=== PATIENT | female | born 1955 | race Caucasian/White ===

== ENCOUNTER 2017-03-15 14:25 | Day surgery (SDC) | payer BC ==
[~2017-03-15] VITALS: Ht 167.6 cm; Wt 72.6 kg
--- NOTE | 2017-03-15 16:16 | NUR ---
03/15/17 1616 Zeny Samayoa 1610-PATIENT ARRIVED TO PACU ON 3L NC O2 SAT 100% PATIENT REACTIVE TO VOICE OPENS EYES DENIES PAIN OR NAUSEA. PATIENT FEELS "SLIME IN BACK OF THROAT" SUCTIONED CLEAR PHLEGM.
--- NOTE | 2017-03-16 09:44 | OR ---
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 POSTOPERATIVE DIAGNOSIS: Firm, bulky neoplasm at 30 cm, unable to pass the scope beyond. PROCEDURE: Esophagoscopy with biopsy. ANESTHESIA: Intravenous sedation, fentanyl 100 mcg, Versed 4 mg. INDICATION: This 61-year-old white woman is a patient of Dr. Norm Oneal and Dr. Nelsy Menchaca. She presented to Dr. Oneal with progressive dysphagia, located in the midsternum. Dr. Oneal had her undergo an upper GI, which occurred in the past few days, confirming a very long narrow neoplastic process of the mid to distal esophagus. A CT scan was performed concurrently confirming a neoplasm of the esophagus directly behind the level of the left atrium. She had no evidence of regional or distant metastatic disease. It is notable she has no risk factors for esophageal carcinoma, specifically no ongoing gastroesophageal reflux symptoms, no smoking and no alcohol use. She has no family history of esophageal cancer either. She is admitted at this time to undergo upper endoscopy to better characterize the problem and in particular to see if the lesion can be passed with the scope to allow for PEG tube. It is notable that she has lost 10 pounds in the past 2 weeks related to essentially no solid food intake. She has been advised already and has been doing liquid nutritional supplements. FINDINGS: Indeed, there was a firm neoplasm concentrically noted in the esophagus at 30 cm from the incisors. Multiple biopsies were obtained of the lesion. The scope certainly could not pass through it. A dilation was inadvisable and not performed. DESCRIPTION OF PROCEDURE: The patient was brought to the endoscopy suite, given topical Hurricaine spray, hypopharyngeal anesthesia. A bite block was placed and in the lateral decubitus position, intravenous sedation administered with full cardiopulmonary monitoring. Olympus video upper endoscope was passed in the hypopharynx. The vocal cords appeared normal. Scope was advanced into the proximal esophagus. The scope was passed down to approximately 30 cm, where a firm, somewhat irregular mass with some submucosal yellow Electronically Signed By: KINA MANE MD 03/16/17 0944 PATIENT NAME: LAISHA THOMPSON OPERATIVE REPORT DATE OF : 55 PHYSICIAN: KINA MANE MD REPORT #: [id number] REPORT IS CONFIDENTIAL AND NOT TO BE RELEASED WITHOUT AUTHORIZATION [facility] [address], [place] [address] Signed nodular changes was noted. Despite various maneuvers, the upper endoscope could not be manipulated beyond this area. Using biopsy forceps, biopsies were obtained of the lesion both below the level of the entry point into the esophagus at origin of the mass itself. Good specimens were obtained. The scope was then withdrawn and remaining more proximal esophagus appeared normal. CONCLUSION DIAGNOSIS: Esophageal neoplasm, most consistent with carcinoma. This despite a personal history showing very unlikely risk factors. PLAN: A staging PET scan may be appropriate. She may require a gastrostomy feeding tube to support her nutritional health while plans might be made for chemoradiation therapy anticipating definitive resection. For now, we will try to obtain the PET scan in a timely way and organize for appropriate consultation. Kina Mane MD JM/MODL /[id number] cc: MD Norm Rai MD Patricia J Winn, MD Electronically Signed By: KINA MANE MD 03/16/17 0944 PATIENT NAME: LAISHA THOMPSON OPERATIVE REPORT DATE OF : 55 PHYSICIAN: KINA MANE MD REPORT #: [id number] REPORT IS CONFIDENTIAL AND NOT TO BE RELEASED WITHOUT AUTHORIZATION
[2017-03-26] MEDS ORDERED: NORCO 7.5-3251 EACH PO (07:15)
[2017-03-26] MEDS ORDERED: MAPAP325 MG PO (09:48)
== END 2017-03-15 17:20 | disposition home or self-care (01) ==
LOC: DS 14:25
PROVIDERS: Surgery
PROC: 0DB58ZX Excision of Esophagus, Via Natural or Artificial Opening Endoscopic, Diagnostic (ICD-10-PCS; principal; 2017-03-15 15:45)
DX: C15.9 Malignant neoplasm of esophagus, unspecified (principal); K22.2 Esophageal obstruction; J45.909 Unspecified asthma, uncomplicated; Z90.49 Acquired absence of other specified parts of digestive tract; Z90.710 Acquired absence of both cervix and uterus; Z98.890 Other specified postprocedural states
CPT/HCPCS: 99152; 99153; J2250; J2405; J3010; J7120

== ENCOUNTER 2017-03-23 10:57 | Day surgery (SDC) | payer BC ==
[~2017-03-23] VITALS: Ht 167.6 cm; Wt 68.0 kg
--- NOTE | 2017-03-23 15:24 | NUR ---
03/23/17 1524 Opal Galeana 1430 RESP EVEN AND UNLABORED. 1434 PT CRYING AND MOANING, REPORTS NAUSEA AND PAIN. UNABLE TO RATE. MEDICATION GIVEN PER EMAR. 1443 NO CHANGE IN PT CRYING AND MOANING, PAIN MEDICAITON GIVEN PER EMAR. REPORTS NO NAUSEA. 1449 NO CHANGE IN PT CRYING AND MOANING, MEDICATION GIVEN PER EMAR. 1451 NO CHANGE IN PT CRYING AND MOANING, MEDICAITON GIVEN PER EMAR. 1453 PT RESP DECREASED, O2 MASK APPLIED AT 15L, AIRWAY HELD. 1455 PT MAINTAINING AIRWAY AND RESTING, 02 MASK AT 10L, O2 SAT 100% 1506 O2 SAT 100%, O2 DECREASED TO 8L. PT RESTING, WITH NO MAONING OR CRYING. VSS. PROGRESS REPORT GIVEN STOCKROOM CLERK AND MD. 1523 O2 DECREASED 6L VIA MASK.
--- NOTE | 2017-03-23 16:05 | NUR ---
RECIEVED A CALL FROM DR MANE TO SET UP TUBE FEEDINGS VIA PUMP FOR THIS PT WITH HER DX SHE IS GOING TO BE 100% DEPENDENT ON THE TUBE. HE WANTED EITHER ENSURE OR JEVITY TO BEGIN AT 60 ML/HOUR TO GRADUALLY INCREASE TO 150ML/HR IF TOLERATED. I CALLED AND TALKED WITH ENGINEERING TECHNICIAN PARKING DEANNA AND SHE RECOMMENDED THE JEVITY 1.2. I FAXED FACESHEET, ORDER, H AND P, AND PROG NOTE TO OPTIONS FOR THE FEEDINGS AND PUMP ETC. I TALKED TO LINDSAY FROM [facility]. ALSO ORDERS TO HOME [facility]ALTH FOR CARE/ INSTRUCTIONS OF J TUBE AND ADJUSTMENTS TO FLOW RATE. ALSO MED MANAGEMENT AND EDUCATION REGARDING RECENT DX.
--- NOTE | 2017-03-23 18:00 | NUR ---
PT TO ROOM 109, BEDSIDE REPORT, PATIENT VERY SEDATE RR 8 BPM, EASILY AROUSED TO VOICE. PT REPORTS PAIN BUT FALLS TO SLEEP WHEN NOT ENGAGED IN CONVERSATION.
--- NOTE | 2017-03-23 18:09 | NUR ---
1610: PATIENT BACK IN DAY SURGERY ROOM FROM PACU. PATIENT DROWSY, BUT EASILY AWAKENS TO VOICE. WHEN AWAKE PATIENT MOANING AND CRYING IN PAIN. RATES PAIN "50/10". MEDICATED FOR PAIN WITH LORTAB ELIXIR. LORTAB ELIXIR GIVEN THROUGH J TUBE. J TUBE THEN FLUSHED WITH 60 ML PLAIN WATER. MIDLINE ABDOMEN DRESSING CDI. LEFT LATERAL ABDOMEN DRESSING WITH SMALL AMOUNT OF RED DRAINAGE. RIGHT HAND IV WNL. SCDs ON. AT BEDSIDE. CALL LIGHT WITHIN REACH. 1650: PATIENT'S SATS DROPING DOWN TO 80s, O2 VIA NC AT 2 L/MIN PLACED ON PATIENT. PATIENT FREQUENTLY DROWSY, BUT AWAKENS TO VOICE. ENCOURAGE TO TAKE DEEP BREATHS. RN AT BEDSIDE CONTINUOUSLY TO MONITOR. 1710: PATIENT AWAKENED INTERMITTENTLY TO TAKE DEEP BREATHS. CONTINUES TO BE FREQUENTLY DROWSY. AT BEDSIDE. CALL LIGHT WITHIN REACH. 1730: PATIENT SLEEPING. AWAKENS TO VOICE. MAINTAINING SATS 92-96%. NOT REQUIRING INTERVENTION TO KEEP O2 SATS UP. TRANSFERRING PATIENT TO M/S ROOM. 1800: PATIENT TRANSFERRED TO ROOM 109. REPORT GIVEN TO M/S RN.
--- NOTE | 2017-03-23 18:20 | NUR ---
LE 1700: PATIENT C/O DRY MOUTH. GIVEN 1 ICE CHIP AT A TIME TO MOISTEN MOUTH. PATIENT TOLERATED THIS WELL.
--- NOTE | 2017-03-23 20:55 | NUR ---
PT ASSESSMENT COMPLETE. PT RATING PAIN 4/10 WHILE LYING STILL IN BED. PT DROWSY, WAKES TO NAME. RR 11. PT AGREES THAT 4/10 IS A TOLERABLE LEVEL RLL WITH CRACKLES UPON AUSCLTATION, ALL OTHER LUNG CHANG CLEAR TO AUSCULTATION. MEPILEX AND OPSITE TO MIDLINE C/D/I, OPSITE AND MEPILEX TO LUQ AT TUBE SITE WITH SMALL AMOUNT OF SANGUIEOUS SHADOWING. JEVITY TUBE FEEDING SET UP AT 25ML/HR PER ORDER. EDUCATION PROVIDED THROUGHOUT SETUP. PT DROWSY DURING EDUCATION, AGREES THAT SHE WILL NEED A FEW MORE TIMES TO LEARN. PT DENIES QUESTIONS AT THIS TIME REGARDING FEEDING SET UP. PT REQUESTS TO GET UP AND USE BATHROOM. PT ABLE TO AMBULATE WITH 1 PA TO BATHROOM, VOIDED WELL. PT RATES PAIN 7/10 TO ABD UPON RETURNING TO BED, RR 14. PT STATES "IT [place]". PT EDUCATED REGARDING MORPHINE IN HOME AIDE, ABLE TO PUSH BUTTON INDEPENDENTLY. NEW ICE PACK PROVIDED. PT STATES MORPHINE HELPING, RATES PAIN 4/10 PRIOR TO CONSTRUCTION REPRESENTATIVE LEAVING ROOM. PT DENIES OTHER NEEDS. ORIENTED PT TO CALL LIGHT SYSTEM, UNDERSTANDING STATED. CALL LIGHT IN PT'S LAP.
--- NOTE | 2017-03-23 22:45 | NUR ---
PT RESTING IN BED WITH EYES CLOSED. RESPIRATIONS EVEN AND UNLABORED, 12. SAO2 97%. PT APPEARS TO BE SLEEPING. CALL LIGHT WITHIN REACH.
--- NOTE | 2017-03-23 23:50 | NUR ---
KANGAROO PUMP STOPPED D/T NPO STATUS. TUBE FLUSHED WITH 60 ML OF TAP WATER. EDUCATION PROVIDED TO PT REGARDING FLUSHING TUBE. PT DENIES QUESTIONS REGARDING EDUCATION. PT STATES THAT PAIN IS WELL CONTROLLED, DENIES PAIN WHILE LAYING IN BED. PT ASSISTED TO BATHROOM WITH SBA. PT REPORTS PAIN INCREASES TO 6-7/10 WHILE UP AMBULATING, USING ABD MUSCLES. PT DESCRIBES BURNING PAIN. PT ASSISTED BACK TO BED, NEW ICE PACK PROVIDED. PT ALBE TO INDEPENDENTLY PUSH CERTIFIED RESPIRATORY THERAPIST BUTTON. PT ASSESSMENT COMPLETE. DENIES FURTHER NEEDS AT THIS TIME.
--- NOTE | 2017-03-24 01:52 | NUR ---
NURSE NOTIFIED RE BP.
--- NOTE | 2017-03-24 02:15 | NUR ---
PT RESTING WITH EYES CLOSED. RESPIRATIONS EVEN AND UNLABORED. RR 12, SAO2 98%. PT DOES NOT WAKE WHILE SENIOR SCIENCE CONSULTANT IN ROOM. CALL LIGHT PRESENT IN PT'S LAP.
--- NOTE | 2017-03-24 04:50 | NUR ---
PT ASSESSMENT COMPLETE. PT LYING IN BED WITH EYES OPEN WHEN AUTOMATION AND CONTROLS MANAGER ENTERS THE ROOM. PT AGREES THAT SHE IS BEGINNING TO FEEL LESS DROWSY. DRESSING TO MIDLINE C/I WITH SMALL AMOUNT OF SANGUINEOUS DRAINAGE PRESENT. DRESSING TO LUQ C/I WITH SMALL AMOUNT OF OMID DRAINAGE PRESENT, UNCHANGED FROM PRIOR ASSESSMENT. J-TUBE FLUSHED WITH 60 ML OF TAP WATER. AUTOMATION AND CONTROLS MANAGER TALKED PT THROUGH PROCEDURE WHILE DEMONSTRATING. PT DENIES QUESTIONS. STATES "THIS IS GOING TO BE A LOT". PT DENIES PAIN WHILE LAYING IN BED, A&OX4, CARRYING ON APPROPRIATE CONVERSATION. PT ASSISTED TO BATHROOM WITH SBA, PT STEADY ON HER FEET. PT RATES PAIN 6-7 AFTER GETTING BACK TO BED. REPORTS INCREASED PAIN WITH MOVEMENT. PT USES OCCUPATIONAL THERAPIST'S ASSISTANT BUTTON APPROPRIATELY. PT EXPRESSES CONCERNS REGARDING PET SCAN TODAY, AND HOW MUCH MOVEMENT IT WILL REQUIRE. PT REASSURED. PT ALSO EXPRESSES CONCERNS REGARDING OUTCOME OF PET SCAN, DENIES NEED FOR PASTORAL CARE VISIT.
--- NOTE | 2017-03-24 05:18 | NUR ---
PT RESTED WELL THIS SHIFT. CONTINUOUS PULSE OX IN PLACE, PT TOLERATING RA. DRESSINGS X 2 TO ABD WITH SM DRAINAGE TO EACH. J-TUBE FLUSHED Q 6 WITHOUT RESISTANCE. PROVIDE EDUCATION WHILE PERFORMING FLUSH. PT NPO FOR PET SCAN AT 1230, JEVITY @ 25 ML/HR VIA J-TUBE WHEN PT NOT NPO. CLEAR LIQ DIET. PAIN WELL CONTROLLED WITH MORPHINE LEAK INSPECTOR. PAIN INCREASES WITH MOVEMENT. NO REPORTS OF NAUSEA THIS SHIFT. [id number]. SBA.
--- NOTE | 2017-03-24 07:30 | NUR ---
pt resting in bed with eyes closed at this time. white board updated.
--- NOTE | 2017-03-24 07:38 | NUR ---
BEDSIDE REPORT.. PT RESTING IN BED, EYES CLOSED RR EVEN AT 12 BPM NO DISTRESS NOTED. PT APPEARS TO BE SLEEPING COMFORTABLLY
--- NOTE | 2017-03-24 08:36 | NUR ---
pt up to bathroom at this time. toelrating activity well. lortab given per feeding tube pt education and instruction given pt very receptive and asks questions.
--- NOTE | 2017-03-24 08:54 | OR ---
[facility] [address] [place], [place] [address] Signed DATE OF OPERATION: 03/23/2017 SURGEON: Kina Mane MD PREOPERATIVE DIAGNOSIS: Esophageal obstruction secondary to carcinoma and weight loss. POSTOPERATIVE DIAGNOSIS: Esophageal obstruction secondary to carcinoma and weight loss. PROCEDURE: Open feeding jejunostomy (14 red rubber Witzel tunnel technique). ANESTHESIA: General endotracheal (Isabella Pérez CRNA) and local 20 mL of 0.25% Marcaine with epinephrine. INDICATION: This 61-year-old white woman has had progressive dysphagia. She presented to Dr. Norm Oneal, cover seamer, who recognized the high probability of esophageal carcinoma and an upper GI was performed. This was interpreted by Dr. Laisha Salcido and showed a large nearly obstructing mass of the mid esophagus in the retrocardiac area. A CT scan was subsequently immediately performed showing no evidence of metastatic disease, but a bulky tumor in the mid esophagus. Upper endoscopy was performed by me last week, which confirmed near obstruction. The scope certainly could not pass through the obstructing lesion. She has been handling some liquids, but has had a nearly 20-pound weight loss over the past several weeks related to this. I have conferred with Dr. Gold Cannon at [facility] for further consideration of possible esophageal resection. A feeding tube is indicated at this time. It is preferable that a jejunal tube to be placed despite the cumbersome nature of its use with pump and so forth in lieu of a gastrostomy tube so as to not damage the stomach, which would likely be used in a pull-up procedure at definitive esophageal resection. The risks of bleeding, infection, and so forth were reviewed with her and her , they understand and wished to proceed. FINDINGS: There is no sign of ascites or carcinomatosis. The jejunum was easily identified. The tube was placed approximately 20 cm distal to the ligament of Treitz. A Witzel tunnel technique was used. Good function of catheter was noted. DESCRIPTION OF PROCEDURE: The patient was brought to the operating room and given a general endotracheal anesthetic. Preoperative antibiotic Ancef was given. Sequential compression device stockings used and heparin subcutaneously administered. The abdomen was prepared with a Electronically Signed By: KINA MANE MD 03/24/17 0854 PATIENT NAME: LAISHA THOMPSON OPERATIVE REPORT DATE OF : 55 PHYSICIAN: KINA MANE MD REPORT #: [id number] REPORT IS CONFIDENTIAL AND NOT TO BE RELEASED WITHOUT AUTHORIZATION [facility] [address] [place], [place] [address] Signed chlorhexidine solution and draped sterilely. A small mid epigastric incision was made. The abdomen was entered without problem. She had more abdominal fat than I had expected including properitoneal fat. Nevertheless, the abdomen was entered without problem. Internal inspection showed no sign of ascites or carcinomatosis. The transverse colon was immediately beneath the incision, was easily moved out of the way. Small bowel was gently examined and the small bowel run more proximally, ultimately identifying the proximal jejunum. Approximately 20 cm or so from the ligament of Treitz, the small bowel loop was pulled into the abdomen. Kierra clamps were gently applied to secure the loop of bowel anticipated for feeding jejunostomy. A pursestring suture of 3-0 silk suture was made and using hemostat electrocautery, the serosa and mucosa of the antimesenteric portion of the segment of bowel was opened. A 14 red rubber catheter with the tip cut off and additional hose cut in it. It was gently threaded downstream into the jejunum, which easily passed. The pursestring suture was secured. Interrupted 3-0 silk suture was used to provide a Witzel tunnel. In the lateral left abdomen, a small transverse incision was made and a tonsil clamp passed to the abdominal wall allowing for delivery of the feeding tube. This gently directed to the left abdominal wall and secured to the peritoneal layer with interrupted 3-0 silk sutures. Flushing of the catheter showed good patency and no evidence of leakage. A few centimeters of small bowel was attached to the abdominal wall so as to avoid torsion on the area. A cap was applied to it. Plans were made for closure. The midline fascia was reapproximated with running 0 PDS suture. Subcutaneous tissue was irrigated and skin was closed with running subcuticular 3-0 Vicryl. Steri-Strips were applied as was a Mepilex silver sponge dressing to both the incision and the feeding tube site. The patient was ultimately extubated and transferred to recovery room in good condition having suffered no complications. Sponge, needle, and instruments counts reported as correct x3. There was minimal if any blood loss. MD TIN Garcia/YUVALL /[id number] Electronically Signed By: KINA MANE MD 03/24/17 0854 PATIENT NAME: LAISHA THOMPSON OPERATIVE REPORT DATE OF : 55 PHYSICIAN: KINA MANE MD REPORT #: [id number] REPORT IS CONFIDENTIAL AND NOT TO BE RELEASED WITHOUT AUTHORIZATION [facility] [address] [place] [place] [address] Signed cc: MD Nelsy Solitario MD Cynthia Sue Holmes, MD Dr. Donald [place], [place] Electronically Signed By: KINA MANE MD 03/24/17 0854 PATIENT NAME: LAISHA THOMPSON OPERATIVE REPORT DATE OF : 55 PHYSICIAN: KINA MANE MD REPORT #: [id number] REPORT IS CONFIDENTIAL AND NOT TO BE RELEASED WITHOUT AUTHORIZATION
--- NOTE | 2017-03-24 09:15 | NUR ---
FAXED ADDITIONAL CHART NOTES TO [facility] AND TO [facility]. TALKED WITH AVELINO FLOWERS FROM [facility] AND CALLED TO SPEAK WITH LINDSAY FROM [facility] AND SHE SAID SHE WOULD WATCH FOR FAX
--- NOTE | 2017-03-24 09:53 | NUR ---
PT RESTING IN BED REPORTS PAIN IS WELL MANAGED AT THIS TIME. NO DISTRESS NOTED
--- NOTE | 2017-03-24 10:05 | NUR ---
pt up to the restroom at this time. vitals taken. pt given toothbrush and washcloth to do AM care. pt is refusing a shower because she is discharging and wants to take one at home. no other requests at this time.
--- NOTE | 2017-03-24 11:44 | NUR ---
CALLED PT OFF UNIT TO PET SCAN, OK WITH PT DISCHARGING AFTER PET SCAN, ALSO OK TO PLACE PLASTIC CLAMP TO FEEDING TUBE.
--- NOTE | 2017-03-24 12:31 | NUR ---
PATIENT USED FEEDING TO TO GIVE HERSELF HER PAIN MEDICATION AND FLUSH AFTER WITH RN SUPERVISION SPOUSE AT BEDSIDE WELL. ALL PERFORMED WELL.
--- NOTE | 2017-03-24 13:00 | NUR ---
PT BACK TO PET SCAN AT THIS TIME, STAFF AT PET SCAN TO COME BACK FOR HER AT 1420.
--- NOTE | 2017-03-24 14:39 | NUR ---
PT BACK TO ROOM 109 FROM PET SCAN
--- NOTE | 2017-03-24 15:11 | NUR ---
DISCHARGE PACKET AND EDUCATION GIVEN TO PATIENT AND SPOUSE. MARIJA PHARMACIST IN ROOM TO DISCUSS LORTAB RX. RN DISCUSSED LAST DOSE NEXT DOSE. FEEDING TUBE INSTRUCTIONS GIVEN. NO FURTHER QUESTIONS, PATIENT VERBALIZED UNDERSTANDING WELL SPOUSE
--- NOTE | 2017-03-24 16:32 | NUR ---
patient's morphine bacteriologist food dc'd at this time with Sarahi Chen patient had used 8mls and we wasted 22mls. Laurie in Pharmacy notified.
[2017-03-26] MEDS ORDERED: NORCO 7.5-3251 EACH PO (07:15)
[2017-03-26] MEDS ORDERED: MAPAP325 MG PO (09:48)
== END 2017-03-24 15:07 | disposition home or self-care (01) ==
LOC: DS 10:57 → MS 17:31 → DS 03-24 15:07
PROVIDERS: Surgery
PROC: 0D9A00Z Drainage of Jejunum with Drainage Device, Open Approach (ICD-10-PCS; principal; 2017-03-23 13:45)
DX: K22.2 Esophageal obstruction (principal); J45.909 Unspecified asthma, uncomplicated; Z88.8 Allergy status to other drugs, medicaments and biological substances; Z90.49 Acquired absence of other specified parts of digestive tract; Z90.710 Acquired absence of both cervix and uterus; Z85.01 Personal history of malignant neoplasm of esophagus; Z98.890 Other specified postprocedural states
CPT/HCPCS: 00790; J0330; J0690; J1100; J1644; J2250; J2270; J2405; J2550; J2704; J3010; J7120

== ENCOUNTER 2017-05-06 09:00 | Day surgery (SDC) | payer BC ==
[~2017-05-06] VITALS: Ht 167.6 cm; Wt 62.1 kg
[~2017-05-06 09:00] MED LIST: MAPAP325 MG PO; NORCO 7.5-3251 EACH PO
[2017-05-06] MEDS ORDERED: ZOFRAN8 MG PT (09:30)
[2017-05-06] MEDS ORDERED: AMOXICILLI250 MG/5 M PT (09:32)
[2017-05-06] MEDS ORDERED: DEXAMETHAS0.5 MG/5 M PT (09:32)
[2017-05-06] MEDS ORDERED: LORAZEPAM1 MG PT (09:34)
[2017-05-06] MEDS ORDERED: HYCET 7.5 MG-3473 ML PO (11:50)
--- NOTE | 2017-05-06 12:08 | NUR ---
05/06/17 1208 Opal Galeana 1138 RESP EVEN AND UNLABRED. PT ON OXYMASK. 1142 PT AWAKE AND O2 SAT 100%, O2 REMOVED.
--- NOTE | 2017-05-08 14:55 | CONS ---
[facility] [address] [place], [place] [address] Signed DATE OF CONSULTATION: 05/06/2017 PROBLEM: Nonfunction of left subclavian Port-A-Cath device. 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 A few weeks ago, she underwent left subclavian Port-A-Cath placement by me. Additionally, she has had placement of a jejunal feeding tube. She is under the care of Dr. Mccarthy and getting chemotherapy and radiation therapy, anticipating definitive resection in a number of weeks. She has been getting her chemotherapy at [facility], so it could be coordinated with concurrent radiation therapy. My office was called yesterday noting that they have not been able to access the port device. She had really no problem in placement of the device originally and the device is a Bard port type catheter with a Groshong tip. Imaging studies have been unrevealing as to the source of inability to access the device. I asked her to come to the hospital today to anticipate exploration of the wound and remedy of the problem whatever it has caused. PHYSICAL EXAMINATION: GENERAL: She is accompanied by her daughter and her . She looks alert and well. HEENT: Trachea is midline. CHEST: Shows normal respiratory excursion without tachypnea. She is slightly thinner than she was before, but still appears healthy. Examination of the port device in the left pectoral area shows it is easily palpable. I could not tell if it is really a flipped or otherwise malposition to allow for access. ABDOMEN: Soft and nontender. The feeding jejunostomy emanated from the left side and appears to be in good shape. EXTREMITIES: Show no clubbing, cyanosis, or edema. DIAGNOSTIC STUDIES: Lab studies from May 05, 2017, (yesterday) at [facility] show a white count of 5.2, hematocrit of 43.6, and platelets of 218,000. Her electrolytes are normal. Creatinine 0.8, alkaline phosphatase is 61. ASSESSMENT AND PLAN: It is uncertain the cause of poor access to the device. It is certainly in good position otherwise. Most likely it has flipped and that is uncertain at this point. I recommended exploration of the wound, remedy of the problem, even if it may require explantation of the device and re-implantation of a new device. The risks of bleeding, infection, embolization of the catheter, and other unforeseen complications were reviewed in detail. She understands. Electronically Signed By: KINA MANE MD 05/08/17 1455 PATIENT NAME: LAISHA THOMPSON CONSULTATION DATE OF : 55 PHYSICIAN: KINA MANE MD REPORT #: [id number] REPORT IS CONFIDENTIAL AND NOT TO BE RELEASED WITHOUT AUTHORIZATION [address] [address] Signed MD TIN Garcia/RUPAL /[id number] cc: Isak Mccarthy MD Electronically Signed By: KINA MANE MD 05/08/17 1455 PATIENT NAME: DONNALAISHA KAREN CONSULTATION DATE OF : 55 PHYSICIAN: KINA MANE MD REPORT #: [id number] REPORT IS CONFIDENTIAL AND NOT TO BE RELEASED WITHOUT AUTHORIZATION
--- NOTE | 2017-05-08 14:55 | OR ---
[facility] [address], [place] [address] Signed DATE OF OPERATION: 05/06/2017 SURGEON: Kina Mane MD PREOPERATIVE DIAGNOSES: 1. Mid esophageal carcinoma with chemoradiation therapy. 2. Port-A-Cath unable to be accessed. POSTOPERATIVE DIAGNOSES: 1. Mid esophageal carcinoma with chemoradiation therapy. 2. Port-A-Cath unable to be accessed. 3. No evidence of malposition of port, slight angulation noted. PROCEDURES: 1. Port-A-Cath revision. 2. Access of Port-A-Cath. SURGEON: Kina Mane MD ANESTHESIA: Local with monitored anesthesia care. José Kwon CRNA. INDICATION: This 61-year-old white woman has a mid esophageal squamous cell carcinoma and has undergone placement of a feeding tube by me in the jejunum as well as placement of a left subclavian Port-A-Cath device. She was starting her chemotherapy this week as well as radiation therapy, but nurses at [facility] were unable to access the port device to allow for it to use. Peripheral chemotherapy was administered instead. I was advised of this yesterday and asked the patient to come to the hospital today. My evaluation in the preop area shows the port to be easily palpated in the left infraclavicular space. No sign of infection or other problem. Wound exploration and Port-A-Cath revision as necessary to allow for function of the catheter has been recommended. She may require replacement of the device altogether and remains to be seen. She and her understand the risks of bleeding, infection, and other unforeseen complications and wished to proceed. FINDINGS: The port was not flipped. It was well-secured to the pectoralis fascia and the contour of the pectoralis was such that it may have a slight angulation on it, but not much Electronically Signed By: KINA MANE MD 05/08/17 1455 PATIENT NAME: LAISHA THOMPSON OPERATIVE REPORT DATE OF : 55 PHYSICIAN: KINA MANE MD REPORT #: [id number] REPORT IS CONFIDENTIAL AND NOT TO BE RELEASED WITHOUT AUTHORIZATION [facility] [address], [place] [address] Signed really. Good function of the catheter is noted. There is no sign of thrombus, infection, or other problem. The catheter was left accessed with an angled Hurtado needle. Mindful that the port tips just slightly downward at the end or the catheter inserts to the vein and is not perfectly flat and even with the surface of the skin, but never the less easily accessible. DESCRIPTION OF PROCEDURE: The patient was brought to the operating room, placed in supine position. The upper torso prepared with a chlorhexidine solution and draped sterilely. Preoperative antibiotic Ancef was given. The arms were at the side. After sterile draping, 1% lidocaine was injected transversely in the previous incision. Dissection carried through the incision with sharp dissection down through the subcutaneous tissue. Further dissection through the tissues revealed the capsule for which the port device was well secured. The capsule was incised and interrogation of it showed the port device to be upright and in a good position. There may be slight angulation of the port tipped with the exit site (superior aspect) slightly down. The port device was accessed with an angled Hurtado needle and aspirated blood very easily. It flushed easily as well. The pocket was then secured with interrupted 2-0 Vicryl and percutaneous access of the port with an angled Hutrado needle was then undertaken. Of note, the puncture site was just inferior to the incision itself. The previous puncture sites from attempts at the catheter were far too inferior and lateral for adequate access. Good function of the catheter was noted with the percutaneous access as well. The port pocket was more fully closed with interrupted 2-0 Vicryl and the skin closed with running subcuticular 3-0 Vicryl. Steri-Strips were applied. The catheter was left accessed with the angled Hurtado needle, so as to provide a guide for the future access of the device from the nurses at [facility]. A Mepilex silver sponge dressing was applied as was an OpSite. The patient tolerated procedure well. Blood loss was minimal. MD TIN Garcia/MODL /[id number] cc: Isak Mccarthy MD Electronically Signed By: KINA MANE MD 05/08/17 1455 PATIENT NAME: LAISHA THOMPSON OPERATIVE REPORT DATE OF : 55 PHYSICIAN: KINA MANE MD REPORT #: [id number] REPORT IS CONFIDENTIAL AND NOT TO BE RELEASED WITHOUT AUTHORIZATION [address] [address] Signed [facility], Outpatient Oncology Nurses Electronically Signed By: KINA MANE MD 05/08/17 1455 PATIENT NAME: LAISHA THOMPSON OPERATIVE REPORT DATE OF : 55 PHYSICIAN: KINA MANE MD REPORT #: [id number] REPORT IS CONFIDENTIAL AND NOT TO BE RELEASED WITHOUT AUTHORIZATION
[2017-07-23] MEDS ORDERED: PROCHLORPERAZINE5 MG PO (13:11)
[2017-07-23] MEDS ORDERED: ACETAMINOP160 MG/51 PO (13:12)
[2017-07-23] MEDS ORDERED: ANTI-DIARR1 MG/7.5 M PO (13:13)
[2017-07-23] MEDS ORDERED: OXYCODONE HCL5 MG PO (13:14)
[2017-07-23] MEDS ORDERED: POLYETHYLENE G500 G2 MISC (13:15)
== END 2017-05-06 13:15 | disposition home or self-care (01) ==
LOC: DS 09:00 → OPS 09:00 → DS 10:15 → OPS 13:15
PROVIDERS: Surgery
PROC: 0JWT0XZ Revision of Tunneled Vascular Access Device in Trunk Subcutaneous Tissue and Fascia, Open Approach (ICD-10-PCS; principal; 2017-05-06 10:15)
DX: Z45.2 Encounter for adjustment and management of vascular access device (principal); J44.9 Chronic obstructive pulmonary disease, unspecified; Z90.49 Acquired absence of other specified parts of digestive tract; Z98.890 Other specified postprocedural states
CPT/HCPCS: 00532; 71045; J0690; J1644; J2405; J2704; J2765; J3010; J7120

== ENCOUNTER 2017-05-17 21:56 | Emergency (ER) | payer BC ==
[~2017-05-17] VITALS: Ht 167.6 cm; Wt 62.1 kg
[~2017-05-17 21:56] MED LIST changes: +AMOXICILLI250 MG/5 M PT; +DEXAMETHAS0.5 MG/5 M PT; +HYCET 7.5 MG-3473 ML PO; +LORAZEPAM1 MG PT; +ZOFRAN8 MG PT
[2017-05-17] MEDS ORDERED: TRAZODONE HCL50 MG PO (22:08)
[2017-05-17] MEDS ORDERED: PRILOSEC10 M1 PO (22:08)
[2017-07-23] MEDS ORDERED: PROCHLORPERAZINE5 MG PO (13:11)
[2017-07-23] MEDS ORDERED: ACETAMINOP160 MG/51 PO (13:12)
[2017-07-23] MEDS ORDERED: ANTI-DIARR1 MG/7.5 M PO (13:13)
[2017-07-23] MEDS ORDERED: OXYCODONE HCL5 MG PO (13:14)
[2017-07-23] MEDS ORDERED: POLYETHYLENE G500 G2 MISC (13:15)
== END 2017-05-17 23:05 | disposition home or self-care (01) ==
LOC: ED 21:56
DX: K94.13 Enterostomy malfunction (principal); Z85.01 Personal history of malignant neoplasm of esophagus
CPT/HCPCS: 74018; 99283

== ENCOUNTER 2018-08-04 06:00 | Day surgery (SDC) | payer BC ==
[~2018-08-04] VITALS: Ht 167.6 cm; Wt 61.2 kg
[~2018-08-04 06:00] MED LIST changes: +ACETAMINOP160 MG/51 PO; +ANTI-DIARR1 MG/7.5 M PO; +IBUPROFEN600 MG PO; +OXYCODONE HCL5 MG PO; +POLYETHYLENE G500 G2 MISC; +PRILOSEC10 M1 PO; +PROCHLORPERAZINE5 MG PO; +TRAZODONE HCL50 MG PO
[2018-08-04] MEDS ORDERED: LEVOTHYROXINE150 MCG PO (06:13)
--- NOTE | 2018-08-04 08:28 | NUR ---
08/04/18 0828 Carolin Garcia 0809 PT TO PACU SLEEPY BUT AROUSABLE DENIES PAIN OR NAUSEA O2 AT 2L NASAL CANNULA
--- NOTE | 2018-08-05 09:42 | OR ---
[facility] [address], [place] [address] Signed DATE OF OPERATION: 08/04/2018 SURGEON: Kina Mane MD PREOPERATIVE DIAGNOSES: 1. History of esophagectomy for midesophageal squamous cell carcinoma (esophagogastric anastomosis). 2. History of right thyroid lobectomy for a right papillary thyroid carcinoma. 3. Colon screening. POSTOPERATIVE DIAGNOSES: 1. Widely patent esophagogastric anastomosis. No evidence of recurrent neoplasm proximally or stricture of anastomosis. 2. Stomach normal with normal pylorus. 3. Normal-appearing colon except for diverticulosis. PROCEDURES PERFORMED: 1. Esophagogastroduodenoscopy with biopsy. 2. Total colonoscopy to cecum. ANESTHESIA: Intravenous sedation, propofol infusion; Isabella Pérez CRNA. INDICATION: This 62-year-old white woman has a complex past history including a mid esophageal squamous cell carcinoma having undergone neoadjuvant chemoradiation therapy and ultimately esophagectomy with an esophagogastric anastomosis by Dr. Gold Cannon at [facility] in [place]. She did suffer a left vocal cord palsy related to the operation. A temporary collagen injection was helpful, but her symptoms have recurred with hoarseness. She is getting along extremely well without any sign of dysphagia, and although her voice is altered, she is quite pleased and happy. She recently underwent right thyroid lobectomy by ak for a papillary carcinoma. There were no complications related to that operation. She is doing well. She has never had colonoscopy, and on that basis, she presents for screening colonoscopy at age 62. Additionally, surveillance upper endoscopy has been recommended to assess for recurrent neoplasm of the proximal esophagus and of course assessment of the anastomosis itself. The risks of bleeding, infection, and perforation related to colonoscopy and upper endoscopy have been reviewed with her. She understands and wished to proceed. FINDINGS: Electronically Signed By: KINA MANE MD 08/05/18 0942 PATIENT NAME: LAISHA THOMPSON OPERATIVE REPORT DATE OF : 55 REPORT #: [id number] PHYSICIAN: KINA MANE MD PCP: KINA MANE MD REPORT IS CONFIDENTIAL AND NOT TO BE RELEASED WITHOUT AUTHORIZATION [facility] [address], [place] [address] Signed On upper endoscopy, the vocal cords did have a dysmorphic appearance related to left cord palsy, but there was no airway obstruction or other abnormality and certainly no neoplasm. The esophagogastric anastomosis was widely patent showing no sign of abnormality in the proximal side or stricture at the anastomosis itself. The neoesophagus (stomach) appeared normal without sign of ulceration. There was no evidence of H pylori. Pylorus was widely patent. On colonoscopy, the prep was quite good. Complete colonoscopy was undertaken to the cecum. There were numerous diverticula of the sigmoid, but no signs of polyps, stricture, or other abnormality. She did have minimal hemorrhoidal change. DESCRIPTION OF PROCEDURE: The patient was brought to the endoscopy suite and placed in lateral decubitus position. Hypopharyngeal anesthesia was not administered on this occasion. A bite block was placed. Intravenous sedation was induced with propofol infusional technique with full cardiopulmonary monitoring. An Olympus video upper endoscope was passed in the hypopharynx and care was taken to examine fully the vocal cords. Despite a bit of gagging and coughing and so forth, photographs could be taken. There did appear to be a somewhat bowed appearance of the left cord, but good patency and apparently good function of the right cord. The scope was ultimately advanced into the proximal esophagus where the mucosa appeared entirely normal. The anastomosis was easily traversed with the scope entering quite promptly of course. The gastric remnant (misbah esophagus). This appeared quite normal overall. The pylorus was normal and scope was passed through into the duodenum. The duodenum was normal. Biopsies were obtained to assess for celiac disease. The scope was withdrawn and biopsies taken of the gastric conduit as well. Retroflexed view was undertaken as well showing the anastomosis to be without sign of stricture or abnormality. The scope was withdrawn to the proximal side of the anastomosis and biopsies were taken of the anastomosis and proximal esophagus. This measured out to be about 22 cm from the incisors. The scope was withdrawn and re-examination of vocal cords undertaken. Plans were then made for colonoscopy. Digital rectal examination was found to be normal. An Olympus video colonoscope was passed in the rectum and manipulated without problem ultimately to the cecum. Ileocecal valve and appendiceal orifice were normal. The scope was withdrawn from that point. Examination throughout showed no sign of abnormality into the sigmoid where numerous diverticula were once again seen. There was no sign of stricture, active inflammation, or other abnormality. Retroflexed view showed minimal internal hemorrhoidal change. The scope was removed and the patient was taken to recovery room in good condition. CONCLUDING DIAGNOSES: Electronically Signed By: KINA MANE MD 08/05/18 0942 PATIENT NAME: LAISHA THOMPSON OPERATIVE REPORT DATE OF : 55 REPORT #: [id number] PHYSICIAN: KINA MANE MD PCP: KINA MANE MD REPORT IS CONFIDENTIAL AND NOT TO BE RELEASED WITHOUT AUTHORIZATION [address] [address] Signed 1. No evidence of recurrent squamous cell carcinoma of proximal esophageal segment. Anastomosis is widely patent. 2. Known left vocal cord palsy, unchanged and clinically well tolerated currently. 3. Diverticulosis of colon. No evidence of polyps. PLAN: 1. Repeat colonoscopy in 5 to 10 years, sooner if clinically indicated. Consideration for repeat upper endoscopy in 1 to 2 years. 2. Further evaluation of vocal cord palsy will be undertaken at [facility] in the future. MD TIN Garcia/YUVALL /[id number] cc: Gold Cannon MD [place], [place] MD Shira Ashford, TORREY Copies: JESSA SHULTZ MD, ERIKA PAC ~ Electronically Signed By: KINA MANE MD 08/05/18 0942 PATIENT NAME: LAISHA THOMPSON OPERATIVE REPORT DATE OF : 55 REPORT #: [id number] PHYSICIAN: KINA MANE MD PCP: KINA MANE MD REPORT IS CONFIDENTIAL AND NOT TO BE RELEASED WITHOUT AUTHORIZATION
== END 2018-08-04 09:02 | disposition home or self-care (01) ==
LOC: DS 06:00 → OPS 06:00 → DS 10:00 → OPS 10:00
PROVIDERS: Surgery
PROC: 0DB48ZX Excision of Esophagogastric Junction, Via Natural or Artificial Opening Endoscopic, Diagnostic (ICD-10-PCS; 2018-08-04)
PROC: 0DJD8ZZ Inspection of Lower Intestinal Tract, Via Natural or Artificial Opening Endoscopic (ICD-10-PCS; 2018-08-04)
PROC: 0DB98ZX Excision of Duodenum, Via Natural or Artificial Opening Endoscopic, Diagnostic (ICD-10-PCS; principal; 2018-08-04 06:45)
PROC: 0DB68ZX Excision of Stomach, Via Natural or Artificial Opening Endoscopic, Diagnostic (ICD-10-PCS; 2018-08-04 06:45)
DX: Z12.11 Encounter for screening for malignant neoplasm of colon (principal); K64.8 Other hemorrhoids; K29.50 Unspecified chronic gastritis without bleeding; K57.30 Diverticulosis of large intestine without perforation or abscess without bleeding; E89.0 Postprocedural hypothyroidism; J45.909 Unspecified asthma, uncomplicated; R49.9 Unspecified voice and resonance disorder; J38.01 Paralysis of vocal cords and larynx, unilateral; Z85.01 Personal history of malignant neoplasm of esophagus; Z85.850 Personal history of malignant neoplasm of thyroid; Z98.890 Other specified postprocedural states; Z79.899 Other long term (current) drug therapy; Z98.0 Intestinal bypass and anastomosis status
CPT/HCPCS: J2250; J2405; J3010; J7120

== ENCOUNTER 2019-12-05 07:01 | Emergency (ER) | payer BC ==
[~2019-12-05] VITALS: Ht 167.6 cm; Wt 59.0 kg
--- OUTSIDE RECORDS SUMMARY | ~2019-12-05 | XMS | Encounter Summary ---
Demographics + + + | Address | [address] | | | [place] [address] | + + + | Home Phone | | + + + | Preferred Language | Unknown | + + + | Marital Status | | + + + | Adventist Affiliation | Unknown | + + + | Race | Unknown | + + + | Ethnic Group | Unknown | + + + Author + + + | Author | [facility] | | | and [place] | + + + | Organization | [facility] | | | and [place] | + + + | Address | Unknown | + + + | Phone | Unavailable | + + + Support + + +---------+ + | Name | Relationship | Address | Phone | + + +---------+ + | Gene Severe | ECON | Unknown | | + + +---------+ + Care Team Providers + +------+ + | Care Financial Agent Name | Role | Phone | + +------+ + | No, Physician | PCP | Unavailable | + +------+ + Encounter Details +--------+ + + + + | Date | Type | Department | Care Team | Description | +--------+ + + + + | 05/12/ | Documentati | [facility] | Evita Chatterjee | | | 2018 | on | MED CNT ONCOLOGY | A, OT | | | | | THERAPY [address] | | | | | [address] [place], | | | | | | [place] [address] | | | | | | [phone] | | | +--------+ + + + + Social History + +-------+ +--------+------+ | Tobacco Use | Types | Packs/Day | Years | Date | | | | | Used | | + +-------+ +--------+------+ | Never Smoker | | | | | + +-------+ +--------+------+ + +---+---+---+ | Smokeless Tobacco: | | | | | Never Used | | | | + +---+---+---+ + + +---------+ + | Alcohol Use | Drinks/Week | oz/Week | Comments | + + +---------+ + | No | | | | + + +---------+ + + + + | Sex Assigned at | Date Recorded | | | | + + + | Not on file | | + + + documented as of this encounter Progress Notes Evita Chatterjee, OT - 05/12/2017 9:54 [facility] [address] [place] [address] Oncology Rehab Screening Date: 05/12/2017 Patient Information Patient Name: Annie Brown Date of : 1955 Age: 61 y.o. Patient was seen for oncology rehab screening due to new patient consult. Patient currently being treated for esophageal cancer and treatment regimen includes concurrent chemoradiatio n. Patient sleeping when therapist arrived, therefore consultation was performed with prakash alvarez and advised him of role and availability of oncology rehab navigator. P rimary area of deficit for patient is re: decreased nutritional status and resulting weaknes s and lack of activity tolerance. Spouse does report, however, that patient is managing ruth sehold ambulation without device and without any falls, and most of her basic self care. Sp genevase does occasionally assist with her shower and is performing indoor and outdoor higher le jorge luis home mgmt activities. Spouse reports they did have a home health nurse just prior to phil alvarado starting treatment and they provided input re: home setup for safety. Changes have be en made to patient's tube feedings so spouse is hoping improved nutritional status will star t to increase patient's strength. Discussed with spouse that due to this, activity/exercise beyond daily self care is not necessarily yet indicated - patient needs to increase/maintai n calories. However, oncology rehab will cont to monitor status and would be appropriate to initiate gentle, light strengthening program for mm endurance once patient has increased ca jeff intake. Spouse agreeable to this plan and is also aware of how to contact therapist i f any questions or concerns. Will have follow up visit in cancer center. Electronically signed by: Evita Chatterjee OT, 05/12/2017 9:55 Patient Name: Annie Jesus Kevin/: 1955/ documented in this encounter Plan of Treatment Not on filedocumented as of this encounter Visit Diagnoses Not on filedocumented in this encounter"
--- OUTSIDE RECORDS SUMMARY | ~2019-12-05 | XMS | Clinical Summary ---
Demographics + + + | Address | [address] | | | [place] [address] | + + + | Home Phone | | + + + | Preferred Language | Unknown | + + + | Marital Status | | + + + | Church Affiliation | Unknown | + + + | Race | Unknown | + + + | Ethnic Group | Unknown | + + + Author + + + | Author | [facility] | | | and [place] | + + + | Organization | [facility] | | | and [...] Team Providers + +------+ + | Care Hypnotherapist Name | Role | Phone | + +------+ + | Haim Epps | PCP | | + +------+ + Allergies No Known Allergies Medications + + + +---------+------+------+-------+ | Medication | Sig | Dispensed | Refills | Star | End | Statu | | | | | | t | Date | s | | | | | | Date | | | + + + +---------+------+------+-------+ | levothyroxine | Take 100 mcg by | | 0 | | | Activ | | (SYNTHROID) 100 mcg | mouth Daily. | | | | | e | | tablet | | | | | | | + + + +---------+------+------+-------+ | omeprazole | Take 1 capsule by | 30 | 11 | 12/25 | | Activ | | (PRILOSEC) 20 mg | mouth every morning | capsule | | 01/13 | | e | | capsule | (before breakfast). | | | 19 | | | + + + +---------+------+------+-------+ Active Problems + + + | Problem | Noted Date | + + + | Thyroid nodule | 11/07/2017 | + + + | Vocal cord dysfunction | 11/07/2017 | + + + | Esophageal cancer, stage IIIA | 03/31/2017 | + + + + + | Overview: ACTIVE DIAGNOSIS: Squamous cell carcinoma of the | | esophagus, Stage IIIA.1. Upper endoscopy with biopsy March 15 | | 2016 ([facility]). Mass in mid esophagus. Biopsy specimen # [id number] | | [id number] ([facility]) Invasive Squamous | | Cell carcinoma, moderately differentiated. Immunohistochemistry | | diffusely positive for P16.2. Status post feeding jejunostomy | | tube placement by Dr. Haim Epps, [facility] | | [place].3. PET/CT scan March 24, 2017; mid-esophageal tumor with | | SUV 8.5, no evidence of metastatic disease.4. Endoscopic | | ultrasound at [facility]; single level 8 node | | "moderately suspicious." Clinical stage T3N1M0, Stage IIIA.5. | | Comprehensive mutidisciplinary team evaluation at [facility] | [facility], [facility] (Haim Hernandez, Gold Cannon); | | combined modality chemoradiation with weekly taxol/carboplatin at | | [facility] in [place], follow by | | definitive resection by Dr. Cannon at [facility].6. Status post | | placement of a left subclavian port-a-cath by Dr. Haim Epps.7. | | Begin Combined modality therapy April 29, 2017; external beam | | radiation with weekly taxol/carboplatin chemotherapy, completed | | June 07. Left thoracoabdominal esphagogastrectomy with | | cervical esophagogastrostomy and wedge liver biopsy July 12 | | 2017 ([facility]). Pathological specimen #[id number] "Liver | | biopsy-focal nodular hyperplasia. Esophagus and proximal | | stomach-YpT3 residual adenosquamous carcinoma 3.5 cm x 1.2 cm x | | 0.6 cm invading the paraesophageal soft tissue (adventitia). | | Tumor estimated to be 30-40% viable. Margins negative. A total of | | 25 lymph nodes were evaluated all of which were negative for | | regionally metastatic disease. Final pathological downstage; | | [id number], stage IIB.9. Port-a-cath removed by Dr. Epps.10. | | Gastrostomy feeding tube removed by Dr. Epps.11. Status post | | right hemithyroidectomy by Dr. Epps. 12. CT Chest/Abdomen with | | contrast on June 30, [address] Haim Epps and | | interpreted by Dr. Annie Salcido at [facility], | | [place], [place] who compared it to a CT scan of the | | chest/abdomen/pelvis performed at the [facility] | [facility] on July 18, 2017. Dr. Salcido described "the small | | hypodense nodule in the lateral segment of the left hepatic lobe | | is barely identified. The intensely enhancing far left lesion | | previously demonstrated is not present on today's examination." | | 13. Upper and Lower endoscopy ([facility]) July,. Last | | Assessment & Plan: Annie Brown returned to clinic on | | 03/16/2019 alone for follow up, two years after the diagnosis of | | Stage IIIA esophageal carcinoma, status post tri-modality | | therapy.Interval history is notable for the fact that Annie | | underwent silastic sleeve repair of her of her vocal | | cord.Interval history is also notable for the fact that Annie | | had a comprehensive re-evaluation by Dr. Cannon at [facility] ([place].Review of systems is notable for tinnitus, | | non-productive cough, diarrhea and easy bruisability.Clinical | | exam is notable for three pound weight gain.Laboratory exam is | | negative for anemia, liver enzyme abnormalities and normal | | CEA.Assessment; no signs or symptoms of recurrence of Stage IIIA | | esophageal squamous cell carcinoma.Plan; Annie is planning upon | | undergoing repeat upper endoscopy by Dr. Epps in June,. | | She is also undergoing advanced body imaging supervised by | | [facility] in June,. She continues to see Dr. Gosia Carter in | | dermatology for basal cell carcinoma. She is still being followed | | by Dr. Flores in Surgery. Therefore, follow up in [facility] | | [facility] is open. | + + Family History + + +--------+ + | Medical History | Relation | Name | Comments | + + +--------+ + | Breast cancer | Maternal | | | | | Grandmoth | | | | | er | | | + + +--------+ + | Breast cancer | Mother | | | + + +--------+ + | Esophageal cancer | Other | cousin | | + + +--------+ + | Brain cancer | Paternal | | | | | Aunt | | | + + +--------+ + | Cancer | Paternal | | | | | Aunt | | | + + +--------+ + + +--------+ + + | Relation | Name | Status | Comments | + +--------+ + + | Father | | | | + +--------+ + + | Maternal Grandmother | | | | + +--------+ + + | Mother | | Alive | | + +--------+ + + | Other | cousin | Alive | | + +--------+ + + | Paternal Aunt | | | | + +--------+ + + | Paternal Aunt | | | | + +--------+ + + Social History + +-------+ +--------+------+ [...] on file | | + + + Last Filed Vital Signs + + + + + | Vital Sign | Reading | Time Taken | Comments | + + + + + | Blood Pressure | 119/80 | 03/16/2019 1:17 PM | | | | | PST | | + + + + + | Pulse | 65 | 03/16/2019 1:17 PM | | | | | PST | | + + + + + | Temperature | 36.9 C (98.4 F) | 03/16/2019 1:17 PM | | | | | PST | | + + + + + | Respiratory Rate | 16 | 03/16/2019 1:17 PM | | | | | PST | | + + + + + | Oxygen Saturation | 96% | 03/16/2019 1:17 PM | | | | | PST | | + + + + + | Inhaled Oxygen | - | - | | | Concentration | | | | + + + + + | Weight | 65.1 kg (143 lb 8.3 | 03/16/2019 1:17 PM | | | | oz) | PST | | + + + + + | Height | 167 cm (5' 5.75") | 04/14/2017 9:33 AM | | | | | PST | | + + + + + | Body Mass Index | 23.34 | 04/14/2017 9:33 AM | | | | | PST | | + + + + + Plan of Treatment + + + + + | Health Maintenance | Due Date | Last | Comments | | | | Done | | + + + + + | Hepatitis C | | | | | Screening | 6 | | | + + + + + | Vaccine: | | | | | Pneumococcal 19-64 | 2 | | | | (1 of 3 - PCV13) | | | | + + + + + | Vaccine: | | | | | Dtap/Tdap/Td (1 - | 5 | | | | Tdap) | | | | + + + + + | Cervical Cancer | | | | | Screening (Pap) | 6 | | | + + + + + | Colorectal Cancer | | | | | Screening | 6 | | | | (Colonoscopy) | | | | + + + + + | Vaccine: Zoster (1 | | | | | of 2) | 6 | | | + + + + + | Breast Cancer | | | | | Screening | 1 | | | + + + + + | Vaccine: Influenza | | | | | (#1) | 0 | | | + + + + + | Med Mgmt: TSH | | 03/16/20 | | | | 0 | 19, | | | | | 10/07/19 | | | | | 19, | | | | | 07/08/19 | | | | | 19 | | + + + + + | Medication | | 03/16/20 | | | Management | 0 | 19 | | + + + + + Results Not on filefrom Last 3 Months Insurance +-------+--------+ +--------+-------+---------+------+ | Payer | Benefi | Subscriber | Effect | Phone | Address | Type | | | t Plan | ID | anupama | | | | | | / | | Dates | | | | | | Group | | | | | | +-------+--------+ +--------+-------+---------+------+ | BCBS | BCBS | [id number] | 05/02/19 | | | PPO | | | OOS | 1 | 17-Pre | | | | | | PPO | | sent | | | | +-------+--------+ +--------+-------+---------+------+ + +--------+ +--------+ + + | Guarantor Name | Accoun | Relation to | Date | Phone | Billing Address | | | t Type | Patient | of | | | | | | | | | | + +--------+ +--------+ + + | Severe,Annie Jesus | Person | Self [birth year] | [address] | | | al/Fam | | 1956 | [phone] | [address] [place], [place] | | | live | | | 1 (Home) | [address] | + +--------+ +--------+ + + Advance Directives + + + + + | Type | Date Recorded | Patient | Explanation | | | | Alteration Tailor Apprentice | | + + + + + | Power of | | | | | [employer] Representative | | | | + + + + + | Advance | | | | | Directive | | | | + + + + +
--- OUTSIDE RECORDS SUMMARY | ~2019-12-05 | XMS | Encounter Summary ---
Demographics + + + | Address | [address] | | | [place] [address] | + + + | Home Phone | | + + + | Preferred Language | Unknown | + + + | Marital Status | | + + + | Cheondoism Affiliation | Unknown | + + + | Race | Unknown | + + + | Ethnic Group | Unknown | + + + Author + + + | Author | [facility] | | | and [place] | + + + | Organization | [facility] | | | and [...] Team Providers + +------+ + | Care Candy Depositing Machine Operator Name | Role | Phone | + +------+ + | No, Physician | PCP | Unavailable | + +------+ + Encounter Details +--------+ + + + + | Date | Type | Department | Care Team | Description | +--------+ + + + + | 05/05/ | Hospital | [facility] | Miguel A Kennedy, | Esophageal cancer, | | 2018 | Encounter | MED CTR XRAY [address] | stage IIA (HCC) | | | | [place] | [address] [place], | | | | | [place] [address] | [place] [address] | | | | | [phone] | [phone] | | | | | | | | +--------+ + + + [...] + + documented as of this encounter Medications at Time of Discharge + + + +---------+ + + | Medication | Sig | Dispensed | Refills | Start | End Date | | | | | | Date | | + + + +---------+ + + | | Administer 5 mL's | 100 mL | 0 | 04/29/19 | | | amoxicillin-clavulan | (400 mg) via feeding | | | 18 | 8 | | ate (AUGMENTIN) | tube twice daily | | | | | | 400-57 mg/5 mL | for 10 days | | | | | | suspensionIndication | | | | | | | s: Esophageal | | | | | | | cancer, stage IIA | | | | | | | (HCC) | | | | | | + + + +---------+ + + | dexamethasone | Administer 4 mL's (4 | 120 mL | 0 | 04/29/19 | | | (DECADRON) 1 mg/mL | mg) via feeding | | | 18 | 8 | | solutionIndications: | tube two times daily | | | | | | Esophageal cancer, | for 2 days after | | | | | | stage IIA (HCC) | each chemo | | | | | + + + +---------+ + + | | Take 15 mLs via | | 0 | | | | HYDROcodone-acetamin | J-tube 4 times daily | | | | 8 | | ophen (HYCET) | as needed for Pain. | | | | | | 7.5-325 mg/15 mL | | | | | | | liquid | | | | | | + + + +---------+ + + | LORazepam (ATIVAN) | Crush 1 tablet and | 30 | 3 | 04/29/19 | | | 1 mg | mix in 15-30 mL's of | tablet | | 18 | 8 | | tabletIndications: | water, administer | | | | | | Esophageal cancer, | via feeding tube | | | | | | stage IIA (HCC) | every 6 hours as | | | | | | | needed for | | | | | | | nausea/vomiting, | | | | | | | anxiety, or | | | | | | | restlessness. | | | | | + + + +---------+ + + | ondansetron | Crush 1 tablet and | 30 | 3 | 04/29/19 | | | (ZOFRAN) 8 MG | mix with 15-30 mL | tablet | | 18 | 8 | | tabletIndications: | (1-2 tablespoons) of | | | | | | Esophageal cancer, | water, administer | | | | | | stage IIA (HCC) | twice daily for 2 | | | | | | | days after each | | | | | | | chemo. On other | | | | | | | days, take 8 mg | | | | | | | every 8 hrs as | | | | | | | needed for | | | | | | | nausea/vomiting | | | | | + + + +---------+ + + documented as of this encounter Plan of Treatment Not on filedocumented as of this encounter Procedures + +--------+ + + + | Procedure Name | Priori | Date/Time | Associated Diagnosis | Comments | | | ty | | | | + +--------+ + + + | XR CHEST 2 VIEWS | STAT | 05/05/2017 | Esophageal cancer, | Results for this | | | | 10:35 AM | stage IIA (HCC) | procedure are in the | | | | PST | | results section. | + +--------+ + + + documented in this encounter Results XR Chest 2 VW (05/05/2017 10:35 AM PST) + + | Specimen | + + | | + + + + + | Narrative | Performed At | + + + | EXAM: XR CHEST 2 VW dated 05/05/2017 10:35 AM HISTORY: CHECK TO | [facility] | | SEE IF THE PORT IS FLIPPED Comparison: March 26, 2017 from an | | | outside institution. TECHNIQUE: Frontal and lateral views of the | | | chest. FINDINGS: The lungs are symmetrically aerated. They are | | | clear. There are no pleural effusions. There is no pneumothorax. | | | The cardiac and mediastinal contours are not enlarged. The | | | visible osseous structures are unremarkable. There is a catheter | | | on the left chest with the tip terminating in the mid superior vena | | | cava. On frontal views the port chamber itself is not well seen. | | | It is faintly visible on oblique views. No clear markings to | | | establish positioning. The nursing staff reports this is could be a | | | Smart port. IMPRESSION - The port chamber is poorly | | | visualized. There are no visible discriminating features allowing | | | identification of positioning of the port. The fact that it is | | | poorly visualized on the standard view suggests that it may be | | | rotated. This was discussed with the nursing staff and the | | | infusion center shortly following completion of exam. Dictated | | | and Signed by: Luis Miles MD Electronically signed: 05/05/2017 | | | 11:06 AM | | + + + + + | Procedure Note | + + | Ashvin, Rad Results In - 05/05/2017 11:10 AM PST EXAM: XR CHEST 2 VW dated 05/05/2017 | | 10:35 AMHISTORY: CHECK TO SEE IF THE PORT IS FLIPPEDComparison: March 26, 2017 from an | | outside institution.TECHNIQUE: Frontal and lateral views of the chest.FINDINGS:The | | lungs are symmetrically aerated. They are clear. There are no pleuraleffusions. There | | is no pneumothorax. The cardiac and mediastinal contours arenot enlarged. The visible | | osseous structures are unremarkable. There is acatheter on the left chest with the | | tip terminating in the mid superior venacava. On frontal views the port chamber itself | | is not well seen. It is faintlyvisible on oblique views. No clear markings to | | establish positioning. Thenursing staff reports this is could be a Smart | | port.IMPRESSION -The port chamber is poorly visualized. There are no visible | | discriminatingfeatures allowing identification of positioning of the port. The fact | | that itis poorly visualized on the standard view suggests that it may be rotated.This | | was discussed with the nursing staff and the infusion center shortlyfollowing completion | | of exam. Dictated and Signed by: Luis Miles MD Electronically signed: 05/05/2017 | | 11:06 AM | |nursing staff reports this is could be a Smart port. | | | |IMPRESSION - | | | |The port chamber is poorly visualized. There are no visible discriminating | |features allowing identification of positioning of the port. The fact that it | |is poorly visualized on the standard view suggests that it may be rotated. | | | |This was discussed with the nursing staff and the infusion center shortly | |following completion of exam. | | | |Dictated and Signed by: Luis Miles MD | | Electronically signed: 05/05/2017 11:06 AM | + + + +---------+ + + | Performing | Address | City/State/Zipcode | Phone Number | | Organization | | | | + +---------+ + + | [facility] | | | | + +---------+ + + documented in this encounter Visit Diagnoses + + | Diagnosis | + + | Esophageal cancer, stage IIA (HCC) | + + documented in this encounter"
--- OUTSIDE RECORDS SUMMARY | ~2019-12-05 | XMS | Encounter Summary ---
Demographics + + + | Address | [address] | | | [place] [address] | + + + | Home Phone | | + + + | Preferred Language | Unknown | + + + | Marital Status | | + + + | Worship Affiliation | Unknown | + + + | Race | Unknown | + + + | Ethnic Group | Unknown | + + + Author + + + | Author | [facility] | | | and [place] | + + + | Organization | [facility] | | | [...] Team Providers + +------+ + | Care International Sales Representative Name | Role | Phone | + +------+ + | Haim Epps | PCP | | + +------+ + Reason for Visit +--------+--------+ + | Reason | Onset | Comments | | | Date | | +--------+--------+ + | Other | 03/28/ | | | | 2018 | | +--------+--------+ + Encounter Details +--------+ + + + + | Date | Type | Department | Care Team | Description | +--------+ + + + + | 03/28/ | Telephone | [facility] | Jennifer Reyes | Other | | 2018 | | [facility] | MD [place] [address] | | | | | [facility] [address] [place], [place] | | | | | [address] | [phone] | | | | | [place] [address] | | | | | | [phone] | | | +--------+ + + + [...] + + documented as of this encounter Miscellaneous Notes Telephone Encounter - Marisel Richardson RN - 03/28/2018 3:31 PM PSTPhone call to patient, l eft message regarding change to this prescription, asked for call back with any questions. elephone Encounter - Shalom Warren - 03/28/2018 8:17 AM PSTPt called to refill Omeprazole Magnesium 10 MG PAC K She did not ask for a return call. Thank you documented in t his encounter Plan of Treatment Not on filedocumented as of this encounter Visit Diagnoses Not on filedocumented in this encounter"
--- OUTSIDE RECORDS SUMMARY | ~2019-12-05 | XMS | Encounter Summary ---
Demographics + + + | Address | [address] | | | [place] [address] | + + + | Home Phone | | + + + | Preferred Language | Unknown | + + + | Marital Status | | + + + | Yazidi Affiliation | Unknown | + + + | Race | Unknown | + + + | Ethnic Group | Unknown | + + + Author + + + | Author | [facility] | | | and [place] | + + + | Organization | [facility] | | | [...] Team Providers + +------+ + | Care Carpet Binder Name | Role | Phone | + +------+ + | No, Physician | PCP | Unavailable | + +------+ + Reason for Visit + + + | Reason | Comments | + + + | Nutrition Counseling | | + + + Encounter Details +--------+ + + + + | Date | Type | Department | Care Team | Description | +--------+ + + + + | 05/12/ | [facility] | [facility] | Fabio, | | | 2018 | Encounter | MED CTR NUTRITION | Isak Elizabeth MD [address] | | | | [address] | | | | | [place], | [address] [place], [place] | | | | | [place] [address] | [address] | | | | | [phone] | | | | | | | Misti Roth, | | | | | | RDN | | +--------+ + + + + [...] + + + +---------+ + + | loperamide | 20ML through tube | 120 mL | 2 | 05/12/19 | | | (IMODIUM) 2 mg/10 mL | followed by 10ML | | | 18 | 8 | | solution | after each loose | | | | | | | stool; Max 80 ML/day | | | | | + + [...] + + + +---------+ + + | traZODone | Take 1-2 tabs | 30 | 0 | 05/10/19 | | | (DESYREL) 50 mg | nightly as needed | tablet | | 18 | 8 | | tablet | for esophageal spasm | | | | | + + + +---------+ + + documented as of this encounter Progress Notes Misti Roth RDN - 05/12/2017 5:00 PM PSTFormatting of this note might be different f rom the original. Medical Nutrition Note SUBJECTIVE: Pt was asleep so meet with her . They are up to 600 cc of TF from 500 cc per day last week. Goal is 8576-9778 cc of volume. Discussed goal is 700 cc per day thi s week. Received correct TF from [facility]. OBJECTIVE: Diet: Isosource HN 6.5-7 cans per day Wt Readings from Last 3 Encounters: 05/12/17 62.1 kg (136 lb 14.5 oz) 05/06/17 64.6 kg (142 lb 6.7 oz) 05/05/17 63.8 kg (140 lb 10.5 oz) Ht Readings from Last 1 Encounters: 04/14/17 1.67 m (5' 5.75") There is no height or weight on file to calculate BMI. Facility age limit for growth perce ntiles is 20 years. ASSESSMENT/PLAN: Nutrition Diagnosis: Inadequate enteral nutrition related to tolerating only 2 cans at thi s time as evidenced by verbalization of the pt. Interventions: 1. Increase time of TF from 5 hours to goal of 10-12 2. Increase to 700 cc per day or more if tolerated Nutrition Goals: 1. Tolerate 6.5-7 cans of formula per day 2. Maintain weight Monitor: 1. Nutritional parameters 2. TF Time spent: 30 minutes Thank you for the referral, Misti Roth RDN 05/12/2017 17:00 documented in this encounter Plan of Treatment Not on filedocumented as of this encounter Visit Diagnoses Not on filedocumented in this encounter
--- OUTSIDE RECORDS SUMMARY | ~2019-12-05 | XMS | Encounter Summary ---
Demographics + + + | Address | [address] | | | [place] [address] | + + + | Home Phone | | + + + | Preferred Language | Unknown | + + + | Marital Status | | + + + | Roman Catholic Affiliation | Unknown | + + + | Race | Unknown | + + + | Ethnic Group | Unknown | + + + Author + + + | Author | [facility] | | | and [place] | + + + | Organization | [facility] | | | [...] Team Providers + +------+ + | Care Manufacturing Engineering Professor Name | Role | Phone | + +------+ + | No, Physician | PCP | Unavailable | + +------+ + Reason for Referral Diagnostic/Screening (Routine) +--------+--------+ + + + + | Status | Reason | Specialty | Diagnoses / | Referred By | Referred To | | | | | Procedures | Contact | Contact | +--------+--------+ + + + + | Closed | | Radiology | Diagnoses | [place], | [address] | | | | | Esophageal | Jennifer Fair | Annika Ferris | | | | | cancer, | MD [address] | [place], | | | | | stage IIA | [address] | [place] [address] | | | | | (HCC) | [place], | Phone: | | | | | Procedures | [place] [address] | [phone] | | | | | CT Treatment | Phone: | Fax: | | | | | Plan | [phone] | [phone] | | | | | Complex | Fax: | | | | | | | [phone] | | +--------+--------+ + + + + Reason for Visit + + + | Reason | Comments | + + + | Consult | | + + + | Esophageal Cancer | | + + + Evaluate & Treat (Routine) +--------+ + + + + + | Status | Reason | Specialty | Diagnoses / | Referred By | Referred To | | | | | Procedures | Contact | Contact | +--------+ + + + + + | Closed | Specialty | Radiation | Diagnoses | | [facility] | | Services | Oncology | Esophageal | Fabio, | Radiation | | | Required | | cancer, | Isak Elizabeth, | Oncology | | | | | stage IIA | [address] | Clinic [address] | | | | | (HCC) | [address] | [address] | | | | | | [address] | [place], | | | | | | [place], | [place] [address] | | | | | | [place] [address] | Phone: | | | | | | Phone: | [phone] | | | | | | [phone] | Fax: | | | | | | Fax: | [phone] | | | | | | [phone] | | +--------+ + + + + + Encounter Details +--------+ + + + + | Date | Type | Department | Care Team | Description | +--------+ + + + + | 04/14/ | Hospital | [facility] | Jennifer Reyes | Esophageal cancer, | | 2017 | Encounter | [facility] | MD Manjula [address] | stage IIA (HCC) | | | | [facility] [address] | [facility] [place], [place] | (Primary Dx) | | | | [address] | [id number] | | | | | [place] [address] | | | | | | [phone] | | | +--------+ + + + [...] + + documented as of this encounter Last Filed Vital Signs + + + + + | Vital Sign | Reading | Time Taken | Comments | + + + + + | Blood Pressure | 118/76 | 04/14/2017 9:33 AM | | | | | PST | | + + + + + | Pulse | 55 | 04/14/2017 9:33 AM | | | | | PST | | + + + + + | Temperature | 36.7 C (98.1 F) | 04/14/2017 9:33 AM | | | | | PST | | + + + + + | Respiratory Rate | 16 | 04/14/2017 9:33 AM | | | | | PST | | + + + + + | Oxygen Saturation | 97% | 04/14/2017 9:33 AM | | | | | PST | | + + + + + | Inhaled Oxygen | - | - | | | Concentration | | | | + + + + + | Weight | 66.5 kg (146 lb 9.7 | 04/14/2017 9:33 AM | | | | oz) | PST | | + + + + + | Height | 167 cm (5' 5.75") | 04/14/2017 9:33 AM | | | | | PST | | + + + + + | Body Mass Index | 23.84 | 04/14/2017 9:33 AM | | | | | PST | | + + + + + documented in this encounter Medications at Time of Discharge + + + +---------+--------+ + | Medication | Sig | Dispensed | Refills | Start | End Date | | | | | | Date | | + + + +---------+--------+ + | aluminum & | Take 30 mLs by mouth | | 0 | | | | magnesium | every 4 hours as | | | | 8 | | hydroxide-simethicon | needed for | | | | | | e (MYLANTA) | Indigestion. | | | | | | 200-200-20 mg/5 mL | | | | | | | suspension | | | | | | + + + +---------+--------+ + | | Take 15 mLs via | | 0 | | | | HYDROcodone-acetamin | J-tube 4 times daily | | | | 8 | | ophen (HYCET) | as needed for Pain. | | | | | | 7.5-325 mg/15 mL | | | | | | | liquid | | | | | | + + + +---------+--------+ + documented as of this encounter Progress Notes Jennifer Madrid MD - 04/14/2017 9:47 AM PST Radiation Oncology Consultation Chief Complaint/ICD10 ICD-10-CM ICD-9-CM 1. Esophageal cancer, stage IIA (HCC) C15.9 150.9 History of Present Illness: Annie Brown is a 61 year-old woman recently diagnosed with esophageal cancer, squa mous cell carcinoma, moderately differentiated. Clinical stage T3 N1 M0 based on EUS and PE T/CT. Presenting to discuss treatment options. Annie describes that dysphagia starting this summer initially with solids and later progr essed to liquids even. She is no longer able to pass anything more than sips of liquid. Miguel espino has lost a total of about 30 pounds in the last 6 months, very rapid weight loss in the st month. Initial workup included an esophagram performed at [facility] on . This demonstrate obstruction of the esophagus, one swallow of barium did not pass throu gh the lower third of the esophagus. Severe esophageal stricture measuring approximately [address] chest with contrast, 03/11/17 at [facility] demonstrated eso phageal mass measuring 3.5 cm in craniocaudal distention located just below the level of the left atrium. 2.6 cm transverse dimension. No adenopathy visualized. Consultation with Dr. Epps on 03/11/17. He was appropriately concerned about esophagram a nd CT findings. CEA on 03/11 from the 3.12. Blood counts, electrolytes, renal function and hepatic function otherwise normal. He recommended further workup with EGD. EGD with Biops y performed on 03/15/17. Pathology: Invasive squamous cell carcinoma, moderately different iated. [facility] ([id number]). Pathology reviewed at [facility] with agreement in pathologic diagnosis. Jejunostomy tube placed on 03/23/[address] Epps. Consult with Dr. Mccarthy on 03/31/17. PET/CT, 03/24/17: Mid to distal esophageal mass with significant metabolic activity, SUV 8 .5. No evidence of separate lymphadenopathy or metastatic disease. Incidental finding of r ight thyroid hypermetabolic nodule. She was referred to [facility] team including Dr. Cannon for surgical consultation. work-up included: -EUS, 04/06/17 at [facility] performed by Dr. Reed. An obstructing mass enco untered at 30 cm from the incisors. Limited EUS evaluation due to complete luminal obstruct ion. EUS stage at least T3 N1. One enlarged paraesophageal lymph node identified at level 8M, adjacent to esophagus measuring 7 mm in maximal cross-section dimension. -CT abd at , 04/06/17: Liver with a hyperdense lesion at segment 2, approximately 2 cm in size, stable compared to prior imaging. Segment 4 low density 11 mm lesion not apparent on prior imaging, concerning for metastasis. 4 mm low-density structure at segment 5 most c onsistent with a small cyst. Feeding jejunostomy in place. Liver -PFTs performed on 04/07/17 at [facility] FEV1 2.51 L, 91% predicted FVC 3.19 L, 98% pr edicted DLCO 25.1, 93% predicted. Normal pulmonary function -MRI Liver at on 04/08/17: No evidence of hepatic metastasis. Liver dome lesion most c onsistent with hemangioma, measuring 11 mm. 2 small cystic lesions less than half centimete r identified in segment 4. No evidence of lymphadenopathy. Partially visualized distal eso phageal mass. Consult with Dr. Hernandez, Medical oncology at . Cardiology clearance with Dr. Rosado at on 04/07/17. Consult with Dr. Gold Cannon, Surgical Oncologist at on 04/08/17. Recommendation made f or neoadjuvant chemoradiotherapy followed by esophagectomy. Annie has been referred for neoadjuvant radiation. she is slowly recovering from jejunos travis and working to increase tube feeding. Home health nurses have been managing. She is c oncerned that she is only able to tolerate a couple of cans prior to feeling full and nauseo us. By mouth intake continues to be quite limited to only sips of liquids. She has not exp erienced hematemesis or melena. She is unable to vomit. Recently she has been experiencing cough and increased production of yellow sputum. Denies fevers or chills. Midsternal ches t pain is persistent, 8, level 3/10. She takes liquid hydrocodone for management, usually j ust at bedtime. Annie Brown was seen today as a new patient evaluation at the request of Dr.Robert Clara Mccarthy for the evaluation and consideration of radiotherapeutic treatment in our cli peggy. ROS Constitutional: Reports inability to throw up due to tumor. Reports having a constant feeli ng of hunger. Reports a weight loss of 15 pound over last month. Reports night sweats, had these prior to diagnosis. Denies fatigue. Denies high fevers, shaking chills, anorexia, mia sea, vomiting. Ear, Nose, Mouth, Throat: Unable to take any thing by mouth, having only sips of water. Nu tritions through feeding tube. Cardiovascular: Reports mid sternum chest pain. Reports orthopnea. Denies shortness of br eath, dyspnea on exertion, palpitations. Respiratory: Reports constant cough with yellow sputum. Denies cough, hemoptysis, or sput um production. Gastrointestinal: Reports diarrhea. Denies abdominal pain, constipation, melena, or bright red blood per rectum. Genitourinary: Denies hematuria or dysuria. Musculoskeletal: Denies joint pain or tenderness. Neurologic: Reports occasional headaches. Denies visual changes, or numbness/tingling of t he extremities. Endocrine: Denies peripheral edema or heat/cold intolerance. Hematologic: Reports easy bruising. Denies spontaneous bruising or bleeding. Integumentary: Reports rash around mouth, states acid is irritating to skin. Denies other rash, wounds or other skin concerns. Pain: Reports pain at a level 3, this pain is med sternal. She is takeing liquid hydrocodo ne per her feeding tube, usually just a night to help sleep. Current Outpatient Prescriptions Medication Sig Dispense Refill aluminum & magnesium hydroxide-simethicone (MYLANTA) 200-200-20 mg/5 mL suspension Take 30 mLs by mouth every 4 hours as needed for Indigestion. amoxicillin-clavulanate (AUGMENTIN) 400-57 mg/5 mL suspension Administer 5 mL's (400 mg ) via feeding tube twice daily for 10 days 100 mL 0 dexamethasone (DECADRON) 1 mg/mL solution Administer 4 mL's (4 mg) via feeding tube two times daily for 2 days after each chemo 120 mL 0 HYDROcodone-acetaminophen (HYCET) 7.5-325 mg/15 mL liquid Take 15 mLs via J-tube 4 time s daily as needed for Pain. LORazepam (ATIVAN) 1 mg tablet Crush 1 tablet and mix in 15-30 mL's of water, administe r via feeding tube every 6 hours as needed for nausea/vomiting, anxiety, or restlessness. 30 tablet 3 ondansetron (ZOFRAN) 8 MG tablet Crush 1 tablet and mix with 15-30 mL (1-2 tablespoons) of water, administer twice daily for 2 days after each chemo. On other days, take 8 mg ever y 8 hrs as needed for nausea/vomiting 30 tablet 3 No current facility-administered medications for this encounter. Allergies No active allergies Intolerance No active intolerances/contraindications Past Medical History: Diagnosis Date Esophageal cancer (HCC) Past Surgical History: Procedure Laterality Date APPENDECTOMY 1970 HYSTERECTOMY 1994 Family History Problem Relation Age of Onset Breast cancer Mother Breast cancer Maternal Grandmother Brain cancer Paternal Aunt Cancer Paternal Aunt Esophageal cancer Other Social History Social History Marital status: Spouse name: N/A Number of children: N/A Years of education: N/A Occupational History Not on file. Social History Main Topics Smoking status: Never Smoker Smokeless tobacco: Never Used Alcohol use No Drug use: Unknown Sexual activity: Not on file Other Topics Concern Not on file Social History Narrative No narrative on file Questionnaires: Have you ever had radiation treatment: no Do you have a pacemaker or ICD: no Are you claustrophobic? no Do you have a connective tissue disorder such as Lupus, Scleroderma, or other: no Do you have the ability to become : no Vital Sign Current: Last 24 Hours: Temperature Temp: 36.7 C (98.1 F) No Data Recorded Blood Pressure BP: 118/76 No Data Recorded Pulse Pulse: 55 No Data Recorded Respirations Resp: 16 No Data Recorded Pain Rating Rest Pain Rating (0-10): Rest: 3 No Data Recorded Pain Rating Activity Pain Rating (0-10): Activity: 3 No Data Recorded O2 Sat SpO2: 97 % on liters/minute No Data Recorded Current Wt Current Wt: 66.5 kg (146 lb 9.7 oz) Height: 167 cm (5' 5.75") Admit Wt Admit Wt: 66.5 kg (146 lb 9.7 oz) Body mass index is 23.84 kg/m. Physical Exam: General: Healthy appearing thin woman in no acute medical distress. KPS: 80 HEENT: Pupils equal, round and reactive to light. No conjunctival icterus or injection. EOM I. Oral, moist mucus membranes. Lymphatic: No cervical, supraclavicular or axillary lymphadenopathy. Cardiovascular: Regular rate and rhythm, no murmur. Pulmonary: Breath sounds heard throughout, no adventitial sounds or increased work of breat joyce at rest. Abdomen: Soft, non-tender, no masses or organomegaly detected. Extremities: Upper and lower extremities warm and well perfused with no upper or lower extr emity edema. Neurologic: Alert, oriented and appropriated in conversation. CN II-IX grossly intact. Moves all 4 extremities normally with normal gait. Psychiatric: Appropriate. Labs: See HPI. Imaging: See HPI. Assessment: ICD-10-CM ICD-9-CM 1. Esophageal cancer, stage IIA (HCC) C15.[address] Treatment Plan Complex Annie Brown is a 61 year-old woman recently diagnosed with esophageal cancer, squa mous cell carcinoma, moderately differentiated. Clinical stage T3 N1 M0 based on EUS and PE T/CT. Presenting to discuss treatment options. Today I reviewed with Annie and her the presentation and diagnostic workup to simon espino. She has undergone a comprehensive workup and surgical evaluation at [facility]. I a franco with recommendation for neoadjuvant chemoradiotherapy, followed by esophagectomy. We d iscussed that she is at a disadvantages nutritionally due to recent inability to eat. Home health has been managing her tube feeds however I am concerned that this is not progressing well enough to maintain heart caloric needs. I will provide a referral to our [facility] itionist for evaluation. I reviewed the procedures involved in radiation treatment planning and delivery. Then we d iscussed potential short and long-term side effects of radiation. Treatment will be given w ith concurrent chemotherapy and the direction of Dr. Mccarthy. Radiation will be designe d based on 4D CT dated to encompass tumor movement with respiration. Treatment planning alfredo l utilize intensity modulated or volumetric arc treatment planning to spare neighboring crit ical structures including the heart, lungs and spinal cord. Annie verbalized understandin g of the treatment recommendation and wishes to proceed to simulation. She provided written informed consent today. We proceeded with same day consultation and simulation due to [facility]'s long travel distance and eagerness to begin treatment. We discussed different fractionation options. Prospective randomized data from the CROSS t rial (CHESTER Whittaker 2012) reported excellent outcomes with lower dose radiation, 41.4 Gy g iven with concurrent chemo therapy, carboplatin and paclitaxel. Pathologic complete respons e rates were 49% for squamous cell carcinoma. Conversely, current clinical trials continue to use 50.4 Gy. I tend to favor the more traditional dose of 50.4 Gy which is also the defi nitive chemoradiotherapy dose, if for any reason she is unable to proceed to surgical resect ion. We also discussed that PET/CT demonstrated a hypermetabolic nodule in the right thyroid lob e. Further workup: requested ultrasound of the neck. The information found at www.rtanswers.org was advised for further information specific to radiation therapy. Annie was encouraged to call our clinic with any further questions or concerns. A visit summary was given to the patient prior to leaving clinic today. Thank you for allowing me to participate in the care of Annie. If you should have any que stions regarding this evaluation, please do not hesitate to contact me. Jennifer Bowman M.D. Radiation Oncologist Department of Radiation Oncology [facility] Office: [phone] CC: Patient Care Team: Physician Criss as PCP - General Isak Mccarthy MD as Consulting Physician (Medical Oncology) Norm Oneal MD (Otolaryngology) Jennifer Madrid MD as Physician (Radiation Oncology) Gold Cannon MD (Cardiothoracic Surgery) Misti Roth RDN as Registered Dietitian (Dietitian) documented in thi s encounter Plan of Treatment Not on filedocumented as of this encounter Procedures + +--------+ + + + | Procedure Name | Priori | Date/Time | Associated Diagnosis | Comments | | | ty | | | | + +--------+ + + + | IMAGING REPORT - | | 04/08/2017 | | Results for this | | EXTERNAL SCAN | | 12:00 AM | | procedure are in the | | | | PST | | results section. | + +--------+ + + + | DIAGNOSTIC REPORT - | | 04/07/2017 | | Results for this | | EXTERNAL SCAN | | 12:00 AM | | procedure are in the | | | | PST | | results section. | + +--------+ + + + | IMAGING REPORT - | | 04/06/2017 | | Results for this | | EXTERNAL SCAN | | 12:00 AM | | procedure are in the | | | | PST | | results section. | + +--------+ + + + | DIAGNOSTIC REPORT - | | 04/06/2017 | | Results for this | | EXTERNAL SCAN | | 12:00 AM | | procedure are in the | | | | PST | | results section. | + +--------+ + + + | IMAGING REPORT - | | 03/26/2017 | | Results for this | | EXTERNAL SCAN | | 12:00 AM | | procedure are in the | | | | PST | | results section. | + +--------+ + + + | IMAGING REPORT - | | 03/26/2017 | | Results for this | | EXTERNAL SCAN | | 12:00 AM | | procedure are in the | | | | PST | | results section. | + +--------+ + + + | IMAGING REPORT - | | 03/24/2017 | | Results for this | | EXTERNAL SCAN | | 12:00 AM | | procedure are in the | | | | PST | | results section. | + +--------+ + + + | PATHOLOGY - EXTERNAL | | 03/15/2017 | | Results for this | | SCAN | | 12:00 AM | | procedure are in the | | | | PST | | results section. | + +--------+ + + + | IMAGING REPORT - | | 03/11/2017 | | Results for this | | EXTERNAL SCAN | | 12:00 AM | | procedure are in the | | | | PST | | results section. | + +--------+ + + + | IMAGING REPORT - | | 03/11/2017 | | Results for this | | EXTERNAL SCAN | | 12:00 AM | | procedure are in the | | | | PST | | results section. | + +--------+ + + + | LABS - EXTERNAL SCAN | | 03/11/2017 | | Results for this | | | | 12:00 AM | | procedure are in the | | | | PST | | results section. | + +--------+ + + + documented in this encounter Results CT Treatment Plan Complex (04/14/2017 1:17 PM PST) + + | Specimen | + + | | + + + + + | Narrative | Performed At | + + + | No Radiologist | [facility] | | interpretation, please see Chart Review. | | + + + + +---------+ + + | Performing | Address | City/State/Zipcode | Phone Number | | Organization | | | | + +---------+ + + | [facility] | | | | + +---------+ + + IMAGING REPORT - EXTERNAL SCAN (04/08/2017 12:00 AM PST) + + + | Narrative | Performed At | + + + | Ordered by an | | | unspecified provider. | | + + + DIAGNOSTIC REPORT - EXTERNAL SCAN (04/07/2017 12:00 AM PST) + + + | Narrative | Performed At | + + + | Ordered by an | | | unspecified provider. | | + + + DIAGNOSTIC REPORT - EXTERNAL SCAN (04/06/2017 12:00 AM PST) + + + | Narrative | Performed At | + + + | Ordered by an | | | unspecified provider. | | + + + IMAGING REPORT - EXTERNAL SCAN (04/06/2017 12:00 AM PST) + + + | Narrative | Performed At | + + + | Ordered by an | | | unspecified provider. | | + + + IMAGING REPORT - EXTERNAL SCAN (03/26/2017 12:00 AM PST) + + + | Narrative | Performed At | + + + | Ordered by an | | | unspecified provider. | | + + + IMAGING REPORT - EXTERNAL SCAN (03/26/2017 12:00 AM PST) + + + | Narrative | Performed At | + + + | Ordered by an | | | unspecified provider. | | + + + IMAGING REPORT - EXTERNAL SCAN (03/24/2017 12:00 AM PST) + + + | Narrative | Performed At | + + + | Ordered by an | | | unspecified provider. | | + + + PATHOLOGY - EXTERNAL SCAN (03/15/2017 12:00 AM PST) + + + | Narrative | Performed At | + + + | Ordered by an | | | unspecified provider. | | + + + LABS - EXTERNAL SCAN (03/11/2017 12:00 AM PST) + + + | Narrative | Performed At | + + + | Ordered by an | | | unspecified provider. | | + + + IMAGING REPORT - EXTERNAL SCAN (03/11/2017 12:00 AM PST) + + + | Narrative | Performed At | + + + | Ordered by an | | | unspecified provider. | | + + + IMAGING REPORT - EXTERNAL SCAN (03/11/2017 12:00 AM PST) + + + | Narrative | Performed At | + + + | Ordered by an | | | unspecified provider. | | + + + documented in this encounter Visit Diagnoses + + | Diagnosis | + + | Esophageal cancer, stage IIA (HCC) - Primary | + + documented in this encounter
--- OUTSIDE RECORDS SUMMARY | ~2019-12-05 | XMS | Encounter Summary ---
Demographics + + + | Address | [address] | | | [place] [address] | + + + | Home Phone | | + + + | Preferred Language | Unknown | + + + | Marital Status | | + + + | Quaker Affiliation | Unknown | + + + | Race | Unknown | + + + | Ethnic Group | Unknown | + + + Author + + + | Author | [facility] | | | and [place] | + + + | Organization | [facility] | | | [...] Team Providers + +------+ + | Care Lean Six Sigma Senior Specialist Name | Role | Phone | + +------+ + | Haim Epps | PCP | | + +------+ + Reason for Visit + + + | Reason | Comments | + + + | Follow-up | | + + + Evaluate & Treat (Routine) + +--------+ + + + + | Status | Reason | Specialty | Diagnoses / | Referred By | Referred To | | | | | Procedures | Contact | Contact | + +--------+ + + + + | Authorized | | Radiation | Diagnoses | [facility] | Amy, | | | | Oncology | Esophageal | Radiation | Jennifer Fair MD | | | | | cancer, | Oncology | [address] | | | | | stage IIA | Clinic [address] | | | | | (HCC) | [address] [place] | [place], | | | | | Procedures | [place], | [place] [address] | | | | | [address] | [place] | Phone: | | | | | | [address] | [phone] | | | | | | Phone: | Fax: | | | | | | [phone] | [phone] | | | | | | Fax: | | | | | | | [phone] | | + +--------+ + + + + Encounter Details +--------+ + + + + | Date | Type | Department | Care Team | Description | +--------+ + + + + | 01/12/ | Hospital | [facility] | Jennifer Reyes | Esophageal cancer, | | 2019 | Encounter | [facility] RAD[facility] | MD Manjula [address] | stage IIIA (HCC) | | | | ONCOLOGY CLINIC [address] | [place], [place] | (Primary Dx) | | | | [address] | [address] | | | | | [place] [address] | | | | | | [phone] | | | +--------+ + + + [...] + + + | Blood Pressure | 138/82 | 01/12/2019 2:23 PM | | | | | PDT | | + + + + + | Pulse | 75 | 01/12/2019 2:23 PM | | | | | PDT | | + + + + + | Temperature | 35.9 C (96.6 F) | 01/12/2019 2:23 PM | | | | | PDT | | + + + + + | Respiratory Rate | 16 | 01/12/2019 2:23 PM | | | | | PDT | | + + + + + | Oxygen Saturation | 96% | 01/12/2019 2:23 PM | | | | | PDT | | + + + + + | Inhaled Oxygen | - | - | | | Concentration | | | | + + + + + | Weight | 63.8 kg (140 lb 10.5 | 01/12/2019 2:23 PM | | | | oz) | PDT | | + + + + + | Height | - | - | | + + + + + | Body Mass Index | 22.88 | 04/14/2017 9:33 AM | | | | | PST | | + + + + + documented in this encounter Medications at Time of Discharge + + + +---------+ + + | Medication | Sig | Dispensed | Refills | Start | End Date | | | | | | Date | | + + + +---------+ + + | levothyroxine | Take 100 mcg by | | 0 | | | | (SYNTHROID) 100 mcg | mouth Daily. | | | | | | tablet | | | | | | + + + +---------+ + + | omeprazole | Take 1 capsule by | 30 | 11 | 01/13/20 | | | (PRILOSEC) 20 mg | mouth every morning | capsule | | 19 | | | capsule | (before breakfast). | | | | | + + + +---------+ + + documented as of this encounter Progress Notes Jennifer Reyes MD - 01/12/2019 2:28 PM PDT Radiation Oncology Follow-up Chief Complaint/ICD10 ICD-10-CM ICD-9-CM 1. Esophageal cancer, stage IIIA (HCC) C15.9 150.9 History of Present Illness: Esophageal cancer, stage IIIA (HCC) 03/15/2017 Initial Diagnosis Esophageal cancer, squamous cell 04/06/2017 Cancer Staged Clinical Stage IIIA (T3N1M0) by EUS - 04/29/2017 Radiation Therapy Completedneoadjuvant chemoradiotherapy with 50.4 Gy in 28 fractions, concurrent with ch emotherapy. - 04/29/2017 Chemotherapy Weekly carboplatin/Taxol, concurrent with radiation. 07/12/2017 Surgery Esophagectomy on 07/12/17, ypT3 ypN0 and an R0 resection. Dr. Cannon at [facility] completed radiation 1 yr 8 months ago, she returns for routine follow- up. Annie continues to feel extremely well. She has adjusted to post esophagectomy changes. Vocal cord repair has been helpful. She is eating and drinking normally. Stable weight. She denies any lumps or nodules. No new focal areas of pain. Reports excellent energy. General health: No new events Ongoing treatment: None Review of systems: Constitutional: Denies fatigue. Denies high fevers, shaking chills, anorexia, nausea, vomit ing, weight loss, or night sweats. Appetite without changes. Ear, Nose, Mouth, Throat: Reports since last surgery feels a "pull" when swallowing. Denie s odynophagia, dysphagia, or tinnitus. Cardiovascular: . Denies shortness of breath, dyspnea on exertion, chest pain, palpitation s or orthopnea. Respiratory: Reports chronic cough with clear mucus. Denies cough, hemoptysis, or sputum p roduction. Gastrointestinal: Reports diarrhea has improved, had since treatment. Denies abdominal violette n, constipation, melena, or bright red blood per rectum. Genitourinary: Denies hematuria or dysuria. Musculoskeletal: Denies joint pain or tenderness. Neurologic: Denies headache, visual changes, or numbness/tingling of the extremities. Endocrine: Denies peripheral edema or heat/cold intolerance. Hematologic: Reports easy bruising. Denies spontaneous bruising or bleeding. Integumentary: Denies rash, wounds or other skin concerns. Note: Patient here for follow up for esophageal cancer. My chart: Declined Pain assessment: Location: NA Pain Level: PAIN PROG PAIN LEVEL: 0 Current Outpatient Medications Medication Sig Dispense Refill levothyroxine (SYNTHROID) 100 mcg tablet Take 100 mcg by mouth Daily. omeprazole (PRILOSEC) 20 mg capsule Take 1 capsule by mouth every morning (before break fast). 30 capsule 11 No current facility-administered medications for this encounter. Allergies No active allergies Intolerance No active intolerances/contraindications Vitals: 01/12/19 1423 BP: 138/82 Pulse: 75 Resp: 16 Temp: 35.9 C (96.6 F) Wt Readings from Last 3 Encounters: 01/12/19 63.8 kg (140 lb 10.5 oz) 10/06/18 63.2 kg (139 lb 5.3 oz) 07/07/18 62.8 kg (138 lb 7.2 oz) Physical Exam: General: Healthy appearing woman in no acute medical distress. KPS: 100 HEENT: Pupils equal, round and reactive to [...] normally with normal gait. Psychiatric: Appropriate. Labs: No recent results. Lab Results Component Value Date WBC 8.9 10/06/2018 HGB 14.3 10/06/2018 HCT 43.2 10/06/2018 MCV 92.9 10/06/2018 PLT 281 10/06/2018 Lab Results Component Value Date CREA 0.77 10/06/2018 BUN 8 (L) 10/06/2018 NA 138 10/06/2018 K 4.0 10/06/2018 CL 109 (H) 10/06/2018 CO2 23 10/06/2018 Lab Results Component Value Date ALT 30 10/06/2018 AST 32 10/06/2018 ALKPHOS 105 10/06/2018 BILITOT 0.3 10/06/2018 Imaging: Imaging studies were directly visualized and my assessment of pertinent findin06/30/18 CT chest abdomen pelvis: Postoperative changes in the thorax from esophagectomy and gastric pull-up. No evidence of local regional disease recurrence. Abdomen demonstrates a small hypodense nodule in the left lateral liver, indeterminate Assessment: ICD-10-CM ICD-9-CM 1. Esophageal cancer, stage IIIA (HCC) C15.9 150.9 Annie is doing extremely well, almost 2 years out from completion of treatment modality t herapy for locally advanced squamous cell carcinoma the esophagus. Clinical history and exa m do not demonstrate any evidence of disease recurrence. She had CT imaging back in June, which was benign. She plans to follow-up with Dr. Epps and Dr. Mccarthy for ongoing luke veillance. Plan: Follow-up with Dr. Reyes is open on an as-needed basis. Labs: None Imaging: Dr. Epps and Dr. Mccarthy for follow CT imaging every 6-12 months, at their discretion. Medication changes: Continue omeprazole for post esophagectomy treatment. 20 mg daily, ref ill provided Referrals: None Follow-up with Dr. Mccarthy and Dr. Epps as directed. No orders of the defined types were placed in this encounter. Thank you for allowing me to participate in the care of Annie Brown. If you should have any questions regarding this evaluation, please do not hesitate to contact me. Jennifer Reyes M.D. Radiation Oncologist Department of Radiation Oncology [facility] Office: [phone] documented in this encounter Plan of Treatment Not on filedocumented as of this encounter Visit Diagnoses + + | Diagnosis | + + | Esophageal cancer, stage IIIA (HCC) - Primary | + + documented in this encounter
--- OUTSIDE RECORDS SUMMARY | ~2019-12-05 | XMS | Encounter Summary ---
Demographics + + + | Address | [address] | | | [place] [address] | + + + | Home Phone | | + + + | Preferred Language | Unknown | + + + | Marital Status | | + + + | Evangelical Affiliation | Unknown | + + + | Race | Unknown | + + + | Ethnic Group | Unknown | + + + Author + + + | Author | [facility] | | | and [place] | + + + | Organization | [facility] | | | [...] Team Providers + +------+ + | Care Flooring Salesperson Name | Role | Phone | + +------+ + | Haim Epps | PCP | | + +------+ + Encounter Details +--------+ + + + + | Date | Type | Department | Care Team | Description | +--------+ + + + + | 07/13/ | Imaging | [facility] | Provider, | | | 2019 | Exam | [facility] EXTERNAL | MD [address] | | | | | IMAGING [address] | | | | | [address] | [place] [address] | | | | | [place] [address] | | | | | | [phone] | | | +--------+ + + + + Social History + +-------+ +--------+------+ | Tobacco Use | Types | Packs/Day | Years | Date | | | | | Used | | + +-------+ +--------+------+ | Never Assessed | | | | | + +-------+ +--------+------+ + + + | Sex Assigned at [...] | + +--------+ + + + | MRI ABDOMEN W WO | Routin | 04/08/2017 | | Results for this | | CONTRAST | e | 1:40 PM | | procedure are in the | | | | PST | | results section. | + +--------+ + + + documented in this encounter Results MRI Abdomen w wo Contrast (04/08/2017 1:40 PM PST) + + | Specimen | + + | | + + + + + | Narrative | Performed At | + + + | External films for comparison only | [facility] | | | | | No results will be in the chart. | | + + + + +---------+ + + | Performing | Address | City/State/Zipcode | Phone Number | | Organization | | | | + +---------+ + + | [facility] | | | | + +---------+ + + documented in this encounter Visit Diagnoses Not on filedocumented in this encounter"
--- OUTSIDE RECORDS SUMMARY | ~2019-12-05 | XMS | Encounter Summary ---
Demographics + + + | Address | [address] | | | [place] [address] | + + + | Home Phone | | + + + | Preferred Language | Unknown | + + + | Marital Status | | + + + | Zoroastrian Affiliation | Unknown | + + + | Race | Unknown | + + + | Ethnic Group | Unknown | + + + Author + + + | Author | [facility] | | | and [place] | + + + | Organization | [facility] | | [...] Team Providers + +------+ + | Care Joint Special Operations Name | Role | Phone | + [...] | +--------+ + + + + | 05/18/ | Hospital | [facility] | Fabio, | Esophageal cancer, | | 2018 | Encounter | MED CTR NUTRITION | Isak Elizabeth MD [address] | stage IIA (HCC) | | | | SERVICES [address] | | | | | [place], | [address] [place], [place] | | | | | [place] [address] | [id number] | | | | | [phone] | | | | | | | [...] + + + +---------+ + + | Omeprazole | Mix 15 mL of water | 60 each | 0 | 05/13/19 | | | Magnesium 10 MG PACK | and one 10 mg packet | | | 18 | 8 | | | of omeprazole, | | | | | | | administer via J | | | | | | | tube twice daily. | | | | | | | Once mixed, shake | | | | | | | gently and allow 2-3 | | | | | | | minutes for | | | | | | | solution to thicken, | | | | | | | then administer. | | | | | + + + +---------+ + + | ondansetron | Crush 1 tablet and | 60 | 3 | 05/18/19 | | | (ZOFRAN) 8 MG tablet | mix with 15-30 mL | tablet | | 18 | 8 | | | (1-2 tablespoons) of | | | | | | | water, administer | | | | | | | twice daily for 2 | | | | | | | days after each | | | | | | | chemo. On other | | | | | | | days, take 8 mg | | | | | | | every 6 hrs as | | | | | [...] as of this encounter Progress Notes Misti Roth, CHINMA[place] - 05/18/2017 2:19 PM PSTFormatting of this note might be different f rom the original. Medical Nutrition Note SUBJECTIVE: Pt is asleep so meet with her . He is getting between 550-650 cc of TF into the pt per day which is 660-780 kcals per day. Goal is 3361-3245 kcals per day. Husnate and states she just cannot tolerate more volume than that. May need to change formula to a 1.5 kcal vs 1/2 kcal TF. They wish to stay on current TF for one more week. OBJECTIVE: Diet: Diet: Isosource HN 6.5-7 cans per day Wt Readings from Last 3 Encounters: 05/18/17 61.3 kg (135 lb 2.3 oz) 05/13/17 63.3 kg (139 lb 8.8 oz) 05/12/17 62.1 kg (136 lb 14.5 oz) Ht Readings from Last 1 Encounters: 04/14/17 1.67 m (5' 5.75") Estimated needs (wt. 64kg) 2445-8338 kcals/day 64-77 gm pro/day Medications: reviewed ASSESSMENT/PLAN: Nutrition Diagnosis: Inadequate enteral nutrition related to unable to tolerate more volum e as evidenced by verbalization from the , volume received 550-650 cc per day and con tinued weight loss. Interventions: 1. Discussed again the need to have TF running for more hours in the day 2. May need to switch to a more concentrated formula Nutrition Goals: 1. To prevent further weight loss 2. Increase volume each day Monitor: 1. Nutritional parameters 2. Wt and TF Time spent: 30 minutes Thank you for the referral, Misti Roth RDN 05/18/2017 14:19 documented in this encounter Plan of Treatment Not on filedocumented as of this encounter Visit Diagnoses + + | Diagnosis | + + | Esophageal cancer, stage IIA (HCC) | + + documented in this encounter
--- OUTSIDE RECORDS SUMMARY | ~2019-12-05 | XMS | Encounter Summary ---
Demographics + + + | Address | [address] | | | [place] [address] | + + + | Home Phone | | + + + | Preferred Language | Unknown | + + + | Marital Status | | + + + | Episcopalian Affiliation | Unknown | + + + | Race | Unknown | + + + | Ethnic Group | Unknown | + + + Author + + + | Author | [facility] | | | and [place] | + + + | Organization | [facility] | | | [...] Team Providers + +------+ + | Care Heavy Equipment Rental Manager Name | Role | Phone | + +------+ + | No, Physician | PCP | Unavailable | + +------+ + Reason for Visit + + + | Reason | Comments | + + + | Follow-up | | + + + | Esophageal Cancer | | + + + Encounter Details +--------+ + + + + | Date | Type | Department | Care Team | Description | +--------+ + + + + | 05/13/ | Hospital | [facility] | Jennifer Reyes | Esophageal cancer, | | 2018 | Encounter | MED CTR RADIATION | MD Manjula [address] | stage IIA (HCC) | | | | ONCOLOGY CLINIC [address] | [place], [place] | (Primary Dx) | | | | [address] | [address] | | | | | [place] [address] | | | | | | [phone] | | | +--------+ + + + [...] + + + | Blood Pressure | 151/82 | 05/13/2017 8:30 AM | | | | | PST | | + + + + + | Pulse | 67 | 05/13/2017 8:30 AM | | | | | PST | | + + + + + | Temperature | 37 C (98.6 F) | 05/13/2017 8:30 AM | | | | | PST | | + + + + + | Respiratory Rate | - | - | | + + + + + | Oxygen Saturation | 97% | 05/13/2017 8:30 AM | | | | | PST | | + + + + + | Inhaled Oxygen | - | - | | | Concentration | | | | + + + + + | Weight | 63.3 kg (139 lb 8.8 | 05/13/2017 8:30 AM | | | | oz) | PST | | + + + + + | Height | - | - | | + + + + + | Body Mass Index | 22.7 | 04/14/2017 9:33 AM | | | [...] encounter Progress Notes Jennifer Madrid MD - 05/13/2017 8:36 AM PST Radiation Oncology Weekly On Treatment Note Diagnosis: ICD-10-CM ICD-9-CM 1. Esophageal cancer, stage IIA (HCC) C15.9 150.9 Reason for visit: On treatment evaluation Radiation technical factors: Dose Delivered Dose Planned Fractions Delivered Esophagus 1980 cGy 4500 cGy 03/20 Images were reviewed this week and results of the review have been recorded in [facility]. Corre ctions were applied as necessary. No Known Allergies Current Outpatient Prescriptions on File Prior to Encounter Medication Sig Dispense Refill dexamethasone (DECADRON) 1 mg/mL solution Administer 4 mL's (4 mg) via feeding tube two times daily for 2 days after each chemo 120 mL 0 HYDROcodone-acetaminophen (HYCET) 7.5-325 mg/15 mL liquid Take 15 mLs via J-tube 4 time s daily as needed for Pain. loperamide (IMODIUM) 2 mg/10 mL solution 20ML through tube followed by 10ML after each loose stool; Max 80 ML/day 120 mL 2 LORazepam (ATIVAN) 1 mg tablet Crush 1 [...] as needed for nausea/vomiting 30 tablet 3 traZODone (DESYREL) 50 mg tablet Take 1-2 tabs nightly as needed for esophageal spasm 3 0 tablet 0 No current facility-administered medications on file prior to encounter. Pain assessment: Location: esophagus Pain Level: 3/10 Pain Quality: burning and pressure Current pain regimen: hydrocodone prn none this morning Wt Readings from Last 3 Encounters: 05/13/17 63.3 kg (139 lb 8.8 oz) 05/12/17 62.1 kg (136 lb 14.5 oz) 05/06/17 64.6 kg (142 lb 6.7 oz) Vitals: 05/13/17 0830 BP: 151/82 Pulse: 67 Temp: 37 C (98.6 F) TempSrc: Tympanic SpO2: 97% Weight: 63.3 kg (139 lb 8.8 oz) Physical Exam Constitutional: She appears well-developed and well-nourished. Neurological: She is alert. Psychiatric: She has a normal mood and affect. Lab Results Component Value Date WBC 4.5 05/12/2017 HGB 14.6 05/12/2017 HCT 42.7 05/12/2017 MCV 90.2 05/12/2017 PLT 285 05/12/2017 Lab Results Component Value Date CREA 0.74 05/12/2017 BUN 11 05/12/2017 NA 134 (L) 05/12/2017 K 3.9 05/12/2017 CL 103 05/12/2017 CO2 26 05/12/2017 Lab Results Component Value Date ALT 44 05/12/2017 AST 28 05/12/2017 ALKPHOS 66 05/12/2017 BILITOT 0.7 05/12/2017 Physician Assessment: Annie as just over 2 weeks into treatment with concurrent chemotherapy and radiation. Si nce starting radiation she has experienced a few episodes of esophageal spasm, particularly at night. The pain is quite severe and distressing, wakes her from sleep. Feels like a "he art attack" per her report and radiates up her neck. The pain subsides within a few minutes spontaneously. She was given a prescription for trazodone to alleviate symptoms. She is t aking this medication once and felt that it was effective however cause side effects of feel ing woozy and lightheaded. Nausea has been her predominant symptom since starting treatment. She is able to manage mo st of the time with post chemo Decadron, Zofran multiple times a day and occasional Ativan. Reports nausea in clinic today and has taken Zofran earlier this morning. Continues to be completely J-tube dependent. Weight stable. Toxicities reviewed in nursing note. Disposition: Continue radiation treatment as planned. Continue chemotherapy at the direction of Dr. Mccarthy. Continue trazodone as needed for esophageal spasm. Add proton pump inhibitor. Jennifer Colin MD Radiation Oncologist Nichole Roberts RN - 05/13/2017 8:36 AM PST 05/13/17 0834 Gastrointestinal Diarrhea 1 - Grade 1 Nausea 1 - Grade 1 General Disorders and Administration Site Conditions Fatigue 1 - Grade 1 Respiratory Thoracic and Mediastinal Dyspnea 1 - Grade 1 Performance Status Karnofsky Performance Score 80% documented in this encounter Plan of Treatment Not on filedocumented as of this encounter Visit Diagnoses + + | Diagnosis | + + | Esophageal cancer, stage IIA (HCC) - Primary | + + documented in this encounter
--- OUTSIDE RECORDS SUMMARY | ~2019-12-05 | XMS | Encounter Summary ---
Demographics + + + | Address | [address] | | | [place] [address] | + + + | Home Phone | | + + + | Preferred Language | Unknown | + + + | Marital Status | | + + + | Rastafarian Affiliation | Unknown | + + + | Race | Unknown | + + + | Ethnic Group | Unknown | + + + Author + + + | Author | [facility] | | | and [place] | + + + | Organization | [facility] | | | and [...] Team Providers + +------+ + | Care Applications Programmer Analyst Name | Role | Phone | + +------+ + | No, Physician | PCP | Unavailable | + +------+ + Reason for Visit +--------+--------+ + | Reason | Onset | Comments | | | Date | | +--------+--------+ + | Other | 06/11/ | | | | 2018 | | +--------+--------+ + Encounter Details +--------+ + + + + | Date | Type | Department | Care Team | Description | +--------+ + + + + | 06/11/ | Telephone | [facility] | Wells, Marisel M, | Other | | 2018 | | [facility] RADIATION | RN | | | | | ONCOLOGY CLINIC [address] | | | | | | [address] | | | | | | [place] [address] | | | | | | [phone] | | | +--------+ + + + [...] Telephone Encounter - Marisel Richardson RN - 06/11/2017 3:05 PM PSTPatient is notified of p rescription per phone call. elephone Encounter - Marisel Richardson RN - 06/11/2017 1:34 PM PSTLeft message for p atient to regarding prescription, will call back to verify she received message. Also phone call made to [facility] in [place] to clarify prescription. elephone Encounter - Marisel Richardson RN - 06/11/2017 1:30 PM PST----- Message from Jennifer Madrid MD sent at 06/11/2017 12:57 PST ----- Please notify Annie Jesus Kevin that I sent an antibiotic to her pharmacy. Liquid form ulation on Augmentin to be taken twice a day for days. Please let us know if she is not fee ling better. (Error of pill form sent initially. Please call her pharmacy and cancel the pill form of th e Rx) Thank you. documented in this encounter Plan of Treatment Not on filedocumented as of this encounter Visit Diagnoses Not on filedocumented in this encounter"
--- OUTSIDE RECORDS SUMMARY | ~2019-12-05 | XMS | Encounter Summary ---
Demographics + + + | Address | [address] | | | [place] [address] | + + + | Home Phone | | + + + | Preferred Language | Unknown | + + + | Marital Status | | + + + | Bahai Affiliation | Unknown | + + + | Race | Unknown | + + + | Ethnic Group | Unknown | + + + Author + + + | Author | [facility] | | | and [place] | + + + | Organization | [facility] | | [...] Team Providers + +------+ + | Care Care Manager Cna Name | Role | Phone | + +------+ + | No, Physician | PCP | Unavailable | + +------+ + Reason for Visit Service/Procedure (Routine) +--------+--------+ + + + + | Status | Reason | Specialty | Diagnoses / | Referred By | Referred To | | | | | Procedures | Contact | Contact | +--------+--------+ + + + + | Closed | | Infusion | Diagnoses | | [facility] | | | | Therapy | Malignant | Fabio, | Infusion 401 | | | | | neoplasm of | Isak Elizabeth, | [address] | | | | | esophagus, | MD [address] | [place], | | | | | unspecified | [place] | [place] [address] | | | | | (HCC) | [address] | Phone: | | | | | Procedures | [place], | [phone] | | | | | [place] | [place] [address] | Fax: | | | | | [place] | Phone: | [phone] | | | | | [place] | [phone] | | | | | | [place] | Fax: | | | | | | DEXAMETHASON | [phone] | | | | | | E, .25 MG | | | | | | | FL | | | | | | | INJECTION, | | | | | | | FAMOTIDINE, | | | | | | | 20 MG FL | | | | | | | DIPHENHYDRAM | | | | | | | INE HCL | | | | | | | INJECTIO, 50 | | | | | | | MG FL | | | | | | | PACLITAXEL | | | | | | | INJECTION, | | | | | | | 1MG FL | | | | | | | CARBOPLATIN | | | | | | | INJECTION, | | | | | | | 50 MG FL | | | | | | | METHYLPREDNI | | | | | | | SOLONE | | | | | | | INJECTION, | | | | | | | 125 MG FL | | | | | | | DEXAMETHASON | | | | | | | E SODIUM | | | | | | | PHOS, 1 MG | | | | | | | FL ADRENALIN | | | | | | | EPINEPHRINE | | | | | | | INJECT, .1 | | | | | | | MG FL | | | | | | | ALBUTEROL | | | | | | | COMP CON, 1 | | | | | | | MG FL | | | | | | | ALBUTEROL | | | | | | | NON-COMP | | | | | | | CON, 1 MG | | | | | | | FL NORMAL | | | | | | | SALINE | | | | | | | SOLUTION | | | | | | | INFUS, 500 | | | | | | | ML FL | | | | | | | NORMAL | | | | | | | SALINE | | | | | | | SOLUTION | | | | | | | INFUS, 250 | | | | | | | ML FL | | | | | | | STERILE | | | | | | | WATER/SALINE | | | | | | | , 10 ML FL | | | | | | | CHEMOTHER, | | | | | | | IV PUSH,EA | | | | | | | ADD DRUG FL | | | | | | | CHEMOTHER, | | | | | | | IV INFUSION, | | | | | | | 1 HR FL | | | | | | | CHEMOTHER, | | | | | | | IV INFUSION, | | | | | | | EA HR FL | | | | | | | CHEMOTHER,NO | | | | | | | N-HORMONE | | | | | | | ANTI-NEOPL, | | | | | | | SUB-Q/IM FL | | | | | | | CHEMOTHER | | | | | | | HORMON | | | | | | | ANTINEOPL | | | | | | | SUB-Q/IM FL | | | | | | | | | | | | | | FOSAPREPITAN | | | | | | | T INJECTION, | | | | | | | 1 MG FL | | | | | | | PALONOSETRON | | | | | | | HCL, 25 MCG | | | +--------+--------+ + + + + Encounter Details +--------+ + + + + | Date | Type | Department | Care Team | Description | +--------+ + + + + | 04/29/ | Hospital | [facility] | Fabio, | Esophageal cancer, | | 2018 | Encounter | MED CTR CHEMO | Isak Elizabeth MD 9104 | stage IIA (HCC) | | | | INFUSION [address] [place] [place] | | | | | [place], | [address] [place], [place] | | | | | [place] [address] | [address] | | | | | [phone] | | | +--------+ + + + [...] + + + +---------+ + + | aluminum & | Take 30 [...] tablet and | 30 | 3 | 01/04/20 | | | (ZOFRAN) 8 MG | [...] documented as of this encounter Progress Notes Cheyanne Urbano RN - 04/29/2017 4:35 PM PSTDischarged to home in satisfactory condition , ambulatory with family. Future appointments provided. Cheyanne Kelly RN - 04/29/2017 1:00 PM PSTAttempted x2 to access Portacath. Patient had port placed over 1 month ago and appears well healed. States it still feels tender. Unable to access with bowers needle and caused a lot of disco mfort to patient the first time. On second attempt, had patient laying flat, used ethyl chl oride and subcutaneous xylocaine, and unable to access port again. Needle removed. Will no t use port today and check it again in one week. It is possible her port is flipped over, o r that it is just deep and requires and longer needle. Chemo will be given today through an arm vein. Patient agreeable. Dr. Mccarthy notified of difficulty with port. Will obta in an Xray on next visit. P M PSTdocumented in this encounter Miscellaneous Notes Treatment Plan - Lor Concepcion RN - 04/29/2017 12:37 PM PSTViewed chart for weight, yuli l signs and lab results. Also viewed chart for completion of medication and allergy review prior to treatment.Lor Concepcion RN DATE/TIME: 04/29/2017 12:37 documented in this en counter Plan of Treatment Not on filedocumented as of this encounter Visit Diagnoses + + | Diagnosis | + + | Esophageal cancer, stage IIA (HCC) | + + documented in this encounter Administered Medications + +---------+ + +--------+------+ | Medication Order | MAR | Action | Dose | Rate | Site | | | Action | Date | | | | + +---------+ + +--------+------+ | CARBOplatin (PARAPLATIN) 226.6 | New Bag | 04/29/19 | 226.6 mg | 545.3 | | | mg in sodium chloride 0.9% 250 mL | | 18 3:56 | | mL/hr | | | infusion 226.6 mg (Target AUC = | | PM PST | | | | | 2), Intravenous, Administer over | | | | | | | 30 Minutes, ONCE, [facility] 04/29/17 at | | | | | | | 1600, For 1 dose, Chemotherapy: | | | | | | | Use appropriate handling | | | | | | | precautions. Administer AFTER | | | | | | | PACLitaxel., | | | | | | + +---------+ + +--------+------+ +---+---+ | | | +---+---+ + +-------+ +-------+---+---+ | diphenhydrAMINE (BENADRYL) | Given | 04/29/19 | 25 mg | | | | injection 25 mg 25 mg, | | 18 1:28 | | | | | Intravenous, ONCE, [facility] 04/29/17 at | | PM PST | | | | | 1300, For 1 dose, Administer 30 | | | | | | | minutes prior to PACLitaxel ., | | | | | | + +-------+ +-------+---+---+ +---+---+ | | | +---+---+ + +-------+ +-------+---+---+ | famotidine (PEPCID) injection | Given | 04/29/19 | 20 mg | | | | 20 mg 20 mg, Intravenous, ONCE, | | 18 1:20 | | | | | Tiny 04/29/17 at 1300, For 1 dose, | | PM PST | | | | | Keep in refrigerator. Administer | | | | | | | 30 minutes prior to PACLitaxel. | | | | | | | Prior to administration, prepare | | | | | | | a 20 mg dose by diluting 2 mL of | | | | | | | famotidine 10 mg/mL to 10 mL with | | | | | | | normal saline., | | | | | | + +-------+ +-------+---+---+ +---+---+ | | | +---+---+ + +---------+ +--------+-------+---+ | fosaprepitant (EMEND) 150 mg in | New Bag | 04/29/19 | 150 mg | 500 | | | sodium chloride 0.9% 250 mL IVPB | | 18 1:51 | | mL/hr | | | 150 mg, Intravenous, Administer | | PM PST | | | | | over 30 Minutes, ONCE, Tiny | | | | | | | 04/29/17 at 1315, For 1 dose, Do | | | | | | | not shake bag., | | | | | | + +---------+ +--------+-------+---+ +---+---+ | | | +---+---+ + +-------+ +---------+---+ + | lidocaine (PF) 1% injection 1 | Given | 04/29/19 | 0.5 mLs | | Other | | mL 1 mL, Intradermal, ONCE, Tiny | | 18 1:10 | | | (Comment | | 04/29/17 at 1315, For 1 dose | | PM PST | | | ) | + +-------+ +---------+---+ + +---+---+ | | | +---+---+ + +-------+ +------+---+---+ | LORazepam (ATIVAN) 2 mg/mL | Given | 04/29/19 | 1 mg | | | | injection 0.5-1 mg 0.5-1 mg, | | 18 1:22 | | | | | Intravenous, PRN, Anxiety, | | PM PST | | | | | Nausea/Vomiting, Starting Tiny | | | | | | | 04/29/17 at 1232, For 1 dose, | | | | | | | Administer prior to | | | | | | | chemotherapy., | | | | | | + +-------+ +------+---+---+ +---+---+ | | | +---+---+ + +---------+ +---+--------+---+ | ondansetron (ZOFRAN) 8 mg, | New Bag | 04/29/19 | | 217.6 | | | dexamethasone (DECADRON) 4 mg in | | 18 1:32 | | mL/hr | | | sodium chloride 0.9% 50 mL IVPB | | PM PST | | | | | Intravenous, Administer over 15 | | | | | | | Minutes, ONCE, [facility] 04/29/17 at | | | | | | | 1300, For 1 dose, Administer 30 | | | | | | | minutes prior to chemotherapy., | | | | | | + +---------+ +---+--------+---+ +---+---+ | | | +---+---+ + +---------+ +-------+-------+---+ | PACLitaxel (TAXOL) 72 mg in | New Bag | 04/29/19 | 72 mg | 212 | | | sodium chloride 0.9% 200 mL | | 18 2:22 | | mL/hr | | | infusion 72 mg (rounded from | | PM PST | | | | | 71.6 mg = 40 mg/m2 | | | | | | | 1.79 m2 Order-specific BSA), | | | | | | | Intravenous, Administer over 1 | | | | | | | Hours, ONCE, [facility] 04/29/17 at 1345, | | | | | | | For 1 dose, Chemotherapy: Use | | | | | | | appropriate handling precautions. | | | | | | | Vesicant. Use 0.22 micron filter | | | | | | | and non-DEHP tubing for | | | | | | | administration. This drug has a | | | | | | | high incidence of infusion | | | | | | | reactions. Patient must be | | | | | | | directly and frequently observed | | | | | | | during drug administration., | | | | | | + +---------+ +-------+-------+---+ +---+---+ | | | +---+---+ documented in this encounter"
--- OUTSIDE RECORDS SUMMARY | ~2019-12-05 | XMS | Encounter Summary ---
Demographics + + + | Address | [address] | | | [place] [address] | + + + | Home Phone | | + + + | Preferred Language | Unknown | + + + | Marital Status | | + + + | Anabaptist Affiliation | Unknown | + + + | Race | Unknown | + + + | Ethnic Group | Unknown | + + + Author + + + | Author | [facility] | | | and [place] | + + + | Organization | [facility] | | | [...] Team Providers + +------+ + | Care Roll Tube Setter Name | Role | Phone | + +------+ + | No, Physician | PCP | Unavailable | + +------+ + Encounter Details +--------+ + + + + | Date | Type | Department | Care Team | Description | +--------+ + + + + | 05/13/ | Orders Only | [facility] | Barry Black | Esophageal cancer, | | 2018 | | [facility] | J, PharmD [address] | stage IIA (HCC) | | | | ONCOLOGY CLINIC [address] [place] | (Primary Dx) | | | | [address] | [place] [address] | | | | | [place] [address] | [phone] | | | | | [phone] | | | +--------+ + + + [...] Primary | + + documented in this encounter"
--- OUTSIDE RECORDS SUMMARY | ~2019-12-05 | XMS | Encounter Summary ---
Demographics + + + | Address | [address] | | | [place] [address] | + + + | Home Phone [...] Team Providers + +------+ + | Care Nutritionalist Name | Role | Phone | + +------+ + | Haim Epps | PCP | | + +------+ + Encounter Details +--------+ + + + + | Date | Type | Department | Care Team | Description | +--------+ + + + + | 07/19/ | Hospital | [facility] | Fabio, | Esophageal cancer, | | 2018 | Encounter | MED CTR CHEMO | Isak Elizabeth MD 0387 | stage IIA (HCC) | | | | INFUSION [address] [facility] | (Primary Dx) | | | | [place], | [address] [place] | | | | | [place] [address] | [address] | | | | | [phone] | | | +--------+ + + + [...] as of this encounter Plan of Treatment +------+------+--------+ + + | Name | Type | Priori | Associated Diagnoses | Order Schedule | | | | ty | | | +------+------+--------+ + + | [facility] | Lab | Routin | Esophageal cancer, | 4 Occurrences | | | | e | stage IIA (HCC) | starting 07/14/2017 | | | | | | until 07/14/2018, 1 | | | | | | completed | +------+------+--------+ + + documented as of this encounter Results [facility] (04/21/2018 2:03 PM PST) + +-------+ + + + | Component | Value | Ref Range | Performed | Pathologist | | | | | At | Signature | + +-------+ + + + | [facility] | 2.9 | 0.0 - 10.0 | [facility] | | | | | ng/mL | [facility] | | | | [facility] | | | | | [facility] - | | | | | | LABORATORY | | + +-------+ + + + + + | Specimen | + + | Blood | + + + + + + + | Performing | Address | City/State/Zipcode | Phone Number | | Organization | | | | + + + + + | [facility] | [address] | [place] | [phone] | | [facility] | | [address] | | | - LABORATORY | | | | + + + + + documented in this encounter Visit Diagnoses + + | Diagnosis | + + | Esophageal cancer, stage IIA (HCC) - Primary | + + documented in this encounter"
--- OUTSIDE RECORDS SUMMARY | ~2019-12-05 | XMS | Encounter Summary ---
Demographics + + + | Address | [address] | | | [place] [address] | + + + | Home Phone | | + + + | Preferred Language | Unknown | + + + | Marital Status | | + + + | Tenriism Affiliation | Unknown | + + + | Race | Unknown | + + + | Ethnic Group | Unknown | + + + Author + + + | Author | [facility] | | | and [place] | + + + | Organization | [facility] | | | [...] Team Providers + +------+ + | Care Waste Water Plant Operator Name | Role | Phone | + +------+ + | Haim Epps | PCP | | + +------+ + Reason for Visit + + + | Reason | Comments | + + + | Esophageal Cancer | | + + + | Follow-up | | + + + Evaluate & Treat (Routine) +--------+--------+ + + + + | Status | Reason | Specialty | Diagnoses / | Referred By | Referred To | | | | | Procedures | Contact | Contact | +--------+--------+ + + + + | Closed | | Radiation | Diagnoses | [facility] | Riegert, | | | | Oncology | Esophageal | Radiation | Jennifer Fair MD | | | | | cancer, | Oncology | [address] | | | | | stage IIA | Clinic [address] | | | | | (HCC) | [address] | [place], | | | | | Procedures | [place], | [place] [address] | | | | | [place] OFFICE | [place] | Phone: | | | | | OUTPATIENT | [address] | [phone] | | | | | VISIT 25 | Phone: | Fax: | | | | | MINUTES | [phone] | [phone] | | | | | OFFICE VISIT | Fax: | | | | | | EXTENDED | [phone] | | +--------+--------+ + + + + Encounter Details +--------+ + + + + | Date | Type | Department | Care Team | Description | +--------+ + + + + | 01/05/ | Hospital | [facility] | Jennifer Reyes | Esophageal cancer, | | 2018 | Encounter | MED CTR RADIATION | MD Manjula [address] | stage IIA (HCC) | | | | ONCOLOGY CLINIC [address] | [place], [place] | | | | | [address] | [address] | | | | | [place] [address] | | | | | | [phone] | | | +--------+ + + + [...] + + + | Blood Pressure | 130/83 | 01/05/2018 2:34 PM | | | | | PDT | | + + + + + | Pulse | 70 | 01/05/2018 2:34 PM | | | | | PDT | | + + + + + | Temperature | 37.1 C (98.8 F) | 01/05/2018 2:34 PM | | | | | PDT | | + + + + + | Respiratory Rate | 16 | 01/05/2018 2:34 PM | | | | | PDT | | + + + + + | Oxygen Saturation | 96% | 01/05/2018 2:34 PM | | | | | PDT | | + + + + + | Inhaled Oxygen | - | - | | | Concentration | | | | + + + + + | Weight | 60 kg (132 lb 4.4 | 01/05/2018 2:34 PM | | | | oz) | PDT | | + + + + + | Height | - | - | | + + + + + | Body Mass Index | 21.51 | 04/14/2017 9:33 AM | | | | | PST | | + + + + + documented in this encounter Medications at Time of Discharge + + + +---------+ + + | Medication | Sig | Dispensed | Refills | Start | End Date | | | | | | Date | | + + + +---------+ + + | acetaminophen | Take 15.5 mLs by | 473 mL | 2 | 06/11/19 | | | (TYLENOL) 160 mg/5 | mouth every 4 hours | | | 18 | 9 | | mL solution | as needed for Fever. | | | | | + + + +---------+ + + | ibuprofen (ADVIL, | Take by mouth every | | 0 | | | | MOTRIN) 100 mg/5 mL | 6 hours as needed | | | | 9 | | suspension | for Fever. Taking | | | | | | | 15ml | | | | | + + + +---------+ + + | Omeprazole | Mix 15 mL of water | 90 each | 3 | 12/23/19 | | | Magnesium 10 MG PACK | and one 10 mg packet | | | 18 | 8 | | | of omeprazole, | | | | | | | administer via J | | | | | | | tube three times | | | | | | | daily. Once mixed, | | | | | | | shake gently and | | | | | | | allow 2-3 minutes | | | | | | | for solution to | | | | | | | thicken, then | | | | | | | administer. | | | | | + + + +---------+ + + documented as of this encounter Progress Notes Jennifer Reyes MD - 01/05/2018 2:42 PM PDT Radiation Oncology Follow-up Chief Complaint/ICD10 ICD-10-CM ICD-9-CM 1. Esophageal cancer, stage IIA (HCC) C15.9 150.9 History of Present Illness: Annie Brown is a 62 y.o. woman with a history of esophageal cancer, squamous cell carcinoma, moderately differentiated. Clinical stage T3 N1 M0 based on EUS and PET/CT. C ompleted neoadjuvant chemoradiotherapy with 50.4 Gy in 28 fraction and concurrent weekly car boplatin and paclitaxel, 06/07/17. Esophagectomy on 07/12/17, ypT3 ypN0 and an R0 resection. Last seen on 09/07/17 and returns for routine follow-up. Annie has continued to make sign ificant improvements. She now is eating most foods normally, small meals. Some foods cause nausea like ice cream. She is no longer having fear of swallowing or an aversion to eating . J-tube removed in October. Weight has increased in the past few months by 5 lbs. She had an injection in the vocal cord which helped some, voice quality remains abnormal. 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 She has not undergone any recent imaging. Follow-up with Dr. Mccarthy in September. Review of systems: REVIEW OF SYSTEMS Constitutional: Reports "certain foods make her sick as a dog like icecream". Denies fatig ue. Denies high fevers, shaking chills, anorexia, nausea, vomiting, weight loss, or night sw eats. Appetite without changes. Ear, Nose, Mouth, Throat: Denies odynophagia, dysphagia, or tinnitus. Cardiovascular: Denies shortness of breath, dyspnea on exertion, chest pain, palpitations o r orthopnea. Respiratory: Reports intermittent cough, due to vocal cord paralysis. Denies hemoptysis, or sputum production. Gastrointestinal: Reports intermittent diarrhea, this occurs after eating sometimes, certai n foods seem to have this affect, "it is not a constant". Denies abdominal pain, constipati on, melena, or bright red blood per rectum. Genitourinary: Denies hematuria or dysuria. Musculoskeletal: Denies joint pain or tenderness. Neurologic: Denies headache, visual changes, or numbness/tingling of the extremities. Endocrine: Denies peripheral edema or heat/cold intolerance. Hematologic: Denies spontaneous bruising or bleeding. Integumentary: Reports site where J-tube was removed has "mostly healed up took some time w as removed on 11/02/17". Denies rash, wounds or other skin concerns. Pain: Denies pain. Note: Here for follow up. My chart:Declined Pain assessment: Location: NA Pain Level: PAIN PROG PAIN LEVEL: 0 Pain Quality: NA Current pain regimen: NA Current Outpatient Prescriptions Medication Sig Dispense Refill acetaminophen (TYLENOL) 160 mg/5 mL solution Take 15.5 mLs by mouth every 4 hours as ne eded for Fever. (Patient not taking: Reported on 01/05/2018) 473 mL 2 ibuprofen (ADVIL, MOTRIN) 100 mg/5 mL suspension Take by mouth every 6 hours as needed for Fever. Taking 15ml Omeprazole Magnesium 10 MG PACK Mix 15 mL of water and one 10 mg packet of omeprazole, administer via J tube three times daily. Once mixed, shake gently and allow 2-3 minutes for solution to thicken, then administer. (Patient taking differently: Mix 15 mL of water and on e 10 mg packet of omeprazole. J-tube removed oral now.) 90 each 3 No current facility-administered medications for this encounter. Allergies No active allergies Intolerance No active intolerances/contraindications Vitals: 01/05/18 1434 BP: 130/83 Pulse: 70 Resp: 16 Temp: 37.1 C (98.8 F) Wt Readings from Last 3 Encounters: 01/05/18 60 kg (132 lb 4.4 oz) 09/07/17 58.5 kg (128 lb 15.5 oz) 06/11/17 59.7 kg (131 lb 9.8 oz) Physical Exam: General: Healthy appearing woman in no acute medical distress. KPS: 90 HEENT: Pupils equal, round and reactive to [...] extremities normally with normal gait. Psychiatric: Appropriate. Well-healed thoracic incisions, no nodularity Labs: No recent results. Imaging: No recent results. Assessment: ICD-10-CM ICD-9-CM 1. Esophageal cancer, stage IIA (HCC) C15.9 150.9 Annie Brown is a 62 y.o. female with a history of obstructing esophageal squamous cell carcinoma. She has undergone tri-modality therapy with an R0 resection. Treatment com pleted 5 months ago. She has continued to recover substantially. Adjustment to physical ch anges from esophagectomy were difficult at first, she is now able to eat normally and is reg aining some weight. No longer feeding tube dependent. No clinical evidence of disease recu rrence. Most recent CT imaging in June was benign. Further follow-up imaging can be direc rosa by clinical symptoms. Consideration for CT chest and abdomen on a separate interval suc h as every 6 months can also be considered. She is feeling very well and we have opted for clinical follow-up at this time. Plan: -Follow-up with Dr. Mccarthy as scheduled. -Return to clinic in 6 months, sooner if needed -Transition to standard omeprazole pills as she is now able to take PO. Thank you for allowing me to participate in the care of Annie Brown. If you should have any questions regarding this evaluation, please do not hesitate to contact me. Jennifer Reyes M.D. Radiation Oncologist Department of Radiation Oncology [facility] Office: [phone] CC: Patient Care Team: Haim Epps as PCP - General (Surgery) Isak Mccarthy MD as Consulting Physician (Medical Oncology) Norm Oneal MD (Otolaryngology) Jennifer Reyes MD as Physician (Radiation Oncology) Gold Cannon MD (Cardiothoracic Surgery) Misti Roth RDN as Registered Dietitian (Dietitian) documented in this encounter Plan of Treatment Not on filedocumented as of this encounter Procedures + +--------+ + + + | Procedure Name | Priori | Date/Time | Associated Diagnosis | Comments | | | ty | | | | + +--------+ + + + | IMAGING REPORT - | | 08/19/2017 | | Results for this | | EXTERNAL SCAN | | 12:00 AM | | procedure are in the | | | | PDT | | results section. | + +--------+ + + + | IMAGING REPORT - | | 07/19/2017 | | Results for this | | EXTERNAL SCAN | | 12:00 AM | | procedure are in the | | | | PDT | | results section. | + +--------+ + + + | IMAGING REPORT - | | 07/18/2017 | | Results for this | | EXTERNAL SCAN | | 12:00 AM | | procedure are in the | | | | PDT | | results section. | + +--------+ + + + | IMAGING REPORT - | | 07/18/2017 | | Results for this | | EXTERNAL SCAN | | 12:00 AM | | procedure are in the | | | | PDT | | results section. | + +--------+ + + + | IMAGING REPORT - | | 07/12/2017 | | Results for this | | EXTERNAL SCAN | | 12:00 AM | | procedure are in the | | | | PDT | | results section. | + +--------+ + + + | IMAGING REPORT - | | 06/22/2017 | | Results for this | | EXTERNAL SCAN | | 12:00 AM | | procedure are in the | | | | PST | | results section. | + +--------+ + + + | IMAGING REPORT - | | 06/22/2017 | | Results for this | | EXTERNAL SCAN | | 12:00 AM | | procedure are in the | | | | PST | | results section. | + +--------+ + + + documented in this encounter Results IMAGING REPORT - EXTERNAL SCAN (08/19/2017 12:00 AM PDT) + + + | Narrative | Performed At | + + + | Ordered by an | | | unspecified provider. | | + + + IMAGING REPORT - EXTERNAL SCAN (07/19/2017 12:00 AM PDT) + + + | Narrative | Performed At | + + + | Ordered by an | | | unspecified provider. | | + + + IMAGING REPORT - EXTERNAL SCAN (07/18/2017 12:00 AM PDT) + + + | Narrative | Performed At | + + + | Ordered by an | | | unspecified provider. | | + + + IMAGING REPORT - EXTERNAL SCAN (07/18/2017 12:00 AM PDT) + + + | Narrative | Performed At | + + + | Ordered by an | | | unspecified provider. | | + + + IMAGING REPORT - EXTERNAL SCAN (07/12/2017 12:00 AM PDT) + + + | Narrative | Performed At | + + + | Ordered by an | | | unspecified provider. | | + + + IMAGING REPORT - EXTERNAL SCAN (06/22/2017 12:00 AM PST) + + + | Narrative | Performed At | + + + | Ordered by an | | | unspecified provider. | | + + + IMAGING REPORT - EXTERNAL SCAN (06/22/2017 12:00 AM PST) + + + | Narrative | Performed At | + + + | Ordered by an | | | unspecified provider. | | + + + documented in this encounter Visit Diagnoses + + | Diagnosis | + + | Esophageal cancer, stage IIA (HCC) | + + documented in this encounter
--- OUTSIDE RECORDS SUMMARY | ~2019-12-05 | XMS | Encounter Summary ---
Demographics + + + | Address | [address] | | | [place] [address] | + + + | Home Phone | | + + + | Preferred Language | Unknown | + + + | Marital Status | | + + + | Zoroastrian Affiliation | Unknown | + + + | Race | Unknown | + + + | Ethnic Group | Unknown | + + + Author + + + | Author | [facility] | | | and [place] | + + + | Organization | [facility] | | | and [...] Team Providers + +------+ + | Care Shell Assembler Name | Role | Phone | + +------+ + | Haim Epps | PCP | | + +------+ + Reason for Visit + +--------+ + | Reason | Onset | Comments | | | Date | | + +--------+ + | Medication Refill | 02/10/ | | | | 2019 | | + +--------+ + Encounter Details +--------+--------+ + + + | Date | Type | Department | Care Team | Description | +--------+--------+ + + + | 02/10/ | Refill | [facility] | Jennifer Reyes | Medication Refill | | 2019 | | [facility] | MD [facility] [address] | | | | | [facility]IN[facility] [address] | [place], [place] | | | | | [address] | [address] | | | | | [facility] [place] [address] | | | | | | [phone] | | | +--------+--------+ + + + Social History + +-------+ [...] this encounter Miscellaneous Notes Telephone Encounter - Merari Kaplan RN - 02/20/2019 9:24 AM PDTMedication has been a pproved, call placed to patient to notify her. No answer, left vm with update (as instructed per patient) and call back number if she has any further questions or concerns.Electronical ly signed by Merari Kaplan RN at 02/20/2019 9:25 AM PDTTelephone Encounter - Merari Kaplan RN - 02/15/2019 1:07 PM PDTCall placed to patient to provide an update. Her insu aurelio has denied the PA and it is currently being appealed per Jack BERNSTEIN authorizatiisadora n specialist. No answer left detailed message per the request of patient with call back numb er if she has any questions. 1 :09 PM PDTTelephone Encounter - Merari Kaplan RN - 02/13/2019 1:21 PM PDTPatient call s for an update to see if her medication has been approved. I let ehr know that a PA has bee n submitted and it is pending review right now. She verbalizes concern and frustration with her insurance company. I let her know I would keep her updated on any changes or as soon as it is authorized. Patient verbalizes her appreciation and understanding no further questions at this time. She requests that we leave a detailed message on her home phone with any mason ges or updates. el ephone Encounter - Merari Kaplan RN - 02/13/2019 12:22 PM PDTPA has been submitted and is pending review, per Li Arce, pre-wound care specialist. elephone Encounter - Socorro Hathaway RN - 02/10/2019 2:00 PM PDTConnie in authorization was unable to reach insurance today, will tr y again on Wednesday. Called Annie again with no answer. Electronically signed by Socorro Hathaway RN at 02/10 2:01 PM PDTTelephone Encounter - Socorro Hathaway RN - 02/10/2019 10:06 AM Kalia vance call to patient and left a voicemail to return my call Discussed prior auth need with Li Arce and routing note to her for review.Electronicall y signed by Socorro Hathaway RN at 02/10/2019 10:07 AM PDTTelephone Encounter - Yevgeniy Acevedo - 02/10/2019 8:28 AM PDTCinivette called stating that she will need a refill for her Omepra zole in about a week. Was previously told that she will likely need a PA for this due to med ical necessity because she is receiving more than her insurance allows in a 365 day period. Please be advised, thank you. documented in this encounter Plan of Treatment Not on filedocumented as of this encounter Visit Diagnoses Not on filedocumented in this encounter"
--- OUTSIDE RECORDS SUMMARY | ~2019-12-05 | XMS | Encounter Summary ---
Demographics + + + | Address | [address] | | | [place] [address] | + + + | Home Phone | | + + + | Preferred Language | Unknown | + + + | Marital Status | | + + + | Spiritism Affiliation | Unknown | + + + | Race | Unknown | + + + | Ethnic Group | Unknown | + + + Author + + + | Author | [facility] | | | and [place] | + + + | Organization | [facility] | | | [...] Team Providers + +------+ + | Care Hydramatic Mechanic Name | Role | Phone | + +------+ + | No, Physician | PCP | Unavailable | + +------+ + Reason for Visit +--------+--------+ + | Reason | Onset | Comments | | | Date | | +--------+--------+ + | Other | 09/08/ | | | | 2018 | | +--------+--------+ + Encounter Details +--------+ + + + + | Date | Type | Department | Care Team | Description | +--------+ + + + + | 09/08/ | Telephone | [facility] | Jennifer Reyes | Other | | 2018 | | [facility] | MD [address] [address] | | | | | [facility] CLINIC [address] | [facility] [place] [place] | | | | | [address] | [address] | | | | | [place] [address] | | | | | | [phone] | | | +--------+ + + + [...] Telephone Encounter - Marisel Richardson RN - 09/08/2017 4:20 PM PDTAdded to med list. Elec tronically signed by Marisel Richardson RN at 09/08/2017 4:20 PM PDTTelephone Encounter - Shalom Wynn - 09/08/2017 4:05 PM PDTCalled to give name of Drug she is taking PROCHLORPERAZINE MALEATE 5 MG X 3 times a day (Spelled by patient and read back) Please call her if you have any questions or need more information # is [phone] signed by Shalom Warren at 09/08/2017 4:07 PM PDTdocumen rosa in this encounter Plan of Treatment Not on filedocumented as of this encounter Visit Diagnoses Not on filedocumented in this encounter"
--- OUTSIDE RECORDS SUMMARY | ~2019-12-05 | XMS | Encounter Summary ---
Demographics + + + | Address | [address] | | | [place] [address] | + + + | Home Phone | | + + + | Preferred Language | Unknown | + + + | Marital Status | | + + + | Christian Affiliation | Unknown | + + + | Race | Unknown | + + + | Ethnic Group | Unknown | + + + Author + + + | Author | [facility] | | | and [place] | + + + | Organization | [facility] | | | and [...] Team Providers + +------+ + | Care Glass Decorator Name | Role | Phone | + [...] | cancer, | MD [address] | [place], | | | | | stage IIA | [address] | [place] [address] | | | | | (HCC) | [place], | Phone: | | | | | Procedures | [place] [address] | [phone] | | | | | CT Treatment | Phone: | Fax: | | | | | Plan | [phone] | [phone] | | | | | Complex | Fax: | | | | | | | [phone] | | +--------+--------+ + + + + Reason for Visit Diagnostic/Screening (Routine) +--------+--------+ + + + + | Status | Reason | Specialty | Diagnoses / | Referred By | Referred To | | | | | Procedures | Contact | Contact | +--------+--------+ + + + + | Closed | | Radiology | Diagnoses | [place], | [address] | | | | | Esophageal | Jennifer M, | [address] | | | | | cancer, | MD [address] | [place], | | | | | stage IIA | [address] | [place] [address] | | | | | (HCC) | [place], | Phone: | | | | | Procedures | [place] [address] | [phone] | | | | | CT Treatment | Phone: | Fax: | | | | | Plan | [phone] | [phone] | | | | | Complex | Fax: | | | | | | | [phone] | | +--------+--------+ + + + + Encounter Details +--------+ + + + + | Date | Type | Department | Care Team | Description | +--------+ + + + + | 04/14/ | Hospital | [facility] | Jennifer Reyes | Esophageal cancer, | | 2016 | Encounter | [facility] [address] | MD [address] | stage IIA (HCC) | | | | [address] [place], | [place], [place] | | | | | [place] [address] | [id number] | | | | | [phone] | | | +--------+ + + + [...] +---------+--------+ + documented as of this encounter Plan of Treatment Not on filedocumented as of this encounter Procedures + +--------+ + + + | Procedure Name | Priori | Date/Time | Associated Diagnosis | Comments | | | ty | | | | + +--------+ + + + | CT TREATMENT PLAN | Routin | 04/14/2017 | Esophageal cancer, | Results for this | | COMPLEX | e | 1:17 PM | stage IIA (HCC) | procedure are [...] documented in this encounter Administered Medications + +--------+ +--------+------+------+ | Medication Order | MAR | Action | Dose | Rate | Site | | | Action | Date | | | | + +--------+ +--------+------+------+ | iohexol (OMNIPAQUE 350) 350 | Given | 04/14/20 | 70 mLs | | | | mg/mL injection 70 mL 70 mL, | | 17 1:18 | | | | | Intravenous, ONCE PRN, Other, | | PM PST | | | | | Starting 04/14/17 at 1318, | | | | | | | For 1 dose, Cat Scanner | | | | | | + +--------+ +--------+------+------+ +---+---+ | | | +---+---+ documented in this encounter"
--- OUTSIDE RECORDS SUMMARY | ~2019-12-05 | XMS | Encounter Summary ---
Demographics + + + | Address | [address] | | | [place] [address] | + + + | Home Phone | | + + + | Preferred Language | Unknown | + + + | Marital Status | | + + + | Mandaeism Affiliation | Unknown | + + + | Race | Unknown | + + + | Ethnic Group | Unknown | + + + Author + + + | Author | [facility] | | | and [place] | + + + | Organization | [facility] | | [...] Team Providers + +------+ + | Care Concrete Vibrator Operator Name | Role | Phone | [...] | | [address] | [place] [address] | | | | | [place] [address] | | | | | | [phone] | | | +--------+ + + + [...] + +--------+ + + + | CT ABDOMEN W | Routin | 04/06/2017 | | Results for this | | CONTRAST | e | 3:25 PM | | procedure are in the | | | | PST | | results section. | + +--------+ + + + documented in this encounter Results CT Abdomen w Contrast (04/06/2017 3:25 PM PST) + + | Specimen | [...]
--- OUTSIDE RECORDS SUMMARY | ~2019-12-05 | XMS | Encounter Summary ---
Demographics + + + | Address | [address] | | | [place] [address] | + + + | Home Phone | | + + + | Preferred Language | Unknown | + + + | Marital Status | | + + + | Uatsdin Affiliation | Unknown | + + + | Race | Unknown | + + + | Ethnic Group | Unknown | + + + Author + + + | Author | [facility] | | | and [place] | + + + | Organization | [facility] | | | and [...] Team Providers + +------+ + | Care Assistant Professor Of Criminal Justice Name | Role | Phone | + [...] + + + + | 06/11/ | Hospital | [facility] | Jennifer Reyes | Esophageal cancer, | | 2018 | Encounter | [facility] | MD Manjula [address] | stage IIA (HCC) | | | | [facility] [address] | [place], [place] | (Primary Dx) | | | | [address] | [address] | | | | | [place] [address] | | | | | | [phone] | | | +--------+ + + + [...] + + + | Blood Pressure | 122/83 | 06/11/2017 8:08 AM | | | | | PST | | + + + + + | Pulse | 83 | 06/11/2017 8:08 AM | | | | | PST | | + + + + + | Temperature | 37.1 C (98.8 F) | 06/11/2017 8:08 AM | | | | | PST | | + + + + + | Respiratory Rate | 16 | 06/11/2017 8:08 AM | | | | | PST | | + + + + + | Oxygen Saturation | 99% | 06/11/2017 8:08 AM | | | | | PST | | + + + + + | Inhaled Oxygen | - | - | | | Concentration | | | | + + + + + | Weight | 59.7 kg (131 lb 9.8 | 06/11/2017 8:08 AM | | | | oz) | PST | | + + + + + | Height | - | - | | + + + + + | Body Mass Index | 21.41 | 04/14/2017 9:33 AM | | | [...] + +---------+ + + | | Take 10 mLs by mouth | 140 mL | 0 | 06/11/19 | | | amoxicillin-clavulan | 2 times daily for 7 | | | 18 | 8 | | ate (AUGMENTIN) | days. | | | | | | 400-57 mg/5 mL | | | | | | | suspension | | | | | | + + + +---------+ + + | | Take 15 mLs via | 473 mL | 0 | 06/11/19 | | | HYDROcodone-acetamin | J-tube 4 times daily | | | 18 | 8 | | ophen (HYCET) | [...] mL of water | 90 each | 0 | 06/01/19 | | | Magnesium 10 MG PACK [...] + + + +---------+ + + | polyethylene | Take 17 g by mouth | | 0 | | | | glycol (MIRALAX) | Daily. | | | | 8 | | packet | | | | | | + [...] encounter Progress Notes Jennifer Madrid MD - 06/11/2017 8:14 AM PST Radiation Oncology Follow-up Chief Complaint/ICD10 ICD-10-CM ICD-9-CM 1. Esophageal cancer, stage IIA (HCC) C15.9 150.9 History of Present Illness: 61 year-old woman recently diagnosed with esophageal cancer, squamous cell carcinoma, moder ately differentiated. Clinical stage T3 N1 M0 based on EUS and PET/CT. Completed neoadjuv ant chemoradiotherapy with 50.4 Gy in 28 fractions and concurrent weekly carbo/taxel on 06/07. Annie completed therapy earlier this week. For the past 3 days she has been feeling incre asingly ill. Primary issue is severe headaches that wake her from sleep, but head aches do n ot seem to be positional. Denies nausea or vomiting, no numbness or weakness. She is alert and oriented, thinking clearly. Also associated low grade fever. Notes increased cough due to thick secretions. No shortness of breath. Also reports port site tenderness due to hem atoma, though this is improving. Increased J-tube site discomfort also noted. J-tube is wor jacobo well and she has increased tube feeds. Weight is stable. No bowel changes. No urinary changes. ROS Constitutional: Reports fatigue since treatment finished. Reports low grade fever over last three days up to 100.9. Denies high fevers, shaking chills, anorexia, nausea, vomiting, w eight loss, or night sweats. Ear, Nose, Mouth, Throat: Reports unable to swallow, using J-Tube for nutrition. Cardiovascular:Reports chest pain. Reports difficulty breathing at night because of inabili ty to swallow salvia. Denies shortness of breath, palpitations or orthopnea. Respiratory: Reports large amount of sputum production and cough with white sputum and bloo d from nasal cavity. Gastrointestinal: Reports pain at j-tube site and internally. Denies abdominal pain, const ipation, diarrhea, melena, or bright red blood per rectum. Genitourinary: Denies hematuria or dysuria. Musculoskeletal: Denies joint pain or tenderness. Neurologic:Reports severe headaches x 3 days. Denies visual changes, or numbness/tinglin g of the extremities. Endocrine: Denies peripheral edema or heat/cold intolerance. Hematologic: Reports hematoma at port site. Denies spontaneous bruising or bleeding. Integumentary: Denies rash, wounds or other skin concerns. Pain assessment: Location: headache Pain Level: 7 Pain Quality: Worsening, Throbbing Current pain regimen: hydrocodone 7.5-325 mg/15 ml per J-tube Current Outpatient Prescriptions Medication Sig Dispense Refill acetaminophen (TYLENOL) 160 mg/5 mL solution Take 15.5 mLs by mouth every 4 hours as ne eded for Fever. 473 mL 2 amoxicillin-clavulanate (AUGMENTIN) 400-57 mg/5 mL suspension Take 10 mLs by mouth 2 ti mes daily for 7 days. 140 mL 0 HYDROcodone-acetaminophen (HYCET) 7.5-325 mg/15 mL liquid Take 15 mLs via J-tube 4 time s daily as needed for Pain. 473 mL 0 loperamide (IMODIUM) 2 mg/10 mL solution 20ML through tube followed by 10ML after each loose stool; Max 80 ML/day 120 mL 2 LORazepam (ATIVAN) 1 mg tablet Crush 1 tablet and mix in 15-30 mL's of water, administe r via feeding tube every 6 hours as needed for nausea/vomiting, anxiety, or restlessness. 30 tablet 3 Omeprazole Magnesium 10 MG PACK Mix 15 mL of water and one 10 mg packet of omeprazole, administer via J tube three times daily. Once mixed, shake gently and allow 2-3 minutes for solution to thicken, then administer. 90 each 0 ondansetron (ZOFRAN) 8 MG tablet Crush 1 tablet and mix with 15-30 mL (1-2 tablespoons) of water, administer twice daily for 2 days after each chemo. On other days, take 8 mg ever y 6 hrs as needed for nausea/vomiting 60 tablet 3 polyethylene glycol (MIRALAX) packet Take 17 g by mouth Daily. traZODone (DESYREL) 50 mg tablet Take 1-2 tabs nightly as needed for esophageal spasm 3 0 tablet 0 No current facility-administered medications for this encounter. Allergies No active allergies Intolerance No active intolerances/contraindications Vitals: 06/11/17 0808 BP: 122/83 Pulse: 83 Resp: 16 Temp: 37.1 C (98.8 F) Wt Readings from Last 3 Encounters: 06/11/17 59.7 kg (131 lb 9.8 oz) 06/07/17 60.1 kg (132 lb 7.9 oz) 06/03/17 61.4 kg (135 lb 5.8 oz) Lab Results Component Value Date WBC 2.3 (LL) 06/11/2017 HGB 12.6 06/11/2017 HCT 36.8 06/11/2017 MCV 91.7 06/11/2017 PLT 205 06/11/2017 Lab Results Component Value Date CREA 0.59 (L) 06/11/2017 BUN 7 06/11/2017 NA 140 06/11/2017 K 4.0 06/11/2017 CL 104 06/11/2017 CO2 29 06/11/2017 Lab Results Component Value Date ALT 43 06/11/2017 AST 31 06/11/2017 ALKPHOS 79 06/11/2017 BILITOT 0.6 06/11/2017 Physical Exam: General: Healthy appearing thin woman [...] work of breat joyce at rest. Abdomen: LLQ tenderness, moderate. Non-acute, no gaurding. No erythema or induration at i nsertion site. Soft, non-tender, no masses or organomegaly detected. Extremities: Upper and lower extremities warm and well perfused with no upper or lower extr emity edema. Neurologic: Alert, oriented and appropriated in conversation. CN II-IX grossly intact. Stre ngth 5/5 bilateral upper and lower ext. Moves all 4 extremities normally with normal gait. Psychiatric: Appropriate. Chest: Hematoma is still a couple cm in size, nodule, appears to be resolving in chest, min imal tenderness and minimal erythema. Labs: Lab Results Component Value Date WBC 2.3 (LL) 06/11/2017 HGB 12.6 06/11/2017 HCT 36.8 06/11/2017 MCV 91.7 06/11/2017 PLT 205 06/11/2017 Lab Results Component Value Date CREA 0.59 (L) 06/11/2017 BUN 7 06/11/2017 NA 140 06/11/2017 K 4.0 06/11/2017 CL 104 06/11/2017 CO2 29 06/11/2017 Lab Results Component Value Date ALT 43 06/11/2017 AST 31 06/11/2017 ALKPHOS 79 06/11/2017 BILITOT 0.6 06/11/2017 Imaging: No recent results. Assessment: ICD-10-CM ICD-9-CM 1. Esophageal cancer, stage IIA (HCC) C15.9 150.9 Comprehensive Metabolic Panel CBC with Differential 61 year-old woman recently diagnosed with esophageal cancer, squamous cell carcinoma, moder ately differentiated. Clinical stage T3 N1 M0 based on EUS and PET/CT. Completed neoadjuv ant chemoradiotherapy with 50.4 Gy in 28 fractions and concurrent weekly carbo/taxel on 06/07. Annie continues to be leukopenic from treatment and is demonstrating signs of infection, though non-focal. She is at risk for aspiration pneumonia and J-tube site infection. Exam i s not overly specific for either. Port does not appear frankly infected. Headache is a yobani nant symptom, without focal neurologic symptoms. 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 Plan: - Manage headache with tylenol primarily. Hydrocodone/APAP if needed. Rx for both provided . - Augmentin x7 days recommenced. Follow-up soon if not improving. Otherwise plan for re-sta ging studies at as scheduled. Orders Placed This Encounter Procedures Comprehensive Metabolic Panel CBC with Differential Thank you for allowing me to participate in the care of Annie Brown. If you should have any questions regarding this evaluation, please do not hesitate to contact me. Jennifer Bowman M.D. Radiation Oncologist Department of Radiation Oncology [facility] Office: [phone] CC: Patient Care Team: Physician Criss as PCP - General Isak Mccarthy MD as Consulting Physician (Medical Oncology) Norm Oneal MD (Otolaryngology) Jennifer Madrid MD as Physician (Radiation Oncology) Gold Cannon MD (Cardiothoracic Surgery) Misti Roth RDN as Registered Dietitian (Dietitian) documented in thi s encounter Plan of Treatment Not on filedocumented as of this encounter Results CBC with Differential (06/11/2017 8:30 AM PST) + + + + + + | Component | Value | Ref Range | Performed | Pathologist | | | | | At | Signature | + + + + + + | White Blood | 2.3 (LL)Comment: Cancer | 4.0 - 11.0 K/uL | [facility] | | | Cells | Center pt | | [facility] | | | | | | [facility] | | | | | | [facility] - | | | | | | LABORATORY | | + + + + + + | Red Blood | 4.01 | 3.70 - 5.20 | [facility] | | | Cells | | M/uL | [facility] | | | | | | [facility] | | | | | | [facility] - | | | | | | LABORATORY | | + + + + + + | Hemoglobin | 12.6 | 11.5 - 16.0 | [facility] | | | | | g/dL | [facility] | | | | | | [facility] | | | | | | [facility] - | | | | | | LABORATORY | | + + + + + + | Hematocrit | 36.8 | 34.0 - 47.0 % | [facility] | | | | | | [facility] | | | | | | [facility] | | | | | | [facility] - | | | | | | LABORATORY | | + + + + + + | MCV | 91.7 | 83.0 - 101.0 fL | [facility] | | | | | | [facility] | | | | | | [facility] | | | | | | [facility] - | | | | | | LAB[facility]ATORY | | + + + + + + | MCH | 31.4 | 28.0 - 35.0 pg | [facility] | | | | | | [facility] | | | | | | [facility] | | | | | | [facility] - | | | | | | LABORATORY | | + + + + + + | MCHC | 34.2 | 32.0 - 36.0 | [facility] | | | | | g/dL | [facility] | | | | | | [facility] | | | | | | [facility] - | | | | | | LABORATORY | | + + + + + + | RDW-CV | 14.8 | <15.0 % | [facility] | | | | | | [facility] | | | | | | [facility] | | | | | | [facility] - | | | | | | LABORATORY | | + + + + + + | Platelet | 205 | 140 - 440 K/uL | [facility] | | | Count | | | [facility] | | | | | | [facility] | | | | | | [facility] - | | | | | | LABORATORY | | + + + + + + | MPV | 7.4 | fL | [facility] | | | | | | [facility] | | | | | | [facility] | | | | | | [facility] - | | | | | | LABORATORY | | + + + + + + | % | 74.2 | 45.0 - 82.0 % | [facility] | | | Neutrophils | | | [facility] | | | | | | [facility] | | | | | | C[facility] - | | | | | | LABORATORY | | + + + + + + | % | 15.2 (L) | 20.0 - 45.0 % | [facility] | | | Lymphocytes | | | [facility] | | | | | | [facility] | | | | | | [facility] - | | | | | | LABORATORY | | + + + + + + | % Monocytes | 9.7 | 4.0 - 12.0 % | [facility] | | | | | | [facility] | | | | | | [facility] | | | | | | [facility] - | | | | | | LABORATORY | | + + + + + + | % | 0.4 | 0.0 - 5.0 % | [facility] | | | Eosinophils | | | [facility] | | | | | | [facility] | | | | | | C[facility] - | | | | | | LABORATORY | | + + + + + + | % Basophils | 0.5 | 0.0 - 1.0 % | [facility] | | | | | | [facility] | [facility] | [facility] | | | | | | [facility] - | | | | | | LABORATORY | | + + + + + + | Absolute | 1.70 (L) | 1.80 - 8.50 | [facility] | | | Neutrophils | | K/uL | [facility] | | | | | | [facility] | | | | | | [facility] - | | | | | | LABORATORY | | + + + + + + | Absolute | 0.40 (L) | 0.60 - 3.20 | [facility] | | | Lymphocytes | | K/uL | [facility] | | | | | | [facility] | | | | | | [facility] - | | | | | | LABORATORY | | + + + + + + | Absolute | 0.20 | 0.00 - 1.00 | [facility] | | | Monocytes | | K/uL | [facility] | | | | | | [facility] | | | | | | [facility] - | | | | | | LABORATORY | | + + + + + + | Absolute | 0.00 | 0.00 - 0.40 | [facility] | | | Eosinophils | | K/uL | [facility] | | | | | | [facility] | | | | | | [facility] - | | | | | | LABORATORY | | + + + + + + | Absolute | 0.00 | 0.00 - 0.10 | [facility] | | | Basophils | | K/uL | [facility] | | | | | | [facility] | | | | | | [facility] - | | | | | | LABORATORY | | + + + + + + + + | Specimen | + + | Blood | + + + + + + + | Performing | Address | City/State/Zipcode | Phone Number | | Organization | | | | + + + + + | [facility] | [address] | [place] | [phone] | | [facility] | | [address] | | | - LABORATORY | | | | + + + + + Comprehensive Metabolic Panel (06/11/2017 8:30 AM PST) + + + + + + | Component | Value | Ref Range | Performed | Pathologist | | | | | At | Signature | + + + + + + | Na | 140 | 136 - 149 | [facility] | | | | | mmol/L | [facility] | | | | | | [facility] | | | | | | [facility] - | | | | | | LABORATORY | | + + + + + + | K | 4.0 | 3.5 - 5.1 | [facility] | | | | | mmol/L | [facility] | | | | | | [facility] | | | | | | [facility] - | | | | | | LAB[facility]ATORY | | + + + + + + | Cl | 104 | 98 - 109 mmol/L | [facility] | | | | | | [facility] | | | | | | [facility] | | | | | | [facility] - | | | | | | LAB[facility]ATORY | | + + + + + + | CO2 | 29 | 24 - 31 mmol/L | [facility] | | | | | | [facility] | | | | | | [facility] | | | | | | [facility] - | | | | | | LABORATORY | | + + + + + + | Anion Gap | 7 | 3 - 16 mmol/L | [facility] | | | | | | [facility] | | | | | | [facility] | | | | | | [facility] - | | | | | | LAB[facility]ATORY | | + + + + + + | Glucose | 104 | 70 - 109 mg/dL | [facility] | | | | | | [facility] | | | | | | [facility] | | | | | | [facility] - | | | | | | LAB[facility]ATORY | | + + + + + + | BUN | 7 | 7 - 18 mg/dL | [facility] | | | | | | [facility] | | [facility] | | | [facility] | | | | | | [facility] - | | | | | | LAB[facility]ATORY | | + + + + + + | Creatinine | 0.59 (L) | 0.60 - 1.30 | [facility] | | | | | mg/dL | [facility] | [facility] | | [facility] | | | | | | [facility] - | | | | | | LABORATORY | | + + + + + + | eGFR, | >60Comment: GLOMERULAR | >=60 | [facility] | | | non- | FILTRATION | mL/min/1.73m2 | [facility] | | | [place] | RATE,ESTIMATED | | MEDICAL | | | | mL/min/1.57r7Bgud than | | CENTER - | | | | 60 Chronic kidney | | LABORATORY | | | | disease,if found over a | | | | | | 3-month period.Less than | | | | | | 15 Kidney failureFor | | | | | | | | | | | | Americans,multiply the | | | | | | calculated GFR by 1.21. | | | | | | | | | | + + + + + + | Calcium | 9.8 | 8.3 - 10.5 | [facility] | | | | | mg/dL | [facility] | | | | | | [facility] | | | | | | [facility] - | | | | | | LABORATORY | | + + + + + + | Albumin | 3.7 | 3.2 - 5.0 g/dL | [facility] | | | | | | [facility] | | | | | | [facility] | | | | | | [facility] - | | | | | | LABORATORY | | + + + + + + | Bilirubin | 0.6 | 0.1 - 1.5 mg/dL | [facility] | | | Total | | | [facility] | | | | | | [facility] | | | | | | CENTER - | | | | | | LABORATORY | | + + + + + + | Total | 6.2 | 6.0 - 7.8 g/dL | [facility] | | | Protein | | | [facility] | | | | | | [facility] | | | | | | CENTER - | | | | | | LABORATORY | | + + + + + + | AST | 31 | 10 - 42 U/L | [facility] | | | | | | [facility] | | | | | | [facility] | | | | | | CENTER - | | | | | | LABORATORY | | + + + + + + | ALT | 43 | 6 - 45 U/L | [facility] | | | | | | [facility] | | | | | | [facility] | | | | | | CENTER - | | | | | | LABORATORY | | + + + + + + | Alkaline | 79 | 40 - 110 U/L | [facility] | | | Phosphatase | | | [facility] | | | [facility] | | [facility] | | | | | | CENTER - | | | | | | LABORATORY | | + + + + + + | Globulin | 2.5 | 2.1 - 3.8 g/dL | [facility] | | | | | | [facility] | | | | | | [facility] | | | | | | [facility] - | | | | | | LABORATORY | | + + + + + + | Albumin/Jo Ann | 1.5 | 0.8 - 2.0 | [facility] | | | bulin Ratio | | | [facility] | | | | | | [facility] | | | | | | CENTER - | | | | | | LABORATORY | | + + + + + + | BUN/Creatin | 11.9 | | [facility] | | | ine Ratio | | | [facility] | | | | | | MEDICAL | | | | | | CENTER - | | | | | | LABORATORY | | + + + + + + + + | Specimen | + + | Blood | + + + + + + + | Performing | Address | City/State/Zipcode | Phone Number | | Organization | | | | + + + + + | [facility] | [address] | [place] | [phone] | | [facility] | | [address] | | | - LABORATORY | | | | + + + + + documented in this encounter Visit Diagnoses + + | Diagnosis | + + | Esophageal cancer, stage IIA (HCC) - Primary | + + documented in this encounter"
--- OUTSIDE RECORDS SUMMARY | ~2019-12-05 | XMS | Encounter Summary ---
Demographics + + + | Address | [address] | | | [place] [address] | + + + | Home Phone | | + + + | Preferred Language | Unknown | + + + | Marital Status | | + + + | Cheondoism Affiliation | Unknown | + + + | Race | Unknown | + + + | Ethnic Group | Unknown | + + + Author + + + | Author | [facility] | | | and [place] | + + + | Organization | [facility] | | [...] Team Providers + +------+ + | Care Director Of Perioperative Services Name | Role | Phone | + +------+ + | No, Physician | PCP | Unavailable | + +------+ + Reason for Visit Diagnostic/Screening (Routine) +--------+--------+ + + + + | Status | Reason | Specialty | Diagnoses / | Referred By | Referred To | | | | | Procedures | Contact | Contact | +--------+--------+ + + + + | Closed | | Radiology | Procedures | Provider, | | | | | | PET CT | Historical, | | | | | | Skull Base | MD [address] | | | | | | To Mid Thigh | [address] | | | | | | | [place] | | | | | | | [address] | | +--------+--------+ + + + + Encounter Details +--------+ + + + + | Date | Type | Department | Care Team | Description | +--------+ + + + + | 04/13/ | Imaging | [facility] | Provider, | | | 2017 | Exam | [facility] | MD [address] | | | | | IMAGING [address] | | | | | [address] | [place] [address] | | | | | [place] [address] | | | | | | [phone] | | | +--------+ + + + [...] | + +--------+ + + + | PET CT SKULL BASE TO | Routin | 03/24/2017 | | Results for this | | MID THIGH | e | 1:55 PM | | procedure are in the | | | | PST | | results section. | + +--------+ + + + documented in this encounter Results PET CT Skull Base To Mid Thigh (03/24/2017 1:55 PM PST) + + | Specimen | + + | | + + + + + | Narrative | Performed At | + + + | External films | [facility] | | for comparison only - no result from Sam. | | + + + + +---------+ + + | Performing | Address | City/State/Zipcode | Phone Number | | Organization | | | | + +---------+ + + | [facility] | | | | + +---------+ + + documented in this encounter Visit Diagnoses Not on filedocumented in this encounter"
--- OUTSIDE RECORDS SUMMARY | ~2019-12-05 | XMS | Encounter Summary ---
Demographics + + + | Address | [address] | | | [place] [address] | + + + | Home Phone | | + + + | Preferred Language | Unknown | + + + | Marital Status | | + + + | Church Affiliation | Unknown | + + + | Race | Unknown | + + + | Ethnic Group | Unknown | + + + Author + + + | Author | [facility] | | | and [place] | + + + | Organization | [facility] | | | [...] Team Providers + +------+ + | Care Livestock Trader Name | Role | Phone | + +------+ + | No, Physician | PCP | Unavailable | + +------+ + Reason for Visit +--------+--------+ + | Reason | Onset | Comments | | | Date | | +--------+--------+ + | Other | 05/03/ | | | | 2018 | | +--------+--------+ + Encounter Details +--------+ + + + + | Date | Type | Department | Care Team | Description | +--------+ + + + + | 05/03/ | Telephone | [facility] | Jennifer Reyes | Other | | 2018 | | [facility] | MD Manjula [address] | | | | | [facility] [address] | [place], [place] | | | | | [address] [place] | [address] | | | | | [place] [address] | | | | | | [phone] | | | +--------+ + + + [...] Telephone Encounter - Marisel Richardson RN - 05/03/2017 9:29 AM PSTMet with patient today a fter her radiation treatment. She complains of having severe nausea over the weekend. Revi ewed medications that patient has been prescribed for nausea. Patient has not been taking t he zofran with any consistency and has not tried the ativan at all yet. I reviewed these me dications with her including how often they can be taken and possible side effects. She will try taking these medications as ordered and report back to us if they are helping her nause a. documented in thi s encounter Plan of Treatment Not on filedocumented as of this encounter Visit Diagnoses Not on filedocumented in this encounter"
--- OUTSIDE RECORDS SUMMARY | ~2019-12-05 | XMS | Encounter Summary ---
Demographics + + + | Address | [address] | | | [place] [address] | + + + | Home Phone | | + + + | Preferred Language | Unknown | + + + | Marital Status | | + + + | Zoroastrianism Affiliation | Unknown | + + + | Race | Unknown | + + + | Ethnic Group | Unknown | + + + Author + + + | Author | [facility] | | | and [place] | + + + | Organization | [facility] | | | [...] Team Providers + +------+ + | Care Board Of Directors Name | Role | Phone | + +------+ + | No, Physician | PCP | Unavailable | + +------+ + Reason for Visit + + + | Reason | Comments | + + + | Under Treatment | | + + + | Esophageal Cancer | | + + + Encounter Details +--------+ + + + + | Date | Type | Department | Care Team | Description | +--------+ + + + + | 05/27/ | Hospital | [facility] | Jennifer Reyes | Esophageal cancer, | | 2018 | Encounter | [facility] | MD Manjula [address] | stage IIA (HCC) | | | | ONCOLOGY CLINIC [address] | [place], [place] | (Primary Dx) | | | | [address] | [address] | | | | | [place] [address] | | | | | | [phone] | | | +--------+ + + + [...] + + + | Blood Pressure | 119/78 | 05/27/2017 8:45 AM | | | | | PST | | + + + + + | Pulse | 51 | 05/27/2017 8:45 AM | | | | | PST | | + + + + + | Temperature | 36.6 C (97.9 F) | 05/27/2017 8:45 AM | | | | | PST | | + + + + + | Respiratory Rate | 14 | 05/27/2017 8:45 AM | | | | | PST | | + + + + + | Oxygen Saturation | 99% | 05/27/2017 8:45 AM | | | | | PST | | + + + + + | Inhaled Oxygen | - | - | | | Concentration | | | | + + + + + | Weight | 60.7 kg (133 lb 13.1 | 05/27/2017 8:45 AM | | | | oz) | PST | | + + + + + | Height | - | - | | + + + + + | Body Mass Index | 21.76 | 04/14/2017 9:33 AM | | | [...] encounter Progress Notes Jennifer Madrid MD - 05/27/2017 8:46 AM PST Radiation Oncology Weekly On Treatment Note Diagnosis: ICD-10-CM ICD-9-CM 1. Esophageal cancer, stage IIA (HCC) C15.9 150.9 Reason for visit: On treatment evaluation Radiation technical factors: Dose Delivered Dose Planned Fractions Delivered 3780cGy 0 cGy 4500 cGy 540 cGy 0 Images were reviewed this week and results [...] packet of omeprazole, administer via J tube twice daily. Once mixed, shake gently and allow 2-3 minutes for soluti on to thicken, then administer. 60 each 0 ondansetron (ZOFRAN) 8 MG tablet Crush 1 tablet and mix with 15-30 mL (1-2 tablespoons) of water, administer twice daily for 2 days after each chemo. On other days, take 8 mg ever y 6 hrs as needed for nausea/vomiting 60 tablet 3 traZODone (DESYREL) 50 mg tablet Take 1-2 tabs nightly as needed for esophageal spasm 3 0 tablet 0 No current facility-administered medications on file prior to encounter. Pain assessment: Location: Chest area (no current pain this morning) Pain Level: PAIN PROG PAIN LEVEL: 0 Pain Quality: None Current pain regimen: hydrocodone-acetamiophen as ordered. Wt Readings from Last 3 Encounters: 05/27/17 60.7 kg (133 lb 13.1 oz) 05/25/17 60.6 kg (133 lb 9.6 oz) 05/20/17 61.8 kg (136 lb 3.9 oz) Vitals: 05/27/17 0845 BP: 119/78 Pulse: 51 Resp: 14 Temp: 36.6 C (97.9 F) TempSrc: Oral SpO2: 99% Weight: 60.7 kg (133 lb 13.1 oz) Physical Exam Constitutional: She appears well-developed and well-nourished. HENT: New alopecia Neurological: She is alert. Psychiatric: She has a normal mood and affect. Lab Results Component Value Date WBC 3.6 (L) 05/25/2017 HGB 13.5 05/25/2017 HCT 39.5 05/25/2017 MCV 90.6 05/25/2017 PLT 191 05/25/2017 Lab Results Component Value Date CREA 0.66 05/25/2017 BUN 12 05/25/2017 NA 140 05/25/2017 K 3.8 05/25/2017 CL 105 05/25/2017 CO2 27 05/25/2017 Lab Results Component Value Date ALT 46 (H) 05/25/2017 AST 37 05/25/2017 ALKPHOS 63 05/25/2017 BILITOT 0.6 05/25/2017 Physician Assessment: Annie has completed 4 weeks of chemoradiotherapy. She has mild fatigue. Experiencing so me breakthrough nausea today but feels comfortable with managing at home using Zofran and lo razepam. Continues to take omeprazole and finds this very helpful. She has not experience any further episodes of esophageal spasm. Continues to be tube feeding dependent, no abilit y to swallow liquids even. Weight down 3 pounds from last week. Adjusted to a higher calor ie tube feeding formula this week. He experienced some diarrhea but this controlled with Im odium. Stable mild chest discomfort related to disease. Toxicities reviewed in nursing note. Disposition: Continue radiation treatment as planned. Continue concurrent chemotherapy at the discretion Dr. Mccarthy. Jennifer Colin MD Radiation Oncologist Suzanna Campos RN - 05/27/2017 8:44 AM PST 05/27/17 0843 Gastrointestinal Diarrhea 1 - Grade 1 Nausea 1 - Grade 1 Vomiting 0 - Grade 0 General Disorders and Administration Site Conditions Fatigue 1 - Grade 1 Respiratory Thoracic and Mediastinal Dyspnea 0 - Grade 0 Performance Status Karnofsky Performance Score 70% documented in this encounter Plan of Treatment Not on filedocumented as of this encounter Visit Diagnoses + + | Diagnosis | + + | Esophageal cancer, stage IIA (HCC) - Primary | + + documented in this encounter"
--- OUTSIDE RECORDS SUMMARY | ~2019-12-05 | XMS | Encounter Summary ---
Demographics + + + | Address | [address] | | | [place] [address] | + + + | Home Phone | | + + + | Preferred Language | Unknown | + + + | Marital Status | | + + + | Holiness Affiliation | Unknown | + + + | Race | Unknown | + + + | Ethnic Group | Unknown | + + + Author + + + | Author | [facility] | | | and [place] | + + + | Organization | [facility] | | | [...] Team Providers + +------+ + | Care Weight And Test Bar Clerk Name | Role | Phone | + +------+ + | No, Physician | PCP | Unavailable | + +------+ + Reason for Visit + +--------+ + | Reason | Onset | Comments | | | Date | | + +--------+ + | Follow-up | 06/16/ | | | | 2018 | | + +--------+ + Encounter Details +--------+ + + + + | Date | Type | Department | Care Team | Description | +--------+ + + + + | 06/16/ | Telephone | [facility] | Marisel Richardson, | Follow-up | | 2018 | | [facility] | RN | | | | | ONCOLOGY CLINIC [address] | | | | | | [address] | | | | | | [place] [address] | | | | | | [phone] | | | +--------+ + + + [...] this encounter Miscellaneous Notes Telephone Encounter - Jennifer Madrid MD - 06/22/2017 10:21 AM PSTNoted. Electronicall y signed by Jennifer Madrid MD at 06/22/2017 10:22 AM PSTTelephone Encounter - Yarelis Richardson RN - 06/16/2017 12:01 PM PSTPhone call to patient to check on status. She states sh e continues to have a low grade fever, up to 100.7, unless she takes the liquid tylenol. H e headaches continue to be constant although she thinks they are less severe. She is mostly taking plain tylenol for this and occasionally takes hydrocodone. Denies chills or dizzine ss. She does continue to have some irritation at her j-tube site. Overall she states she fe els about the same as when she was in last Wednesday, not worse, but not improved. I let her k now I would pass this information on to Dr. Colin. elephone Encounter - Marisel Richardson RN - 06/16/2017 11: 57 AM PST----- Message from Jennifer Madrid MD sent at 06/15/2017 16:52 PST ----- Please check in with Annie Meramerari Brown to see if she is feeling better? ThanksCarmen alexandre signed by Marisel Richardson RN at 06/16/2017 11:57 AM PSTTelephone Encounter - Yarelis Richardson RN - 06/16/2017 11:04 AM PST----- Message from Jennifer Madrid MD sent at 018 16:52 PST ----- Please check in with Annie Ann Marie Brown to see if she is feeling better? Sarkis alexandre signed by Marisel Richardson RN at 06/16/2017 11:04 AM PSTdocumented in this encounter Plan of Treatment Not on filedocumented as of this encounter Visit Diagnoses Not on filedocumented in this encounter"
--- OUTSIDE RECORDS SUMMARY | ~2019-12-05 | XMS | Encounter Summary ---
Demographics + + + | Address | [address] | | | [place] [address] | + + + | Home Phone | | + + + | Preferred Language | Unknown | + + + | Marital Status | | + + + | Sikh Affiliation | Unknown | + + + | Race | Unknown | + + + | Ethnic Group | Unknown | + + + Author + + + | Author | [facility] | | | and [place] | + + + | Organization | [facility] | | | and [...] Team Providers + +------+ + | Care Hospital Tray Service Worker Name | Role | Phone | + +------+ + | No, Physician | PCP | Unavailable | + +------+ + Reason for Visit + +--------+ + | Reason | Onset | Comments | | | Date | | + +--------+ + | Medication Refill | 10/07/ | | | | 2017 | | + +--------+ + Encounter Details +--------+--------+ + + + | Date | Type | Department | Care Team | Description | +--------+--------+ + + + | 10/07/ | Refill | [facility] | Jennifer Reyes | Medication Refill | | 2018 | | [facility] | MD Manjula [address] | | | | | ONCOLOGY CLINIC [address] | [address] [place] [place], [place] | | | | | [address] | [address] | | | | | [place] [address] | | | | | | [phone] | | | +--------+--------+ + + + [...] Telephone Encounter - Marisel Richardson RN - 10/07/2017 4:18 PM PDTRefill approved per Dr. Colin, RX faxed to [facility] [place] and patient notified. elephone Encounter - Shalom Warren - 2017 8:26 AM PDTPt called for refill on Omeprazole Magnesium 10 MG PACK Pt does need a phone call once it's done Thank you documented in this encou nter Plan of Treatment Not on filedocumented as of this encounter Visit Diagnoses Not on filedocumented in this encounter"
--- OUTSIDE RECORDS SUMMARY | ~2019-12-05 | XMS | Encounter Summary ---
Demographics + + + | Address | [address] | | | [place] [address] | + + + | Home Phone | | + + + | Preferred Language | Unknown | + + + | Marital Status | | + + + | Congregational Affiliation | Unknown | + + + | Race | Unknown | + + + | Ethnic Group | Unknown | + + + Author + + + | Author | [facility] | | | and [place] | + + + | Organization | [facility] | | | and [...] Team Providers + +------+ + | Care Sand Conditioner Machine Name | Role | Phone | + +------+ + | No, Physician | PCP | Unavailable | + +------+ + Encounter Details +--------+ + + + + | Date | Type | Department | Care Team | Description | +--------+ + + + + | 06/01/ | Hospital | [facility] | Jennifer Reyes | | | 2018 | Encounter | MED CTR RAD[facility]ATION | MD [address] | | | | | ONCOLOGY [address] | [place] | | | | | [address], | [address] | | | | | [place] [address] | | | | | | [phone] | | | +--------+ + + + [...]
--- OUTSIDE RECORDS SUMMARY | ~2019-12-05 | XMS | Encounter Summary ---
Demographics + + + | Address | [address] | | | [place] [address] | + + + | Home Phone | | + + + | Preferred Language | Unknown | + + + | Marital Status | | + + + | Orthodox Affiliation | Unknown | + + + [...] Team Providers + +------+ + | Care Civil Attorney Name | Role | Phone | + +------+ + | No, Physician | PCP | Unavailable | + +------+ + Encounter Details +--------+ + + + + | Date | Type | Department | Care Team | Description | +--------+ + + + + | 04/29/ | Hospital | [facility] | Barry Black | Esophageal cancer, | | 2018 | Encounter | [facility] | J, PharmD [address] | stage IIA (HCC) | | | | ONCOLOGY CLINIC [address] | [address] | (Primary Dx) | | | | [address] | [place] [address] | | | | | [place] [address] | [phone] | | | | | [phone] | | | +--------+ + + + [...] documented as of this encounter Progress Notes Barry Black, PharmD - 04/29/2017 3:49 PM PSTFormatting of this note might be differ ent from the original. Clinical Oncology Pharmacy Services Progress Note Chemotherapy Education Session [facility] Pt. Name/Age/: Annie Brown 61 y.o. 1955 Med. Record Number: [id number] Identifying Statement: Annie Brown is a 61 y.o. female from [address] [place] [address] with The encounter diagnosis was Esophageal cancer, stage IIA (HCC). The patient chart and medications were reviewed in detail and the patient was seen and exam ined. Patient was referred to Clinical Oncology Pharmacist for chemotherapy education and side ef fect management. Chemotherapy dose and frequency: carboplatin AUC = 2 + paclitaxel 40 mg/m2 weekly + RT Chemotherapy start date: 04/29/17 Past Medical and Surgical History, Social History and Problems: Past Medical History: Diagnosis Date Esophageal cancer (HCC) Past Surgical History: Procedure Laterality Date APPENDECTOMY 1970 HYSTERECTOMY 1994 Social History Social History Marital status: Spouse name: N/A Number of children: N/A Years of education: N/A Occupational History Not on file. Social History Main Topics Smoking status: Never Smoker Smokeless tobacco: Never Used Alcohol use No Drug use: Unknown Sexual activity: Not on file Other Topics Concern Not on file Social History Narrative No narrative on file Patient Active Problem List Diagnosis Esophageal cancer, stage IIA Review of Systems: Constitutional: Denies fever or chills, or weight loss. Eyes: Denies change in visual acuity HEENT: Denies nasal congestion or sore throat Respiratory: Denies cough or shortness of breath Cardiovascular: Denies chest pain or edema GI: Denies abdominal pain, nausea, vomiting, bloody stools or diarrhea : Denies dysuria urgency or frequency. Musculoskeletal: Denies any bone pain Integument: Denies rash, bruising, petechia Neurologic: Denies headache, focal weakness or sensory changes Lymphatic: Denies swollen glands Review of systems as above, otherwise negative Scheduled Medications: Current Outpatient Prescriptions on File Prior to Encounter Medication Sig Dispense Refill aluminum & magnesium [...] as needed for nausea/vomiting 30 tablet 3 Current Facility-Administered Medications on File Prior to Encounter Medication Dose Route Frequency Provider Last Rate Last Dose CARBOplatin (PARAPLATIN) 226.6 mg in sodium chloride 0.9% 250 mL infusion 226.6 mg Int ravenous Once Isak Mccarthy MD [COMPLETED] diphenhydrAMINE (BENADRYL) injection 25 mg 25 mg Intravenous Once Isak Mccarthy MD 25 mg at 04/29/17 1328 ethyl chloride spray Topical PRN Isak Mccarthy MD [COMPLETED] famotidine (PEPCID) injection 20 mg 20 mg Intravenous Once Isak koo MD 20 mg at 04/29/17 1320 [COMPLETED] fosaprepitant (EMEND) 150 mg in sodium chloride 0.9% 250 mL IVPB 150 mg In travenous Once Isak Mccarthy MD Stopped at 04/29/17 1422 heparin 100 units/mL flush injection 500 Units 5 mL Intercatheter PRN Isak mendez MD lidocaine (PF) 1% injection 1 mL 1 mL Intradermal Once Isak Mccarthy MD [COMPLETED] LORazepam (ATIVAN) 2 mg/mL injection 0.5-1 mg 0.5-1 mg Intravenous PRN Al denise Mccarthy MD 1 mg at 04/29/17 1322 [COMPLETED] ondansetron (ZOFRAN) 8 mg, dexamethasone (DECADRON) 4 mg in sodium chloride 0.9% 50 mL IVPB Intravenous Once Isak Mccarthy MD Stopped at 04/29/17 1351 PACLitaxel (TAXOL) 72 mg in sodium chloride 0.9% 200 mL infusion 40 mg/m2 (Order-Speci fic) Intravenous Once Isak Mccarthy MD Objectives: Wt Readings from Last 3 Encounters: 04/29/17 65.6 kg (144 lb 10 oz) 04/29/17 65.6 kg (144 lb 10 oz) 04/14/17 66.5 kg (146 lb 9.7 oz) Patient Education: Provided teaching on the following, including but not limited to: Pathophysiology of cancer. Brief mechanism of action of anticancer agent(s) and their indications. Supportive medications How to take drug (ie. with or without food, swallow whole, do not crush) Drug/drug and drug/food interactions Lab tests necessary in monitoring the medication for toxicity and efficacy Precautions/warnings Reproductive alterations/precautions and impact on future fertility Side effects and side effect management tips Planned duration of treatment When to call the physician or oncology pharmacist Drug administration via J tube. Assesment/Plan: 1. We discussed the high risk nature of the treatment regimen, as well as side effect manag ement. The patient demonstrated understanding and all questions were answered, and wishes to proceed with carbo/paclitaxel therapy. 2. Antiemetic regimen: Ondansetron Crush 1 pill and mix with 15-30 mL of water, administer via feeding tube twice daily for two days after each chemo. , then every 8 hours as needed f or nausea. Dexamethasone Administer 4 mL via feeding tube twice daily for 2 days after each chemo. . Lorazepam 1 mg Crush 1 pill and mix with 15-30 mL of water and administer via feedi ng tube, only if needed, if you are nauseated, unable to sleep and/or having anxiety. May be repeated every 4 hours as needed. May be started today 3. Patient information and handouts were given to the patient. 4. Chemotherapy consent form was signed. 5. Please consult clinical oncology pharmacist for any further medication related education . 6. Thank you. Electronically signed by: Barry Black PharmD 04/29/2017 15:46 documented in this encounter Plan of Treatment Not on filedocumented as of this encounter Visit Diagnoses + + | Diagnosis | + + | Esophageal cancer, stage IIA (HCC) - Primary | + + documented in this encounter"
--- OUTSIDE RECORDS SUMMARY | ~2019-12-05 | XMS | Encounter Summary ---
Demographics + + + | Address | [address] | | | [place] [address] | + + + | Home Phone | | + + + | Preferred Language | Unknown | + + + | Marital Status | | + + + | Church Affiliation | Unknown | + + + | Race | Unknown | + + + | Ethnic Group | Unknown | + + + Author + + + | Author | [facility] | | | and [place] | + + + | Organization | [facility] | | [...] Team Providers + +------+ + | Care Tool Polishing Machine Operator Name | Role | Phone | + +------+ + | No, Physician | PCP | Unavailable | + +------+ + Reason for Visit + + + | Reason | Comments | + + + | Under Treatment | | + + + Encounter Details +--------+ + + + + | Date | Type | Department | Care Team | Description | +--------+ + + + + | 04/29/ | [facility] | [facility] | Salo Wyman DO | Esophageal cancer, | | 2018 | Encounter | MED CTR RAD[facility]ATION | [address] | stage IIA (HCC) | | | | ONCOLOGY CLINIC [address] | [place] | (Primary Dx) | | | | [address] | [address] | | | | | [place] [address] | | | | | | [phone] | | | +--------+ + + + [...] + + + | Blood Pressure | 133/77 | 04/29/2017 2:30 PM | | | | | PST | | + + + + + | Pulse | 58 | 04/29/2017 2:30 PM | | | | | PST | | + + + + + | Temperature | 36.3 C (97.3 F) | 04/29/2017 2:30 PM | | | | | PST | | + + + + + | Respiratory Rate | 16 | 04/29/2017 2:30 PM | | | | | PST | | + + + + + | Oxygen Saturation | 97% | 04/29/2017 2:30 PM | | | | | PST | | + + + + + | Inhaled Oxygen | - | - | | | Concentration | | | | + + + + + | Weight | 65.6 kg (144 lb 10 | 04/29/2017 2:30 PM | | | | oz) | PST | | + + + + + | Height | - | - | | + + + + + | Body Mass Index | 23.52 | 04/14/2017 9:33 AM | | | [...] documented as of this encounter Progress Notes Salo Wyman DO - 04/30/2017 8:15 AM PSTPatient not seen today. documented in this encounter Plan of Treatment Not on filedocumented as of this encounter Visit Diagnoses + + | Diagnosis | + + | Esophageal cancer, stage IIA (HCC) - Primary | + + documented in this encounter"
--- OUTSIDE RECORDS SUMMARY | ~2019-12-05 | XMS | Encounter Summary ---
Demographics + + + | Address | [address] | | | [place] [address] | + + + | Home Phone | | + + + | Preferred Language | Unknown | + + + | Marital Status | | + + + | Rastafari Affiliation | Unknown | + + + | Race | Unknown | + + + | Ethnic Group | Unknown | + + + Author + + + | Author | [facility] | | | and [place] | + + + | Organization | [facility] | | | and [place] | + + + | Address | Unknown | + + + | Phone | Unavailable | + + + Support + + +---------+ + | Name | Relationship | Address | Phone | + + +---------+ + | Gnee Severe | ECON | Unknown | | + + +---------+ + Care Team Providers + +------+ + | Care Senior Solutions Engineer Name | Role | Phone | + +------+ + | No, Physician | PCP | Unavailable | + +------+ + Reason for Visit +--------+--------+ + | Reason | Onset | Comments | | | Date | | +--------+--------+ + | Other | 06/10/ | | | | 2018 | | +--------+--------+ + Encounter Details +--------+ + + + + | Date | Type | Department | Care Team | Description | +--------+ + + + + | 06/10/ | Telephone | [facility] | Jennifer Reyes | Other | | 2018 | | [facility] | MD [address] | | | | | ONCOLOGY CLINIC [address] | [place], [place] | | | | | [address] [place] | [address] | | | | | [place] [address] | | | | | | [phone] | | | +--------+ + + + [...] Telephone Encounter - Marisel Richardson RN - 06/10/2017 8:27 AM PSTPatient calls today with complains of headache and low grade fever. She has been having severe headaches that wake her up in the middle of the night. In the evenings she has had a fever up to 100.0. She maria s been taking Allen. which has been helping her headache and keeping her fever down. She den ies dizziness or light headedness. She states she has increased her water intake and feedin g per tube. She states this has been going on for [address] Colin and she would like to see patient to evaluate. Patient is scheduled for appointment tomorrow. documented in this encounter Plan of Treatment Not on filedocumented as of this encounter Visit Diagnoses Not on filedocumented in this encounter"
--- OUTSIDE RECORDS SUMMARY | ~2019-12-05 | XMS | Encounter Summary ---
Demographics + + + | Address | [address] | | | [place] [address] | + + + | Home Phone | | + + + | Preferred Language | Unknown | + + + | Marital Status | | + + + | Scientologist Affiliation | Unknown | + + + | Race | Unknown | + + + | Ethnic Group | Unknown | + + + Author + + + | Author | [facility] | | | and [place] | + + + | Organization | [facility] | | | [...] Team Providers + +------+ + | Care Front Maker Name | Role | Phone | + +------+ + | Haim Epps | PCP | | + +------+ + Reason for Visit Evaluate & Treat (Routine) +--------+--------+ + + + + | Status | Reason | Specialty | Diagnoses / | Referred By | Referred To | | | | | Procedures | Contact | Contact | +--------+--------+ + + + + | Closed | | Medical | Diagnoses | | | | | | Oncology / | Esophageal | Fabio, | Fabio, | | | | Oncology | cancer, | Isak Elizabeth, | Isak Elizabeth MD | | | | | stage IIA | [address] | | | | | ([facility]) | [address] | [address] | | | | | Procedures | [address] | | | | | [address] | [place], | [place], [place] | | | | | | [place] [address] | [address] | | | | | | Phone: | Phone: | | | | | | [phone] | [phone] | | | | | | Fax: | Fax: | | | | | | [phone] | [phone] | +--------+--------+ + + + + Encounter Details +--------+ + + + + | Date | Type | Department | Care Team | Description | +--------+ + + + + | 07/19/ | Hospital | [facility] | Fabio, | No Show | | 2018 | Encounter | [facility] | Isak Elizabeth MD [address] | | | | | ONCOLOGY CLINIC [address] | [address] [place] | | | | | [address] | [address] [place], [place] | | | | | [place] [address] | [address] | | | | | [phone] | | | +--------+ + + + [...]
--- OUTSIDE RECORDS SUMMARY | ~2019-12-05 | XMS | Encounter Summary ---
Demographics + + + | Address | [address] | | | [place] [address] | + + + | Home Phone | | + + + | Preferred Language | Unknown | + + + | Marital Status | | + + + | Adventism Affiliation | Unknown | + + + | Race | Unknown | + + + | Ethnic Group | Unknown | + + + Author + + + | Author | [facility] | | | and [place] | + + + | Organization | [facility] | | | [...] Team Providers + +------+ + | Care Payroll Services Analyst Name | Role | Phone | [...] + + + + | [facility] | Fabio, | | | 2018 | Encounter | MED CTR NUTRITION | Isak Elizabeth MD [address] | | | | | SERVICES [address] [place] | | | | | [place], | [address] [place], [place] | | | | | [place] [address] | [address] | | | | | [phone] | | | | | | | [...] of this encounter Progress Notes Misti Roth, RDN - 06/01/2017 12:05 PM PSTFormatting of this note might be different f rom the original. Medical Nutrition Note SUBJECTIVE: Pt expressed her appreciation of my help during her time at our cancer center. She states without my help with her feedings she would have never made it through. She is currently able to do 700 cc of Isosource 1.5 which gives her 1050 kcals and 48 gram of prot ein. She is tolerating it well. She had diarrhea one time but treated it with imodium and it went right away. She is so happy that she has gained two pounds from last week. OBJECTIVE: Diet: Goal is 1200 cc of TF per day Wt Readings from Last 3 Encounters: 06/01/17 61.4 kg (135 lb 5.8 oz) 05/27/17 60.7 kg (133 lb 13.1 oz) 05/25/17 60.6 kg (133 lb 9.6 oz) Ht Readings from Last 1 Encounters: 04/14/17 1.67 m (5' 5.75") Labs: Lab Results Component Value Date ALBUMIN 3.7 06/01/2017 Pt has my phone number if they have any questions or concerns. This is the last chemo and she will be done with radiation at the end of the week. She states she has a pre-op appt at the end of May with possible surgery in June. She still cannot swallow. Pt and her husba nd are still trying to get 5 cans in and know the importance of nutrition. Time spent: 15 minutes Thank you for the referral, Misti Roth RDN 06/01/2017 12:05 documented in this encounter Plan of Treatment Not on filedocumented as of this encounter Visit Diagnoses Not on filedocumented in this encounter
--- OUTSIDE RECORDS SUMMARY | ~2019-12-05 | XMS | Encounter Summary ---
Demographics + + + | Address | [address] | | | [place] [address] | + + + | Home Phone | | + + + | Preferred Language | Unknown | + + + | Marital Status | | + + + | Hindu Affiliation | Unknown | + + + | Race | Unknown | + + + | Ethnic Group | Unknown | + + + Author + + + | Author | [facility] | | | and [place] | + + + | Organization | [facility] | | | [...] Team Providers + +------+ + | Care Unemployment Inspector Name | Role | Phone | + [...] neoplasm of | Isak Elizabeth, | [address] | | | | | esophagus, | MD [address] | [place], | | | | | unspecified | [place] | [place] [address] | | | | | (HCC) | [address] | Phone: | | | | | Procedures | [place], | [phone] | | | | | [place] | [place] [address] | Fax: | | | | | [place] | Phone: | [phone] | | | | | [place]AL [place] | [phone] | | | | | | ORAL | Fax: | | | | | | DEXAMETHASON | [phone] | | | | | | E, .25 MG | | | | | | | MS | | | | | | | INJECTION, | | | | | | | FAMOTIDINE, | | | | | | | 20 MG MS | | | | | | | DIPHENHYDRAM | | | | | | | INE HCL | | | | | | | INJECTIO, 50 | | | | | | | MG MS | | | | | | | PACLITAXEL | | | | | | | INJECTION, | | | | | | | 1MG MS | | | | | | | CARBOPLATIN | | | | | | | INJECTION, | | | | | | | 50 MG MS | | | | | | | METHYLPREDNI | | | | | | | SOLONE | | | | | | | INJECTION, | | | | | | | 125 MG MS | | | | | | | DEXAMETHASON | | | | | | | E SODIUM | | | | | | | PHOS, 1 MG | | | | | | | MS ADRENALIN | | | | | | | EPINEPHRINE | | | | | | | INJECT, .1 | | | | | | | MG MS | | | | | | | ALBUTEROL | | | | | | | COMP CON, 1 | | | | | | | MG MS | | | | | | | ALBUTEROL | | | | | | | NON-COMP | | | | | | | CON, 1 MG | | | | | | | MS NORMAL | | | | | | | SALINE | | | | | | | SOLUTION | | | | | | | INFUS, 500 | | | | | | | ML MS | | | | | | | NORMAL | | | | | | | SALINE | | | | | | | SOLUTION | | | | | | | INFUS, 250 | | | | | | | ML MS | | | | | | | STERILE | | | | | | | WATER/SALINE | | | | | | | , 10 ML MS | | | | | | | CHEMOTHER, | | | | | | | IV PUSH,EA | | | | | | | ADD DRUG MS | | | | | | | CHEMOTHER, | | | | | | | IV INFUSION, | | | | | | | 1 HR MS | | | | | | | CHEMOTHER, | | | | | | | IV INFUSION, | | | | | | | EA HR MS | | | | | | | CHEMOTHER,NO | | | | | | | N-HORMONE | | | | | | | ANTI-NEOPL, | | | | | | | SUB-Q/IM MS | | | | | | | CHEMOTHER | | | | | | | HORMON | | | | | | | ANTINEOPL | | | | | | | SUB-Q/IM MS | | | | | | | | | | | | | | FOSAPREPITAN | | | | | | | T INJECTION, | | | | | | | 1 MG MS | | | | | | | PALONOSETRON | | | | | | | HCL, 25 MCG | | | +--------+--------+ + + + + Encounter Details +--------+ + + + + | Date | Type | Department | Care Team | Description | +--------+ + + + + | 05/12/ | Hospital | [facility] | Miguel A Kennedy, | Esophageal cancer, | | 2018 | Encounter | MED CTR CHEMO | MD [address] | stage IIA (HCC) | | | | INFUSION [address] [place], | | | | | [place], | [place] [address] | | | | | [address] | [phone] | | | | | [phone] | | | +--------+ + + + [...] documented as of this encounter Progress Notes Lor Concepcion RN - 05/12/2017 11:59 AM PSTPatient discharged in satisfactory condition. Discharged ambulatory. With family. To home. Verified that patient has antinausea medications at home. Future appointments and After Visit Summary (AVS) provided. documented in this encounter Miscellaneous Notes Treatment Plan - Lor Concepcion RN - 05/12/2017 9:04 AM PSTViewed chart for weight, yuli l signs and lab results. Also viewed chart for completion of medication and allergy review prior to treatment.Lor Concepcion RN DATE/TIME: 05/12/2017 9:04 documented in this en counter Plan of Treatment Not on filedocumented as of this encounter Procedures + +--------+ + + + | Procedure Name | Priori | Date/Time | Associated Diagnosis | Comments | | | ty | | | | + +--------+ + + + | CBC WITH | STAT | 05/12/2017 | Esophageal cancer, | Results for this | | DIFFERENTIAL | | 7:59 AM | stage IIA (HCC) | procedure are in the | | | | PST | | results section. | + +--------+ + + + | COMPREHENSIVE | STAT | 05/12/2017 | Esophageal cancer, | Results for this | | METABOLIC PANEL | | 7:59 AM | stage IIA (HCC) | procedure are in the | | | | PST | | results section. | + +--------+ + + + documented in this encounter Results CBC with Differential (05/12/2017 7:59 AM PST) + + + + + + | Component | Value | Ref Range | Performed | Pathologist | | | | | At | Signature | + + + + + + | White Blood | 4.5 | 4.0 - 11.0 K/uL | [facility] | | | Cells | | | [facility] | [facility] | [facility] | | | | | [facility] - | | | | | | LABORATORY | | + + + + + + | Red Blood | 4.73 | 3.70 - 5.20 | [facility] | | | Cells | | M/uL | [facility] | [facility] | | | | | | [facility] - | | | | | | LAB[facility]ATORY | | + + + + + + | Hemoglobin | 14.6 | 11.5 - 16.0 | [facility] | | | | | g/dL | [facility] | | | | | | [facility] - | | | | | | LABORATORY | | + + + + + + | Hematocrit | 42.7 | 34.0 - 47.0 % | [facility] | | | | | | [facility] | | | [facility] | [facility] | | | | | | [facility] - | | | | | | LABORATORY | | + + + + + + | MCV | 90.2 | 83.0 - 101.0 fL | [facility] | | | | | | [facility] | | | [facility] | [facility] | | | | | | [facility] - | | | | | | LABORATORY | | + + + + + + | MCH | 30.8 | 28.0 - 35.0 pg | [facility] | | | | | | [facility] | | | [facility] | | [facility] | | | | | | [facility] - | | | | | | LABORATORY | | + + + + + + | MCHC | 34.1 | 32.0 - 36.0 | [facility] | | | | | g/dL | [facility] | | | | | | [facility] | | | | | | [facility] - | | | | | | LAB[facility]ATORY | | + + + + + + | RDW-CV | 12.6 | <15.0 % | [facility] | | | | | | [facility] | | [facility] | [facility] | | | | | | [facility] - | | | | | | LABORATORY | | + + + + + + | Platelet | 285 | 140 - 440 K/uL | [facility] | | | Count | | | [facility] | | | | | | [facility] | | | | | | [facility] - | | | | | | LABORATORY | | + + + + + + | MPV | 8.8 | fL | [facility] | | | | | | [facility] | | | | | | [facility] | | | | | | [facility] - | | | | | | LABORATORY | | + + + + + + | % | 79.4 | 45.0 - 82.0 % | [facility] | | | Neutrophils | | | [facility] | | | | | | [facility] | | | | | | [facility] - | | | | | | LABORATORY | | + + + + + + | % | 12.6 (L) | 20.0 - 45.0 % | [facility] | | | Lymphocytes | | | [facility] | | | | | | [facility] | | | | | | [facility] - | | | | | | LABORATORY | | + + + + + + | % Monocytes | 6.2 | 4.0 - 12.0 % | [facility] | | | | | | [facility] | | | [facility] | [facility] | | | | | | [facility] - | | | | | | LABORATORY | | + + + + + + | % | 1.3 | 0.0 - 5.0 % | [facility] [...] + + + + | Absolute | 3.60 | 1.80 - 8.50 | [facility] | | | Neutrophils | | K/uL | [facility] | | | | | [facility] | | | | | | [facility] - | | | | | | LABORATORY | | + + + + + + | Absolute | 0.60 | 0.60 - 3.20 | [facility] | | | Lymphocytes | | K/uL | [facility] | | | | | | [facility] | | | | | | [facility] - | | | | | | LABORATORY | | + + + + + + | Absolute | 0.30 | 0.00 - 1.00 | [facility] | | | Monocytes | | K/uL | [facility] | | | | | | [facility] | | | | | | [facility] - | | | | | | LABORATORY | | + + + + + + | Absolute | 0.10 | 0.00 - 0.40 | [facility] | [...] + + | [facility] | [address] | [place], [place] | [phone] | | [facility] | | [address] | | | - LABORATORY | | | | + + + + + Comprehensive Metabolic Panel (05/12/2017 7:59 AM PST) + + + + + + | Component | Value | Ref Range | Performed | Pathologist | | | | | At | Signature | + + + + + + | Na | 134 (L) | 136 - 149 | [facility] | | | | | mmol/L | [facility] | | | | | | [facility] | | | | | | [facility] - | | | | | | LABORATORY | | + + + + + + | K | 3.9 | 3.5 - 5.1 | [facility] | | | | | mmol/L | [facility] | | | | | | [facility] | | | | | | [facility] - | | | | | | LABORATORY | | + + + + + + | Cl | 103 | 98 - 109 mmol/L | [facility] | | | | | | [facility] | | | | | | [facility] | | | | | | [facility] - | | | | | | LABORATORY | | + + + + + + | CO2 | 26 | 24 - 31 mmol/L | [facility] | | | | | | [facility] | | | | | | [facility] | | | | | | CENTER - | | | | | | LABORATORY | | + + + + + + | Anion Gap | 5 | 3 - 16 mmol/L | [facility] | | | | | | [facility] | | | | | | MED[facility] | | | | | | CENTER - | | | | | | LABORATORY | | + + + + + + | Glucose | 101 | 70 - 109 mg/dL | [facility] | | | | | | [facility] | | | | | | MEDICAL | | | | | | CENTER - | | | | | | LABORATORY | | + + + + + + | BUN | 11 | 7 - 18 mg/dL | [facility] | | | | | | [facility] | | | | | | MEDICAL | | | | | | CENTER - | | | | | | LABORATORY | | + + + + + + | Creatinine | 0.74 | 0.60 - 1.30 | [facility] | | | | | mg/dL | [facility] | | | | | | MEDICAL | | | | | | CENTER - | | | | | | LABORATORY | | + + + + + + | eGFR, | >60Comment: GLOMERULAR | >=60 | [facility] | | | non- | FILTRATION | mL/min/1.73m2 | [facility] | | | [place] | RATE,ESTIMATED | | MEDICAL | | | | mL/min/1.52t8Zkdd than | | CENTER - | | [...] + + + + | Calcium | 9.4 | 8.3 - 10.5 | [facility] | | | | | mg/dL | [facility] | | | | | | MEDICAL | | | | | | CENTER - | | | | | | LABORATORY | | + + + + + + | Albumin | 4.0 | 3.2 - 5.0 g/dL | [facility] | | | | | | [facility] | | | | | | [facility] | | | | | | CENTER - | | | | | | LABORATORY | | + + + + + + | Bilirubin | 0.7Comment: This is an | 0.1 - 1.5 mg/dL | [facility] | | | Total | appended report. These | | [facility] | | | | results have been | | MEDICAL | | | | appended to a previously | | CENTER - | | | | preliminary verified | | LABORATORY | | | | report. | | | | + + + + + + | Total | 6.4 | 6.0 - 7.8 g/dL | [facility] | | | Protein | | | [facility] | | | | | | MEDICAL | | | | | | CENTER - | | | | | | LABORATORY | | + + + + + + | AST | 28Comment: This is an | 10 - 42 U/L | [facility] | | | | appended report. These | | [facility] | | | | results have been | | MEDICAL | | | | appended to a previously | | CENTER - | | | | preliminary verified | | LABORATORY | | | | report. | | | | + + + + + + | ALT | 44Comment: This is an | 6 - 45 U/L | [facility] | | | | appended report. These | | [facility] | | | | results have been | | MEDICAL | | | | appended to a previously | | CENTER - | | | | preliminary verified | | LABORATORY | | | | report. | | | | + + + + + + | Alkaline | 66Comment: This is an | 40 - 110 U/L | [facility] | | | Phosphatase | appended report. These | | [facility] | | | | results have been | | MEDICAL | | | | appended to a previously | | CENTER - | | | | preliminary verified | | LABORATORY | | | | report. | | | | + + + + + + | Globulin | 2.4 | 2.1 - 3.8 g/dL | [facility] | | | | | | [facility] | | | | | | MEDICAL | | | | | | CENTER - | | | | | | LABORATORY | | + + + + + + | Albumin/Jo Ann | 1.7 | 0.8 - 2.0 | [facility] | | | bulin Ratio | | | [facility] | | | | | | MEDICAL | | | | | | CENTER - | | | | | | LABORATORY | | + + + + + + | BUN/Creatin | 14.9 | | [facility] | | | ine Ratio | | | [facility] | [...] | + + + + + | [facility] | [address] | [place] | [phone] | | [facility] | | [address] | | | - LABORATORY | | [...] CARBOplatin (PARAPLATIN) 226.6 | New Bag | 05/12/19 | 226.6 mg | 545.3 | | | mg in sodium chloride 0.9% 250 mL | | 18 11:22 | | mL/hr | | | infusion 226.6 mg (Target AUC = | | AM PST | | | | | 2), Intravenous, Administer over | | | | | | | 30 Minutes, ONCE, 05/12/17 at | | | | | | | 1100, For 1 dose, Chemotherapy: | | | | | | | Use appropriate handling | | | | | | | precautions. Administer AFTER | | | | | | | PACLitaxel., | | | | | | + +---------+ + +--------+------+ +---+---+ | | | +---+---+ + +-------+ +-------+---+---+ | diphenhydrAMINE (BENADRYL) | Given | 05/12/19 | 25 mg | | | | injection 25 mg 25 mg, | | 18 9:25 | | | | | Intravenous, ONCE, 05/12/17 at | | AM PST | | | | | 0930, For 1 dose, Administer 30 | | | | | | | minutes prior to PACLitaxel ., | | | | | | + +-------+ +-------+---+---+ +---+---+ | | | +---+---+ + +-------+ +-------+---+---+ | famotidine (PEPCID) injection | Given | 05/12/19 | 20 mg | | | | 20 mg 20 mg, Intravenous, ONCE, | | 18 9:22 | | | | | 05/12/17 at 0930, For 1 dose, | | AM PST | | | | | Keep [...] 150 mg in | New Bag | 05/12/19 | 150 mg | 500 | | | sodium chloride 0.9% 250 mL IVPB | | 18 9:47 | | mL/hr | | | 150 mg, Intravenous, Administer | | AM PST | | | | | over 30 Minutes, ONCE, Wed | | | | | | | 05/12/17 at 0945, For 1 dose, Do | | | | | | | not shake bag., | | | | | | + +---------+ +--------+-------+---+ +---+---+ | | | +---+---+ + +-------+ +-------+---+---+ | heparin 100 units/mL flush | Given | 05/12/19 | 500 | | | | injection 500 Units 500 Units (5 | | 18 11:58 | Units | | | | mL), Intracatheter, PRN, Line | | AM PST | | | | | Care, Starting 05/12/17 at | | | | | | | 0903 | | | | | | + +-------+ +-------+---+---+ +---+---+ | | | +---+---+ + +-------+ +------+---+---+ | LORazepam (ATIVAN) 2 mg/mL | Given | 05/12/19 | 1 mg | | | | injection 0.5-1 mg 0.5-1 mg, | | 18 9:17 | | | | | Intravenous, PRN, Anxiety, | | AM PST | | | | | Nausea/Vomiting, Starting Wed | | | | | | | 05/12/17 at 0903, For 1 dose | | | | | | + +-------+ +------+---+---+ +---+---+ | | | +---+---+ + +---------+ +---+--------+---+ | ondansetron (ZOFRAN) 8 mg, | New Bag | 05/12/19 | | 217.6 | | | dexamethasone (DECADRON) 4 mg in | | 18 9:27 | | mL/hr | | | sodium chloride 0.9% 50 mL IVPB | | AM PST | | | | | Intravenous, Administer over 15 | | | | | | | Minutes, ONCE, 1/17/18 at | | | | | | | 0930, For 1 dose, Administer 30 | | | | | | | minutes prior to chemotherapy., | | | | | | + +---------+ +---+--------+---+ +---+---+ | | | +---+---+ + +---------+ +-------+-------+---+ | PACLitaxel (TAXOL) 90 mg in | New Bag | 05/12/19 | 90 mg | 265 | | | sodium chloride 0.9% 250 mL | | 18 10:18 | | mL/hr | | | infusion 90 mg (rounded from | | AM PST | | | | | 89.5 mg = 50 mg/m2 | | | | | | | 1.79 m2 Order-specific BSA), | | | | | | | Intravenous, Administer over 1 | | | | | | | Hours, ONCE, Wed05/12/17 at 1015, | | | | | | | [...]
--- OUTSIDE RECORDS SUMMARY | ~2019-12-05 | XMS | Encounter Summary ---
Demographics + + + | Address | [address] | | | [place] [address] | + + + | Home Phone | | + + + | Preferred Language | Unknown | + + + | Marital Status | | + + + | Orthodoxy Affiliation | Unknown | + + + | Race | Unknown | + + + | Ethnic Group | Unknown | + + + Author + + + | Author | [facility] | | | and [place] | + + + | Organization | [facility] | | | [...] Team Providers + +------+ + | Care Veneer Sander Name | Role | Phone | + +------+ + | No, Physician | PCP | Unavailable | + +------+ + Reason for Visit + +--------+ + | Reason | Onset | Comments | | | Date | | + +--------+ + | Medication Refill | 06/01/ | | | | 2017 | | + +--------+ + Encounter Details +--------+--------+ + + + | Date | Type | Department | Care Team | Description | +--------+--------+ + + + | 06/01/ | Refill | [facility] | Jennifer Reyes | Medication Refill | | 2018 | | MED CTR RADIATION | MD Manj[place] [address] | | | | | [facility] [address] [place], [place] | | | | | [address] | [address] | | | | | [place] [address] | | | | | | [phone] | | | +--------+--------+ + + + [...] Telephone Encounter - Marisel Richardson RN - 06/01/2017 10:16 AM PSTRx approved, [facility] by Marisel Richardson RN at 06/01/2017 10:17 AM PSTTelepho ne Encounter - Marisel Richardson RN - 06/01/2017 8:58 AM PSTPatient is requesting a refill b e sent of her prilosec that she takes through her J-tube. documented in this encounter Plan of Treatment Not on filedocumented as of this encounter Visit Diagnoses Not on filedocumented in this encounter"
--- OUTSIDE RECORDS SUMMARY | ~2019-12-05 | XMS | Encounter Summary ---
Demographics + + + | Address | [address] | | | [place] [address] | + + + | Home Phone | | + + + | Preferred Language | Unknown | + + + | Marital Status | | + + + | Confucianist Affiliation | Unknown | + + + | Race | Unknown | + + + | Ethnic Group | Unknown | + + + Author + + + | Author | [facility] | | | and [place] | + + + | Organization | [facility] | | [...] Team Providers + +------+ + | Care Blasting Contract Man Name | Role | Phone | + [...] | +--------+ + + + + | 04/30/ | Hospital | [facility] | Salo Wyman DO | Esophageal cancer, | | 2018 | Encounter | MED CTR RADIATION | [address] | stage IIA (HCC) | | | | ONCOLOGY CLINIC [address] | [place], [place] | (Primary Dx) | | | | [address] | [address] | | | | | [facility] [place] [address] | | | | | | [phone] | | | +--------+ + + + [...] + + + | Blood Pressure | 138/87 | 04/30/2017 8:48 AM | | | | | PST | | + + + + + | Pulse | 59 | 04/30/2017 8:48 AM | | | | | PST | | + + + + + | Temperature | 36.1 C (97 F) | 04/30/2017 8:48 AM | | | | | PST | | + + + + + | Respiratory Rate | 16 | 04/30/2017 8:48 AM | | | | | PST | | + + + + + | Oxygen Saturation | 98% | 04/30/2017 8:48 AM | | | | | PST | | + + + + + | Inhaled Oxygen | - | - | | | Concentration | | | | + + + + + | Weight | 66.6 kg (146 lb 13.2 | 04/30/2017 8:48 AM | | | | oz) | PST | | + + + + + | Height | - | - | | + + + + + | Body Mass Index | 23.88 | 04/14/2017 9:33 AM | | | [...] Progress Notes Salo Wyman DO - 04/30/2017 8:49 AM PST Radiation Oncology Weekly On Treatment Note Diagnosis: ICD-10-CM ICD-9-CM 1. Esophageal cancer, stage IIA (HCC) C15.9 150.9 Reason for visit: On treatment evaluation Radiation technical factors: Dose Delivered Dose Planned Fractions Delivered 360 cGy 5040 cGy 06/23 Images were reviewed this week and results [...] Route Frequency Provider Last Rate Last Dose [COMPLETED] CARBOplatin (PARAPLATIN) 226.6 mg in sodium chloride 0.9% 250 mL infusion 226.6 mg Intravenous Once Isak Mccarthy MD Stopped at 04/29/17 1632 [COMPLETED] diphenhydrAMINE (BENADRYL) injection 25 mg 25 mg Intravenous Once Isak Mccarthy MD 25 mg at 04/29/17 1328 [COMPLETED] famotidine (PEPCID) injection 20 mg 20 mg Intravenous Once Isak koo MD 20 mg at 04/29/17 1320 [COMPLETED] fosaprepitant (EMEND) 150 mg in sodium chloride 0.9% 250 mL IVPB 150 mg In travenous Once Isak Mccarthy MD Stopped at 04/29/17 1422 [COMPLETED] lidocaine (PF) 1% injection 1 mL 1 mL Intradermal Once Isak cota MD 0.5 mL at 04/29/17 1310 [COMPLETED] LORazepam (ATIVAN) 2 mg/mL injection 0.5-1 mg 0.5-1 mg Intravenous PRN Al denise Mccarthy MD 1 mg at 04/29/17 1322 [COMPLETED] ondansetron (ZOFRAN) 8 mg, dexamethasone (DECADRON) 4 mg in sodium chloride 0.9% 50 mL IVPB Intravenous Once Isak Mccarthy MD Stopped at 04/29/17 1351 [COMPLETED] PACLitaxel (TAXOL) 72 mg in sodium chloride 0.9% 200 mL infusion 40 mg/m2 (Order-Specific) Intravenous Once Isak Mccarthy MD Stopped at 04/29/17 1556 Pain assessment: Location: chest Pain Level: 3 Pain Quality: Constant Current pain regimen: (HYCET) 7.5-325 mg/15 mL every 4 hours Wt Readings from Last 3 Encounters: 04/30/17 66.6 kg (146 lb 13.2 oz) 04/29/17 65.6 kg (144 lb 10 oz) 04/29/17 65.6 kg (144 lb 10 oz) Vitals: 04/30/17 0848 BP: 138/87 Pulse: 59 Resp: 16 Temp: 36.1 C (97 F) Physical Exam Constitutional: She is oriented to person, place, and time. Vital signs are normal. She robert ears well-developed and well-nourished. HENT: Head: Normocephalic and atraumatic. Eyes: Conjunctivae and EOM are normal. No scleral icterus. Neck: Trachea normal. Neck supple. Cardiovascular: Normal rate, regular rhythm and intact distal pulses. Pulmonary/Chest: Effort normal and breath sounds normal. Musculoskeletal: Normal range of motion. Neurological: She is alert and oriented to person, place, and time. She has normal strength . No cranial nerve deficit. Skin: Skin is warm, dry and intact. Psychiatric: She has a normal mood and affect. Her speech is normal and behavior is normal. Judgment and thought content normal. Cognition and memory are normal. Vitals reviewed. Physician Assessment: New start this week. Tolerating treatment well. Toxicities reviewed. She'll continue uy atment as planned. Toxicities reviewed in nursing note. Disposition: Continue radiation treatment as planned. Salo Wyman DO Radiation Oncologist Marisel Martinez RN - 0 04/30/2017 8:49 AM PST 04/30/17 0849 General Disorders and Administration Site Conditions Fatigue 1 - Grade 1 Performance Status Karnofsky Performance Score 80% Met with patient today for nurse education. Verbal and written education given to patient r egarding general radiation therapy side effects as well as site specific side effects. Revi ew process of for their doctor, all questions at this time were answered. documented in this en counter Plan of Treatment Not on filedocumented as of this encounter Visit Diagnoses + + | Diagnosis | + + | Esophageal cancer, stage IIA (HCC) - Primary | + + documented in this encounter"
--- OUTSIDE RECORDS SUMMARY | ~2019-12-05 | XMS | Encounter Summary ---
Demographics + + + | Address | [address] | | | [place] [address] | + + + | Home Phone | | + + + | Preferred Language | Unknown | + + + | Marital Status | | + + + | Mormonism Affiliation | Unknown | + + + | Race | Unknown | + + + | Ethnic Group | Unknown | + + + Author + + + | Author | [facility] | | | and [place] | + + + | Organization | [facility] | | | and [...] Team Providers + +------+ + | Care Spanish Tutor Name | Role | Phone | + +------+ + | Haim Epps | PCP | | + +------+ + Reason for Visit + +--------+ + | Reason | Onset | Comments | | | Date | | + +--------+ + | Medication Refill | 12/22/ | | | | 2018 | | + +--------+ + Encounter Details +--------+--------+ + + + | Date | Type | Department | Care Team | Description | +--------+--------+ + + + | 12/22/ | Refill | [facility] | Mary AnnnolbertoSilvia walkeren | Medication Refill | | 2017 | | [facility] | MD Manjula [address] | | | | | ONCOLOGY CLINIC [address] | [address] [place], [place] | | | | | [address] | [address] | | | | | [place] [address] | | | | | | [phone] | | | +--------+--------+ + + + [...] Telephone Encounter - Marisel Richardson RN - 2017 5:21 PM PDTLeft message for patient that this had been sent to her pharmacy/ Electronically signed by Marisel Richardson RN at 5:22 PM PDTTelephone Encounter - Komal Campos - 2017 12:24 PM PDTAlexi wray called and requested a refill for her Omeprazole thank you. documented in this encounter Plan of Treatment Not on filedocumented as of this encounter Visit Diagnoses Not on filedocumented in this encounter"
--- OUTSIDE RECORDS SUMMARY | ~2019-12-05 | XMS | Encounter Summary ---
Demographics + + + | Address | [address] | | | [place] [address] | + + + | Home Phone | | + + + | Preferred Language | Unknown | + + + | Marital Status | | + + + | Pentecostal Affiliation | Unknown | + + + | Race | Unknown | + + + | Ethnic Group | Unknown | + + + Author + + + | Author | [facility] | | | and [place] | + + + | Organization | [facility] | | | and [...] Team Providers + +------+ + | Care Cellophane Wrapping Examiner Name | Role | Phone | + +------+ + | No, Physician | PCP | Unavailable | + +------+ + Reason for Referral Evaluate & Treat (Routine) +--------+ + + + + + | Status | Reason | Specialty | Diagnoses / | Referred By | Referred To | | | | | Procedures | Contact | Contact | +--------+ + + + + + | Closed | Specialty | Nutrition | Diagnoses | Amy, | [facility] | | | Services | | Esophageal | Jennifer Fair, | Nutrition | | | Required | | cancer, | MD [address] | [address] | | | | | stage IIA | [address] | [address] | | | | | (HCC) | [place], | [place], | | | | | | [place] [address] | [place] [address] | | | | | | Phone: | Phone: | | | | | | [phone] | [phone] | | | | | | Fax: | Fax: | | | | | | [phone] | [phone] | +--------+ + + + + + Encounter Details +--------+ + + + + | Date | Type | Department | Care Team | Description | +--------+ + + + + | 04/14/ | Orders Only | [facility] | Jennifer Reyes | Esophageal cancer, | | 2017 | | [facility] RAD[facility] | MD Manjula [address] | stage IIA (HCC) | | | | ONCOLOGY CLINIC [address] | [place] | (Primary Dx) | | | | [address] | [address] | | | | | [place] [address] | | | | | | [phone] | | | +--------+ + + + [...] as of this encounter Plan of Treatment + + +--------+ + + | Name | Type | Priori | Associated Diagnoses | Order Schedule | | | | ty | | | + + +--------+ + + | * [facility] | Outpatient | Routin | Esophageal cancer, | Ordered: 04/14/2017 | | Services - AMB | Referral | e | stage IIA (HCC) | | | Referral | | | | | + + +--------+ + + documented as of this encounter Visit Diagnoses + + | Diagnosis | + + | Esophageal cancer, stage IIA (HCC) - Primary | + + documented in this encounter"
--- OUTSIDE RECORDS SUMMARY | ~2019-12-05 | XMS | Encounter Summary ---
Demographics + + + | Address | [address] | | | [place] [address] | + + + | Home Phone | | + + + | Preferred Language | Unknown | + + + | Marital Status | | + + + | Pentecostal Affiliation | Unknown | + + + | Race | Unknown | + + + | Ethnic Group | Unknown | + + + Author + + + | Author | [facility] | | | and [place] | + + + | Organization | [facility] | | [...] Team Providers + +------+ + | Care Product Assembler Name | Role | Phone | [...] | +--------+ + + + + | 06/07/ | Hospital | [facility] | Jennifer Reyes | Esophageal cancer, | | 2018 | Encounter | [facility] | MD [address]jula [address] | stage IIA (HCC) | | | | ONCOLOGY CLINIC [address] | [place], [place] | (Primary Dx) | | | | [address] | [address] | | | | | [place] [address] | | | | | | [phone] | | | +--------+ + + + [...] + + + | Blood Pressure | 107/68 | 06/07/2017 8:52 AM | | | | | PST | | + + + + + | Pulse | 100 | 06/07/2017 8:52 AM | | | | | PST | | + + + + + | Temperature | 36.5 C (97.7 F) | 06/07/2017 8:52 AM | | | | | PST | | + + + + + | Respiratory Rate | 18 | 06/07/2017 8:52 AM | | | | | PST | | + + + + + | Oxygen Saturation | 100% | 06/07/2017 8:52 AM | | | | | PST | | + + + + + | Inhaled Oxygen | - | - | | | Concentration | | | | + + + + + | Weight | 60.1 kg (132 lb 7.9 | 06/07/2017 8:52 AM | | | | oz) | PST | | + + + + + | Height | - | - | | + + + + + | Body Mass Index | 21.55 | 04/14/2017 9:33 AM | | | [...] Progress Notes Jennifer Madrid MD - 06/11/2017 8:32 AM [facility] Radiation Treatment Summary Diagnosis: 61 year-old woman recently diagnosed with esophageal cancer, squamous cell carcinoma, moder ately differentiated. Clinical stage T3 N1 M0 based on EUS and PET/CT. Completing neoadjuv ant chemoradiotherapy Treatment Summary: Annie Brown recently completed a course of radiation treatment with VMAT radiation therapy. Treatment Summary: Annie was treated in our clinic between the dates of 04/29/2017 - 06/07/2017. Intent: curative Prescription: Thorax (Plan ID - Esophagus Bst) - Rx Dose 540cGy (Status - Completed) - Thorax (Plan ID - Esophagus) - Rx Dose 4,500cGy (Status - Completed) - Treatment Technique: VMAT Chemotherapy: Weekly concurrent carboplatin and paclitaxel Assessment: Annie Brown completed the planned course of course of external beam radiation ther apy uneventfully and without any unexpected complications. On the last day of treatment, she was evaluated. She tolerated therapy very well. Maintained her weight and did not requir e any unexpected breaks. Disposition: 1. Follow-up in our clinic: 2-3 months after surgery, sooner if needed. 2. She is scheduled for EGD/EUS at and operative planning in late May. Esophagectomy janey nned with Dr. Cannon in June. 3. Coordination of care will be arranged between providers for future visits. Additional follow-up care will be planned according to applicable NCCN guidelines and [facility] protocol with appropriate labs and imaging as indicated by diagnosis and stage. Annie Brown was encouraged to call our clinic with any further questions or concerns. Thank you for allowing me to participate in her care. If you should have any questions rega rding this treatment summary, please do not hesitate to contact me. Jennifer Colin MD Radiation Oncologist Department of Radiation Oncology [facility] This note was transcribed using [employer] speech recognition software. As a result, there may be unintended for medical and/or spelling errors. Every attempt is made to correct dictati on. If there are any questions or errors please contact our office. CC: Patient Care Team: Physician No as PCP - General Isak Mccarthy MD as Consulting Physician (Medical Oncology) Norm Oneal MD (Otolaryngology) Jennifer Madrid MD as Physician (Radiation Oncology) Gold Cannon MD (Cardiothoracic Surgery) Misti Roth RDN as Registered Dietitian (Dietitian) donnell, Jennifer Fair MD - 06/07/2017 8:58 AM PST . Radiation Oncology Weekly On Treatment Note Diagnosis: ICD-10-CM ICD-9-CM 1. Esophageal cancer, stage IIA (HCC) C15.9 150.9 Reason for visit: On treatment evaluation Radiation technical factors: Dose Delivered Dose Planned Fractions Delivered 4500 cGy Boost 540 cGY 4500 cGy 540 cGy 06/26 Images were reviewed this week and results of the review have been recorded in ARIA. Corre ctions were applied as necessary. No Known Allergies Current Outpatient Prescriptions on File Prior to Encounter Medication Sig Dispense Refill HYDROcodone-acetaminophen (HYCET) 7.5-325 mg/15 mL liquid Take [...] on file prior to encounter. Pain assessment: Location:NA Pain Level: 0 Wt Readings from Last 3 Encounters: 06/11/17 59.7 kg (131 lb 9.8 oz) 06/07/17 60.1 kg (132 lb 7.9 oz) 06/03/17 61.4 kg (135 lb 5.8 oz) Vitals: 06/07/17 0852 BP: 107/68 Pulse: 100 Resp: 18 Temp: 36.5 C (97.7 F) TempSrc: Temporal SpO2: 100% Weight: 60.1 kg (132 lb 7.9 oz) Physical Exam Constitutional: She appears well-developed and well-nourished. Neurological: She is alert. Psychiatric: She has a normal mood and affect. Physician Assessment: Finished treatment today. Has done well. Esophageal spasm resolved with PPI. Nausea contr olled with current medication. Weight down a bit this week, 3lbs. Fatigued. Excited to be done with chemoradiotherapy. Toxicities reviewed in nursing note. Disposition: completed treatment as planned. Follow-up at scheduled later this month. Jennifer Colin MD Radiation Oncologist documented in thi s encounter Plan of Treatment Not on filedocumented as of this encounter Visit Diagnoses + + | Diagnosis | + + | Esophageal cancer, stage IIA (HCC) - Primary | + + documented in this encounter"
--- OUTSIDE RECORDS SUMMARY | ~2019-12-05 | XMS | Encounter Summary ---
Demographics + + + | Address | [address] | | | [place] [address] | + + + | Home Phone [...] Team Providers + +------+ + | Care Quality Engineering Manager Name | Role | Phone | [...] neoplasm of | Isak Elizabeth, | [place] | | | | | esophagus, | MD [address] | [place], | | | | | unspecified | [place] | [place] [address] | | | | | ([facility]) | [address] | Phone: | | | | | Procedures | [place], | [phone] | | | | | [place] | [place] [address] | Fax: | | | | | [place] | Phone: | [phone] | | | | | [place] | [phone] | | | | | | [place] | Fax: | | | | | | DEXAMETHASON | [phone] | | | | | | E, .25 MG | | | | | | | ND | | | | | | | INJECTION, | | | | | | | FAMOTIDINE, | | | | | | | 20 MG ND | | | | | | | DIPHENHYDRAM | | | | | | | INE HCL | | | | | | | INJECTIO, 50 | | | | | | | MG ND | | | | | | | PACLITAXEL | | | | | | | INJECTION, | | | | | | | 1MG ND | | | | | | | CARBOPLATIN | | | | | | | INJECTION, | | | | | | | 50 MG ND | | | | | | | METHYLPREDNI | | | | | | | SOLONE | | | | | | | INJECTION, | | | | | | | 125 MG ND | | | | | | | DEXAMETHASON | | | | | | | E SODIUM | | | | | | | PHOS, 1 MG | | | | | | | ND ADRENALIN | | | | | | | EPINEPHRINE | | | | | | | INJECT, .1 | | | | | | | MG ND | | | | | | | ALBUTEROL | | | | | | | COMP CON, 1 | | | | | | | MG ND | | | | | | | ALBUTEROL | | | | | | | NON-COMP | | | | | | | CON, 1 MG | | | | | | | ND NORMAL | | | | | | | SALINE | | | | | | | SOLUTION | | | | | | | INFUS, 500 | | | | | | | ML ND | | | | | | | NORMAL | | | | | | | SALINE | | | | | | | SOLUTION | | | | | | | INFUS, 250 | | | | | | | ML ND | | | | | | | STERILE | | | | | | | WATER/SALINE | | | | | | | , 10 ML ND | | | | | | | CHEMOTHER, | | | | | | | IV PUSH,EA | | | | | | | ADD DRUG ND | | | | | | | CHEMOTHER, | | | | | | | IV INFUSION, | | | | | | | 1 HR ND | | | | | | | CHEMOTHER, | | | | | | | IV INFUSION, | | | | | | | EA HR ND | | | | | | | CHEMOTHER,NO | | | | | | | N-HORMONE | | | | | | | ANTI-NEOPL, | | | | | | | SUB-Q/IM ND | | | | | | | CHEMOTHER | | | | | | | HORMON | | | | | | | ANTINEOPL | | | | | | | SUB-Q/IM ND | | | | | | | | | | | | | | FOSAPREPITAN | | | | | | | T INJECTION, | | | | | | | 1 MG ND | | | | | | | PALONOSETRON | | | | | | | HCL, 25 MCG | | | +--------+--------+ + + + + Encounter Details +--------+ + + + + | Date | Type | Department | Care Team | Description | +--------+ + + + + | 05/13/ | Hospital | [facility] | Fabio, | Canceled (OTHER) | | 2018 | Encounter | [facility] CHEMO | Isak Elizabeth MD [address] | | | | | INFUS[address] [place] | | | | | [place], | [address] [place], [place] | | | | | [place] [address] | [address] | | | | | [phone] | | | +--------+ + + + [...]
--- OUTSIDE RECORDS SUMMARY | ~2019-12-05 | XMS | Encounter Summary ---
Demographics + + + | Address | [address] | | | [place] [address] | + + + | Home Phone | | + + + | Preferred Language | Unknown | + + + | Marital Status | | + + + | Sabianist Affiliation | Unknown | + + + [...] + +------+ + | Care Waste Water Worker Name | Role | Phone | + +------+ + | No, Physician | PCP | Unavailable | + +------+ + Reason for Visit + + + | Reason | Comments | + + + | Under Treatment | OTV- Esophagus | + + + Encounter Details +--------+ + + + + | Date | Type | Department | Care Team | Description | +--------+ + + + + | 06/03/ | Hospital | [facility] | Jennifer Reyes | Esophageal cancer, | | 2018 | Encounter | [facility] RAD[facility] | MD Manjula [address] | stage IIA (HCC) | | | | ONCOLOGY CLINIC [address] | [place], [place] | (Primary Dx) | | | | [address] | [address] | | | | | [place] [address] | | | | | | [phone] | | | +--------+ + + + [...] + + + | Blood Pressure | 125/77 | 06/03/2017 8:49 AM | | | | | PST | | + + + + + | Pulse | 66 | 06/03/2017 8:49 AM | | | | | PST | | + + + + + | Temperature | 36.5 C (97.7 F) | 06/03/2017 8:49 AM | | | | | PST | | + + + + + | Respiratory Rate | 18 | 06/03/2017 8:49 AM | | | | | PST | | + + + + + | Oxygen Saturation | 98% | 06/03/2017 8:49 AM | | | | | PST | | + + + + + | Inhaled Oxygen | - | - | | | Concentration | | | | + + + + + | Weight | 61.4 kg (135 lb 5.8 | 06/03/2017 8:49 AM | | | | oz) | PST | | + + + + + | Height | - | - | | + + + + + | Body Mass Index | 22.02 | 04/14/2017 9:33 AM | | | [...] documented as of this encounter Progress Notes Nichole Ruiz RN - 06/03/2017 9:04 AM PST 06/03/17 0904 Gastrointestinal Constipation 1 - Grade 1 Diarrhea 0 - Grade 0 Nausea 1 - Grade 1 Vomiting 0 - Grade 0 General Disorders and Administration Site Conditions Fatigue 2 - Grade 2 Metabolism and Nutrition Anorexia 0 - Grade 0 Respiratory Thoracic and Mediastinal Cough 0 - Grade 0 Dyspnea 0 - Grade 0 Performance Status Karnofsky Performance Score 70% Jennifer Seth M D - 06/03/2017 8:49 AM PST Radiation Oncology Weekly On Treatment Note Diagnosis: ICD-10-CM ICD-9-CM 1. Esophageal cancer, stage IIA (HCC) C15.9 150.9 Reason for visit: On treatment evaluation Radiation technical factors: Dose Delivered Dose Planned Fractions Delivered 4500/180 cGy 4500/540 cGy - 04/28 Images were reviewed this week and results [...] file prior to encounter. Pain assessment: Location: Denies Pain at this time. Pain Level: PAIN PROG PAIN LEVEL: 0 Current pain regimen: Hycet Wt Readings from Last 3 Encounters: 06/03/17 61.4 kg (135 lb 5.8 oz) 06/01/17 61.4 kg (135 lb 5.8 oz) 05/27/17 60.7 kg (133 lb 13.1 oz) Vitals: 06/03/17 0849 BP: 125/77 Pulse: 66 Resp: 18 Temp: 36.5 C (97.7 F) TempSrc: Temporal SpO2: 98% Weight: 61.4 kg (135 lb 5.8 oz) Physical Exam Constitutional: She appears well-developed and well-nourished. Neurological: She is alert. Psychiatric: She has a normal mood and affect. Lab Results Component Value Date WBC 2.9 (L) 06/01/2017 HGB 13.0 06/01/2017 HCT 37.8 06/01/2017 MCV 90.0 06/01/2017 PLT 159 06/01/2017 Lab Results Component Value Date CREA 0.68 06/01/2017 BUN 11 06/01/2017 NA 137 06/01/2017 K 3.9 06/01/2017 CL 104 06/01/2017 CO2 27 06/01/2017 Lab Results Component Value Date ALT 43 06/01/2017 AST 34 06/01/2017 ALKPHOS 60 06/01/2017 BILITOT 0.5 06/01/2017 Physician Assessment: Annie started the boost phase of treatment today. She continues to tolerate therapy extr priscilla well. Weight is stable. Maintained on J-tube feeding. She reports constipation for the past 3 days. Previously had issues with diarrhea associated with tube feeding. Nausea is controlled with current medications. She reports moderate fatigue. Remains in very good spirits. Follow-up plans with Oneyda Dowd has been arranged. Toxicities reviewed in nursing note. Disposition: Continue radiation treatment as planned. Continue chemotherapy in the direction of Dr. Mccarthy. Advised that she increase freewater intake via the J-tube. Add 120 mL 4 times a day with me dications. May try miralax for constipation, per tube. Jennifer Colin MD Radiation Oncologist documented in thi s encounter Plan of Treatment Not on filedocumented as of this encounter Visit Diagnoses + + | Diagnosis | + + | Esophageal cancer, stage IIA (HCC) - Primary | + + documented in this encounter"
--- OUTSIDE RECORDS SUMMARY | ~2019-12-05 | XMS | Encounter Summary ---
Demographics + + + | Address | [address] | | | [place] [address] | + + + | Home Phone | | + + + | Preferred Language | Unknown | + + + | Marital Status | | + + + | Taoist Affiliation | Unknown | + + + | Race | Unknown | + + + | Ethnic Group | Unknown | + + + Author + + + | Author | [facility] | | | and [place] | + + + | Organization | [facility] | | [...] Team Providers + +------+ + | Care Coal Weigher Name | Role | Phone | + +------+ + | Haim Epps | PCP | | + +------+ + Reason for Visit +--------+--------+ + | Reason | Onset | Comments | | | Date | | +--------+--------+ + | Other | 01/04/ | | | | 2018 | | +--------+--------+ + Encounter Details +--------+ + + + + | Date | Type | Department | Care Team | Description | +--------+ + + + + | 01/04/ | Telephone | [facility] | Jennifer Reyes | Other | | 2017 | | [facility] | MD [address] | | | | | ONCOLOGY CLINIC [address] | [address] [place], [place] | | | | | [address] | [address] | | | | | [place] [address] | | | | | | [phone] | | | +--------+ + + + [...] this encounter Miscellaneous Notes Telephone Encounter - Manisha Acevedo - 01/04/2018 4:21 PM PDTCyndi called back stating juan alberto t she has not had a CT scan since her last visit here. Please be advised, thank you.Cammy marinelli signed by Manisha Acevedo at 01/04/2018 4:22 PM PDTTelephone Encounter - Esperanza Kaplan RN - 01/04/2018 12:41 PM PDTCall placed to Annie to inquire if she has had a CT don e since her last visit with Dr. Reyes. No answer, left message requesting a call back.Elec sheree signed by Merari Kaplan, LIONEL at 01/04/2018 12:42 PM PDTdocumented in this enco unter Plan of Treatment Not on filedocumented as of this encounter Visit Diagnoses Not on filedocumented in this encounter"
--- OUTSIDE RECORDS SUMMARY | ~2019-12-05 | XMS | Encounter Summary ---
Demographics + + + | Address | [address] | | | [place] [address] | + + + | Home Phone | | + + + | Preferred Language | Unknown | + + + | Marital Status | | + + + | Taoism Affiliation | Unknown | + + + [...] Team Providers + +------+ + | Care College Teacher Name | Role | Phone | + +------+ + | No, Physician | PCP | Unavailable | + +------+ + Reason for Visit +--------+--------+ + | Reason | Onset | Comments | | | Date | | +--------+--------+ + | Other | 07/05/ | | | | 2018 | | +--------+--------+ + Encounter Details +--------+ + + + + | Date | Type | Department | Care Team | Description | +--------+ + + + + | 07/05/ | Telephone | [facility] | Jennifer Reyes | Other | | 2018 | | [facility] MED[facility] | MD [address]jula [address] | | | | | ONCOLOGY CLINIC [address] | [facility] [place] | | | | | [address] | [address] | | | | | [place] [address] | | | | | | [phone] | | | +--------+ + + + [...] Telephone Encounter - Marisel Richardson RN - 07/05/2017 3:45 PM PDTPatient states they have ordered carafate suspension 1 gram/10ml to take by mouth 4x/daily. This has been able to c oat the areas of ulceration so she is able to swallow. She is now able to take sips of wate r and tea. She is needing the pain medicine at night only. I will forward this information to Dr. Colin. e lephone Encounter - Marisel Richardson RN - 07/05/2017 9:26 AM PDTReturn call to patient, donte ble to reach will call back later. Electronically signed by Marisel Richardson RN at 8 9:27 AM PDTTelephone Encounter - Shalom Warren - 07/05/2017 8:16 AM PDTPt called, she has been to [place] and the doctors there gaver her something that gave her a lot of relie f from the radiation to her throat and wants to share this information, for others getting s kushal type of radiation. Please call her @ [phone] documented in this encou nter Plan of Treatment Not on filedocumented as of this encounter Visit Diagnoses Not on filedocumented in this encounter"
--- OUTSIDE RECORDS SUMMARY | ~2019-12-05 | XMS | Encounter Summary ---
Demographics + + + | Address | [address] | | | [place] [address] | + + + | Home Phone | | + + + | Preferred Language | Unknown | + + + | Marital Status | | + + + | Nondenominational Affiliation | Unknown | + + + | Race | Unknown | + + + | Ethnic Group | Unknown | + + + Author + + + | Author | [facility] | | | and [place] | + + + | Organization | [facility] | | | [...] Team Providers + +------+ + | Care Registered Pharmacy Technician Name | Role | Phone | + +------+ + | No, Physician | PCP | Unavailable | + +------+ + Reason for Visit + + + | Reason | Comments | + + + | Psychosocial Support | | + + + Encounter Details +--------+ + + + + | Date | Type | Department | Care Team | Description | +--------+ + + + + | 04/29/ | Documentati | [facility] | Rad Stevens, | Psychosocial Support | | 2018 | on | MED CTR MEDICAL | [facility] | | | | | ONCOLOGY CLINIC [address] | | | | | | [address] | | | | | | [place] [address] | | | | | | [phone] | | | +--------+ + + + [...] documented as of this encounter Progress Notes Rad Stevens MSW - 04/29/2017 11:59 PM PSTMSW met with patient, Annie Brown, to int roduce self and administer NCCN Distress Screening Tool. Annie is being treated for esopha geal cancer. She lives in [place] with her . Annie is covered by [facility]. Annie is alert and oriented X4 and reports no history of depression and/or anxiety. Ther e is no evidence of thought disorder or other mental illness. Annie reports level of distr ess is 4 on a 10 point scale. She attributes level of distress to insurance/financia concer ns, fears, nervousness, sadness, worry, breathing, eating, fatigue, mouth sores, and pain. Patient reports an adequate support system, good coping skills and strong arpita. This [employer] allowed for expression of feeling and provided supportive counseling and information regarding the emotional aspects of a cancer diagnosis and treatment. Encourage gianna Valencia to attend community support group and offered literature on patient s diagnosis. This [facility] and Hydramatic Mechanic are available to provide emotional support an d additional community resource information and referral as needed. Annie is aware of [facility] services and how to access them. Will follow up at appointments and by phone as needed . documented in this encounter Plan of Treatment Not on filedocumented as of this encounter Visit Diagnoses Not on filedocumented in this encounter"
--- OUTSIDE RECORDS SUMMARY | ~2019-12-05 | XMS | Encounter Summary ---
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[employer] Communications Name | Role | Phone | + [...] neoplasm of | Isak Elizabeth, | [address] [place] | | | | | esophagus, | MD [address] | [place], | | | | | unspecified | [place] | [place] [address] | | | | | (HCC) | [address] | Phone: | | | | | Procedures | VALENT[place], | [phone] | | | | | [place] | [place] [address] | Fax: | | | | | [place] | Phone: | [phone] | | | | | [place] | [phone] | | | | | | [place] | Fax: | | | | | | DEXAMETHASON | [phone] | | | | | | E, .25 MG | | | | | | | LA | | | | | | | INJECTION, | | | | | | | FAMOTIDINE, | | | | | | | 20 MG LA | | | | | | | DIPHENHYDRAM | | | | | | | INE HCL | | | | | | | INJECTIO, 50 | | | | | | | MG LA | | | | | | | PACLITAXEL | | | | | | | INJECTION, | | | | | | | 1MG LA | | | | | | | CARBOPLATIN | | | | | | | INJECTION, | | | | | | | 50 MG LA | | | | | | | METHYLPREDNI | | | | | | | SOLONE | | | | | | | INJECTION, | | | | | | | 125 MG LA | | | | | | | DEXAMETHASON | | | | | | | E SODIUM | | | | | | | PHOS, 1 MG | | | | | | | LA ADRENALIN | | | | | | | EPINEPHRINE | | | | | | | INJECT, .1 | | | | | | | MG LA | | | | | | | ALBUTEROL | | | | | | | COMP CON, 1 | | | | | | | MG LA | | | | | | | ALBUTEROL | | | | | | | NON-COMP | | | | | | | CON, 1 MG | | | | | | | LA NORMAL | | | | | | | SALINE | | | | | | | SOLUTION | | | | | | | INFUS, 500 | | | | | | | ML LA | | | | | | | NORMAL | | | | | | | SALINE | | | | | | | SOLUTION | | | | | | | INFUS, 250 | | | | | | | ML LA | | | | | | | STERILE | | | | | | | WATER/SALINE | | | | | | | , 10 ML LA | | | | | | | CHEMOTHER, | | | | | | | IV PUSH,EA | | | | | | | ADD DRUG LA | | | | | | | CHEMOTHER, | | | | | | | IV INFUSION, | | | | | | | 1 HR LA | | | | | | | CHEMOTHER, | | | | | | | IV INFUSION, | | | | | | | EA HR LA | | | | | | | CHEMOTHER,NO | | | | | | | N-HORMONE | | | | | | | ANTI-NEOPL, | | | | | | | SUB-Q/IM LA | | | | | | | CHEMOTHER | | | | | | | HORMON | | | | | | | ANTINEOPL | | | | | | | SUB-Q/IM LA | | | | | | | | | | | | | | FOSAPREPITAN | | | | | | | T INJECTION, | | | | | | | 1 MG LA | | | | | | | PALONOSETRON | | | | | | | HCL, 25 MCG | | | +--------+--------+ + + + + Encounter Details +--------+ + + + + | Date | Type | Department | Care Team | Description | +--------+ + + + + | 05/25/ | Hospital | [facility] | Fabio, | Esophageal cancer, | | 2018 | Encounter | [facility] | Isak Elizabeth MD [address] | stage IIA (HCC) | | | | INFUSION [address] [place] | | | | | [place], | [address], [place] | | | | | [place] [address] | [address] | | | | | [phone] | | | +--------+ + + + [...] tablet and | 60 | 3 | 01/23/20 | | | (ZOFRAN) 8 MG tablet [...] documented as of this encounter Progress Notes Ana Montero, RN - 05/25/2017 12:35 PM PSTPatient discharged in satisfactory conditi on. Discharged ambulatory. With family. To home. Verified that patient has antinausea medications at home. Future appointments and After Visit Summary (AVS) provided. documented in thi s encounter Miscellaneous Notes Addendum Note - Ana Montero, RN - 05/26/2017 2:31 PM PSTEncounter addended by: Alina Montero, LIONEL on: 05/26/2017 14:31
Actions taken: MAR administration acceptedEle ctronically signed by Ana Montero, RN at 05/26/2017 2:31 PM PSTTreatment Plan - Carissa Klein RN - 05/25/2017 9:42 AM PSTViewed chart for weight, vital signs and lab res ults. Also viewed chart for completion of medication and allergy review prior to treatment. Carissa Kinsey RNDATE/TIME: 05/25/2017 9:42 documented in this encounter Plan of Treatment Not on filedocumented as of this encounter Procedures + +--------+ + + + | Procedure Name | Priori | Date/Time | Associated Diagnosis | Comments | | | ty | | | | + +--------+ + + + | CBC WITH | STAT | 05/25/2017 | Esophageal cancer, | Results for this | | DIFFERENTIAL | | 8:06 AM | stage IIA (HCC) | procedure are in the | | | | PST | | results section. | + +--------+ + + + | COMPREHENSIVE | STAT | 05/25/2017 | Esophageal cancer, | Results for this | | METABOLIC PANEL | | 8:06 AM | stage IIA (HCC) | procedure are in the | | | | PST | | results section. | + +--------+ + + + documented in this encounter Results CBC with Differential (05/25/2017 8:06 AM PST) + + + + + + | Component | Value | Ref Range | Performed | Pathologist | | | | | At | Signature | + + + + + + | White Blood | 3.6 (L) | 4.0 - 11.0 K/uL | [facility] | | | Cells | | | [facility] | | | | | [facility] | | | | | [facility] - | | | | | | [facility]ATORY | | + + + + + + | Red Blood | 4.36 | 3.70 - 5.20 | [facility] | | | Cells | | M/uL | [facility] | | | | | | [facility] | | | | | | [facility] - | | | | | | LABORATORY | | + + + + + + | Hemoglobin | 13.5 | 11.5 - 16.0 | [facility] | | | | | g/dL | [facility] | | | | | | [facility] | | | | | | [facility] - | | | | | | LABORATORY | | + + + + + + | Hematocrit | 39.5 | 34.0 - 47.0 % | [facility] | | | | | | [facility] | | | | | | [facility] | | | | | [facility] - | | | | | | [facility]ATORY | | + + + + + + | MCV | 90.6 | 83.0 - 101.0 fL | [facility] | | | | | | [facility] | | | | [facility] - | | | | | | [facility]AT[facility] | | + + + + + + | MCH | 30.9 | 28.0 - 35.0 pg | [facility] [...] + + + + | RDW-CV | 12.9 | <15.0 % | [facility] | | | | | | [facility] | [facility] | [facility] | | | | | [facility] - | | | | | | [facility]AT[facility] | | + + + + + + | Platelet | 191 | 140 - 440 K/uL | [facility] | | | Count | | | [facility] | | | [facility] | | [facility] | | | | | [facility] - | | | | | | [facility] | | + + + + + + | MPV | 7.9 | fL | [facility] | | | | | | [facility] | | | | | | [facility] | | | | | | [facility] - | | | | | | LAB[facility]ATORY | | + + + + + + | % | 81.3 | 45.0 - 82.0 % | [facility] | | | Neutrophils | | | [facility] | | | | | | [facility] | | | | | | [facility] - | | | | | | LAB[facility]ATORY | | + + + + + + | % | 10.1 (L) | 20.0 - 45.0 % | [facility] | | | Lymphocytes | | | [facility] | | | | | | [facility] | | | | | | [facility] - | | | | | | LAB[facility]ATORY | | + + + + + + | % Monocytes | 7.6 | 4.0 - 12.0 % | [facility] [...] + + + | % Basophils | 0.6 | 0.0 - 1.0 % | [facility] | | | | | | [facility] | | | | | | [facility] | | | | | | [facility] - | | | | | | LAB[facility]ATORY | | + + + + + + | Absolute | 2.90 | 1.80 - 8.50 | [facility] | [...] + | [facility] | [address] [place] [address] | [place] | [phone] | | [facility] | | [address] | | | - LABORATORY | | | | + + + + + Comprehensive Metabolic Panel (05/25/2017 8:06 AM PST) + + + + + + | Component | Value | Ref Range | Performed | Pathologist | | | | | At | Signature | + + + + + + | Na | 140 | 136 - 149 | [facility] | | | | | mmol/L | [facility] | | [facility] | | [facility] | | | | | | [facility] - | | | | | | LABORATORY | | + + + + + + | K | 3.8 | 3.5 - 5.1 | [facility] | | | | | mmol/L | [facility] | | | | | | [facility] | | | | | | [facility] - | | | | | | LAB[facility]ATORY | | + + + + + + | Cl | 105 | 98 - 109 mmol/L | [facility] | | | | | | [facility] | | | | | | [facility] | | | | | | [facility] - | | | | | | LAB[facility]ATORY | | + + + + + + | CO2 | 27 | 24 - 31 mmol/L | [facility] | | | | | | [facility] | | | | | | [facility] | | | | | | [facility] - | | | | | | LABORATORY | | + + + + + + | Anion Gap | 8 | 3 - 16 mmol/L | [facility] | | | | | | [facility] | | | | | [facility] | | | | | [facility] - | | | | | | LAB[facility]ATORY | | + + + + + + | Glucose | 88 | 70 - 109 mg/dL | [facility] | | | | | | [facility] | | | | | [facility] | | | | | | [facility] - | | | | | | LAB[facility]ATORY | | + + + + + + | BUN | 12 | 7 - 18 mg/dL | [facility] | | | | | | [facility] | | | | | [facility] | | | | | | [facility] - | | | | | | LAB[facility]ATORY | | + + + + + + | Creatinine | 0.66 | 0.60 - 1.30 | [facility] | | | | | mg/dL | [facility] | | | | | | [facility] | | | | | | [facility] - | | | | | | LABORATORY | | + + + + + + | eGFR, | >60Comment: GLOMERULAR | >=60 | [facility] | | | non- | FILTRATION | mL/min/1.73m2 | [facility] | | | [place] | RATE,ESTIMATED | | MEDICAL | | | | mL/min/1.15b8Qflc than | | CENTER - | | [...] + + + + | Calcium | 9.5 | 8.3 - 10.5 | [facility] | | | | | mg/dL | [facility] | | | | [...] + + + + | Total | 5.8 (L) | 6.0 - 7.8 g/dL | [facility] | | | Protein | | | [facility] | | | | | | [facility] | | | | | | [facility] - | | | | | | LABORATORY | | + + + + + + | AST | 37 | 10 - 42 U/L | [facility] | | | | | | [facility] | | | | | [facility] | | | | | | [facility] - | | | | | | LABORATORY | | + + + + + + | ALT | 46 (H) | 6 - 45 U/L | [facility] | | | | | | [facility] | | | | | | [facility] | | | | | | [facility] - | | | | | | LABORATORY | | + + + + + + | Alkaline | 63 | 40 - 110 U/L | [facility] | | | Phosphatase | | | [facility] | | | | | | [facility] | | | | | | [facility] - | | | | | | LABORATORY | | + + + + + + | Globulin | 2.1 | 2.1 - 3.8 g/dL | [facility] | | | | | | [facility] | | | | | | [facility] | | | | | | [facility] - | | | | | | LABORATORY | | + + + + + + | Albumin/Jo Ann | 1.8 | 0.8 - 2.0 | [facility] | | | bulin Ratio | | | [facility] | | | | | | [facility] | | | | | | [facility] - | | | | | | LABORATORY | | + + + + + + | BUN/Creatin | 18.2 | | [facility] | | | ine [...] | + + + + + | [facility] | [address] | [place] | [phone] | | [facility] | | [address] | | | - LABORATORY | | [...] + +---------+ + +--------+------+ | CARBOplatin (PARAPLATIN) 223.2 | New Bag | 05/25/19 | 223.2 mg | 544.6 | | | mg in sodium chloride 0.9% 250 mL | | 18 11:54 | | mL/hr | | | infusion 223.2 mg (Target AUC = | | AM PST | | | | | 2), Intravenous, Administer over | | | | | | | 30 Minutes, ONCE, 05/25/17 at | | | | | | | 1200, For 1 dose, Chemotherapy: | | | | | | | Use appropriate handling | | | | | | | precautions. Administer AFTER | | | | | | | PACLitaxel., | | | | | | + +---------+ + +--------+------+ +---+---+ | | | +---+---+ + +-------+ +-------+---+---+ | diphenhydrAMINE (BENADRYL) | Given | 05/25/19 | 25 mg | | | | injection 25 mg 25 mg, | | 18 9:53 | | | | | Intravenous, ONCE, 05/25/17 at | | AM PST | | | | | 1000, For 1 dose, Administer 30 | | | | | | | minutes prior to PACLitaxel ., | | | | | | + +-------+ +-------+---+---+ +---+---+ | | | +---+---+ + +-------+ +---+---+---+ | ethyl chloride spray Topical, | Given | 05/25/19 | | | | | PRN, Pain, Starting 05/25/17 | | 18 8:14 | | | | | at 0805 | | AM PST | | | | + +-------+ +---+---+---+ +---+---+ | | | +---+---+ + +-------+ +-------+---+---+ | famotidine (PEPCID) injection | Given | 05/25/19 | 20 mg | | | | 20 mg 20 mg, Intravenous, ONCE, | | 18 9:50 | | | | | 05/25/17 at 1000, For 1 dose, | | AM PST [...] 150 mg in | New Bag | 05/25/19 | 150 mg | 500 | | | sodium chloride 0.9% 250 mL IVPB | | 18 10:23 | | mL/hr | | | 150 mg, Intravenous, Administer | | AM PST | | | | | over 30 Minutes, ONCE, Tue | | | | | | | 05/25/17 at 1015, For 1 dose, Do | | | | | | | not shake bag., | | | | | | + +---------+ +--------+-------+---+ +---+---+ | | | +---+---+ + +-------+ +-------+---+---+ | heparin 100 units/mL flush | Given | 05/25/19 | 500 | | | | injection 500 Units 500 Units (5 | | 18 12:30 | Units | | | | mL), Intracatheter, PRN, Line | | PM PST | | | | | Care, Starting 05/25/17 at | | | | | | | 0940 | | | | | | + +-------+ +-------+---+---+ +---+---+ | | | +---+---+ + +-------+ +--------+---+---+ | HYDROmorphone (DILAUDID) | Given | 05/25/19 | 0.2 mg | | | | injection 0.2-0.4 mg 0.2-0.4 mg, | | 18 9:57 | | | | | Intravenous, EVERY 1 HOUR PRN, | | AM PST | | | | | Pain, Starting 05/25/17 at | | | | | | | 0940 | | | | | | + +-------+ +--------+---+---+ +---+---+ | | | +---+---+ + +---------+ +-------+-------+---+ | PACLitaxel (TAXOL) 84 mg in | New Bag | 05/25/19 | 84 mg | 264 | | | sodium chloride 0.9% 250 mL | | 18 10:52 | | mL/hr | | | infusion 84 mg (rounded from | | AM PST | | | | | 84.5 mg = 50 mg/m2 | | | | | | | 1.69 m2 Treatment plan recorded | | | | | | | BSA), Intravenous, Administer | | | | | | | over 1 Hours, ONCE, 05/25/17 | | | | | | | at 1045, For 1 dose, | | | | | | | Chemotherapy: Use appropriate | | | | | | | handling precautions. Vesicant. | | | | | | | Use 0.22 micron filter and | | | | | | | non-DEHP tubing for | | | | [...] +---------+ +-------+-------+---+ +---+---+ | | | +---+---+ + +---------+ +---+--------+---+ | palonosetron (ALOXI) 0.25 mg, | New Bag | 05/25/19 | | 221.6 | | | dexamethasone (DECADRON) 4 mg in | | 18 10:04 | | mL/hr | | | sodium chloride 0.9% 50 mL IVPB | | AM PST | | | | | Intravenous, Administer over 15 | | | | | | | Minutes, ONCE, 05/25/17 at | | | | | | | 1000, For 1 dose | | | | | | + +---------+ +---+--------+---+ +---+---+ | | | +---+---+ documented in this encounter"
--- OUTSIDE RECORDS SUMMARY | ~2019-12-05 | XMS | Encounter Summary ---
Demographics + + + | Address | [address] | | | [place] [address] | + + + | Home Phone | | + + + | Preferred Language | Unknown | + + + | Marital Status | | + + + | Adventist Affiliation | Unknown | + + + | Race | Unknown | + + + | Ethnic Group | Unknown | + + + Author + + + | Author | [facility] | | | and [place] | + + + | Organization | [facility] | | [...] Team Providers + +------+ + | Care Electromedical Equipment Repairer Name | Role | Phone | + [...] Closed | | Medical | Diagnoses | [facility] | | | | | Oncology / | Esophageal | Medical | Fabio, | | | | Oncology | cancer, | Oncology | Isak Elizabeth MD | | | | | stage IIA | Clinic [address] | | | | | (HCC) | [address] | [address] | | | | | Procedures | [place], | [address] | | | | | [address] | [place] | [place], [place] | | | | | | [address] | [address] | | | | | | Phone: | Phone: | | | | | | [phone] | [phone] | | | | | | Fax: | Fax: | | | | | | [phone] | [phone] | +--------+--------+ + + + + Encounter Details +--------+ + + + + | Date | Type | Department | Care Team | Description | +--------+ + + + + | 03/16/ | Hospital | [facility] | Fabio, | Esophageal cancer, | | 2019 | Encounter | [facility] | Isak Elizabeth MD [address] | stage IIIA (HCC); | | | | ONCOLOGY CLINIC [address] | [address] | Thyroid nodule | | | | [address] | [address] [place], [place] | | | | | [place] [address] | [address] | | | | | [phone] | | | +--------+ + + + [...] documented as of this encounter Progress Notes Isak Mccarthy MD - 03/16/2019 1:40 PM PSTFormatting of this note might be differe nt from the original. Hematology/Oncology Progress Note [place], [place] Pt. Name/Age/: Annie Brown 63 y.o. 1955 Med. Record Number: [id number] Date of admission: 03/16/2019 The patient's primary care provider is Haim Epps. Identifying Statement: Annie Brown is a 63 y.o. female from [address] [place] [address] with Esophageal Cancer. The patient chart and medications were reviewed in detail and the patient was seen and exam ined. History of Present Illnesses, their Current Assessments and Plans: Problem List Esophageal cancer, stage IIIA Overview ACTIVE DIAGNOSIS: Squamous cell carcinoma of the esophagus, Stage IIIA. 1. Upper endoscopy with biopsy March 15, 2017 ([facility]). Mass in mid esophagus. [id number]) Invasive Squamous Cell carcinoma, mod erately differentiated. Immunohistochemistry diffusely positive for P16. 2. Status post feeding jejunostomy tube placement by Dr. Haim Epps, [facility] [place]. 3. PET/CT scan March 24, 2017; mid-esophageal tumor with SUV 8.5, no evidence of metasta tic disease. 4. Endoscopic ultrasound at [facility]; single level 8 node "moderately suspicious." Clinical stage T3N1M0, Stage IIIA. 5. Comprehensive mutidisciplinary team evaluation at [facility], [facility] (Haim Hernandez, Gold Cannon); combined modality chemoradiation with weekly taxol/car boplatin at [facility] in [place], follow by definitive resection b y Dr. Cannon at [facility]. 6. Status post placement of a left subclavian port-a-cath by Dr. Haim Epps. 7. Begin Combined modality therapy April 29, 2017; external beam radiation with weekly tax ol/carboplatin chemotherapy, completed June 07, 2018 8. Left thoracoabdominal esphagogastrectomy with cervical esophagogastrostomy and wedge lizy er biopsy July 12, 2017 ([facility], [facility]). Pathological specimen #[id number] "Liver biopsy-focal n odular hyperplasia. Esophagus and proximal stomach-YpT3 residual adenosquamous carcinoma 3.5 cm x 1.2 cm x 0.6 cm invading the paraesophageal soft tissue ([facility]). Tumor estimated to be 30-40% viable. Margins negative. A total of 25 lymph nodes were evaluated all of which were negative for regionally metastatic disease. Final pathological downstage; [id number], st age IIB. 9. Port-a-cath removed by Dr. Epps. 10. Gastrostomy feeding tube removed by Dr. Epps. 11. Status post right hemithyroidectomy by Dr. Epps. 12. CT Chest/Abdomen with contrast on June 30, [address] Haim Epps and inter preted by Dr. Annie Salcido at [facility], [place], [place] who compared it to a CT scan of the chest/abdomen/pelvis performed at the [facility] on July 18, 2017. Dr. Salcido described "the small hypodense nodule in the lateral segment of the left h epatic lobe is barely identified. The intensely enhancing far left lesion previously demonst rated is not present on today's examination." 13. Upper and Lower endoscopy (Supriya) July,. Current Assessment & Plan Annie Brown returned to clinic on 03/16/2019 alone for follow up, two years afte r the diagnosis of Stage IIIA esophageal carcinoma, status post tri-modality therapy. Interval history is notable for the fact that Annie underwent silastic sleeve repair of h er of her vocal cord. Interval history is also notable for the fact that Annie had a comprehensive re-evaluatio n by Dr. Cannon at [facility]. Review of systems is notable for tinnitus, non-productive cough, diarrhea and easy bruisabi lity. Clinical exam is notable for three pound weight gain. Laboratory exam is negative for anemia, liver enzyme abnormalities and normal CEA. Assessment; no signs or symptoms of recurrence of Stage IIIA esophageal squamous cell carci noma. Plan; Annie is planning upon undergoing repeat upper endoscopy by Dr. Epps in June, 0. She is also undergoing advanced body imaging supervised by Dr. Epps in June,. She continues to see Dr. Gosia Carter in dermatology for basal cell carcinoma. She is still bein g followed by Dr. Flores in Surgery. Therefore, follow up in [facility] is open. Thyroid nodule Review of Systems: Constitutional: Denies fatigue. Denies high fevers, shaking chills, anorexia, nausea, vomit ing, weight loss, or night sweats. Appetite without changes. Ear, Nose, Mouth, Throat: Tinnitus continues to be occasional. State had surgery at [facility] [place] on 11/14/18 for placement of silastic sleeve left side of airway. Denies odynophagia or dysphagia. Cardiovascular: Denies dyspnea or exertion or at rest, chest pain, palpitations or orthopne a. Respiratory: Reports ongoing but decreased dry cough. Denies hemoptysis, or sputum producti on. Gastrointestinal:Intermittent diarrhea, unchanged. Denies abdominal pain, constipation, di arrhea, melena, or bright red blood per rectum. Genitourinary: Denies hematuria or dysuria. Musculoskeletal: Denies joint pain or tenderness. Neurologic: Denies headache, visual changes, or numbness/tingling of the extremities. Endocrine: Denies peripheral edema or heat/cold intolerance. Hematologic: Continues to bruise easily. Denies spontaneous bleeding. Integumentary: Denies rash, wounds or other skin concerns. Pain: Denies pain. ROS otherwise negative. Note: Here for labs and follow-up w/ Dr Mccarthy. My chart: Declined today. Scheduled Medications: Current Outpatient Medications Medication Sig Dispense Refill levothyroxine (SYNTHROID) 100 mcg tablet Take 100 mcg by mouth Daily. omeprazole (PRILOSEC) 20 mg capsule Take 1 capsule by mouth every morning (before break fast). 30 capsule 11 No current facility-administered medications for this encounter. Allergies: Allergy: No Known Allergies Past Medical and Surgical History, Social History and Problems: Past Medical History: Diagnosis Date Esophageal cancer (HCC) Past Surgical History: Procedure Laterality Date APPENDECTOMY 1971 HYSTERECTOMY 1994 left thoracoabdominal esphagogastrectomy with cervial esophagogastrostomy 07/12/[address] Cannon Liver biospy 07/12/2017 Social History Socioeconomic History Marital status: Spouse name: Not on file Number of children: Not on file Years of education: Not on file Highest education level: Not on file Occupational History Not on file Social Needs Financial resource strain: Not on file Food insecurity: Worry: Not on file Inability: Not on file Transportation needs: Medical: Not on file Non-medical: Not on file Tobacco Use Smoking status: Never Smoker Smokeless tobacco: Never Used Substance and Sexual Activity Alcohol use: No Drug use: Not on file Sexual activity: Not on file Lifestyle Physical activity: Days per week: Not on file Minutes per session: Not on file Stress: Not on file Relationships Social connections: Talks on phone: Not on file Gets together: Not on file Attends restorationism service: Not on file Active member of club or organization: Not on file Attends meetings of clubs or organizations: Not on file Relationship status: Not on file Intimate partner violence: Fear of current or ex partner: Not on file Emotionally abused: Not on file Physically abused: Not on file Forced sexual activity: Not on file Other Topics Concern Not on file Social History Narrative Not on file Patient Active Problem List Diagnosis Esophageal cancer, stage IIIA Thyroid nodule Vocal cord dysfunction Family History Problem Relation Age of Onset Breast cancer Mother Breast cancer Maternal Grandmother Brain cancer Paternal Aunt Cancer Paternal Aunt Esophageal cancer Other Objectives: Temp: 36.9 C (98.4 F) BP: 119/80 Pulse: 65 Resp: 16 SpO2: 96 % on Min/Max Temp past 24 hours:No data recorded No intake or output data in the 24 hours ending 03/19/19 1300 Wt. Admission: Weight: 65.1 kg (143 lb 8.3 oz) Wt. Current: Weight: 65.1 kg (143 lb 8.3 oz) Wt Readings from Last 3 Encounters: 03/16/19 65.1 kg (143 lb 8.3 oz) 01/12/19 63.8 kg (140 lb 10.5 oz) 10/06/18 63.2 kg (139 lb 5.3 oz) Physical Exam: General: The patient is alert and oriented. No acute distress. Eyes: Conjunctiva clear. Sclera anicteric. ENMT: Oropharynx fee of lesions, mucous membranes moist. Complete alopecia, wearing a crani al prosthesis. Cardiovascular: Regular rate and rhythm, no rubs, gallops, or murmurs. Lungs: Clear to auscultation and percussion. Chest: The former left subclavian port-a-cath site is well-healed. Extremities: Nontender, no erythema, no edema. Skin: No rashes, bruising, or petechiae. Neurological: Voice remains slightly hoarse. Normal sensory and motor function, No focal deficits noted. Muscular/Skeletal: No acute bony tenderness. Mild, diffuse sarcopenia. Psychiatric: Normal mood and affect. ECOG Performance Status [x] 0 [] 1 [] 2 []3 [] 4 ECOG PERFORMANCE STATUS* Grade ECOG Karnofsky 0 Fully active, able to carry on all pre-disease performance without restriction. 90 - 100 1 Restricted in physically strenuous activity but ambulatory and able to carry out work of a light or sedentary nature, e.g., light house work, office work 70 - 80 2 Ambulatory and capable of all selfcare but unable to carry out any work activ ities. Up and about more than 50% of waking hours 50 - 60 3 Capable of only limited selfcare, confined to bed or chair more than 50% of w aking hours 30 - 40 4 Completely disabled. Cannot carry on any selfcare. Totally confined to bed or chair 10 - 20 * As published in Am. J. Clin. Oncol.: Maximo Romero., Diana Jones., Yudi Clemente., Tanner Cheney., Truman Paris., Sanya Carbajal., Lelo, P .P.: Toxicity And Response Criteria Of The Eastern Cooperative Oncology Group. Am J Clin Onc ol 5:649-655, 1982. The ECOG Performance Status is in the public domain therefore available for public use. To duplicate the scale, please cite the reference above and credit the Eastern Cooperative Onco logy Group, Isak Jon M.D., Group Chair Diagnostic studies: Available data and images were reviewed personally. See reports. Significant results and findings are addressed here or in the Assessment and Plan. Results for SEVERE, ANNIE JONSE ( ) as of 03/19/2019 12:49 Ref. Range 03/16/2019 13:08 WBC Latest Ref Range: 4.0 - 11.0 K/uL 6.3 RBC COUNT Latest Ref Range: 3.70 - 5.20 M/uL 4.72 TOTAL Hemoglobin Latest Ref Range: 11.5 - 16.0 g/dL 14.6 Hematocrit Latest Ref Range: 34.0 - 47.0 % 43.4 MCV Latest Ref Range: 83.0 - 101.0 fL 91.9 MCH Latest Ref Range: 28.0 - 35.0 pg 30.9 MCHC Latest Ref Range: 32.0 - 36.0 g/dL 33.6 RDW-CV Latest Ref Range: <15.0 % 12.3 RDW-SD Latest Ref Range: 35.1 - 46.3 fL 42.0 Platelet Count Latest Ref Range: 140 - 440 K/uL 316 MPV Latest Ref Range: 6.5 - 12.4 fL 9.9 % nRBC Latest Ref Range: 0 - 2 per 100 WBCs 0 Absolute nRBC Latest Ref Range: 0.00 - 0.01 K/uL 0.00 Absolute Neutrophils Latest Ref Range: 1.80 - 8.50 K/uL 4.16 Absolute Lymphocytes Latest Ref Range: 0.60 - 3.20 K/uL 1.59 Absolute Monocytes Latest Ref Range: 0.00 - 1.00 K/uL 0.37 Absolute Eosinophils Latest Ref Range: 0.00 - 0.40 K/uL 0.10 Absolute Basophils Latest Ref Range: 0.00 - 0.10 K/uL 0.06 Absolute Immature Granulocytes Latest Ref Range: 0.00 - 0.03 K/uL 0.01 % Neutrophils Latest Ref Range: 45.0 - 82.0 % 66.0 % Lymphocytes Latest Ref Range: 20.0 - 45.0 % 25.3 % Monocytes Latest Ref Range: 4.0 - 12.0 % 5.9 % Eosinophils Latest Ref Range: 0.0 - 5.0 % 1.6 % Basophils Latest Ref Range: 0.0 - 1.0 % 1.0 % Immature Granulocytes Latest Ref Range: 0.0 - 0.4 % 0.2 Na Latest Ref Range: 136 - 145 mmol/L 141 K Latest Ref Range: 3.4 - 5.1 mmol/L 3.5 Chloride Latest Ref Range: 98 - 107 mmol/L 106 Carbon dioxide Latest Ref Range: 20 - 31 mmol/L 26 Anion Gap Latest Ref Range: 3 - 16 mmol/L 9 Glucose Latest Ref Range: 60 - 106 mg/dL 87 BUN Latest Ref Range: 9 - 23 mg/dL 8 (L) Creatinine Latest Ref Range: 0.55 - 1.02 mg/dL 0.78 BUN/Creatinine Ratio Unknown 10.3 Albumin Latest Ref Range: 3.2 - 4.8 g/dL 4.3 Albumin/Globulin Ratio Latest Ref Range: 0.8 - 1.9 2.3 (H) Total Protein Latest Ref Range: 5.7 - 8.2 g/dL 6.2 EGFR IF NOT Latest Ref Range: >=60 mL/min/1.73m2 >60 Calcium Latest Ref Range: 8.7 - 10.4 mg/dL 9.3 ALK PHOS Latest Ref Range: 46 - 116 U/L 105 ALT (SGPT) (REF) Latest Ref Range: 10 - 49 U/L 23 AST (SGOT) (REF) Latest Ref Range: 0 - 34 U/L 20 LDH TOTAL Latest Ref Range: 120 - 246 U/L 176 Bilirubin Total (Calculated) Latest Ref Range: 0.3 - 1.2 mg/dL 0.4 Globulin Latest Ref Range: 2.1 - 3.8 g/dL 1.9 (L) T3, Total Latest Ref Range: 71 - 180 ng/dL 96 T4, Total Latest Ref Range: 4.5 - 10.9 ug/dL 9.7 TSH Latest Ref Range: 0.55 - 4.78 uIU/mL 0.46 (L) CEA Latest Ref Range: 0.0 - 10.0 ng/mL 1.9 Pharmacovigilance: Palliative Care: Patient's Medications New Prescriptions No medications on file Modified Medications No medications on file Discontinued Medications No medications on file Procedure: Isak Mccarthy MD Portions of this chart may have been created with [employer] voice recognition software. Occasi onal wrong-word or sound-alike substitutions may have occurred due to the inherent solis itations of voice recognition software. Please read the chart carefully and recognize, using context, where these substitutions have occurred. documented in t his encounter Miscellaneous Notes Assessment & Plan Note - Isak Mccarthy MD - 03/19/2019 12:50 PM PSTAssociated Prob chandler(s): Esophageal cancer, stage IIIA (HCC)Annie Brown returned to clinic on 2018 alone for follow up, two years after the diagnosis of Stage IIIA esophageal carcinoma, status post tri-modality therapy. Interval history is notable for the fact that Annie underwent silastic sleeve repair of h er of her vocal cord. Interval history is also notable for the fact that Annie had a comprehensive re-evaluatio n by Dr. Cannon at [facility]. Review of systems is notable for tinnitus, non-productive cough, diarrhea and easy bruisabi lity. Clinical exam is notable for three pound weight gain. Laboratory exam is negative for anemia, liver enzyme abnormalities and normal CEA. Assessment; no signs or symptoms of recurrence of Stage IIIA esophageal squamous cell carci noma. Plan; Annie is planning upon undergoing repeat upper endoscopy by Dr. Epps in June,. She is also undergoing advanced body imaging supervised by Dr. Epps in June,. She continues to see Dr. Gosia Carter in dermatology for basal cell carcinoma. She is still marilynnmony g followed by Dr. Flores in Surgery. Therefore, follow up in [facility] is open. P STdocumented in this encounter Plan of Treatment Not on filedocumented as of this encounter Procedures + +--------+ + + + | Procedure Name | Priori | Date/Time | Associated Diagnosis | Comments | | | ty | | | | + +--------+ + + + | CBC W/AUTO | STAT | 03/16/2019 | Esophageal cancer, | Results for this | | DIFFERENTIAL | | 1:08 PM | stage IIIA (HCC) | procedure are in the | | | | PST | | results section. | + +--------+ + + + | T3, TOTAL | STAT | 03/16/2019 | Thyroid nodule | Results for this | | | | 1:08 PM | | procedure are in the | | | | PST | | results section. | + +--------+ + + + | TSH | STAT | 03/16/2019 | Thyroid nodule | Results for this | | | | 1:08 PM | | procedure are in the | | | | PST | | results section. | + +--------+ + + + | T4, TOTAL | STAT | 03/16/2019 | Thyroid nodule | Results for this | | | | 1:08 PM | | procedure are in the | | | | PST | | results section. | + +--------+ + + + | LACTATE | STAT | 03/16/2019 | Esophageal cancer, | Results for this | | DEHYDROGENASE | | 1:08 PM | stage IIIA (HCC) | procedure are in the | | | | PST | | results section. | + +--------+ + + + | CEA | STAT | 03/16/2019 | Esophageal cancer, | Results for this | | | | 1:08 PM | stage IIIA (HCC) | procedure are in the | | | | PST | | results section. | + +--------+ + + + | COMPREHENSIVE | STAT | 03/16/2019 | Esophageal cancer, | Results for this | | METABOLIC PANEL | | 1:08 PM | stage IIIA (HCC) | procedure are in the | | | | PST | | results section. | + +--------+ + + + | LABS - EXTERNAL SCAN | | 01/12/2018 | | Results for this | | | | 12:00 AM | | procedure are in the | | | | PDT | | results section. | + +--------+ + + + documented in this encounter Results T3 (03/16/2019 1:08 PM PST) + +-------+ + + + | Component | Value | Ref Range | Performed | Pathologist | | | | | At | Signature | + +-------+ + + + | T3, Total | 96 | 71 - 180 ng/dL | REFERENCE | | | | | | LAB [facility] | | | | | | [facility] | | + +-------+ + + + + + | Specimen | + + | Blood | + + + + + | Narrative | Performed At | + + + | Performed at: 01 - [facility] [place] [address], | REFERENCE LAB | | [place], [place] [id number] Clothing Designer: Devon Reese MD, Phone: | [facility] | | [phone] | | + + + + + + + + | Performing | Address | City/State/Zipcode | Phone Number | | Organization | | | | + + + + + | REFERENCE LAB | [address] | [place], [place] | [phone] | | [facility] | [place] | [address] | | + + + + + T4, Total (03/16/2019 1:08 PM PST) + +-------+ + + + | Component | Value | Ref Range | Performed | Pathologist | | | | | At | Signature | + +-------+ + + + | T4, Total | 9.7 | 4.5 - 10.9 | [facility] | | | | | ug/dL | [facility] | | | | | [...] + | [facility] | [address] | [place] | [phone] | | [facility] | | [address] | | | - LABORATORY | | | | + + + + + TSH (03/16/2019 1:08 PM PST) + + + + + + | Component | Value | Ref Range | Performed | Pathologist | | | | | At | Signature | + + + + + + | TSH | 0.46 (L) | 0.55 - 4.78 | [facility] | | | | | uIU/mL | [facility] | | | | [...] + | [facility] | [address] | [place] | [phone] | | [facility] | | [address] | | | - LABORATORY | | | | + + + + + CEA (03/16/2019 1:08 PM PST) + +-------+ + + + | Component | Value | Ref Range | Performed | Pathologist | | | | | At | Signature | + +-------+ + + + | CEA | 1.9 | 0.0 - 10.0 | [facility] | | | | | ng/mL | [facility] | | | | [...] + + | [facility] | [address] | [place] | [phone] | | [facility] | | [address] | | | - LABORATORY | | | | + + + + + Lactate Dehydrogenase (03/16/2019 1:08 PM PST) + + + + + + | Component | Value | Ref Range | Performed | Pathologist | | | | | At | Signature | + + + + + + | LDH TOTAL | 176Comment: New method | 120 - 246 U/L | [facility] | | | | in use as of May | | [facility] | | | | 2018. Check | | MEDICAL | | | | reference range for | | CENTER - | | | | changes.Some analytes | | LABORATORY | | | | show significant | | | | | | variation from the | | | | | | previous method.It may | | | | | | be necessary to set a | | | | | | new baseline for this | | | | | | analyte. | | | | + + + + + + + + | Specimen | + + | Blood | + + + + + + + | Performing | Address | City/State/Zipcode | Phone Number | | Organization | | | | + + + + + | [facility] | [address] | [place] | [phone] | | [facility] | | [address] | | | - LABORATORY | | | | + + + + + CBC w/ Auto Differential (03/16/2019 1:08 PM PST) + +-------+ + + + | Component | Value | Ref Range | Performed | Pathologist | | | | | At | Signature | + +-------+ + + + | White Blood | 6.3 | 4.0 - 11.0 K/uL | [facility] | | | Cells | | | [facility] | | | | | | MEDICAL | | | | | | CENTER - | | | | | | LABORATORY | | + +-------+ + + + | Red Blood | 4.72 | 3.70 - 5.20 | [facility] | | | Cells | | M/uL | . [facility] | | | | | | MEDICAL | | | | | | CENTER - | | | | | | LABORATORY | | + +-------+ + + + | Hemoglobin | 14.6 | 11.5 - 16.0 | [facility] | | | | | g/dL | [facility] | | | | | | MEDICAL | | | | | | CENTER - | | | | | | LABORATORY | | + +-------+ + + + | Hematocrit | 43.4 | 34.0 - 47.0 % | [facility] | | | | | | [facility] | | | | | | MEDICAL | | | | | | CENTER - | | | | | | LABORATORY | | + +-------+ + + + | MCV | 91.9 | 83.0 - 101.0 fL | [facility] | | | | | | [facility] | | | | | | MEDICAL | | | | | | CENTER - | | | | | | LABORATORY | | + +-------+ + + + | MCH | 30.9 | 28.0 - 35.0 pg | [facility] | | | | | | [facility] | | | | | | MEDICAL | | | | | | CENTER - | | | | | | LABORATORY | | + +-------+ + + + | MCHC | 33.6 | 32.0 - 36.0 | [facility] | | | | | g/dL | [facility] | | | | | | MEDICAL | | | | | | CENTER - | | | | | | LABORATORY | | + +-------+ + + + | RDW-CV | 12.3 | <15.0 % | [facility] | | | | | | [facility] | | | | | | MEDICAL | | | | | | CENTER - | | | | | | LABORATORY | | + +-------+ + + + | RDW-SD | 42.0 | 35.1 - 46.3 fL | [facility] | | | | | | [facility] | | | | | | MEDICAL | | | | | | CENTER - | | | | | | LABORATORY | | + +-------+ + + + | Platelet | 316 | 140 - 440 K/uL | [facility] | | | Count | | | [facility] | | | | | | MEDICAL | | | | | | CENTER - | | | | | | LABORATORY | | + +-------+ + + + | MPV | 9.9 | 6.5 - 12.4 fL | [facility] | | | | | | [facility] | | | | | | MEDICAL | | | | | | CENTER - | | | | | | LABORATORY | | + +-------+ + + + | % | 66.0 | 45.0 - 82.0 % | [facility] | | | Neutrophils | | | [facility] | | | | | | MEDICAL | | | | | | CENTER - | | | | | | LABORATORY | | + +-------+ + + + | % | 25.3 | 20.0 - 45.0 % | [facility] | | | Lymphocytes | | | [facility] | | | | | | MEDICAL | | | | | | CENTER - | | | | | | LABORATORY | | + +-------+ + + + | % Monocytes | 5.9 | 4.0 - 12.0 % | [facility] | | | | | | [facility] | | | | | | MEDICAL | | | | | | CENTER - | | | | | | LABORATORY | | + +-------+ + + + | % | 1.6 | 0.0 - 5.0 % | [facility] | | | Eosinophils | | | [facility] | | | | | | MEDICAL | | | | | | CENTER - | | | | | | LABORATORY | | + +-------+ + + + | % Basophils | 1.0 | 0.0 - 1.0 % | [facility] | | | | | | [facility] | | | | | | MEDICAL | | | | | | CENTER - | | | | | | LABORATORY | | + +-------+ + + + | % Immature | 0.2 | 0.0 - 0.4 % | [facility] | | | Granulocyte | | | [facility] | | | s | | | MEDICAL | | | | | | CENTER - | | | | | | LABORATORY | | + +-------+ + + + | Absolute | 4.16 | 1.80 - 8.50 | [facility] | | | Neutrophils | | K/uL | [facility] | | | | | | MEDICAL | | | | | | CENTER - | | | | | | LABORATORY | | + +-------+ + + + | Absolute | 1.59 | 0.60 - 3.20 | [facility] | | | Lymphocytes | | K/uL | [facility] | | | | | | MEDICAL | | | | | | CENTER - | | | | | | LABORATORY | | + +-------+ + + + | Absolute | 0.37 | 0.00 - 1.00 | [facility] | | | Monocytes | | K/uL | [facility] | | | | | | MEDICAL | | | | | | CENTER - | | | | | | LABORATORY | | + +-------+ + + + | Absolute | 0.10 | 0.00 - 0.40 | [facility] | | | Eosinophils | | K/uL | [facility] | | | | | | [facility] | | | | | | [facility] - | | | | | | LABORATORY | | + +-------+ + + + | Absolute | 0.06 | 0.00 - 0.10 | [facility] | | | Basophils | | K/uL | [facility] | | | | | | [facility] | | | | | | C[facility] - | | | | | | LABORATORY | | + +-------+ + + + | Absolute | 0.01 | 0.00 - 0.03 | [facility] | | | Immature | | K/uL | [facility] | | | Granulocyte | | | MEDICAL | | | s | | | CENTER - | | | | | | LABORATORY | | + +-------+ + + + | % nRBC | 0 | 0 - 2 per 100 | [facility] | | | | | WBCs | [facility] | | | | | | [facility] | | | | | | [facility] - | | | | | | LABORATORY | | + +-------+ + + + | Absolute | 0.00 | 0.00 - 0.01 | [facility] | | | nRBC | | K/uL | [facility] | [...] + | [facility] | [address] | [place] | [phone] | | [facility] | | [address] | | | - LABORATORY | | | | + + + + + Comprehensive Metabolic Panel (03/16/2019 1:08 PM PST) + + + + + + | Component | Value | Ref Range | Performed | Pathologist | | | | | At | Signature | + + + + + + | Na | 141 | 136 - 145 | [facility] | | | | | mmol/L | [facility] | | | | | | [facility] | | | | | | CENTER - | | | | | | LABORATORY | | + + + + + + | K | 3.5 | 3.4 - 5.1 | [facility] | | | | | mmol/L | [facility] | | | | | | [facility] | | | | | | CENTER - | | | | | | LABORATORY | | + + + + + + | Cl | 106 | 98 - 107 mmol/L | [facility] | | | | | | [facility] | | | | | | [facility] | | | | | | CENTER - | | | | | | LABORATORY | | + + + + + + | CO2 | 26 | 20 - 31 mmol/L | [facility] | | | | | | [facility] | | | | | | [facility] | | | | | | CENTER - | | | | | | LABORATORY | | + + + + + + | Anion Gap | 9 | 3 - 16 mmol/L | [facility] | | | | | | [facility] | | | | | | [facility] | | | | | | CENTER - | | | | | | LABORATORY | | + + + + + + | Glucose | 87 | 60 - 106 mg/dL | [facility] | | | | | | [facility] | | | | | | [facility] | | | | | | CENTER - | | | | | | LABORATORY | | + + + + + + | BUN | 8 (L) | 9 - 23 mg/dL | [facility] | | | | | | [facility] | | | | | | [facility] | | | | | | [facility] - | | | | | | LABORATORY | | + + + + + + | Creatinine | 0.78 | 0.55 - 1.02 | [facility] | | | | | mg/dL | [facility] | | | | | | [facility] | | | | | | CENTER - | | | | | | LABORATORY | | + + + + + + | eGFR, | >60Comment: GLOMERULAR | >=60 | [facility] | | | non- | FILTRATION | mL/min/1.73m2 | [facility] | | | [place] | RATE,ESTIMATED | | MEDICAL | | | | mL/min/1.03z8Udoc than | | CENTER - | | [...] + + + + | Calcium | 9.3 | 8.7 - 10.4 | [facility] | | | | | mg/dL | [facility] | | | | | | [facility] | | | | | | C[facility] - | | | | | | LABORATORY | | + + + + + + | Albumin | 4.3 | 3.2 - 4.8 g/dL | [facility] | | | | | | [facility] | | | | | | MEDICAL | | | | | | CENTER - | | | | | | LABORATORY | | + + + + + + | Bilirubin | 0.4 | 0.3 - 1.2 mg/dL | [facility] | | | Total | | | [facility] | | | | | | [facility] | | | | | | CENTER - | | | | | | LABORATORY | | + + + + + + | Total | 6.2 | 5.7 - 8.2 g/dL | [facility] | | | Protein | | | [facility] | | | | | | [facility] | | | | | | CENTER - | | | | | | LABORATORY | | + + + + + + | AST | 20 | 0 - 34 U/L | [facility] | | | | | | [facility] | | | | | | [facility] | | | | | | CENTER - | | | | | | LABORATORY | | + + + + + + | ALT | 23 | 10 - 49 U/L | [facility] | | | | | | [facility] | | | | | | [facility] | | | | | | CENTER - | | | | | | LABORATORY | | + + + + + + | Alkaline | 105 | 46 - 116 U/L | [facility] | | | Phosphatase | | | [facility] | | | | | | [facility] | | | | | | CENTER - | | | | | | LABORATORY | | + + + + + + | Globulin | 1.9 (L) | 2.1 - 3.8 g/dL | [facility] | | | | | | [facility] | | | | | | [facility] | | | | | | CENTER - | | | | | | LABORATORY | | + + + + + + | Albumin/Jo Ann | 2.3 (H) | 0.8 - 1.9 | [facility] | | | bulin Ratio | | | [facility] | | | | | | [facility]ICAL | | | | | | CENTER - | | | | | | LABORATORY | | + + + + + + | BUN/Creatin | 10.3 | | [facility] | | | ine [...] [address] | [place] | [phone] | | [facility] | | [address] | | | - LABORATORY | | | | + + + + + LABS - EXTERNAL SCAN (01/12/2018 12:00 AM PDT) + + + | Narrative | Performed At | + + + | Ordered by an | | | unspecified provider. | | + + + documented in this encounter Visit Diagnoses + + | Diagnosis | + + | Esophageal cancer, stage IIIA (HCC) | + + | Thyroid nodule Nontoxic uninodular goiter | + + documented in this encounter
--- OUTSIDE RECORDS SUMMARY | ~2019-12-05 | XMS | Encounter Summary ---
Demographics + + + | Address | [address] | | | [place] [address] | + + + | Home Phone | | + + + | Preferred Language | Unknown | + + + | Marital Status | | + + + | Cheondoism Affiliation | Unknown | + + + | Race | Unknown | + + + | Ethnic Group | Unknown | + + + Author + + + | Author | [facility] | | | and [place] | + + + | Organization | [facility] | [...] Team Providers + +------+ + | Care Hydraulic Lift Driver Name | Role | Phone | + [...] | | | | (HCC) | JAQUAN GUS | JAQUAN WEBER | | | | | Procedures | [address] | | | | | [address] | [place], | [place], [place] | | | | | | [place] [address] | [address] | | | | | | Phone: | Phone: | | | | | | [phone] | [phone] | | | | | | Fax: | Fax: | | | | | | [phone] | [phone] | +--------+--------+ + + + + Encounter Details +--------+ + + + + | Date | Type | Department | Care Team | Description | +--------+ + + + + | 07/07/ | Hospital | [facility] | Fabio, | Esophageal cancer, | | 2019 | Encounter | [facility] | Isak Elizabeth MD [address] | stage IIA (HCC); | | | | [facility]Y CLINIC [address] | [address] | Thyroid nodule; | | | | [address] | [address] [place], [place] | Esophageal cancer, | | | | [place] [address] | [id number] | stage IIIA (HCC); | | | | [phone] | | Vocal cord | | | | | | dysfunction | +--------+ + + + + Social [...] + + + | Blood Pressure | 126/71 | 07/07/2018 2:14 PM | | | | | PDT | | + + + + + | Pulse | 78 | 07/07/2018 2:14 PM | | | | | PDT | | + + + + + | Temperature | 36.6 C (97.9 F) | 07/07/2018 2:14 PM | | | | | PDT | | + + + + + | Respiratory Rate | 16 | 07/07/2018 2:14 PM | | | | | PDT | | + + + + + | Oxygen Saturation | 97% | 07/07/2018 2:14 PM | | | | | PDT | | + + + + + | Inhaled Oxygen | - | - | | | Concentration | | | | + + + + + | Weight | 62.8 kg (138 lb 7.2 | 07/07/2018 2:14 PM | | | | oz) | PDT | | + + + + + | Height | - | - | | + + + + + | Body Mass Index | 22.52 | 04/14/2017 9:33 AM | | | [...] capsule by | 30 | 11 | 07/08/19 | | | (PRILOSEC) 20 mg | mouth every morning | capsule | | 19 | 9 | | capsule | (before breakfast). | | | | | + + + +---------+ + + documented as of this encounter Progress Notes Isak Mccarthy MD - 07/07/2018 2:20 PM PDTFormatting of this note might be differe nt from the original. Hematology/Oncology Progress Note [place], [place] Pt. Name/Age/: Annie Brown 62 y.o. 1955 [facility]. Record Number: [id number] Date of admission: 07/07/2018 The patient's primary care provider is Haim Epps. Identifying Statement: Annie Brown is a 62 y.o. female from [address] [place] [address] with Esophageal Cancer. The patient chart and medications were reviewed in detail and the patient was seen and exam ined. History of Present Illnesses, their Current Assessments and Plans: Problem List Esophageal cancer, stage IIIA Overview ACTIVE DIAGNOSIS: Squamous cell carcinoma of the esophagus, Stage IIIA. 1. Upper endoscopy with biopsy March 15, 2017 ([facility]). Mass in mid esophagus. [id number]) Invasive Squamous Cell carcinoma, mod erately differentiated. Immunohistochemistry diffusely positive for P16. 2. Status post feeding jejunostomy tube placement by Dr. Haim Epps, [facility], [facility]. 3. PET/CT scan March 24, 2017; mid-esophageal tumor with SUV 8.5, no evidence of metasta tic disease. 4. Endoscopic ultrasound at [facility]; single level 8 node "moderately suspicious." Clinical stage T3N1M0, Stage IIIA. 5. Comprehensive mutidisciplinary team evaluation at [facility], Located within [facility] (Haim Hernandez, Gold Cannon); combined modality chemoradiation with weekly taxol/car boplatin at [facility] in [place], follow by definitive resection b y Dr. Cannon at [facility]. 6. Status post placement of a left subclavian port-a-cath by Dr. Haim Epps. 7. Begin Combined modality therapy April 29, 2017; external beam radiation with weekly tax ol/carboplatin chemotherapy, completed June 07, 2018 8. Left thoracoabdominal esphagogastrectomy with cervical esophagogastrostomy and wedge lizy er biopsy July 12, 2017 ([facility]). Pathological specimen #[id number] "Liver biopsy-focal n odular hyperplasia. Esophagus and proximal stomach-YpT3 residual adenosquamous carcinoma 3.5 cm x 1.2 cm x 0.6 cm invading the paraesophageal soft tissue (adventitia). Tumor estimated to be 30-40% viable. Margins negative. A total of 25 lymph nodes were evaluated all of which were negative for regionally metastatic disease. Final pathological downstage; [id number], st age IIB. 9. Port-a-cath removed by Dr. Epps. 10. Gastrostomy feeding tube removed by Dr. Epps. 11. Status post right hemithyroidectomy by Dr. Epps. Current Assessment & Plan Annie Brown returned to clinic on 07/07/2018 alone for follow up of her Stage III A esophageal cancer. Interval history is notable for the fact that Annie has had her port-a-cath removed by Dr Jimmy Epps. Review of systems is notable for occasional dysphagia. Clinical exam is notable for three pound weight gain since March. Voice remains hoarse d ue to vocal cord paralysis following esophagectomy. Laboratory exam is notable for slight elevation of TSH following hemithyroidectomy by Dr. Manjula Julio. Imaging from June 30, 2018 at [facility] was reviewed. Imaging from [facility] from July 18, 2017 is not available for review. Imaging from June 30, 2018 at [facility] does not show recurrence of disease. Whether the intensely enhancin g far left lesion identified by Dr. Salcido on the July 18, 2017 [facility] scan that was not pres ent on June 30, 2017 [facility] examination represents true metastatic disease that has been contro lled with systemic chemotherapy versus an unrelated finding is uncertain. Assessment: Currently no signs or symptoms of recurrence of Stage IIIA squamous cell esopha geal cancer. Plan; Annie is planning to have upper and lower endoscopy performed by Dr. Haim Epps in [place] in July. Clinical and laboratory follow up in the [facility] in thre e months. Thyroid nodule Vocal cord dysfunction Review of Systems: Constitutional: Denies fatigue. Denies high fevers, shaking chills, anorexia, nausea, vomit ing, weight loss, or night sweats. Appetite without changes. Ear, Nose, Mouth, Throat: Denies odynophagia or tinnitus. Occasional dysphagia, unchanged. Cardiovascular: Denies shortness of breath, dyspnea on exertion, chest pain, palpitations o r orthopnea. Respiratory: Denies cough, hemoptysis, or sputum production. Gastrointestinal: Denies abdominal pain, constipation, diarrhea, melena, or bright red bloo d per rectum. Intermittent diarrhea, unchanged. Genitourinary: Denies hematuria or dysuria. Musculoskeletal: Denies joint pain or tenderness. Neurologic: Denies headache, visual changes, or numbness/tingling of the extremities. Endocrine: Denies peripheral edema or heat/cold intolerance. Hematologic: Denies spontaneous bruising or bleeding. Easily to bruise. Integumentary: Denies rash, wounds or other skin concerns. Pain: Denies pain. Note: Here for 3 month follow up and labs. My chart: Declined Scheduled Medications: Current Outpatient Prescriptions Medication Sig Dispense Refill acetaminophen (TYLENOL) 160 mg/5 mL solution Take 15.5 mLs by mouth every 4 hours as ne eded for Fever. (Patient not taking: Reported on 01/05/2018) 473 mL 2 ibuprofen (ADVIL, MOTRIN) 100 mg/5 mL suspension Take by mouth every 6 hours as needed for Fever. Taking 15ml omeprazole (PRILOSEC) 20 mg capsule Take 1 [...] Dr. Cannon Liver biospy 07/12/2017 Social History Social History Marital status: Spouse [...] Paternal Aunt Esophageal cancer Other Objectives: Temp: 36.6 C (97.9 F) BP: 126/71 Pulse: 78 Resp: 16 SpO2: 97 % on Min/Max Temp past 24 hours:No Data Recorded No intake or output data in the 24 hours ending 07/10/18 1213 Wt. Admission: Weight: 62.8 kg (138 lb 7.2 oz) Wt. Current: Weight: 62.8 kg (138 lb 7.2 oz) Wt Readings from Last 3 Encounters: 07/07/18 62.8 kg (138 lb 7.2 oz) 07/07/18 62.8 kg (138 lb 7.2 oz) 04/21/18 61.3 kg (135 lb 2.3 oz) Physical Exam: General: The patient is alert and oriented. No acute distress. Eyes: Conjunctiva clear. Sclera anicteric. ENMT: Oropharynx fee of lesions, mucous membranes moist. Complete alopecia, wearing a crani al prosthesis. Cardiovascular: Regular rate and rhythm, no rubs, gallops, or murmurs. Lungs: Clear to auscultation and percussion. Chest: The former left subclavian port-a-cath site is well-healed. Abdomen: Soft, nontender, no hepatospenomegaly. No palpable masses. Bowel sounds present. Midline incision well-healed. Extremities: Nontender, no erythema, no edema. Skin: No rashes, bruising, or petechiae. Lymph: No palpable nodes in the neck, supraclavicular fossa, axilla or groin. Neurological: Cranial nerves are intact. Normal sensory and motor function, No focal defi cits noted. Muscular/Skeletal: No acute bony tenderness. Mild, [...] Oncol.: Maximo Romero., Diana Jones., Yudi Clemente., Michell Cheney, Truman Paris., Sanya Carbajal., Lelo, P .P.: [...] Assessment and Plan. Results for SEVERE, ANNIE JONES ( ) as of 07/10/2018 11:31 Ref. Range 07/07/2018 14:05 WBC Latest Ref Range: 4.0 - 11.0 K/uL 6.6 RBC COUNT Latest Ref Range: 3.70 - 5.20 M/uL 4.91 Hemoglobin Latest Ref Range: 11.5 - 16.0 g/dL 15.2 Hct, Final Latest Ref Range: 34.0 - 47.0 % 45.0 MCV Latest Ref Range: 83.0 - 101.0 fL 91.6 MCH Latest Ref Range: 28.0 - 35.0 pg 31.0 MCHC Latest Ref Range: 32.0 - 36.0 g/dL 33.8 RDW-SD Latest Ref Range: 35.1 - 46.3 fL 41.5 RDW-CV Latest Ref Range: <15.0 % 12.3 Platelet Count Latest Ref Range: 140 - 440 K/uL 270 MPV Latest Ref Range: 6.5 - 12.4 fL 9.6 % nRBC Latest Ref Range: 0 - 2 per 100 WBC's 0 Absolute nRBC Latest Ref Range: 0.00 - 0.01 K/uL 0.00 Absolute Neutrophils Latest Ref Range: 1.80 - 8.50 K/uL 4.57 Absolute Lymphocytes Latest Ref Range: 0.60 - 3.20 K/uL 1.46 Absolute Monocytes Latest Ref Range: 0.00 - 1.00 K/uL 0.39 Absolute Eosinophils Latest Ref Range: 0.00 - 0.40 K/uL 0.09 Absolute Basophils Latest Ref Range: 0.00 - 0.10 K/uL 0.03 Absolute Immature Granulocytes Latest Ref Range: 0.00 - 0.03 K/uL 0.01 % Neutrophils Latest Ref Range: 45.0 - 82.0 % 69.6 % Lymphocytes Latest Ref Range: 20.0 - 45.0 % 22.3 % Monocytes Latest Ref Range: 4.0 - 12.0 % 6.0 % Eosinophils Latest Ref Range: 0.0 - 5.0 % 1.4 % Basophils Latest Ref Range: 0.0 - 1.0 % 0.5 % Immature Granulocytes Latest Ref Range: 0.0 - 0.4 % 0.2 Na Latest Ref Range: 136 - 145 mmol/L 139 K Latest Ref Range: 3.4 - 5.1 mmol/L 4.1 Chloride Latest Ref Range: 98 - 107 mmol/L 106 Carbon dioxide Latest Ref Range: 20 - 31 mmol/L 26 Anion Gap Latest Ref Range: 3 - 16 mmol/L 7 Glucose Latest Ref Range: 60 - 106 mg/dL 102 BUN Latest Ref Range: 9 - 23 mg/dL 8 (L) Creatinine Latest Ref Range: 0.55 - 1.02 mg/dL 0.89 BUN/Creatinine Ratio Unknown 9.0 Albumin Latest Ref Range: 3.2 - 4.8 g/dL 4.3 Albumin/Globulin Ratio Latest Ref Range: 0.8 - 1.9 2.3 (H) Total Protein Latest Ref Range: 5.7 - 8.2 g/dL 6.2 EGFR IF NOT Latest Ref Range: >=60 mL/min/1.73m2 >60 Calcium Latest Ref Range: 8.7 - 10.4 mg/dL 9.3 ALK PHOS Latest Ref Range: 46 - 116 U/L 125 (H) ALT (SGPT) (REF) Latest Ref Range: 10 - 49 U/L 28 AST (SGOT) (REF) Latest Ref Range: 0 - 34 U/L 26 LDH TOTAL Latest Ref Range: 120 - 246 U/L 204 Bilirubin Total (Calculated) Latest Ref Range: 0.3 - 1.2 mg/dL 0.5 Globulin Latest Ref Range: 2.1 - 3.8 g/dL 1.9 (L) TSH Latest Ref Range: 0.55 - 4.78 uIU/mL 6.89 (H) CEA Latest Units: ng/mL 2.1 CT Chest/Abdomen with contrast on June 30, [address] Haim Epps and interpret ed by Dr. Annie Salcido who compared it to a CT scan of the chest/abdomen/pelvis performed at the [facility] on July 18, 2017. Dr. Salcido described "the small hypo dense nodule in the lateral segment of the left hepatic lobe is barely identified. The inten sely enhancing far left lesion previously demonstrated is not present on today's examination ." Pharmacovigilance: Palliative Care: Patient's Medications New Prescriptions No medications on file Modified Medications Modified Medication Previous Medication OMEPRAZOLE (PRILOSEC) 20 MG CAPSULE omeprazole (PRILOSEC) 20 mg capsule Take 1 capsule by mouth every morning (before breakfast). Take 1 capsule by mouth ev lyndsay morning (before breakfast). Discontinued Medications No medications on file Procedure: Isak Mccarthy MD Portions of this chart may have been created with [employer] voice recognition software. Occasi onal wrong-word or sound-alike substitutions may have occurred due to the inherent solis itations of voice recognition software. Please read the chart carefully and recognize, using context, where these substitutions have occurred. documented in t his encounter Miscellaneous Notes Assessment & Plan Note - Isak Mccarthy MD - 07/10/2018 12:02 PM PDTAssociated Prob chandler(s): Esophageal cancer, stage IIIA (HCC)Annie Brown returned to clinic on alone for follow up of her Stage IIIA esophageal cancer. Interval history is notable for the fact that Annie has had her port-a-cath removed by Dr Jimmy Epps. Review of systems is notable for occasional dysphagia. Clinical exam is notable for three pound weight gain since March. Voice remains hoarse d ue to vocal cord paralysis following esophagectomy. Laboratory exam is notable for slight elevation of TSH following hemithyroidectomy by Dr. aMnjula Julio. Imaging from June 30, 2018 at [facility] was reviewed. Imaging from [facility] from July 18, 2017 is not available for review. Imaging from June 30, 2018 at [facility] does not show recurrence of disease. Whether the intensely enhancin g far left lesion identified by Dr. Salcido on the July 18, 2017 [facility] scan that was not pres ent on June 30, 2017 [facility] examination represents true metastatic disease that has been contro lled with systemic chemotherapy versus an unrelated finding is uncertain. Assessment: Currently no signs or symptoms of recurrence of Stage IIIA squamous cell esopha geal cancer. Plan; Annie is planning to have upper and lower endoscopy performed by Dr. Haim Epps in [place] in July. Clinical and laboratory follow up in the [facility] in e months. documented in t his encounter Plan of Treatment Not on filedocumented as of this encounter Procedures + +--------+ + + + | Procedure Name | Priori | Date/Time | Associated Diagnosis | Comments | | | ty | | | | + +--------+ + + + | CBC W/AUTO | STAT | 07/07/2018 | Esophageal cancer, | Results for this | | DIFFERENTIAL | | 2:05 PM | stage IIA (HCC) | procedure are in the | | | | PDT | | results section. | + +--------+ + + + | TSH | STAT | 07/07/2018 | Thyroid nodule | Results for this | | | | 2:05 PM | | procedure are in the | | | | PDT | | results section. | + +--------+ + + + | LACTATE | STAT | 07/07/2018 | Esophageal cancer, | Results for this | | DEHYDROGENASE | | 2:05 PM | stage IIA (HCC) | procedure are in the | | | | PDT | | results section. | + +--------+ + + + | CEA | STAT | 07/07/2018 | Esophageal cancer, | Results for this | | | | 2:05 PM | stage IIA (HCC) | procedure are in the | | | | PDT | | results section. | + +--------+ + + + | COMPREHENSIVE | STAT | 07/07/2018 | Esophageal cancer, | Results for this | | METABOLIC PANEL | | 2:05 PM | stage IIA (HCC) | procedure are in the | | | | PDT | | results section. | + +--------+ + + + documented in this encounter Results T3 (10/06/2018 12:54 PM PDT) + +-------+ + + + | Component | Value | Ref Range | Performed | Pathologist | | | | | At | Signature | + +-------+ + + + | T3, Total | 142 | 71 - 180 ng/dL | REFERENCE | | | | | | LAB [facility] | | | | | | [facility] | | + +-------+ + + + + + | Specimen | + + | Blood | + + + + + | Narrative | Performed At | + + + | Performed at: [address] [facility] [address], | REFERENCE LAB | | [place], [place] [id number] [employer] C[employer] Developer: Devon Reese MD, Phone: | PA ROSARIO | | [phone] | | + + + + + + + + | Performing | Address | City/State/Zipcode | Phone Number | | Organization | | | | + + + + + | REFERENCE LAB | [address] | [place] | [phone] | | [facility] | Drive [facility] | [address] | | + + + + + T4, Total (10/06/2018 12:54 PM PDT) + + + + + + | Component | Value | Ref Range | Performed | Pathologist | | | | | At | Signature | + + + + + + | T4, Total | 11.5 (H) | 4.5 - 10.9 | [facility] | | | | | ug/dL | [facility] | | | | [...] + | [facility] | [address] | [place] | [phone] | | [facility] | | [address] | | | - LABORATORY | | | | + + + + + CEA (10/06/2018 12:54 PM PDT) + +-------+ + + + | Component | Value | Ref Range | Performed | Pathologist | | | | | At | Signature | + +-------+ + + + | CEA | 2.2 | 0.0 - 10.0 | [facility] | | | | | ng/mL | [facility] | | | | [...] [address] | [place] | [phone] | | [facility] | | [address] | | | - LABORATORY | | | | + + + + + TSH (10/06/2018 12:54 PM PDT) + + + + + + | Component | Value | Ref Range | Performed | Pathologist | | | | | At | Signature | + + + + + + | TSH | 0.01 (L) | 0.55 - 4.78 | [facility] | | | | | uIU/mL | [facility] | | | | [...] [address] | [place] | [phone] | | [facility] | | [address] | | | - LABORATORY | | | | + + + + + Lactate Dehydrogenase (10/06/2018 12:54 PM PDT) + +---------+ + + + | Component | Value | Ref Range | Performed | Pathologist | | | | | At | Signature | + +---------+ + + + | LDH TOTAL | 294 (H) | 120 - 246 U/L | [facility] | | | | | | [facility] | | | | | | MEDICAL | | | | | | CENTER - | | | | | | LABORATORY | | + +---------+ + + + + + | Specimen | + + | Blood | + + + + + + + | Performing | Address | City/State/Zipcode | Phone Number | | Organization | | | | + + + + + | [facility] | [address] | [place] | [phone] | | [facility] | | [address] | | | - LABORATORY | | | | + + + + + Comprehensive Metabolic Panel (10/06/2018 12:54 PM PDT) + + + + + + | Component | Value | Ref Range | Performed | Pathologist | | | | | At | Signature | + + + + + + | Na | 138 | 136 - 145 | [facility] | | | | | mmol/L | [facility] | | | | | | MEDICAL | | | | | | CENTER - | | | | | | LABORATORY | | + + + + + + | K | 4.0 | 3.4 - 5.1 | [facility] | | | | | mmol/L | [facility] | | | | | | MEDICAL | | | | | | CENTER - | | | | | | LABORATORY | | + + + + + + | Cl | 109 (H) | 98 - 107 mmol/L | [facility] | | | | | | [facility] | | | | | | MEDICAL | | | | | | CENTER - | | | | | | LABORATORY | | + + + + + + | CO2 | 23 | 20 - 31 mmol/L | [facility] | | | | | | [facility] | | | | | | MEDICAL | | | | | | CENTER - | | | | | | LABORATORY | | + + + + + + | Anion Gap | 6 | 3 - 16 mmol/L | [facility] | | | | | | [facility] | | | | | | MEDICAL | | | | | | CENTER - | | | | | | LABORATORY | | + + + + + + | Glucose | 95 | 60 - 106 mg/dL | [facility] [...] + + + + | Creatinine | 0.77 | 0.55 - 1.02 | [facility] | | | | | mg/dL | [facility] | | | | | | MEDICAL | | | | | | CENTER - | | | | | | LABORATORY | | + + + + + + | eGFR, | >60Comment: GLOMERULAR | >=60 | [facility] | | | non- | FILTRATION | mL/min/1.73m2 | [facility] | | | [place] | RATE,ESTIMATED | | MEDICAL | | | | mL/min/1.04g5Rlqs than | | CENTER - | | [...] + + | Calcium | 9.4 | 8.7 - 10.4 | [facility] | | | | | mg/dL | [facility] | | | | | | MEDICAL | | | | | | CENTER - | | | | | | LABORATORY | | + + + + + + | Albumin | 4.2 | 3.2 - 4.8 g/dL | [facility] | | | | | | [facility] | | | | | | MEDICAL | | | | | | CENTER - | | | | | | LABORATORY | | + + + + + + | Bilirubin | 0.3 | 0.3 - 1.2 mg/dL | [facility] | | | Total | | | [facility] | | | | | | MEDICAL | | | | | | CENTER - | | | | | | LABORATORY | | + + + + + + | Total | 6.0 | 5.7 - 8.2 g/dL | [facility] | | | Protein | | | [facility] | | | | | | MEDICAL | | | | | | CENTER - | | | | | | LABORATORY | | + + + + + + | AST | 32 | 0 - 34 U/L | [facility] | | | | | | [facility] | | | | | | MEDICAL | | | | | | CENTER - | | | | | | LABORATORY | | + + + + + + | ALT | 30 | 10 - 49 U/L | [facility] | | | | | | [facility] | | | | | | MEDICAL | | | | | | CENTER - | | | | | | LABORATORY | | + + + + + + | Alkaline | 105 | 46 - 116 U/L | [facility] | | | Phosphatase | | | [facility] | | | | | | MEDICAL | | | | | | CENTER - | | | | | | LABORATORY | | + + + + + + | Globulin | 1.8 (L) | 2.1 - 3.8 g/dL | [facility] | | | | | | [facility] | | | | [...] + + + + | BUN/Creatin | 10.4 | | [facility] | | | ine Ratio | | | [facility] | | | | [...] [address] | [place] | [phone] | | [facility] | | [address] | | | - LABORATORY | | | | + + + + + CBC w/ Auto Differential (10/06/2018 12:54 PM PDT) + + + + + + | Component | Value | Ref Range | Performed | Pathologist | | | | | At | Signature | + + + + + + | White Blood | 8.9 | 4.0 - 11.0 K/uL | [facility] | | | Cells | | | [facility] | | | | | | MEDICAL | | | | | | CENTER - | | | | | | LABORATORY | | + + + + + + | Red Blood | 4.65 | 3.70 - 5.20 | [facility] | | | Cells | | M/uL | [facility] | | | | | | MEDICAL | | | | | | CENTER - | | | | | | LABORATORY | | + + + + + + | Hemoglobin | 14.3 | 11.5 - 16.0 | [facility] | | | | | g/dL | [facility] | | | | | | MEDICAL | | | | | | CENTER - | | | | | | LABORATORY | | + + + + + + | Hematocrit | 43.2 | 34.0 - 47.0 % | [facility] | | | | | | [facility] | | | | | | MEDICAL | | | | | | CENTER - | | | | | | LABORATORY | | + + + + + + | MCV | 92.9 | 83.0 - 101.0 fL | [facility] [...] + + + + | MCHC | 33.1 | 32.0 - 36.0 | [facility] | | | | | g/dL | [facility] | | | | | | MEDICAL | | | | | | CENTER - | | | | | | LABORATORY | | + + + + + + | RDW-CV | 12.1 | <15.0 % | [facility] | | | | | | [facility] | | | | | | MEDICAL | | | | | | CENTER - | | | | | | LABORATORY | | + + + + + + | RDW-SD | 41.2 | 35.1 - 46.3 fL | [facility] | | | | | | [facility] | | | | | | MEDICAL | | | | | | CENTER - | | | | | | LABORATORY | | + + + + + + | Platelet | 281 | 140 - 440 K/uL | [facility] | | | Count | | | [facility] | | | | | | MEDICAL | | | | | | CENTER - | | | | | | LABORATORY | | + + + + + + | MPV | 10.3 | 6.5 - 12.4 fL | [facility] | | | | | | [facility] | | | | | | MEDICAL | | | | | | CENTER - | | | | | | LABORATORY | | + + + + + + | % | 76.1 | 45.0 - 82.0 % | [facility] | | | Neutrophils | | | [facility] | | | | | | MEDICAL | | | | | | CENTER - | | | | | | LABORATORY | | + + + + + + | % | 16.4 (L) | 20.0 - 45.0 % | [facility] | | | Lymphocytes | | | [facility] | | | | | | MEDICAL | | | | | | CENTER - | | | | | | LABORATORY | | + + + + + + | % Monocytes | 5.4 | 4.0 - 12.0 % | [facility] | | | | | | [facility] | | | | | | MEDICAL | | | | | | CENTER - | | | | | | LABORATORY | | + + + + + + | % | 1.1 | 0.0 - 5.0 % | [facility] | | | Eosinophils | | | [facility] | | | | | | MEDICAL | | | | | | CENTER - | | | | | | LABORATORY | | + + + + + + | % Basophils | 0.7 | 0.0 - 1.0 % | [facility] | | | | | | [facility] | | | | | | MEDICAL | | | | | | CENTER - | | | | | | LABORATORY | | + + + + + + | % Immature | 0.3 | 0.0 - 0.4 % | [facility] | | | Granulocyte | | | [facility] | | | s | | | MEDICAL | | | | | | CENTER - | | | | | | LABORATORY | | + + + + + + | Absolute | 6.73 | 1.80 - 8.50 | [facility] | | | Neutrophils | | K/uL | [facility] | | | | | | MEDICAL | | | | | | CENTER - | | | | | | LABORATORY | | + + + + + + | Absolute | 1.45 | 0.60 - 3.20 | [facility] | | | Lymphocytes | | K/uL | [facility] | | | | | | MEDICAL | | | | | | CENTER - | | | | | | LABORATORY | | + + + + + + | Absolute | 0.48 | 0.00 - 1.00 | [facility] | [...] + + + + | Absolute | 0.06 | 0.00 - 0.10 | [facility] | | | Basophils | | K/uL | [facility] | | | | | | MEDICAL | | | | | | CENTER - | | | | | | LABORATORY | | + + + + + + | Absolute | 0.03 | 0.00 - 0.03 | [facility] | | | Immature | | K/uL | [facility] | | | Granulocyte | | | MEDICAL | | | s | | | CENTER - | | | | | | LABORATORY | | + + + + + + | % nRBC | 0 | 0 - 2 per 100 | [facility] | | | | | WBCs | [facility] | | | | | | MEDICAL | | | | | | CENTER - | | | | | | LABORATORY | | + + + + + + | Absolute | 0.00 | 0.00 - 0.01 | [facility] | | | nRBC | | K/uL | [facility] | [...] + | [facility] | [address] | [place] | [phone] | | [facility] | | [address] | | | - LABORATORY | | | | + + + + + TSH (07/07/2018 2:05 PM PDT) + + + + + + | Component | Value | Ref Range | Performed | Pathologist | | | | | At | Signature | + + + + + + | TSH | 6.89 (H) | 0.55 - 4.78 | [facility] | [...] [address] | [place] | [phone] | | [facility] | | [address] | | | - LABORATORY | | | | + + + + + CBC w/ Auto Differential (07/07/2018 2:05 PM PDT) + +-------+ + + + | Component | Value | Ref Range | Performed | Pathologist | | | | | At | Signature | + +-------+ + + + | White Blood | 6.6 | 4.0 - 11.0 K/uL | [facility] | | | Cells | | | [facility] | | | | | | MEDICAL | | | | | | CENTER - | | | | | | LABORATORY | | + +-------+ + + + | Red Blood | 4.91 | 3.70 - 5.20 | [facility] | | | Cells | | M/uL | [facility] | | | | | | MEDICAL | | | | | | CENTER - | | | | | | LABORATORY | | + +-------+ + + + | Hemoglobin | 15.2 | 11.5 - 16.0 | [facility] | | | | | g/dL | [facility] | | | | | | MEDICAL | | | | | | CENTER - | | | | | | LABORATORY | | + +-------+ + + + | Hematocrit | 45.0 | 34.0 - 47.0 % | [facility] | | | | | | [facility] | | | | | | [facility]ICAL | | | | | | CENTER - | | | | | | LABORATORY | | + +-------+ + + + | MCV | 91.6 | 83.0 - 101.0 fL | [facility] | | | | | | [facility] | | | | | | [facility]ICAL | | | | | | CENTER - | | | | | | LABORATORY | | + +-------+ + + + | MCH | 31.0 | 28.0 - 35.0 pg | [facility] | | | | | | [facility] | | | | | | [facility] | | | | | | CENTER - | | | | | | LABORATORY | | + +-------+ + + + | MCHC | 33.8 | 32.0 - 36.0 | [facility] | [...] +-------+ + + + | RDW-SD | 41.5 | 35.1 - 46.3 fL | [facility] | | | | | | [facility] | | | | | | MEDICAL | | | | | | CENTER - | | | | | | LABORATORY | | + +-------+ + + + | Platelet | 270 | 140 - 440 K/uL | [facility] | | | Count | | | [facility] | | | | | | MEDICAL | | | | | | CENTER - | | | | | | LABORATORY | | + +-------+ + + + | MPV | 9.6 | 6.5 - 12.4 fL | [facility] | | | | | | [facility] | | | | | | [facility]ICAL | | | | | | CENTER - | | | | | | LABORATORY | | + +-------+ + + + | % | 69.6 | 45.0 - 82.0 % | [facility] | | | Neutrophils | | | [facility] | | | | | | MEDICAL | | | | | | CENTER - | | | | | | LABORATORY | | + +-------+ + + + | % | 22.3 | 20.0 - 45.0 % | [facility] | | | Lymphocytes | | | [facility] | | | | | | MEDICAL | | | | | | CENTER - | | | | | | LABORATORY | | + +-------+ + + + | % Monocytes | 6.0 | 4.0 - 12.0 % | [facility] | | | | | | [facility] | | | | | | MEDICAL | | | | | | CENTER - | | | | | | LABORATORY | | + +-------+ + + + | % | 1.4 | 0.0 - 5.0 % | [facility] [...] +-------+ + + + | Absolute | 4.57 | 1.80 - 8.50 | [facility] | | | Neutrophils | | K/uL | [facility] | | | | | | MEDICAL | | | | | | CENTER - | | | | | | LABORATORY | | + +-------+ + + + | Absolute | 1.46 | 0.60 - 3.20 | [facility] | | | Lymphocytes | | K/uL | [facility] | | | | | | MEDICAL | | | | | | CENTER - | | | | | | LABORATORY | | + +-------+ + + + | Absolute | 0.39 | 0.00 - 1.00 | [facility] | | | Monocytes | | K/uL | [facility] | | | | | | MEDICAL | | | | | | CENTER - | | | | | | LABORATORY | | + +-------+ + + + | Absolute | 0.09 | 0.00 - 0.40 | [facility] | | | Eosinophils | | K/uL | [facility] | | | | | | MEDICAL | | | | | | CENTER - | | | | | | LABORATORY | | + +-------+ + + + | Absolute | 0.03 | 0.00 - 0.10 | [facility] | [...] | [facility] | | | | | WBC's | [facility] | | | | | | MEDICAL | | | | | | CENTER - | | | | | | LABORATORY | | + +-------+ + + + | Absolute | 0.00 | 0.00 - 0.01 | [facility] | | | nRBC | | K/uL | [facility] | [...] + + | [facility] | [address] | [place] | [phone] | | [facility] | | [address] | | | - LABORATORY | | | | + + + + + CEA (07/07/2018 2:05 PM PDT) + +-------+ + + + | Component | Value | Ref Range | Performed | Pathologist | | | | | At | Signature | + +-------+ + + + | CEA | 2.1 | ng/mL | [facility] | | | | | [...] + | [facility] | [address] | [place] | [phone] | | [facility] | | [address] | | | - LABORATORY | | | | + + + + + Comprehensive Metabolic Panel (07/07/2018 2:05 PM PDT) + +---------+ + + + | Component | Value | Ref Range | Performed | Pathologist | | | | | At | Signature | + +---------+ + + + | Na | 139 | 136 - 145 | [facility] | | | | | mmol/L | [facility] | | | | | | MEDICAL | | | | | | CENTER - | | | | | | LABORATORY | | + +---------+ + + + | K | 4.1 | 3.4 - 5.1 | [facility] | | | | | mmol/L | [facility] | | | | | | MEDICAL | | | | | | CENTER - | | | | | | LABORATORY | | + +---------+ + + + | Cl | 106 | 98 - 107 mmol/L | [facility] | | | | | | [facility] | | | | | | MEDICAL | | | | | | CENTER - | | | | | | LABORATORY | | + +---------+ + + + | CO2 | 26 | 20 - 31 mmol/L | [facility] | | | | | | [facility] | | | | | | [facility] | | | | | | CENTER - | | | | | | LABORATORY | | + +---------+ + + + | Anion Gap | 7 | 3 - 16 mmol/L | [facility] | | | | | | [facility] | | | | | | [facility] | | | | | | CENTER - | | | | | | LABORATORY | | + +---------+ + + + | Glucose | 102 | 60 - 106 mg/dL | [facility] | | | | | | [facility] | | | | | | [facility]ICAL | | | | | | CENTER - | | | | | | LABORATORY | | + +---------+ + + + | BUN | 8 (L) | 9 - 23 mg/dL | [facility] | | | | | | [facility] | | | | | | [facility] | | | | | | CENTER - | | | | | | LABORATORY | | + +---------+ + + + | Creatinine | 0.89 | 0.55 - 1.02 | [facility] | | | | | mg/dL | [facility] | | | | | | [facility]ICAL | | | | | | CENTER - | | | | | | LABORATORY | | + +---------+ + + + | eGFR, | >60 | >=60 | [facility] | | | non- | | mL/min/1.73m2 | [facility] | | | [place]ian | | | MEDICAL | | | | | | CENTER - | | | | | | LABORATORY | | + +---------+ + + + | Calcium | 9.3 | 8.7 - 10.4 | [facility] | | | | | mg/dL | [facility] | | | | | | [facility]ICAL | | | | | | CENTER - | | | | | | LABORATORY | | + +---------+ + + + | Albumin | 4.3 | 3.2 - 4.8 g/dL | [facility] | | | | | | [facility] | | | | | | [facility]ICAL | | | | | | CENTER - | | | | | | LABORATORY | | + +---------+ + + + | Bilirubin | 0.5 | 0.3 - 1.2 mg/dL | [facility] | | | Total | | | [facility] | | | | | | MEDICAL | | | | | | CENTER - | | | | | | LABORATORY | | + +---------+ + + + | Total | 6.2 | 5.7 - 8.2 g/dL | [facility] | | | Protein | | | [facility] | | | [facility] | | MEDICAL | | | | | | CENTER - | | | | | | LABORATORY | | + +---------+ + + + | AST | 26 | 0 - 34 U/L | [facility] | | | | | | [facility] | | | | | | [facility]ICAL | | | | | | CENTER - | | | | | | LABORATORY | | + +---------+ + + + | ALT | 28 | 10 - 49 U/L | [facility] | | | | | | [facility] | | | | | | MEDICAL | | | | | | CENTER - | | | | | | LABORATORY | | + +---------+ + + + | Alkaline | 125 (H) | 46 - 116 U/L | [facility] | | | Phosphatase | | | [facility] | | | | | | MEDICAL | | | | | | CENTER - | | | | | | LABORATORY | | + +---------+ + + + | Globulin | 1.9 (L) | 2.1 - 3.8 g/dL | [facility] | | | | | | [facility] | | | | | | [facility]ICAL | | | | | | CENTER - | | | | | | LABORATORY | | + +---------+ + + + | Albumin/Jo Ann | 2.3 (H) | 0.8 - 1.9 | [facility] | | | bulin Ratio | | | [facility] | | | | | | [facility]ICAL | | | | | | CENTER - | | | | | | LABORATORY | | + +---------+ + + + | BUN/Creatin | 9.0 | | [facility] | | | ine Ratio | | | [facility] | | | | | | [facility]ICAL | | | | | | CENTER - | | | | | | LABORATORY | | + +---------+ + + + + + | Specimen | + + | Blood | + + + + + + + | Performing | Address | City/State/Zipcode | Phone Number | | Organization | | | | + + + + + | [facility] | [address] | [place] | [phone] | | [facility] | | [address] | | | - LABORATORY | | | | + + + + + Lactate Dehydrogenase (07/07/2018 2:05 PM PDT) + +-------+ + + + | Component | Value | Ref Range | Performed | Pathologist | | | | | At | Signature | + +-------+ + + + | LDH TOTAL | 204 | 120 - 246 U/L | [facility] [...] [address] | [place] | [phone] | | [facility] | | [address] | | | - LABORATORY | | | | + + + + + documented in this encounter Visit Diagnoses + + | Diagnosis | + + | Esophageal cancer, stage IIA (HCC) | + + | Thyroid nodule Nontoxic uninodular goiter | + + | Esophageal cancer, stage IIIA (HCC) | + + | Vocal cord dysfunction Other diseases of vocal cords | + + documented in this encounter
--- OUTSIDE RECORDS SUMMARY | ~2019-12-05 | XMS | Encounter Summary ---
Demographics + + + | Address | [address] | | | [place] [address] | + + + | Home Phone | | + + + | Preferred Language | Unknown | + + + | Marital Status | | + + + | Moravian Affiliation | Unknown | + + + | Race | Unknown | + + + | Ethnic Group | Unknown | + + + Author + + + | Author | [facility] | | | and [place] | + + + | Organization | [facility] | | | and [...] Team Providers + +------+ + | Care Sonography Technologist Name | Role | Phone | + +------+ + PCP | Unavailable | + +------+ + Encounter Details +--------+ + + + + | Date | Type | Department | Care Team | Description | +--------+ + + + + | 06/25/ | Hospital | [facility] | | | | 1993 | Encounter | MED CTR GENERIC OP | | | | | | CONV DEPT [address] | | | | | | [place], | | | | | | [place] [address] | | | | | | [phone] | | | +--------+ + + + [...]
--- OUTSIDE RECORDS SUMMARY | ~2019-12-05 | XMS | Encounter Summary ---
Demographics + + + | Address | [address] | | | [place] [address] | + + + | Home Phone [...] + | Author | [facility] | | | and [place] | + + + | Organization | [facility] | | | and [...] Team Providers + +------+ + | Care Terrazzo Layer Helper Name | Role | Phone | + +------+ + | Haim Epps | PCP | | + +------+ + Encounter Details +--------+ + + + + | Date | Type | Department | Care Team | Description | +--------+ + + + + | 01/05/ | Hospital | [facility] | Jennifer Reyes | Canceled (Clinic | | 2019 | Encounter | MED CTR RADIATION | MD Manjula [address] | and/or Provider | | | | ONCOLOGY CLINIC [address] | [facility] [place] | Cancellation) | | | | [address] [place] | [address] | | | | | [place] [address] | | | | | | [phone] | | | +--------+ + + + [...]
--- OUTSIDE RECORDS SUMMARY | ~2019-12-05 | XMS | Encounter Summary ---
Demographics + + + | Address | [address] | | | [place] [address] | + + + | Home Phone | | + + + | Preferred Language | Unknown | + + + | Marital Status | | + + + | Pentecostalism Affiliation | Unknown | + + + | Race | Unknown | + + + | Ethnic Group | Unknown | + + + Author + + + | Author | [facility] | | | and [place] | + + + | Organization | [facility] | | | [...] Team Providers + +------+ + | Care Shuttle Route Vehicle Operator Name | Role | Phone | [...] neoplasm of | Isak Elizabeth, | [address] | | | | | esophagus, | MD [address] | [place], | | | | | unspecified | [place] | [place] [address] | | | | | (HCC) | [address] | Phone: | | | | | Procedures | [place], | [phone] | | | | | [place] | [place] [address] | Fax: | | | | | [place] | Phone: | [phone] | | | | | [place] | [phone] | | | | | | [place] | Fax: | | | | | | DEXAMETHASON | [phone] | | | | | | E, .25 MG | | | | | | | AL | | | | | | | INJECTION, | | | | | | | FAMOTIDINE, | | | | | | | 20 MG AL | | | | | | | DIPHENHYDRAM | | | | | | | INE HCL | | | | | | | INJECTIO, 50 | | | | | | | MG AL | | | | | | | PACLITAXEL | | | | | | | INJECTION, | | | | | | | 1MG AL | | | | | | | CARBOPLATIN | | | | | | | INJECTION, | | | | | | | 50 MG AL | | | | | | | METHYLPREDNI | | | | | | | SOLONE | | | | | | | INJECTION, | | | | | | | 125 MG AL | | | | | | | DEXAMETHASON | | | | | | | E SODIUM | | | | | | | PHOS, 1 MG | | | | | | | AL ADRENALIN | | | | | | | EPINEPHRINE | | | | | | | INJECT, .1 | | | | | | | MG AL | | | | | | | ALBUTEROL | | | | | | | COMP CON, 1 | | | | | | | MG AL | | | | | | | ALBUTEROL | | | | | | | NON-COMP | | | | | | | CON, 1 MG | | | | | | | AL NORMAL | | | | | | | SALINE | | | | | | | SOLUTION | | | | | | | INFUS, 500 | | | | | | | ML AL | | | | | | | NORMAL | | | | | | | SALINE | | | | | | | SOLUTION | | | | | | | INFUS, 250 | | | | | | | ML AL | | | | | | | STERILE | | | | | | | WATER/SALINE | | | | | | | , 10 ML AL | | | | | | | CHEMOTHER, | | | | | | | IV PUSH,EA | | | | | | | ADD DRUG AL | | | | | | | CHEMOTHER, | | | | | | | IV INFUSION, | | | | | | | 1 HR AL | | | | | | | CHEMOTHER, | | | | | | | IV INFUSION, | | | | | | | EA HR AL | | | | | | | CHEMOTHER,NO | | | | | | | N-HORMONE | | | | | | | ANTI-NEOPL, | | | | | | | SUB-Q/IM AL | | | | | | | CHEMOTHER | | | | | | | HORMON | | | | | | | ANTINEOPL | | | | | | | SUB-Q/IM AL | | | | | | | | | | | | | | FOSAPREPITAN | | | | | | | T INJECTION, | | | | | | | 1 MG AL | | | | | | | PALONOSETRON | | | | | | | HCL, 25 MCG | | | +--------+--------+ + + + + Encounter Details +--------+ + + + + | Date | Type | Department | Care Team | Description | +--------+ + + + + | 05/05/ | Hospital | [facility] | Miguel A Kennedy, | Esophageal cancer, | | 2018 | Encounter | MED CTR CHEMO | MD [address] | stage IIA (HCC) | | | | INFUSION [address] [place], | (Primary Dx) | | | | [place], | [place] [address] | | | | | [place] [address] | [phone] | | | | | [phone] | | | +--------+ + + + [...] + documented as of this encounter Progress Carissa Ledbetter RN - 05/05/2017 2:03 PM PSTDc/d amb in stable condition with pastrycook's assistant . Has return appts. documented in this encounter Miscellaneous Notes Treatment Plan - Ana Montero RN - 05/05/2017 10:30 AM PSTViewed chart for weight, vital signs and lab results. Also viewed chart for completion of medication and allergy rev iew prior to treatment. Ana Montero RNDATE/TIME: 05/05/2017 10:30 documented in thi s encounter Plan of Treatment Not on filedocumented as of this encounter Results XR Chest 2 VW [...] + +---------+ + +--------+------+ | CARBOplatin (PARAPLATIN) 213.4 | New Bag | 05/05/19 | 213.4 mg | 542.7 | | | mg in sodium chloride 0.9% 250 mL | | 18 1:21 | | mL/hr | | | infusion 213.4 mg (Target AUC = | | PM PST | | | | | 2), Intravenous, Administer over | | | | | | | 30 Minutes, ONCE, 05/05/17 at | | | | | | | 1255, For 1 dose, Chemotherapy: | | | | | | | Use appropriate handling | | | | | | | precautions. Administer AFTER | | | | | | | PACLitaxel., | | | | | | + +---------+ + +--------+------+ +---+---+ | | | +---+---+ + +-------+ +-------+---+---+ | diphenhydrAMINE (BENADRYL) | Given | 05/05/19 | 25 mg | | | | injection 25 mg 25 mg, | | 18 11:06 | | | | | Intravenous, ONCE, 05/05/17 at | | AM PST | | | | | 1105, For 1 dose, Administer 30 | | | | | | | minutes prior to PACLitaxel ., | | | | | | + +-------+ +-------+---+---+ +---+---+ | | | +---+---+ + +-------+ +-------+---+---+ | famotidine (PEPCID) injection | Given | 05/05/19 | 20 mg | | | | 20 mg 20 mg, Intravenous, ONCE, | | 18 11:06 | | | | | 05/05/17 at 1105, For 1 dose, | | AM PST [...] 150 mg in | New Bag | 05/05/19 | 150 mg | 500 | | | sodium chloride 0.9% 250 mL IVPB | | 18 11:45 | | mL/hr | | | 150 mg, Intravenous, Administer | | AM PST | | | | | over 30 Minutes, ONCE, Wed | | | | | | | 05/05/17 at 1120, For 1 dose, Do | | | | | | | not shake bag., | | | | | | + +---------+ +--------+-------+---+ +---+---+ | | | +---+---+ + +-------+ +------+---+---+ | LORazepam (ATIVAN) 2 mg/mL | Given | 05/05/19 | 1 mg | | | | injection 0.5-1 mg 0.5-1 mg, | | 18 11:08 | | | | | Intravenous, PRN, Anxiety, | | AM PST | | | | | Nausea/Vomiting, Starting Wed | | | | | | | 05/05/17 at 1103, For 1 dose | | | | | | + +-------+ +------+---+---+ +---+---+ | | | +---+---+ + +---------+ +---+--------+---+ | ondansetron (ZOFRAN) 8 mg, | New Bag | 05/05/19 | | 217.6 | | | dexamethasone (DECADRON) 4 mg in | | 18 11:23 | | mL/hr | | | sodium chloride 0.9% 50 mL IVPB | | AM PST | | | | | Intravenous, Administer over 15 | | | | | | | Minutes, ONCE, 05/05/17 at | | | | | | | 1107, For 1 dose, Administer 30 | | | | | | | minutes prior to chemotherapy., | | | | | | + +---------+ +---+--------+---+ +---+---+ | | | +---+---+ + +---------+ +-------+-------+---+ | PACLitaxel (TAXOL) 90 mg in | New Bag | 05/05/19 | 90 mg | 265 | | | sodium chloride 0.9% 250 mL | | 18 12:15 | | mL/hr | | | infusion 90 mg (rounded from | | PM PST | | | | | 89.5 mg = 50 mg/m2 | | | | | | | 1.79 m2 Order-specific BSA), | | | | | | | Intravenous, Administer over 1 | | | | | | | Hours, ONCE, 05/05/17 at 1155, | | | | | | | [...]
--- OUTSIDE RECORDS SUMMARY | ~2019-12-05 | XMS | Encounter Summary ---
Demographics + + + | Address | [address] | | | [place] [address] | + + + | Home Phone | | + + + | Preferred Language | Unknown | + + + | Marital Status | | + + + | Gnosticist Affiliation | Unknown | + + + [...] Team Providers + +------+ + | Care Green Tire Inspector Name | Role | Phone | + +------+ + PCP | Unavailable | + +------+ + Encounter Details +--------+ + + + + | Date | Type | Department | Care Team | Description | +--------+ + + + + | 02/25/ | Hospital | [facility] | | | | 1992 | Encounter | MED CTR GENERIC OP | | | | | | CONV DEPT [address] | | | | | | [place], | | | | | | [place] [address] | | | | | | [phone] | | | +--------+ + + + [...]
--- OUTSIDE RECORDS SUMMARY | ~2019-12-05 | XMS | Encounter Summary ---
Demographics + + + | Address | [address] | | | [place] [address] | + + + | Home Phone | | + + + | Preferred Language | Unknown | + + + | Marital Status | | + + + | Orthodox Affiliation | Unknown | + + + | Race | Unknown | + + + | Ethnic Group | Unknown | + + + Author + + + | Author | [facility] | | | and [place] | + + + | Organization | [facility] | | [...] Team Providers + +------+ + | Care Sewing Machine Attachment Tester Name | Role | Phone | + +------+ + | Haim Epps | PCP | | + +------+ + Reason for Visit + +--------+ + | Reason | Onset | Comments | | | Date | | + +--------+ + | Medication Problem | 01/16/ | | | | 2019 | | + +--------+ + Encounter Details +--------+--------+ + + + | Date | Type | Department | Care Team | Description | +--------+--------+ + + + | 01/16/ | Refill | [facility] | Jennifer Reyes | Medication Problem | | 2019 | | MED CTR MEDICAL | MD Manjula [address] | | | | | ONCOLOGY CLINIC [address] | [address] [place], [place] | | | | | [address] [place] | [address] | | | | | [place] [address] | | | | | | [phone] | | | +--------+--------+ + + + [...] encounter Miscellaneous Notes Telephone Encounter - Merari Kaplan, LIONEL - 01/16/2019 3:50 PM PDTCall placed to [facility] ph eleuterio spoke with Pat she states that it is too early for patient to get a refill on omep razole, next able to refill on on 02/03/19. Spoke with patient she states that she does not need a refill right now, she has enough med ication for about another month and a half. She was calling because she had gotten a letter from her insurance stating that omeprazole will only be covered for 90 units in a 365 day pe riod without doctor letter stating medical necessity, she voiced concern and frustration juan alberto t they were doing this, as this medication was neccessary for her. I let her know that it wo uld not be a problem to submit a prior authorization and documentation to the insurance to g et it covered, I explained the process of this and let her know that she needs to let us kno w a couple of weeks prior to running out so that way we can contact the insurance company an d get the appropriate forms and send the required documentation to get it covered for her. Clara callahan verbalizes her understanding and appreciation for the explanation and states that she will contact us prior to running out with enough time to allow authorization, no further qu estions at this time. elephone Encounter - Manisha Acevedo - 01/16/2019 3:06 PM Jaime called in regards to her prescription for Omeprazole. [facility] is being difficult about covering it, their number is . Please return call to Laurie for clarification, thank you.Electronically sign ed by Manisha Acevedo at 01/16/2019 3:09 PM PDTdocumented in this encounter Plan of Treatment Not on filedocumented as of this encounter Visit Diagnoses Not on filedocumented in this encounter"
--- OUTSIDE RECORDS SUMMARY | ~2019-12-05 | XMS | Encounter Summary ---
Demographics + + + | Address | [address] | | | [place] [address] | + + + | Home Phone | | + + + | Preferred Language | Unknown | + + + | Marital Status | | + + + | Jainism Affiliation | Unknown | + + + | Race | Unknown | + + + | Ethnic Group | Unknown | + + + Author + + + | Author | [facility] | | | and [place] | + + + | Organization | [facility] | | [...] Team Providers + +------+ + | Care Dental Instructor Name | Role | Phone | + +------+ + | No, Physician | PCP | Unavailable | + +------+ + Reason for Visit + +--------+ + | Reason | Onset | Comments | | | Date | | + +--------+ + | Medication Refill | 08/02/ | | | | 2017 | | + +--------+ + Encounter Details +--------+--------+ + + + | Date | Type | Department | Care Team | Description | +--------+--------+ + + + | 08/02/ | Refill | [facility] | Jennifer Reyes | Medication Refill | | 2018 | | MED CTR RADIATION | MD Manjula [address] | | | | | ONCOLOGY CLINIC [address] | [address] [place], [place] | | | | | [address] | [address] | | | | | [place] [address] | | | | | | [phone] | | | +--------+--------+ + + + [...] Telephone Encounter - Marisel Richardson RN - 08/03/2017 1:28 PM PDTOrders have been faxed, patient notified. el ephone Encounter - Marisel Richardson RN - 08/02/2017 3:50 PM PDTPatient is wondering if you would continue to refill the prescription for her Prilosec or if you would like Dr. Webb take over ordering this. She has enough for one more day. She ask that I send the specifi c information about how this has been ordered if you would like him to order. I have set t he order to print as the instructions are too long to send electronically. Electronically s igned by Marisel Richardson RN at 08/02/2017 3:53 PM PDTdocumented in this encounter Plan of Treatment Not on filedocumented as of this encounter Visit Diagnoses Not on filedocumented in this encounter"
--- OUTSIDE RECORDS SUMMARY | ~2019-12-05 | XMS | Encounter Summary ---
Demographics + + + | Address | [address] | | | [place] [address] | + + + | Home Phone | | + + + | Preferred Language | Unknown | + + + | Marital Status | | + + + | Baptism Affiliation | Unknown | + + + | Race | Unknown | + + + | Ethnic Group | Unknown | + + + Author + + + | Author | [facility] | | | and [place] | + + + | Organization | [facility] | | [...] Team Providers + +------+ + | Care Energy Auditor Name | Role | Phone | + +------+ + | No, Physician | PCP | Unavailable | + +------+ + Reason for Visit +--------+--------+ + | Reason | Onset | Comments | | | Date | | +--------+--------+ + | Other | 05/10/ | | | | 2018 | | +--------+--------+ + Encounter Details +--------+ + + + + | Date | Type | Department | Care Team | Description | +--------+ + + + + | 05/10/ | Telephone | [facility] | Wells, Marisel M, | Other | | 2018 | | [facility] | RN | | | | | [facility]OGY CLINIC [address] | | | | | | [address] | | | | | | [place] [address] | | | | | | [phone] | | | +--------+ + + + [...] Telephone Encounter - Marisel Richardson RN - 05/10/2017 8:54 AM PSTNotified patient that RX had been sent to pharmacy and patient instructed as requested. elephone Encounter - Marisel Richardson RN - 05/10 8:53 AM PST----- Message from Jennifer Madrid MD sent at 05/10/2017 8:10 PST ---- - Please let her know that I sent and rx to her pharmacy for trazodone to take at bedtime for the esophageal spasm. Start with 1 tab for the first few nights if ineffective may increas e to 2 tabs. documente d in this encounter Plan of Treatment Not on filedocumented as of this encounter Visit Diagnoses Not on filedocumented in this encounter"
--- OUTSIDE RECORDS SUMMARY | ~2019-12-05 | XMS | Encounter Summary ---
Demographics + + + | Address | [address] | | | [place] [address] | + + + | Home Phone | | + + + | Preferred Language | Unknown | + + + | Marital Status | | + + + | Adventism Affiliation | Unknown | + + + | Race | Unknown | + + + | Ethnic Group | Unknown | + + + Author + + + | Author | [facility] | | | and [place] | + + + | Organization | [facility] | | | [...] Team Providers + +------+ + | Care Marketing Assistant Manager Name | Role | Phone | + +------+ + | No, Physician | PCP | Unavailable | + +------+ + Reason for Visit + +--------+ + | Reason | Onset | Comments | | | Date | | + +--------+ + | Follow-up | 04/21/ | | | | 2017 | | + +--------+ + Encounter Details +--------+ + + + + | Date | Type | Department | Care Team | Description | +--------+ + + + + | 04/21/ | Telephone | [facility] | Rad Stevens Elysia, | Follow-up | | 2017 | | [facility] | [facility] | | | | | ON[facility]OGY CLINIC [address] | | | | | | [address] | | | | | | [place] [address] | | | | | | [phone] | | | +--------+ + + + [...] this encounter Miscellaneous Notes Telephone Encounter - Rad Stevens MSW - 04/21/2017 10:15 AM PSTCalled Annie to sydni miller up on sending out a [employer] assistance application packet. Annie reported that she was waiting to hear when she would start and that she had insurance through [employer] [place] [employer]. He understanding was that Dr. Colin and Dr. Mccarthy were developi ng a treatment plan that included concurrent radiation and chemotherapy and that she would b e starting treatment on April 27 or .Electronically signed by PATRICIA Young at 03/27 10:17 AM PSTdocumented in this encounter Plan of Treatment Not on filedocumented as of this encounter Visit Diagnoses Not on filedocumented in this encounter"
--- OUTSIDE RECORDS SUMMARY | ~2019-12-05 | XMS | Encounter Summary ---
Demographics + + + | Address | [address] | | | [place] [address] | + + + | Home Phone [...] Team Providers + +------+ + | Care Fiber Artist Name | Role | Phone | + +------+ + | No, Physician | PCP | Unavailable | + +------+ + Encounter Details +--------+ + + + + | Date | Type | Department | Care Team | Description | +--------+ + + + + | 05/12/ | Hospital | [facility] | Miguel A Kennedy, | Esophageal cancer, | | 2018 | Encounter | [facility] | MD Chari TEJEDA | stage IIA (HCC) | | | | ONCOLOGY CLINIC [address] [place], | (Primary Dx); | | | | [address] | [place] [address] | Chemotherapy-induced | | | | [place] [address] | [phone] | nausea; Diarrhea, | | | | [phone] | | unspecified type | +--------+ + + + + Social [...] + + + | Blood Pressure | 121/85 | 05/12/2017 8:45 AM | | | | | PST | | + + + + + | Pulse | 71 | 05/12/2017 8:45 AM | | | | | PST | | + + + + + | Temperature | 36.2 C (97.1 F) | 05/12/2017 8:45 AM | | | | | PST | | + + + + + | Respiratory Rate | - | - | | + + + + + | Oxygen Saturation | 98% | 05/12/2017 8:45 AM | | | | | PST | | + + + + + | Inhaled Oxygen | - | - | | | Concentration | | | | + + + + + | Weight | 62.1 kg (136 lb 14.5 | 05/12/2017 8:45 AM | | | | oz) | PST | | + + + + + | Height | - | - | | + + + + + | Body Mass Index | 22.27 | 04/14/2017 9:33 AM | | | [...] documented as of this encounter Progress Notes Miguel A Kennedy MD - 05/12/2017 8:20 AM PSTFormatting of this note might be different fr om the original. Hematology-Oncology Progress Note [facility] Pt. Name/Age/: Annie Brown 61 y.o. 1955 CSN: [id number] Date of service: 05/12/2017 Provider: Miguel A Kennedy MD HEMATOLOGY/ONCOLOGY PROBLEM LIST: Esophageal cancer, stage IIA (HCC) 03/15/2017 Initial Diagnosis Esophageal cancer, squamous cell 04/06/2017 Cancer Staged Clinical Stage IIIA (T3N1M0) by EUS 04/29/2017 - Radiation Therapy 04/29/2017 - Chemotherapy Weekly carboplatin/Taxol Of note, above dates are not necessarily exact. Assessment and plan: Patient continues to have similar issues with nausea but states that she is tolerating the lorazepam better, using that primarily for her ongoing chemotherapy associated nausea. Did discuss her esophageal spasm, being relatively well controlled with the trazodone orall y prescribed by radiation oncology. Diarrhea is new, presumably due to the slight increase in her tube feeding infusion. We'll prescribe liquid Imodium to try control that for now. 1. Continue daily radiation. 2. Proceed with cycle #3 of carboplatin/paclitaxel today. 3. Continue antiemetics as before. 4. Imodium liquid prescribed for diarrhea. Subjective: The patient chart and medications were reviewed in detail and the patient was seen and exam ined. Annie Brown is a 61 y.o. female with esophageal cancer here for follow-up and clemente tment. Patient states that she continues to have nausea without vomiting. Still utilizing ondanse esme but primarily after her chemotherapy days, not consistently. Has found that the loraze sirisha helps a lot with the nausea, less sedating than it was before. No fever or sweats. Has had some esophageal spasm pains, prescribed trazodone by Dr. Colin with benefit. Yesterday, began to have some diarrhea, again this morning. No change in her tube feeding formulation but did increase the rate from 90-100 mL's. No new exposures, no fevers. Husba nd denies diarrhea symptoms. PMH: Past Medical History: Diagnosis Date Esophageal cancer (HCC) Social & Family Hx: Social History Social History Marital status: Spouse name: N/A Number of children: N/A Years of education: N/A Social History Main Topics Smoking status: Never Smoker Smokeless tobacco: Never Used Alcohol use No Drug use: Unknown Sexual activity: Not on file Other Topics Concern Not on file Social History Narrative No narrative on file Family History Problem Relation Age of Onset Breast cancer Mother Breast cancer Maternal Grandmother Brain cancer Paternal Aunt Cancer Paternal Aunt Esophageal cancer Other Review of Systems: REVIEW OF SYSTEMS Constitutional: Reports energy level is low. Reports nausea. Down 2 kg since 05/06/17. Sai es high fevers, shaking chills, anorexia, vomiting, weight loss, or night sweats. Ear, Nose, Mouth, Throat: Denies odynophagia, dysphagia, or tinnitus. Cardiovascular: Reports dyspnea with exertion. Reports having chest pains due to esophageal spasm, was prescribed trazodone which is helping. Denies shortness of breath, dyspnea on ex ertion, palpitations or orthopnea. Respiratory: Reports cough continues with colorless mucus production Denies hemoptysis. Gastrointestinal: Reports diarrhea, states yesterday was the worst. Had about 5 episodes la night. Has had 2 episodes so far today. Stools are black with greenish tinge. Denies abd ominal pain, constipation, melena, or bright red blood per rectum. Genitourinary: Denies hematuria or dysuria. Musculoskeletal: Denies joint pain or tenderness. Neurologic: Reports headaches. Denies visual changes, or numbness/tingling of the extremiti es. Endocrine: Denies peripheral edema or heat/cold intolerance. Hematologic: Bruises easily. Denies spontaneous bruising or bleeding. Integumentary: Denies rash, wounds or other skin concerns. Pain: 4/10 pain in chest where tumor is. Has not taken anything for pain today. Note: Here for follow up, labs and 3 hour treatment. My chart: Declined. Medications: Current Outpatient Prescriptions Medication Sig dexamethasone (DECADRON) 1 mg/mL solution Administer 4 mL's (4 mg) via feeding tube two times daily for 2 days after each chemo HYDROcodone-acetaminophen (HYCET) 7.5-325 mg/15 mL liquid Take 15 mLs via J-tube 4 time s daily as needed for Pain. loperamide (IMODIUM) 2 mg/10 mL solution 20ML through tube followed by 10ML after each loose stool; Max 80 ML/day LORazepam (ATIVAN) 1 mg tablet Crush 1 tablet and mix in 15-30 mL's of water, administe r via feeding tube every 6 hours as needed for nausea/vomiting, anxiety, or restlessness. ondansetron (ZOFRAN) 8 MG tablet Crush 1 tablet and mix with 15-30 mL (1-2 tablespoons) of water, administer twice daily for 2 days after each chemo. On other days, take 8 mg ever y 8 hrs as needed for nausea/vomiting traZODone (DESYREL) 50 mg tablet Take 1-2 tabs nightly as needed for esophageal spasm No current facility-administered medications for this encounter. Facility-Administered Medications Ordered in Other Encounters Medication ethyl chloride spray Allergies: No Known Allergies Vitals: Temp: 36.2 C (97.1 F) BP: 121/85 Pulse: 71 SpO2: 98 % on Temp :Temp Av.2 C (97.1 F) Min: 36.2 C (97.1 F) Max: 36.2 C (97.1 F) No intake or output data in the 24 hours ending 05/12/17 0900 Wt. Current: Weight: 62.1 kg (136 lb 14.5 oz) Physical Exam: Exam: ECOG Performance Status: 1 2 General: The patient is alert and oriented. No acute distress but looks chronically ill, accompanied by her . HEENT: PERRL, Non-icteric. Dry mucosal membranes. Extremities: Nontender, no erythema, no edema. Skin: No rashes, bruising, or petechiae. Neurological: No focal deficits noted. Speech fluent. Psychiatric: Normal mood and affect. Appropriate. Diagnostic studies: Available data and image reports were reviewed personally. See reports. Significant resul ts and findings are addressed here or in the Assessment and Plan. Recent Labs Lab 05/12/17 0759 WBC 4.5 HGB 14.6 HCT 42.7 PLT 285 Recent Labs Lab 05/12/17 0759 NA 134* K 3.9 CL 103 CO2 26 BUN 11 CREA 0.74 GLU 101 CALCIUM 9.4 BILITOT 0.7 AST 28 ALT 44 ALKPHOS 66 ALBUMIN 4.0 Electronically signed by: Miguel A Kennedy MD 05/12/2017 9:00 Portions of this chart may have been created with [employer] voice recognition software. Occasi onal wrong-word or sound-alike substitutions may have occurred due to the inherent solis itations of voice recognition software. Please read the chart carefully and recognize, using context, where these substitutions have occurred. documented in this encounter Plan of Treatment Not on filedocumented as of this encounter Visit Diagnoses + + | Diagnosis | + + | Esophageal cancer, stage IIA (HCC) - Primary | + + | Chemotherapy-induced nausea Nausea alone | + + | Diarrhea, unspecified type | + + documented in this encounter"
--- OUTSIDE RECORDS SUMMARY | ~2019-12-05 | XMS | Encounter Summary ---
Demographics + + + | Address | [address] | | | [place] [address] | + + + | Home Phone | | + + + | Preferred Language | Unknown | + + + | Marital Status | | + + + | Temple Affiliation | Unknown | + + + [...] Team Providers + +------+ + | Care Tobacco Feeder Catcher Name | Role | Phone | + +------+ + | No, Physician | PCP | Unavailable | + +------+ + Reason for Visit + + + | Reason | Comments | + + + | Follow-up | | + + + Encounter Details +--------+ + + + + | Date | Type | Department | Care Team | Description | +--------+ + + + + | 06/01/ | [facility] | [facility] | Fabio, | Esophageal cancer, | | 2018 | Encounter | [facility] | Talon Elizabeth MD [address] | stage IIA (HCC) | | | | ON[facility]OGY CLINIC [facility] | JAQUAN WEBER REYNALDO | (Primary Dx) | | | | [address] [place] | [address] | | | | | [place] [address] | [address] | | | | | [phone] | | | +--------+ + + + [...] + + + | Blood Pressure | 121/77 | 06/01/2017 9:37 AM | | | | | PST | | + + + + + | Pulse | 77 | 06/01/2017 9:37 AM | | | | | PST | | + + + + + | Temperature | 37.3 C (99.1 F) | 06/01/2017 9:37 AM | | | | | PST | | + + + + + | Respiratory Rate | 16 | 06/01/2017 9:37 AM | | | | | PST | | + + + + + | Oxygen Saturation | 98% | 06/01/2017 9:37 AM | | | | | PST | | + + + + + | Inhaled Oxygen | - | - | | | Concentration | | | | + + + + + | Weight | 61.4 kg (135 lb 5.8 | 06/01/2017 9:37 AM | | | | oz) | [...] documented as of this encounter Progress Notes Talon Mcclure MD - 06/01/2017 9:25 AM PSTFormatting of this note might be differe nt from the original. Hematology/Oncology Progress Note [facility] [place] Pt. Name/Age/: Annie Brown 61 y.o. 1955 Med. Record Number: [id number] Date of admission: 06/01/2017 The patient's primary care provider is No Physician on file. Identifying Statement: Annie Brown is a 61 y.o. female from [address] [place] [address] with Esophageal Cancer. The patient chart and medications were reviewed in detail and the patient was seen and exam ined. History of Present Illnesses, their Current Assessments and Plans: Problem List Esophageal cancer, stage IIA Overview ACTIVE DIAGNOSIS: Squamous cell carcinoma of the esophagus, Stage IIIA. 1. Upper endoscopy with biopsy March 15, 2017 (Supriya). Mass in mid esophagus. [id number]) Invasive Squamous Cell carcinoma, mod erately differentiated. Immunohistochemistry diffusely positive for P16. 2. Status post feeding jejunostomy tube placement by Dr. Haim Epps, [facility], [facility]. 3. PET/CT scan March 24, 2017; mid-esophageal tumor with SUV 8.5, no evidence of metasta tic disease. 4. Endoscopic ultrasound at [facility]; single level 8 node "moderately suspicious." Clinical stage T3N1M0, Stage IIIA. 5. Comprehensive mutidisciplinary team evaluation at [facility], [facility] (Haim Hernandez, Gold Cannon); combined modality chemoradiation with weekly taxol/car boplatin at [facility] in [place], follow by definitive resection b y Dr. Cannon at [facility]. 6. Status post placement of a left subclavian port-a-cath by Dr. Haim Epps. 7. Begin Combined modality therapy April 29, 2017. Current Assessment & Plan Annie Brown returned to clinic on 06/01/2017 with her , Gene for follow-up and treatment of Stage IIIA squamous cell carcinoma of the esophagus. Interval history is notable for the fact that Annie will finish radiation therapy next Mo nday. Review of systems is notable for the fact that Annie cannot swallow her own secretions. Physical exam is notable for the fact that she gained one pound. Clinical Data is notable for Grade 2 leukopenia without neutropenia. Assessment;Stage IIIA squamous cell carcinoma of the mid esophagus. Plan; Annie will receive her sixth and last cycle of fractionated weekly taxol/carboplati n chemotherapy today. She will finish radiation therapy next week. She will return to [facility] on June 21 and Jun 22, 2017 for repeat staging studies, and tent atively proceed with surgery by Dr. Cannon. Medical oncology follow up in approximately two month for port flush and to review surgery outcome. Review of Systems: Constitutional: Reports energy level is less, than last visit. Reports yesterday felt nause ated, took 2 ondansetron. Reports feeling like maybe she is "fighting a cold, drippy nose, t emperature slightly elevated yesterday 99.8f and then this morning 99.2 at home". Denies sh aking chills, anorexia, vomiting, weight loss, or night sweats. Appetite without changes. Ear, Nose, Mouth, Throat: Reports difficulty swallowing, unable to get anything down still, unchanged. Reports intermittent tinnitus, continues, has increased in frequency. Denies od ynophagia. Cardiovascular: Denies shortness of breath, dyspnea on exertion, chest pain, palpitations o r orthopnea. Respiratory: Reports sputum production, "it's like slime, have to spit it out and keep spit ting it out, very thick, think Ghost Busters", has increased and is more painful than last v isit. Denies cough, hemoptysis. Gastrointestinal: Denies abdominal pain, constipation, diarrhea, melena, or bright red bloo d per rectum. Genitourinary: Denies hematuria or dysuria. Musculoskeletal: Denies joint pain or tenderness. Neurologic: Reports headaches from not eating continues, unchanged. Denies visual changes, or numbness/tingling of the extremities. Endocrine: Denies peripheral edema or heat/cold intolerance. Hematologic: Denies spontaneous bruising or bleeding. Integumentary: Denies rash, wounds or other skin concerns. Pain: Reports throat pain 4/10 on scale of 0-10, goal <4/10, has not had any pain or stomac h medication this morning. Note: Here for follow up, labs, and treatment. Here with today. My chart: Declined Scheduled Medications: Current Outpatient Prescriptions Medication Sig Dispense Refill dexamethasone (DECADRON) 1 [...] Facility-Administered Medications Ordered in Other Encounters Medication Dose Route Frequency Provider Last Rate Last Dose ethyl chloride spray Topical PRN Talon Mcclure MD heparin 100 units/mL flush injection 500 Units 5 mL Intercatheter PRN Talon mendez MD 500 Units at 06/01/17 1306 HYDROmorphone (DILAUDID) injection 0.2-0.4 mg 0.2-0.4 mg Intravenous Q1H PRN Talon Mcclure MD 0.2 mg at 06/01/17 1032 LORazepam (ATIVAN) 2 mg/mL injection 0.5-1 mg 0.5-1 mg Intravenous PRN Talon koo MD Allergies: Allergy: No Known Allergies Past Medical [...] Problem List Diagnosis Esophageal cancer, stage IIA Family History Problem Relation Age of Onset Breast cancer Mother Breast cancer Maternal Grandmother Brain cancer Paternal Aunt Cancer Paternal Aunt Esophageal cancer Other Objectives: Temp: 37.3 C (99.1 F) BP: 121/77 Pulse: 77 Resp: 16 SpO2: 98 % on Min/Max Temp past 24 hours:Temp Av.3 C (99.1 F) Min: 37.3 C (99.1 F) Max: 3 7.3 C (99.1 F) No intake or output data in the 24 hours ending 06/01/17 1930 Wt. Admission: Weight: 61.4 kg (135 lb 5.8 oz) Wt. Current: Weight: 61.4 kg (135 lb 5.8 oz) Wt Readings from Last 3 Encounters: 06/01/17 61.4 kg (135 lb 5.8 oz) 05/27/17 60.7 kg (133 lb 13.1 oz) 05/25/17 60.6 kg (133 lb 9.6 oz) Physical Exam: General: The patient is alert and oriented. No acute distress. Eyes: Conjunctiva clear. Sclera anicteric. ENMT: Oropharynx fee of lesions, mucous membranes moist. Complete alopecia, wearing a crani al prosthesis. Cardiovascular: Regular rate and rhythm, no rubs, gallops, or murmurs. Lungs: Clear to auscultation and percussion. Chest: The left subclavian port-a-cath was successfully accessed today and a brisk blood r eturn was noted. Abdomen: Soft, nontender, no hepatospenomegaly. No palpable masses. Bowel sounds present. Midline incision well-healed. Jejunostomy tube in the left upper quadrant has no discharge. The two new sutures placed by Dr. Epps are under slight tension. Extremities: Nontender, no erythema, no edema. Skin: [...] in Am. J. Clin. Oncol.: Maximo Romero., Karen, R.H., Yudi Clemente., Tanner Cheney., [place], TTaylor., Solomon, EJimymT., Lelo, P .P.: Toxicity And Response Criteria Of The Eastern Cooperative Oncology Group. Am J Clin Onc ol 5:649-655, 1982. The ECOG Performance Status is in the public domain therefore available for public use. To duplicate the scale, please cite the reference above and credit the Eastern Cooperative Onco logy Group, Talon Jon M.D., Group Chair Diagnostic studies: Available data and images were reviewed personally. See reports. Significant results and findings are addressed here or in the Assessment and Plan. Results for SEVERE, ANNIE JONES ( ) as of 06/01/2017 19:16 Ref. Range 06/01/2017 08:34 WBC Latest Ref Range: 4.0 - 11.0 K/uL 2.9 (L) RBC COUNT Latest Ref Range: 3.70 - 5.20 M/uL 4.20 Hgb Latest Ref Range: 11.5 - 16.0 g/dL 13.0 Hct, Final Latest Ref Range: 34.0 - 47.0 % 37.8 MCV Latest Ref Range: 83.0 - 101.0 fL 90.0 MCH Latest Ref Range: 28.0 - 35.0 pg 30.9 MCHC Latest Ref Range: 32.0 - 36.0 g/dL 34.4 RDW-CV Latest Ref Range: <15.0 % 13.4 Platelet Count Latest Ref Range: 140 - 440 K/uL 159 MPV Latest Units: fL 7.9 Absolute Neutrophils Latest Ref Range: 1.80 - 8.50 K/uL 2.10 Absolute Lymphocytes Latest Ref Range: 0.60 - 3.20 K/uL 0.50 (L) Absolute Monocytes Latest Ref Range: 0.00 - 1.00 K/uL 0.30 Absolute Eosinophils Latest Ref Range: 0.00 - 0.40 K/uL 0.00 Absolute Basophils Latest Ref Range: 0.00 - 0.10 K/uL 0.00 % Neutrophils Latest Ref Range: 45.0 - 82.0 % 72.3 % Lymphocytes Latest Ref Range: 20.0 - 45.0 % 17.1 (L) % Monocytes Latest Ref Range: 4.0 - 12.0 % 9.4 % Eosinophils Latest Ref Range: 0.0 - 5.0 % 0.4 % Basophils Latest Ref Range: 0.0 - 1.0 % 0.8 NA Latest Ref Range: 136 - 149 mmol/L 137 K Latest Ref Range: 3.5 - 5.1 mmol/L 3.9 Chloride Latest Ref Range: 98 - 109 mmol/L 104 Carbon dioxide Latest Ref Range: 24 - 31 mmol/L 27 ANION GAP Latest Ref Range: 3 - 16 mmol/L 6 GLUCOSE Latest Ref Range: 70 - 109 mg/dL 96 BUN Latest Ref Range: 7 - 18 mg/dL 11 Creatinine Latest Ref Range: 0.60 - 1.30 mg/dL 0.68 BUN/CREA Unknown 16.2 ALBUMIN Latest Ref Range: 3.2 - 5.0 g/dL 3.7 Albumin/Globulin ratio Latest Ref Range: 0.8 - 2.0 1.7 Total protein Latest Ref Range: 6.0 - 7.8 g/dL 5.9 (L) EGFR IF NOT Latest Ref Range: >=60 mL/min/1.73m2 >60 Calcium Latest Ref Range: 8.3 - 10.5 mg/dL 9.3 ALK PHOS Latest Ref Range: 40 - 110 U/L 60 ALT (SGPT) (REF) Latest Ref Range: 6 - 45 U/L 43 AST (SGOT) (REF) Latest Ref Range: 10 - 42 U/L 34 BILIRUBIN TOTAL Latest Ref Range: 0.1 - 1.5 mg/dL 0.5 GLOBULIN Latest Ref Range: 2.1 - 3.8 g/dL 2.2 Pharmacovigilance: Palliative Care: Patient's Medications New Prescriptions No medications on file Modified Medications Modified Medication Previous Medication OMEPRAZOLE MAGNESIUM 10 MG PACK Omeprazole Magnesium 10 MG PACK Mix 15 mL of water and one 10 mg packet of omeprazole, administer via J tube three time s daily. Once mixed, shake gently and allow 2-3 minutes for solution to thicken, then admini ster. Mix 15 mL of water and one 10 mg packet of omeprazole, administer via J tube twice daily. Once mixed, shake gently and allow 2-3 minutes for solution to thicken, then administ er. Discontinued Medications No medications on file Procedure: Day 1, Week 6 (3-day cycle) Completed; Released on 06/01/2017; Originally planned for 06/01/2017 Labs Comprehensive Metabolic Panel STAT, ONE TIME, 06/01/17 at 0835, For 1 occurrence OrderHistory CBC with Differential STAT, ONE TIME, 06/01/17 at 0835, For 1 occurrence OrderHistory PRN Medications ethyl chloride spray (Not Given) Topical, PRN, Pain, Starting 06/01/17 at 0834 OrderHistory Nursing Orders OK to proceed with chemotherapy (Not Released) 06/01/17 -INFORMED CONSENT: The nature and character of the proposed treatment with Week #6 Carboplatin and Taxol and the anticipated results of the proposed treatment with Week #6 Car boplatin and Taxol ;recognized alternative forms of treatment, including non-treatment; the risks benefits, and side effects of proposed treatment, alternative treatments and non-treat ment were discussed with the patient who consents to proceed with treatment with Week #6 Car boplatin and Taxol . The treating provider has examined the patient and reviewed the diagnos tic data, including laboratory data, and deems that it is safe and appropriate to proceed wi th treatment with Week #6 Carboplatin and Taxol .Electronically signed by: TALON MENDEZ MD 06/01/2017 10:12. OrderHistory Plans for discharge (Not Released) Switched to Aloxi/Dex due to nausea for 4-5 days after each chemo treatment. Today is last Chemotherapy. QFU about July 19, RN port draw for lab. OrderHistory Pre-Medications famotidine (PEPCID) injection 20 mg 20 mg, Intravenous, ONCE, 06/01/17 at 1030, For 1 dose Keep in refrigerator. Administer 30 minutes prior to PACLitaxel. Prior to administration, prepare a 20 mg dose by diluting 2 mL of famotidine 10 mg/mL to 10 mL with normal saline. OrderHistory diphenhydrAMINE (BENADRYL) injection 25 mg 25 mg, Intravenous, ONCE, Tue 18 at 1030, For 1 dose Administer 30 minutes prior to PACLitaxel . OrderHistory palonosetron (ALOXI) 0.25 mg, dexamethasone (DECADRON) 4 mg in sodium chloride 0.9% 50 mL IVPB Intravenous, Administer over 15 Minutes, ONCE, 06/01/17 at 1030, For 1 dose OrderHis tory fosaprepitant (EMEND) 150 mg in sodium chloride 0.9% 250 mL IVPB 150 mg, Intravenous, Administer over 30 Minutes, ONCE, Tue 18 at 1030, For 1 dose Do not shake bag. OrderHistory PRN Medications HYDROmorphone (DILAUDID) injection 0.2-0.4 mg 0.2-0.4 mg (original dose 0.2-0.4 mg), Intravenous, EVERY 1 HOUR PRN, Pain, Starting Tue at 1014 OrderHistory LORazepam (ATIVAN) 2 mg/mL injection 0.5-1 mg (Not Given) 0.5-1 mg (original dose 0.5-1 mg), Intravenous, PRN, Anxiety, Nausea/Vomiting, Starting Tu e 06/01/17 at 1014, For 1 dose OrderHistory CHEMOTHERAPY PACLitaxel (TAXOL) 84 mg in sodium chloride 0.9% 150 mL infusion 84 mg (rounded from 84.5 mg = 50 mg/m2 1.69 m2 Treatment plan recorded BSA), Intravenou s, Administer over 1 Hours, ONCE, 06/01/17 at 1100, For 1 dose Chemotherapy: Use appropriate handling precautions. Vesicant. Use 0.22 micron filter and no n-DEHP tubing for administration. This drug has a high incidence of infusion reactions. My ent must be directly and frequently observed during drug administration. OrderHistory CARBOplatin (PARAPLATIN) 218.2 mg in sodium chloride 0.9% 250 mL infusion 218.2 mg (Target AUC = 2), Intravenous, Administer over 30 Minutes, ONCE, 06/01/17 at 12 00, For 1 dose Chemotherapy: Use appropriate handling precautions. Administer AFTER PACLitaxel. OrderH istory Post-Medications heparin 100 units/mL flush injection 500 Units 500 Units (5 mL), Intercatheter, PRN, Line Care, Starting 06/01/17 at 1014 OrderHist ory TALON MCCLURE MD Portions of this chart may have been created with [employer] voice recognition software. Occasi onal wrong-word or sound-alike substitutions may have occurred due to the inherent solis itations of voice recognition software. Please read the chart carefully and recognize, using context, where these substitutions have occurred. documented in t his encounter Miscellaneous Notes Assessment & Plan Note - Talon Mcclure MD - 06/01/2017 7:18 PM PSTAssociated Prob chandler(s): Esophageal cancer, stage IIIA (HCC)Annie Brown returned to clinic on 06/01/19 with her , Gene for follow-up and treatment of Stage IIIA squamous cell carcinoma of the esophagus. Interval history is notable for the fact that Annie will finish radiation therapy next Mo nday. Review of systems is notable for the fact that Annie cannot swallow her own secretions. Physical exam is notable for the fact that she gained one pound. Clinical Data is notable for Grade 2 leukopenia without neutropenia. Assessment;Stage IIIA squamous cell carcinoma of the mid esophagus. Plan; Annie will receive her sixth and last cycle of fractionated weekly taxol/carboplati n chemotherapy today. She will finish radiation therapy next week. She will return to [facility] on June 21 and Jun 22, 2017 for repeat staging studies, and tent atively proceed with surgery by Dr. Cannon. Medical oncology follow up in approximately two month for port flush and to review surgery outcome. document ed in this encounter Plan of Treatment Not on filedocumented as of this encounter Results Lactate Dehydrogenase (04/21/2018 2:03 PM PST) + +-------+ + + + | Component | Value | Ref Range | Performed | Pathologist | | | | | At | Signature | + +-------+ + + + | LDH TOTAL | 139 | 91 - 180 U/L | [facility] | | | | | [facility] [...] + | [facility] | [address] | [place] | [phone] | | [facility] | | [address] | | | - LABORATORY | | | | + + + + + Comprehensive Metabolic Panel (04/21/2018 2:03 PM PST) + + + + + + | Component | Value | Ref Range | Performed | Pathologist | | | | | At | Signature | + + + + + + | Na | 139 | 136 - 149 | [facility] | | | | | mmol/L | [facility] | | | | | [facility] | | | | | | CENTER - | | | | | | LABORATORY | | + + + + + + | K | 3.6 | 3.5 - 5.1 | [facility] | | | | | mmol/L | [facility] | | | | | | MEDICAL | | | | | | CENTER - | | | | | | LABORATORY | | + + + + + + | Cl | 108 | 98 - 109 mmol/L | [facility] | | | | | | [facility] | | | | | | [facility]ICAL | | | | | | CENTER - | | | | | | LABORATORY | | + + + + + + | CO2 | 24 | 24 - 31 mmol/L | [facility] [...] + + + + | Glucose | 74 | 70 - 109 mg/dL | [facility] | | | | | | [facility] | | | | | | MEDICAL | | | | | | CENTER - | | | | | | LABORATORY | | + + + + + + | BUN | 9 | 7 - 18 mg/dL | [facility] | | | | | | [facility] | | | | | | MEDICAL | | | | | | CENTER - | | | | | | LABORATORY | | + + + + + + | Creatinine | 0.69 | 0.60 - 1.30 | [facility] | | | | | mg/dL | [facility] | | | | | | MEDICAL | | | | | | CENTER - | | | | | | LABORATORY | | + + + + + + | eGFR, | >60Comment: GLOMERULAR | >=60 | [facility] | | | non- | FILTRATION | mL/min/1.73m2 | [facility] | | | [place] | RATE,ESTIMATED | | MEDICAL | | | | mL/min/1.28d5Eefi than | | CENTER - | | [...] + + + + | Calcium | 9.1 | 8.3 - 10.5 | [facility] | | | | | mg/dL | [facility] | | | | | | MEDICAL | | | | | | CENTER - | | | | | | LABORATORY | | + + + + + + | Albumin | 3.9 | 3.2 - 5.0 g/dL | [facility] | | | | | | [facility] | | | | | | [facility] | | | | | | CENTER - | | | | | | LABORATORY | | + + + + + + | Bilirubin | 0.5Comment: This is an | 0.1 - 1.5 mg/dL | [facility] | | | Total | appended report. These | | [facility] | | | | results have been [...] + + + + | AST | 23Comment: This is an | 10 - 42 U/L | [facility] | | | | appended report. These | | [facility] | | | | results have been | | MEDICAL | | | | appended to a previously | | CENTER - | | | | preliminary verified | | LABORATORY | | | | report. | | | | + + + + + + | ALT | 28Comment: This is an | 6 - 45 [...] + + + + | Alkaline | 108Comment: This is an | 40 - 110 U/L | [facility] | | | Phosphatase | appended report. These | | [facility] | | | | results have been | | MEDICAL | | | | appended to a previously | | CENTER - | | | | preliminary verified | | LABORATORY | | | | report. | | | | + + + + + + | Globulin | 2.3 | 2.1 - 3.8 g/dL | [facility] [...] + + + + | BUN/Creatin | 13.0 | | [facility] | | | ine Ratio | | | [facility] | | [...] | + + + + + | [facility] | [address] | [place] | [phone] | | [facility] | | [id number] | | | - LABORATORY | | | | + + + + + CBC w/ Auto Differential (04/21/2018 2:03 PM PST) + +-------+ + + + | Component | Value | Ref Range | Performed | Pathologist | | | | | At | Signature | + +-------+ + + + | White Blood | 6.0 | 4.0 - 11.0 K/uL | [facility] | | | Cells | | | [facility] | | | | | | MEDICAL | | | | | | CENTER - | | | | | | LABORATORY | | + +-------+ + + + | Red Blood | 4.64 | 3.70 - 5.20 | [facility] | | | Cells | | M/uL | [facility] | | | | | | MEDICAL | | | | | | CENTER - | | | | | | LABORATORY | | + +-------+ + + + | Hemoglobin | 14.3 | 11.5 - 16.0 | [facility] | | | | | g/dL | [facility] | | | | | | MEDICAL | | | | | | CENTER - | | | | | | LABORATORY | | + +-------+ + + + | Hematocrit | 43.5 | 34.0 - 47.0 % | [facility] | | | | | | [facility] | | | | | | MEDICAL | | | | | | CENTER - | | | | | | LABORATORY | | + +-------+ + + + | MCV | 93.8 | 83.0 - 101.0 fL | [facility] | | | | | | [facility] | | | | | | MEDICAL | | | | | | CENTER - | | | | | | LABORATORY | | + +-------+ + + + | MCH | 30.8 | 28.0 - 35.0 pg | [facility] | | | | | | [facility] | | | | | | [facility]ICAL | | | | | | CENTER - | | | | | | LABORATORY | | + +-------+ + + + | MCHC | 32.9 | 32.0 - 36.0 | [facility] | | | | | g/dL | [facility] | | | | | | MEDICAL | | | | | | CENTER - | | | | | | LABORATORY | | + +-------+ + + + | RDW-CV | 12.7 | <15.0 % | [facility] | | | | | | [facility] | | | | | | MEDICAL | | | | | | CENTER - | | | | | | LABORATORY | | + +-------+ + + + | RDW-SD | 43.9 | 35.1 - 46.3 fL | [facility] | | | | | | [facility] | | [facility] | | | [facility]ICAL | | | | | | CENTER - | | | | | | LABORATORY | | + +-------+ + + + | Platelet | 265 | 140 - 440 K/uL | [facility] | | | Count | | | [facility] | | | | | | MEDICAL | | | | | | CENTER - | | | | | | LABORATORY | | + +-------+ + + + | MPV | 9.4 | 6.5 - 12.4 fL | [facility] | | | | | | [facility] | | | | | | MEDICAL | | | | | | CENTER - | | | | | | LABORATORY | | + +-------+ + + + | % | 68.6 | 45.0 - 82.0 % | [facility] | | | Neutrophils | | | [facility] | | | | | | MEDICAL | | | | | | CENTER - | | | | | | LABORATORY | | + +-------+ + + + | % | 21.2 | 20.0 - 45.0 % | [facility] | | | Lymphocytes | | | [facility] | | | | | | MEDICAL | | | | | | CENTER - | | | | | | LABORATORY | | + +-------+ + + + | % Monocytes | 6.9 | 4.0 - 12.0 % | [facility] | | | | | | [facility] | | | | | | MEDICAL | | | | | | CENTER - | | | | | | LABORATORY | | + +-------+ + + + | % | 2.2 | 0.0 - 5.0 % | [facility] | | | Eosinophils | | | [facility] | | | | | | MEDICAL | | | | | | CENTER - | | | | | | LABORATORY | | + +-------+ + + + | % Basophils | 0.8 | 0.0 - 1.0 % | [facility] [...] +-------+ + + + | Absolute | 4.10 | 1.80 - 8.50 | [facility] | | | Neutrophils | | K/uL | [facility] | | | | | | MEDICAL | | | | | | CENTER - | | | | | | LABORATORY | | + +-------+ + + + | Absolute | 1.27 | 0.60 - 3.20 | [facility] | | | Lymphocytes | | K/uL | [facility] | | | | | | MEDICAL | | | | | | CENTER - | | | | | | LABORATORY | | + +-------+ + + + | Absolute | 0.41 | 0.00 - 1.00 | [facility] | | | Monocytes | | K/uL | [facility] | | | | | | [facility]ICAL | | | | | | CENTER - | | | | | | LABORATORY | | + +-------+ + + + | Absolute | 0.13 | 0.00 - 0.40 | [facility] | | | Eosinophils | | K/uL | [facility] | | | | | | MEDICAL | | | | | | CENTER - | | | | | | LABORATORY | | + +-------+ + + + | Absolute | 0.05 | 0.00 - 0.10 | [facility] | | | Basophils | | K/uL | [facility] | | | | | | MEDICAL | | | | | | CENTER - | | | | | | LABORATORY | | + +-------+ + + + | Absolute | 0.02 | 0.00 - 0.03 | [facility] | | | Immature | | K/uL | [facility] | | | Granulocyte | | | MEDICAL | | | s | | | CENTER - | | | | | | LABORATORY | | + +-------+ + + + | % nRBC | 0 | 0 - 2 per 100 | [facility] | | | | | WBC's | [facility] | | | | [...] + | [facility] | [address] | [place] | [phone] | | [facility] | | [address] | | | - LABORATORY | | | | + + + + + CEA (06/11/2017 8:30 AM PST) + +-------+ + + + | Component | Value | Ref Range | Performed | Pathologist | | | | | At | Signature | + +-------+ + + + | CEA | 4.0 | 0.0 - 10.0 | [facility] | [...] + + + + + | [facility] | [address] | [place] | [phone] | | [facility] | | [address] | | | - LABORATORY | | | | + + + + + documented in this encounter Visit Diagnoses + + | Diagnosis | + + | Esophageal cancer, stage IIA (HCC) - Primary | + + documented in this encounter
--- OUTSIDE RECORDS SUMMARY | ~2019-12-05 | XMS | Encounter Summary ---
Demographics + + + | Address | [address] | | | [place] [address] | + + + | Home Phone [...] Team Providers + +------+ + | Care Alcoholism Worker Name | Role | Phone | [...] + + + + | 05/05/ | [facility] | [facility] | Miguel A Kennedy, | | | 2018 | Encounter | MED CTR NUTRITION | MD [address] | | | | | F[place] [address] [place], | | | | | [place], | [place] [address] | | | | | [address] | [phone] | | | | | [phone] | | | | | | | Misti oRth, | | | | | | RDN [...] documented as of this encounter Progress Notes Gonzalez Misti Manjula, RDN - 05/05/2017 12:34 PM PSTFormatting of this note might be different f rom the original. Medical Nutrition Note SUBJECTIVE: Pt and her state that she is only doing 5 hours of 100 ml of Isosourc e HN per day. This is 600 kcals and 27 grams of protein per day. She is unable to tolerate noc feeding d/t restless leg syndrome and pulls out her lines. Discussed that she needs to be hooked up to the TF when ever she is awake in order to get her 6.5-7 cans in a day. She currently is only doing 2 cans. She is still using the samples of TF that I provided her. [facility] was called at and I talked to a dietitian Marni. She states they have called the pt twice and not received a call back. They cannot do a formula change wit dion talking to the pt first. Relayed that information to the pt and and encouraged them to call [facility] as soon possible. Phone number was provided. She has had no more diarrhea since switching from the Fibersource Hn to the isotonic formula. OBJECTIVE: Diet: Isosource HN 6.5-7 cans per day Wt Readings from Last 3 Encounters: 05/05/17 63.8 kg (140 lb 10.5 oz) 04/30/17 66.6 kg (146 lb 13.2 oz) 04/29/17 65.6 kg (144 lb 10 oz) Ht Readings from Last 1 Encounters: 04/14/17 1.67 m (5' 5.75") Medications: reviewed has had problems with nausea and nursing is working with pt on medica tion ASSESSMENT/PLAN: Nutrition Diagnosis: Inadequate enteral nutrition related to tolerating only 2 cans at thi s time as evidenced by verbalization of the pt. Interventions: 1. Increase time of TF from 5 hours to goal of 10-12 2. Decrease rate to 80 cc from 100 cc d/t tolerance Nutrition Goals: 1. Tolerate 6.5-7 cans of formula per day 2. Maintain weight Monitor: 1. Nutritional parameters 2. TF Time spent: 30 minutes Thank you for the referral, Misti Roth RDN 05/05/2017 12:34 documented in this encounter Plan of Treatment Not on filedocumented as of this encounter Visit Diagnoses Not on filedocumented in this encounter
--- OUTSIDE RECORDS SUMMARY | ~2019-12-05 | XMS | Encounter Summary ---
Demographics + + + | Address | [address] | | | [place] [address] | + + + | Home Phone | | + + + | Preferred Language | Unknown | + + + | Marital Status | | + + + | Judaism Affiliation | Unknown | + + + | Race | Unknown | + + + | Ethnic Group | Unknown | + + + Author + + + | Author | [facility] | | | and [place] | + + + | Organization | [facility] | | [...] Team Providers + +------+ + | Care Computer Hardware Designer Name | Role | Phone | + [...] neoplasm of | Isak Elizabeth, | [address] | | | | | esophagus, | MD [address] | [place], | | | | | unspecified | [place] | [place] [address] | | | | | (HCC) | [address] | Phone: | | | | | Procedures | [place], | [phone] | | | | | [place] | [place] [address] | Fax: | | | | | [place] | Phone: | [phone] | | | | | [place] | [phone] | | | | | | [place] | Fax: | | | | | | DEXAMETHASON | [phone] | | | | | | E, .25 MG | | | | | | | GA | | | | | | | INJECTION, | | | | | | | FAMOTIDINE, | | | | | | | 20 MG GA | | | | | | | DIPHENHYDRAM | | | | | | | INE HCL | | | | | | | INJECTIO, 50 | | | | | | | MG GA | | | | | | | PACLITAXEL | | | | | | | INJECTION, | | | | | | | 1MG GA | | | | | | | CARBOPLATIN | | | | | | | INJECTION, | | | | | | | 50 MG GA | | | | | | | METHYLPREDNI | | | | | | | SOLONE | | | | | | | INJECTION, | | | | | | | 125 MG GA | | | | | | | DEXAMETHASON | | | | | | | E SODIUM | | | | | | | PHOS, 1 MG | | | | | | | GA ADRENALIN | | | | | | | EPINEPHRINE | | | | | | | INJECT, .1 | | | | | | | MG GA | | | | | | | ALBUTEROL | | | | | | | COMP CON, 1 | | | | | | | MG GA | | | | | | | ALBUTEROL | | | | | | | NON-COMP | | | | | | | CON, 1 MG | | | | | | | GA NORMAL | | | | | | | SALINE | | | | | | | SOLUTION | | | | | | | INFUS, 500 | | | | | | | ML GA | | | | | | | NORMAL | | | | | | | SALINE | | | | | | | SOLUTION | | | | | | | INFUS, 250 | | | | | | | ML GA | | | | | | | STERILE | | | | | | | WATER/SALINE | | | | | | | , 10 ML GA | | | | | | | CHEMOTHER, | | | | | | | IV PUSH,EA | | | | | | | ADD DRUG GA | | | | | | | CHEMOTHER, | | | | | | | IV INFUSION, | | | | | | | 1 HR GA | | | | | | | CHEMOTHER, | | | | | | | IV INFUSION, | | | | | | | EA HR GA | | | | | | | CHEMOTHER,NO | | | | | | | N-HORMONE | | | | | | | ANTI-NEOPL, | | | | | | | SUB-Q/IM GA | | | | | | | CHEMOTHER | | | | | | | HORMON | | | | | | | ANTINEOPL | | | | | | | SUB-Q/IM GA | | | | | | | | | | | | | | FOSAPREPITAN | | | | | | | T INJECTION, | | | | | | | 1 MG GA | | | | | | | PALONOSETRON | | | | | | | HCL, 25 MCG | | | +--------+--------+ + + + + Encounter Details +--------+ + + + + | Date | Type | Department | Care Team | Description | +--------+ + + + + | 05/18/ | Hospital | [facility] | Fabio, | Esophageal cancer, | | 2018 | Encounter | MED CTR CHEMO | Isak Elizabeth MD [address] | stage IIA (HCC) | | | | INFUSION [address] [place] | | | | | [place], | [address] [place], [place] | | | | | [place] [address] | [address] | | | | | [phone] | | | +--------+ + + + [...] + documented as of this encounter Progress Ana Shipman, LIONEL - 05/18/2017 1:17 PM PSTPatient discharged in satisfactory conditi on. Discharged ambulatory. With family. To home. Verified that patient has antinausea medications at home. Future appointments and After Visit Summary (AVS) provided. documented in thi s encounter Miscellaneous Notes Treatment Plan - Carissa Templeton RN - 05/18/2017 10:18 AM PSTViewed chart for weight, v ital signs and lab results. Also viewed chart for completion of medication and allergy revi ew prior to treatment.Carissa Kinsey RNDATE/TIME: 05/18/2017 10:18 documented in this encounter Plan of Treatment Not on filedocumented as of this encounter Procedures + +--------+ + + + | Procedure Name | Priori | Date/Time | Associated Diagnosis | Comments | | | ty | | | | + +--------+ + + + | CBC WITH | STAT | 05/18/2017 | Esophageal cancer, | Results for this | | DIFFERENTIAL | | 8:47 AM | stage IIA (HCC) | procedure are in the | | | | PST | | results section. | + +--------+ + + + | COMPREHENSIVE | STAT | 05/18/2017 | Esophageal cancer, | Results for this | | METABOLIC PANEL | | 8:47 AM | stage IIA (HCC) | procedure are in the | | | | PST | | results section. | + +--------+ + + + documented in this encounter Results CBC with Differential (05/18/2017 8:47 AM PST) + + + + + + | Component | Value | Ref Range | Performed | Pathologist | | | | | At | Signature | + + + + + + | White Blood | 5.3 | 4.0 - 11.0 K/uL | [facility] | | | Cells | | | [facility] | | | | | | [facility] | | | | | | [facility] - | | | | | | LABORATORY | | + + + + + + | Red Blood | 4.53 | 3.70 - 5.20 | [facility] | | | Cells | | M/uL | [facility] | | | | | | [facility] | | | | | | [facility] - | | | | | | LABORATORY | | + + + + + + | Hemoglobin | 14.0 | 11.5 - 16.0 | [facility] | | | | | g/dL | [facility] | | | | | | [facility] | | | | | | [facility] - | | | | | | LABORATORY | | + + + + + + | Hematocrit | 40.8 | 34.0 - 47.0 % | [facility] [...] + + + + | MCH | 31.0 | 28.0 - 35.0 pg | [facility] | | | | | | [facility] | | | | | | [facility] | | | | | | [facility] - | | | | | | LABORATORY | | + + + + + + | MCHC | 34.4 | 32.0 - 36.0 | [facility] | [...] + + + + | Platelet | 282 | 140 - 440 K/uL | [facility] | | | Count | | | [facility] | | | | | | [facility] | | | | | | [facility] - | | | | | | LABORATORY | | + + + + + + | MPV | 8.2 | fL | [facility] | | | | | | [facility] | | | | | | [facility] | | | | | | [facility] - | | | | | | LABORATORY | | + + + + + + | % | 85.4 (H) | 45.0 - 82.0 % | [facility] | | | Neutrophils | | | [facility] | | | | | | [facility] | | | | | | [facility] - | | | | | | LABORATORY | | + + + + + + | % | 7.7 (L) | 20.0 - 45.0 % | [...] + + + + | Absolute | 4.60 | 1.80 - 8.50 | [facility] | [...] + | [facility] | [address] | [place] | [phone] | | [facility] | | [address] | | | - LABORATORY | | | | + + + + + Comprehensive Metabolic Panel (05/18/2017 8:47 AM PST) + + + + + + | Component | Value | Ref Range | Performed | Pathologist | | | | | At | Signature | + + + + + + | Na | 139 | 136 - 149 | [facility] | | | | | mmol/L | [facility] | | | | | | MEDICAL [...] + + + + | Cl | 101 | 98 - 109 mmol/L | [facility] | | | | | | [facility] | | | | | | [facility] | | | | | | [facility] - | | | | | | LABORATORY | | + + + + + + | CO2 | 25 | 24 - 31 mmol/L | [facility] | | | | | | [facility] | | | | | | [facility] | | | | | | C[facility] - | | | | | | LABORATORY | | + + + + + + | Anion Gap | 13 | 3 - 16 mmol/L | [facility] | | | | | | [facility] | | | | | | [facility] | | | | | | [facility] - | | | | | | LABORATORY | | + + + + + + | Glucose | 99 | 70 - 109 mg/dL | [facility] | | | | | | [facility] | | | | | | [facility] | | | | | | CENTER - | | | | | | LABORATORY | | + + + + + + | BUN | 8 | 7 - 18 mg/dL | [facility] | | | | | | [facility] | | | | | | [facility] | | | | | | C[facility] - | | | | | | LABORATORY | | + + + + + + | Creatinine | 0.65 | 0.60 - 1.30 | [facility] | [...] | mL/min/1.73m2 | [facility] | | | Indian | RATE,ESTIMATED | | MEDICAL | | | | mL/min/1.28p6Yixt than | | CENTER - | | [...] + + + + | Calcium | 10.0 | 8.3 - 10.5 | [facility] | | | | | mg/dL | [facility] | | | | | | [facility] | | | | | | CENTER - | | | | | | LABORATORY | | + + + + + + | Albumin | 3.8 | 3.2 - 5.0 g/dL | [facility] | | | | | | [facility] | | | | | | [facility] | | | | | | CENTER - | | | | | | LABORATORY | | + + + + + + | Bilirubin | 0.6Comment: This is an | 0.1 - 1.5 [...] | | | Protein | | | [facility] | | | | | [facility] | | | | | | CENTER - | | | | | | LABORATORY | | + + + + + + | AST | 25Comment: This is an | 10 - 42 [...] + + + + | ALT | 31Comment: This is an | 6 - 45 [...] + + + + | Alkaline | 60Comment: This is an | 40 - 110 [...] + + + | Albumin/Jo Ann | 1.6 | 0.8 - 2.0 | [facility] | | | bulin Ratio | | | [facility] | | | | | | [facility] | | | | | | CENTER - | | | | | | LABORATORY | | + + + + + + | BUN/Creatin | 12.3 | | [facility] | | | ine [...] [address] | [place] | [phone] | | [facility] | | [address] | | | - LABORATORY | | [...] + +---------+ + +--------+------+ | CARBOplatin (PARAPLATIN) 251.2 | New Bag | 05/18/19 | 251.2 mg | 550.2 | | | mg in sodium chloride 0.9% 250 mL | | 18 12:36 | | mL/hr | | | infusion 251.2 mg (Target AUC = | | PM PST | | | | | 2), Intravenous, Administer over | | | | | | | 30 Minutes, ONCE, Wed05/18/17 at | | | | | | | 1215, For 1 dose, Chemotherapy: | | | | | | | Use appropriate handling | | | | | | | precautions. Administer AFTER | | | | | | | PACLitaxel., | | | | | | + +---------+ + +--------+------+ +---+---+ | | | +---+---+ + +-------+ +-------+---+---+ | diphenhydrAMINE (BENADRYL) | Given | 05/18/19 | 25 mg | | | | injection 25 mg 25 mg, | | 18 10:29 | | | | | Intravenous, ONCE, Wed05/18/17 at | | AM PST | | | | | 1045, For 1 dose, Administer 30 | | | | | | | minutes prior to PACLitaxel ., | | | | | | + +-------+ +-------+---+---+ +---+---+ | | | +---+---+ + +-------+ +---+---+---+ | ethyl chloride spray Topical, | Given | 05/18/19 | | | | | PRN, Pain, Starting 05/18/17 | | 18 8:52 | | | | | at 0847 | | AM PST | | | | + +-------+ +---+---+---+ +---+---+ | | | +---+---+ + +-------+ +-------+---+---+ | famotidine (PEPCID) injection | Given | 05/18/19 | 20 mg | | | | 20 mg 20 mg, Intravenous, ONCE, | | 18 10:27 | | | | | 05/18/17 at 1045, For 1 dose, | | AM PST [...] 150 mg in | New Bag | 05/18/19 | 150 mg | 500 | | | sodium chloride 0.9% 250 mL IVPB | | 18 11:02 | | mL/hr | | | 150 mg, Intravenous, Administer | | AM PST | | | | | over 30 Minutes, ONCE, Tue | | | | | | | 05/18/17 at 1100, For 1 dose, Do | | | | | | | not shake bag., | | | | | | + +---------+ +--------+-------+---+ +---+---+ | | | +---+---+ + +-------+ +-------+---+---+ | heparin 100 units/mL flush | Given | 05/18/19 | 500 | | | | injection 500 Units 500 Units (5 | | 18 1:13 | Units | | | | mL), Intracatheter, PRN, Line | | PM PST | | | | | Care, Starting 05/18/17 at | | | | | | | 1018 | | | | | | + +-------+ +-------+---+---+ +---+---+ | | | +---+---+ + +---------+ +---+--------+---+ | ondansetron (ZOFRAN) 8 mg, | New Bag | 05/18/19 | | 217.6 | | | dexamethasone (DECADRON) 4 mg in | | 18 10:44 | | mL/hr | | | sodium chloride 0.9% 50 mL IVPB | | AM PST | | | | | Intravenous, Administer over 15 | | | | | | | Minutes, ONCE, 05/18/17 at | | | | | | | 1045, For 1 dose, Administer 30 | | | | | | | minutes prior to chemotherapy., | | | | | | + +---------+ +---+--------+---+ +---+---+ | | | +---+---+ + +---------+ +-------+-------+---+ | PACLitaxel (TAXOL) 84 mg in | New Bag | 05/18/19 | 84 mg | 264 | | | sodium chloride 0.9% 250 mL | | 18 11:33 | | mL/hr | | | infusion 84 mg (rounded from | | AM PST | | | | | 84.5 mg = 50 mg/m2 | | | | | | | 1.69 m2 Treatment plan recorded | | | | | | | BSA), Intravenous, Administer | | | | | | | over 1 Hours, ONCE, 05/18/17 | | | | | | | at 1130, For 1 dose, | | | | [...]
--- OUTSIDE RECORDS SUMMARY | ~2019-12-05 | XMS | Encounter Summary ---
Demographics + + + | Address | [address] | | | [place] [address] | + + + | Home Phone [...] Team Providers + +------+ + | Care Hand Tier Name | Role | Phone | + [...] | | ILEANA HERNÁNDEZ | [place] [address] | | | | | [place] [address] | | | | | | [phone] | | | +--------+ + + + [...] + +--------+ + + + | CT SOFT TISSUE NECK | Routin | 07/18/2017 | | Results for this | | CHEST ABDOMEN W | e | 11:25 AM | | procedure are in the | | CONTRAST | | PDT | | results section. | + +--------+ + + + documented in this encounter Results CT Soft Tissue Neck Chest Abd w Con (07/18/2017 11:25 AM PDT) + + | Specimen | + + [...]
--- OUTSIDE RECORDS SUMMARY | ~2019-12-05 | XMS | Encounter Summary ---
Demographics + + + | Address | [address] | | | [place] [address] | + + + | Home Phone [...] Team Providers + +------+ + | Care Exterminator Name | Role | Phone | + +------+ + | No, Physician | PCP | Unavailable | + +------+ + Reason for Visit +--------+--------+ + | Reason | Onset | Comments | | | Date | | +--------+--------+ + | Other | 04/30/ | | | | 2018 | | +--------+--------+ + Encounter Details +--------+ + + + + | Date | Type | Department | Care Team | Description | +--------+ + + + + | 04/30/ | Telephone | [facility] | Salo Wyman, | Other | | 2018 | | MED CTR MEDICAL | [address] | | | | | [facility] [address] | [place] | | | | | [address] [place] | [address] | | | | | [place] [address] | | | | | | [phone] | | | +--------+ + + + [...] Telephone Encounter - Marisel Richardson RN - 04/30/2017 4:24 PM PSTOTV note from today faxe d as requested. eleph one Encounter - Shalom Warren - 04/30/2017 4:03 PM PSTCourtney with [facility] her computer project manager has requested the most recent record for this patient be faxed [phone] Confirmed patient ID by full name and . Thank you documented in this encounter Plan of Treatment Not on filedocumented as of this encounter Visit Diagnoses Not on filedocumented in this encounter"
--- OUTSIDE RECORDS SUMMARY | ~2019-12-05 | XMS | Encounter Summary ---
Demographics + + + | Address | [address] | | | [place] [address] | + + + | Home Phone | | + + + | Preferred Language | Unknown | + + + | Marital Status | | + + + | Protestant Affiliation | Unknown | + + + | Race | Unknown | + + + | Ethnic Group | Unknown | + + + Author + + + | Author | [facility] | | | and [place] | + + + | Organization | [facility] | | [...] Team Providers + +------+ + | Care Multifocal Button Grinder Name | Role | Phone | + [...] | Specialty | Nutrition | Diagnoses | | [facility] | | | Services | | Esophageal | Fabio | Nutrition | | | Required | | cancer, | Isak Elizabeth, | Services [address] | | | | | stage IIA | [address] | [address] | | | | | ([facility]) | [place] | [place], | | | | | | [address] | [place] [address] | | | | | | [place], | Phone: | | | | | | [place] [address] | [phone] | | | | | | Phone: | Fax: | | | | | | [phone] | [phone] | | | | | | Fax: | | | | | | | [phone] | | +--------+ + + + + + Reason for Visit + +--------+ + | Reason | Onset | Comments | | | Date | | + +--------+ + | IDT Note | 04/01/ | | | | 2017 | | + +--------+ + Encounter Details +--------+ + + + + | Date | Type | Department | Care Team | Description | +--------+ + + + + | 04/01/ | Telephone | [facility] | Lor Concepcion, | IDT Note | | 2016 | | MED CTR CHEMO | RN | | | | | INFUSION [address] | | | | | | [address] [place], | | | | | | [place] [address] | | | | | | [phone] | | | +--------+ + + + [...] this encounter Miscellaneous Notes Telephone Encounter - Lor Concepcion RN - 04/01/2017 9:02 AM PST [facility] Interdisciplinary Team Navigational Checklist ? Top Priority Discipline EPIC Order Entered Consult Scheduled Consult Complete Comments: x *Medical Oncology Dr. Mccarthy x *Radiation Oncology Dr. Madrid x *Patient Navigation x *Nurse Navigator x *Social Service Survivorship Nurse Breast Health Genetics Surgical Input x *Nursing assessment Taxol and Carbo concurrent with RT x *Pharmacy assessment x Nutrition 04/06/17--JT x Rehab: PT OT Speech & Language Palliative Care Clinical Trials Involvement Tool Lapper Hand Visit Financial Assistance Interdisciplinary Consults Completed Date: documented in this encounter Plan of Treatment + + +--------+ + + | Name | Type | Priori | Associated Diagnoses | Order Schedule | | | | ty | | | + + +--------+ + + | * [facility] | Outpatient | Routin | Esophageal cancer, | Ordered: 04/01/2017 | | Services - AMB | Referral | e | stage IIA (HCC) | | | Referral | | | | | + + +--------+ + + documented as of this encounter Visit Diagnoses + + | Diagnosis | + + | Esophageal cancer, stage IIA (HCC) - Primary | + + documented in this encounter"
--- OUTSIDE RECORDS SUMMARY | ~2019-12-05 | XMS | Encounter Summary ---
Demographics + + + | Address | [address] | | | [place] [address] | + + + | Home Phone | | + + + | Preferred Language | Unknown | + + + | Marital Status | | + + + | Yarsanism Affiliation | Unknown | + + + | Race | Unknown | + + + | Ethnic Group | Unknown | + + + Author + + + | Author | [facility] | | | and [place] | + + + | Organization | [facility] | | | [...] Team Providers + +------+ + | Care Bung Driver Name | Role | Phone | [...] + + + + | 05/18/ | [facility] | [facility] | Fabio, | Esophageal cancer, | | 2018 | Encounter | [facility] | Talon Elizabeth MD [address] | stage IIA (HCC) | | | | ONCOLOGY CLINIC [address] | [address] | | | | | [address] | [address] | | | | | [place] [address] | [address] | | | | | [phone] | | | +--------+ + + + [...] + + + | Blood Pressure | 127/83 | 05/18/2017 9:26 AM | | | | | PST | | + + + + + | Pulse | 74 | 05/18/2017 9:26 AM | | | | | PST | | + + + + + | Temperature | 36.2 C (97.1 F) | 05/18/2017 9:26 AM | | | | | PST | | + + + + + | Respiratory Rate | 14 | 05/18/2017 9:26 AM | | | | | PST | | + + + + + | Oxygen Saturation | 97% | 05/18/2017 9:26 AM | | | | | PST | | + + + + + | Inhaled Oxygen | - | - | | | Concentration | | | | + + + + + | Weight | 61.3 kg (135 lb 2.3 | 05/18/2017 9:26 AM | | | | oz) | PST | | + + + + + | Height | - | - | | + + + + + | Body Mass Index | 21.98 | 04/14/2017 9:33 AM | | | [...] encounter Progress Notes Talon Mcclure MD - 05/18/2017 9:05 AM PSTFormatting of this note might be differe nt from the original. Hematology/Oncology Progress Note [facility] LAURO Kang Pt. Name/Age/: Annie Brown 61 y.o. 1955 Med. Record Number: [id number] Date of admission: 05/18/2017 The patient's primary care provider is No Physician on file. Identifying Statement: Annie Brown is a 61 y.o. female from [address] [place] [address] with Esophageal Cancer. The patient chart and medications were reviewed in detail and the patient was seen and exam ined. History of Present Illnesses, their Current Assessments and Plans: Problem List Esophageal cancer, stage IIA Overview ACTIVE DIAGNOSIS: Squamous cell carcinoma of the esophagus, Stage IIIA. 1. Upper endoscopy with biopsy March 15, 2017 (Supriya). Mass in mid esophagus. [id number] ([facility]) Invasive Squamous Cell carcinoma, mod erately differentiated. Immunohistochemistry diffusely positive for P16. 2. Status post feeding jejunostomy tube placement by Dr. Haim Epps, [facility], [facility]. 3. PET/CT scan March 24, 2017; mid-esophageal tumor with SUV 8.5, no evidence of metasta tic disease. 4. Endoscopic ultrasound at [facility]; single level 8 node "moderately suspicious." Clinical stage T3N1M0, Stage IIIA. 5. Comprehensive mutidisciplinary team evaluation at [facility], [facility] (Haim Hernandez, Gold Cannon); combined modality chemoradiation with weekly taxol/car boplatin at [facility] in [place], follow by definitive resection b y Dr. Cannon at [facility]. 6. Status post placement of a left subclavian port-a-cath by Dr. Haim Epps. 7. Begin Combined modality therapy April 29, 2017. Current Assessment & Plan Annie Brown returned to clinic on 05/18/2017 for follow up and her fourth consecu tive week of combined modality therapy for Stage III squamous cell carcinoma of the mid esop hagus. Interval history is notable for the fact that Annie's feeding J-tube was dislodged yester day, and she went to the [facility] emergency room where it was re-positioned. Chief complaint is chronic nausea, only partially relieved with ondansetron and lorazepam. Clinical exam is notable for weight loss. Laboratory exam is entirely within normal limits. Assessment; locally advanced squamous cell carcinoma of the esophagus. Plan; ondansetron was refilled with a larger quantity. Annie Jesus Severe will proceed wi th week #4 of taxol at 50 mg/m and carboplatin AUC 2 with intravenous premeds. Clinical and laboratory followup in one week. Review of Systems: REVIEW OF SYSTEMS Constitutional: Reports energy level is about the same as last visit. Reports nausea contin ues, especially the first 4 days after treatment, unchanged. Reports one episode of night sw eats since last visit. Weight loss from 65.6kg on 04/29/17 to 61.3kg today. Denies high fevers , shaking chills, anorexia, vomiting, weight loss. Appetite without changes. Ear, Nose, Mouth, Throat: Reports still unable to take sips of water, tried this morning an d "it felt like it was on fire". Denies odynophagia, dysphagia, or tinnitus. Cardiovascular: Reports constant pain in chest area "not my heart, I think it is related to the tumor location". Denies shortness of breath, dyspnea on exertion, palpitations or ortho pnea. Respiratory: Reports intermittent cough, continues, unchanged. Reports sputum production co ntinues, "slimy yellowish" in color, unchanged. Denies hemoptysis, or sputum production. Gastrointestinal: Reports abdominal pain around area where feeding tube is placed , continu es, unchanged. Reports had a couple days of diarrhea, took imodium for this and it has resol cirilo. Denies constipation, melena, or bright red blood per rectum. Genitourinary: Denies hematuria or dysuria. Musculoskeletal: Denies joint pain or tenderness. Neurologic: Reports headaches continues, unchanged. Denies visual changes, or numbness/ting ling of the extremities. Endocrine: Denies peripheral edema or heat/cold intolerance. Hematologic: Denies spontaneous bruising or bleeding. Integumentary: Reports skin surrounding feeding tube site is not sore as last visit, states that site still is "oozing" Will be seeing Dr. Epps in [place] for a follow up. Denies rash, wounds.. Pain: Reports abdominal pain 3/10 and chest pain 4/10 on scale of 0-10, goal <4/10. Note: Here for follow up, labs, and 3 hour treatment. Patient had to go to ED last night due to "feeding tube came out". Will be seeing Dr. Jessica espino in [place] for a follow up. Using ondansetron more frequently, using every 6 hours instead of every 8 hours. Patient is requesting an prescription adjustment as pharmacy informed her she can't refill it as soon as she is needing it. Patient was able to refill it yesterday but had to pay for it herself because insurance said she was at her limit. My chart: Declined Scheduled Medications: Current Outpatient [...] PRN Talon mendez MD 500 Units at 05/18/17 1313 Allergies: Allergy: No Known Allergies Past Medical and Surgical History, Social History and Problems: Past Medical History: Diagnosis Date Esophageal cancer (HCC) Past Surgical History: Procedure Laterality Date APPENDECTOMY 1971 HYSTERECTOMY 1994 Social History Social History Marital [...] Paternal Aunt Esophageal cancer Other Objectives: Temp: 36.2 C (97.1 F) BP: 127/83 Pulse: 74 Resp: 14 SpO2: 97 % on Min/Max Temp past 24 hours:Temp Av.2 C (97.1 F) Min: 36.2 C (97.1 F) Max: 3 6.2 C (97.1 F) No intake or output data in the 24 hours ending 05/18/17 1740 Wt. Admission: Weight: 61.3 kg (135 lb 2.3 oz) Wt. Current: Weight: 61.3 kg (135 lb 2.3 oz) Wt Readings from Last 3 Encounters: 05/18/17 61.3 kg (135 lb 2.3 oz) 05/13/17 63.3 kg (139 lb 8.8 oz) 05/12/17 62.1 kg (136 lb 14.5 oz) Physical Exam: General: The patient is alert and oriented. No acute distress. Eyes: Conjunctiva clear. Sclera anicteric. ENMT: Oropharynx fee of lesions, mucous membranes moist. Cardiovascular: Regular rate and rhythm, no rubs, gallops, or murmurs. Lungs: Clear to auscultation and percussion. Chest: The left subclavian port-a-cath was successfully accessed today and a brisk blood r eturn was noted. Abdomen: Soft, nontender, no hepatospenomegaly. No palpable masses. Bowel sounds present. Midline incision well-healed. Jejunostomy tube in the left upper quadrant has no discharge. Extremities: Nontender, no erythema, no edema. Skin: No rashes, bruising, or petechiae. Lymph: No palpable nodes in the neck, supraclavicular fossa, axilla or groin. Neurological: Cranial nerves are intact. Normal sensory and motor function, No focal defi cits noted. Muscular/Skeletal: No acute bony tenderness. No evidence of sarcopenia. Psychiatric: Normal mood and affect. ECOG [...] Am. J. Clin. Oncol.: Maximo Romero., Karen, RJimmyH., Yudi Clemente., Tanner Cheney., [place], TTaylor., Solomon, EJimmyT., Lelo, P .P.: Toxicity And Response Criteria [...] Assessment and Plan. Results for SEVERE, ANNIE JESUS ( ) as of 05/18/2017 17:42 Ref. Range 05/18/2017 08:47 WBC Latest Ref Range: 4.0 - 11.0 K/uL 5.3 RBC COUNT Latest Ref Range: 3.70 - 5.20 M/uL 4.53 Hgb Latest Ref Range: 11.5 - 16.0 g/dL 14.0 Hct, Final Latest Ref Range: 34.0 - 47.0 % 40.8 MCV Latest Ref Range: 83.0 - 101.0 fL 90.2 MCH Latest Ref Range: 28.0 - 35.0 pg 31.0 MCHC Latest Ref Range: 32.0 - 36.0 g/dL 34.4 RDW-CV Latest Ref Range: <15.0 % 12.6 Platelet Count Latest Ref Range: 140 - 440 K/uL 282 MPV Latest Units: fL 8.2 Absolute Neutrophils Latest Ref Range: 1.80 - 8.50 K/uL 4.60 Absolute Lymphocytes Latest Ref Range: 0.60 - 3.20 K/uL 0.40 (L) Absolute Monocytes Latest Ref Range: 0.00 - 1.00 K/uL 0.30 Absolute Eosinophils Latest Ref Range: 0.00 - 0.40 K/uL 0.00 Absolute Basophils Latest Ref Range: 0.00 - 0.10 K/uL 0.00 % Neutrophils Latest Ref Range: 45.0 - 82.0 % 85.4 (H) % Lymphocytes Latest Ref Range: 20.0 - 45.0 % 7.7 (L) % Monocytes Latest Ref Range: 4.0 - 12.0 % 6.0 % Eosinophils Latest Ref Range: 0.0 - 5.0 % 0.4 % Basophils Latest Ref Range: 0.0 - 1.0 % 0.5 NA Latest Ref Range: 136 - 149 mmol/L 139 K Latest Ref Range: 3.5 - 5.1 mmol/L 3.8 Chloride Latest Ref Range: 98 - 109 mmol/L 101 Carbon dioxide Latest Ref Range: 24 - 31 mmol/L 25 ANION GAP Latest Ref Range: 3 - 16 mmol/L 13 GLUCOSE Latest Ref Range: 70 - 109 mg/dL 99 BUN Latest Ref Range: 7 - 18 mg/dL 8 Creatinine Latest Ref Range: 0.60 - 1.30 mg/dL 0.65 BUN/CREA Unknown 12.3 ALBUMIN Latest Ref Range: 3.2 - 5.0 g/dL 3.8 Albumin/Globulin ratio Latest Ref Range: 0.8 - 2.0 1.6 Total protein Latest Ref Range: 6.0 - 7.8 g/dL 6.2 EGFR IF NOT Latest Ref Range: >=60 mL/min/1.73m2 >60 Calcium Latest Ref Range: 8.3 - 10.5 mg/dL 10.0 ALK PHOS Latest Ref Range: 40 - 110 U/L 60 ALT (SGPT) (REF) Latest Ref Range: 6 - 45 U/L 31 AST (SGOT) (REF) Latest Ref Range: 10 - 42 U/L 25 BILIRUBIN TOTAL Latest Ref Range: 0.1 - 1.5 mg/dL 0.6 GLOBULIN Latest Ref Range: 2.1 - 3.8 g/dL 2.4 Pharmacovigilance: Palliative Care: Patient's Medications New Prescriptions No medications on file Modified Medications Modified Medication Previous Medication ONDANSETRON (ZOFRAN) 8 MG TABLET ondansetron (ZOFRAN) 8 MG tablet Crush 1 tablet and mix with 15-30 mL (1-2 tablespoons) of water, administer twice daily for 2 days after each chemo. On other days, take 8 mg every 6 hrs as needed for nausea/vomi ting Crush 1 tablet and mix with 15-30 mL (1-2 tablespoons) of water, administer twice da live for 2 days after each chemo. On other days, take 8 mg every 8 hrs as needed for nausea/v omiting Discontinued Medications No medications on file Procedure: Day 1, Week 4 (7-day cycle) Completed; Released on 05/18/2017; Originally planned for 05/18/2017 Labs Comprehensive Metabolic Panel STAT, ONE TIME, Wed05/18/17 at 0848, For 1 occurrence OrderHistory CBC with Differential STAT, ONE TIME, Wed05/18/17 at 0848, For 1 occurrence OrderHistory PRN Medications ethyl chloride spray Topical, PRN, Pain, Starting Wed05/18/17 at 0847 OrderHistory Nursing Orders OK to proceed with chemotherapy (Not Released) 05/18/17-- INFORMED CONSENT: The nature and character of the proposed treatment with week #4 carboplat in/taxol and the anticipated results of the proposed treatment with week #4 carboplatin/taxo l ;recognized alternative forms of treatment, including non-treatment; the risks benefits, a nd side effects of proposed treatment, alternative treatments and non-treatment were discuss ed with the patient who consents to proceed with treatment with week #4 carboplatin/taxol . The treating provider has examined the patient and reviewed the diagnostic data, including l aboratory data, and deems that it is safe and appropriate to proceed with treatment with wee k #4 carboplatin/taxol .Electronically signed by: TALON MCCLURE MD 05/18/2017 9:41. OrderHistory Plans for discharge (Not Released) +++QFU IN 7 DAYS, LABS port DRAW & 3 HOUR RX+++ +++QFU IN 14 DAYS, LABS port DRAW & 3 HOUR RX+++ OrderHistory Pre-Medications famotidine (PEPCID) injection 20 mg 20 mg, Intravenous, ONCE, 05/18/17 at 1045, For 1 dose Keep in refrigerator. Administer 30 minutes prior to PACLitaxel. Prior to administration, prepare a 20 mg dose by diluting 2 mL of famotidine 10 mg/mL to 10 mL with normal saline. OrderHistory diphenhydrAMINE (BENADRYL) injection 25 mg 25 mg, Intravenous, ONCE, 05/18/17 at 1045, For 1 dose Administer 30 minutes prior to PACLitaxel . OrderHistory ondansetron (ZOFRAN) 8 mg, dexamethasone (DECADRON) 4 mg in sodium chloride 0.9% 50 mL IVPB Intravenous, Administer over 15 Minutes, ONCE, 05/18/17 at 1045, For 1 dose Administer 30 minutes prior to chemotherapy. OrderHistory fosaprepitant (EMEND) 150 mg in sodium chloride 0.9% 250 mL IVPB 150 mg, Intravenous, Administer over 30 Minutes, ONCE, 05/18/17 at 1100, For 1 dose Do not shake bag. OrderHistory PRN Medications LORazepam (ATIVAN) 2 mg/mL injection 0.5-1 mg (Not Released) 0.5-1 mg (original dose 0.5-1 mg), Intravenous, PRN, Anxiety, Nausea/Vomiting, Starting wh en released, for 1 dose OrderHistory CHEMOTHERAPY PACLitaxel (TAXOL) 84 mg in sodium chloride 0.9% 250 mL infusion 84 mg (rounded from 84.5 mg = 50 mg/m2 1.69 m2 Treatment plan recorded BSA), Intravenou s, Administer over 1 Hours, ONCE, 05/18/17 at 1130, For 1 dose Chemotherapy: Use appropriate handling precautions. Vesicant. Use 0.22 micron filter and no n-DEHP tubing for administration. This drug has a high incidence of infusion reactions. My ent must be directly and frequently observed during drug administration. OrderHistory CARBOplatin (PARAPLATIN) 251.2 mg in sodium chloride 0.9% 250 mL infusion 251.2 mg (Target AUC = 2), Intravenous, Administer over 30 Minutes, ONCE, 05/18/17 at 1 215, For 1 dose Chemotherapy: Use appropriate handling precautions. Administer AFTER PACLitaxel. OrderH istory TALON MCCLURE MD Portions of this chart may have been created with [employer] voice recognition software. Occasi onal wrong-word or sound-alike substitutions may have occurred due to the inherent solis itations of voice recognition software. Please read the chart carefully and recognize, using context, where these substitutions have occurred. documented in t his encounter Miscellaneous Notes Assessment & Plan Note - Talon Mcclure MD - 05/18/2017 5:28 PM PSTAssociated Prob chandler(s): Esophageal cancer, stage IIIA (HCC)Annie Brown returned to clinic on 018 for follow up and her fourth consecutive week of combined modality therapy for Stage III squamous cell carcinoma of the mid esophagus. Interval history is notable for the fact that Annie's feeding J-tube was dislodged yester day, and she went to the [facility] emergency room where it was re-positioned. Chief complaint is chronic nausea, only partially relieved with ondansetron and lorazepam. Clinical exam is notable for weight loss. Laboratory exam is entirely within normal limits. Assessment; locally advanced squamous cell carcinoma of the esophagus. Plan; ondansetron was refilled with a larger quantity. Annie Brown will proceed wi th week #4 of taxol at 50 mg/m and carboplatin AUC 2 with intravenous premeds. Clinical and laboratory followup in one week. documented in this encounter Plan of Treatment Not on filedocumented as of this encounter Visit Diagnoses + + | Diagnosis | + + | Esophageal cancer, stage IIA (HCC) | + + documented in this encounter
--- OUTSIDE RECORDS SUMMARY | ~2019-12-05 | XMS | Encounter Summary ---
Demographics + + + | Address | [address] | | | [place] [address] | + + + | Home Phone | | + + + | Preferred Language | Unknown | + + + | Marital Status | | + + + | Yazidi Affiliation | Unknown | + + + | Race | Unknown | + + + | Ethnic Group | Unknown | + + + Author + + + | Author | [facility] | | | and [place] | + + + | Organization | [facility] | | | and [...] Team Providers + +------+ + | Care Digital Content Coordinator Name | Role | Phone | + [...] | +--------+ + + + + | 05/06/ | Hospital | [facility] | Jennifer Reyes | Esophageal cancer, | | 2018 | Encounter | [facility] | MD Manjula [address] | stage IIA (HCC) | | | | ONCOLOGY CLINIC [address] | [place], [place] | (Primary Dx) | | | | [address] | [address] | | | | | [place] [address] | | | | | | [phone] | | | +--------+ + + + [...] + + + | Blood Pressure | 139/70 | 05/06/2017 2:57 PM | | | | | PST | | + + + + + | Pulse | 57 | 05/06/2017 2:57 PM | | | | | PST | | + + + + + | Temperature | 36.5 C (97.7 F) | 05/06/2017 2:57 PM | | | | | PST | | + + + + + | Respiratory Rate | 16 | 05/06/2017 2:57 PM | | | | | PST | | + + + + + | Oxygen Saturation | 100% | 05/06/2017 2:57 PM | | | | | PST | | + + + + + | Inhaled Oxygen | - | - | | | Concentration | | | | + + + + + | Weight | 64.6 kg (142 lb 6.7 | 05/06/2017 2:57 PM | | | | oz) | PST | | + + + + + | Height | - | - | | + + + + + | Body Mass Index | 23.16 | 04/14/2017 9:33 AM | | | [...] encounter Progress Notes Jennifer Madrid MD - 05/06/2017 3:02 PM PST Radiation Oncology Weekly On Treatment Note Diagnosis: ICD-10-CM ICD-9-CM 1. Esophageal cancer, stage IIA (HCC) C15.9 150.9 Reason for visit: On treatment evaluation Radiation technical factors: Dose Delivered Dose Planned Fractions Delivered Esophagus 1080 cGy Boost 0 cGy 4500 cGy 540 cGy 10/18 Images were reviewed this week and results of the review have been recorded in ARIA. Corre ctions were applied as necessary. No Known Allergies Current Outpatient Prescriptions on File Prior to Encounter Medication Sig Dispense Refill amoxicillin-clavulanate (AUGMENTIN) 400-57 mg/5 mL suspension Administer [...] Route Frequency Provider Last Rate Last Dose [] LORazepam (ATIVAN) 2 mg/mL injection Pain assessment: Location: surgical site Pain Level:2 Pain Quality: aching Current pain regimen: Hydrocet 7.5/325 per 15 ml at bedtime Wt Readings from Last 3 Encounters: 05/06/17 64.6 kg (142 lb 6.7 oz) 05/05/17 63.8 kg (140 lb 10.5 oz) 04/30/17 66.6 kg (146 lb 13.2 oz) Vitals: 05/06/17 1457 BP: 139/70 Pulse: 57 Resp: 16 Temp: 36.5 C (97.7 F) TempSrc: Temporal SpO2: 100% Weight: 64.6 kg (142 lb 6.7 oz) Physical Exam Constitutional: She appears well-developed and well-nourished. Neurological: She is alert. Psychiatric: She has a normal mood and affect. Lab Results Component Value Date WBC 5.2 05/05/2017 HGB 14.9 05/05/2017 HCT 43.6 05/05/2017 MCV 89.2 05/05/2017 PLT 218 05/05/2017 Lab Results Component Value Date CREA 0.80 05/05/2017 BUN 13 05/05/2017 NA 137 05/05/2017 K 4.4 05/05/2017 CL 103 05/05/2017 CO2 26 05/05/2017 Lab Results Component Value Date ALT 23 05/05/2017 AST 22 05/05/2017 ALKPHOS 61 05/05/2017 BILITOT 1.0 05/05/2017 Physician Assessment: Annie started concurrent chemoradiotherapy last week. She remains J-tube dependent and c an only take sips of water. She has switched feeding tube formula and is no longer experien cing diarrhea. She still is limited on volume and will become uncomfortable and nauseated a fter around 600 mL. Her weight has decreased about 4 pounds from last week. After her firs t week of chemotherapy she experienced nausea. Initially she did not fully utilize antiemet ics. Since reeducation she is using the medications as prescribed and experiencing very goo d control of nausea. Today she had to undergo a procedure for adjusting the port, recovering well. Toxicities reviewed in nursing note. Disposition: Continue radiation treatment as planned. Continue chemotherapy. The guidance of Dr. Mccarthy Continue working with nutrition services to optimize tube feeding and maintain caloric Jennifer Colin MD Radiation Oncologist [facility] donato RN - 05/06/2017 3:01 PM PST 05/06/17 1501 Gastrointestinal Nausea 0 - Grade 0 Vomiting 0 - Grade 0 General Disorders and Administration Site Conditions Fatigue 1 - Grade 1 Performance Status Karnofsky Performance Score 70% documented in this en counter Plan of Treatment Not on filedocumented as of this encounter Visit Diagnoses + + | Diagnosis | + + | Esophageal cancer, stage IIA (HCC) - Primary | + + documented in this encounter"
--- OUTSIDE RECORDS SUMMARY | ~2019-12-05 | XMS | Encounter Summary ---
Demographics + + + | Address | [address] | | | [place] [address] | + + + | Home Phone [...] Team Providers + +------+ + | Care Devulcanizer Charger Name | Role | Phone | + [...] | | | | (HCC) | [address] | [place], | | | | | Procedures | [place], | [place] [address] | | | | | [place] OFFICE | [place] | Phone: | | | | | OUTPATIENT | [address] | [phone] | | | | | VISIT 25 | Phone: | Fax: | | | | | MINUTES | [phone] | [phone] | | | | | OFFICE VISIT | Fax: | | | | | | EXTENDED | [phone] | | +--------+--------+ + + + + Encounter Details +--------+ + + + + | Date | Type | Department | Care Team | Description | +--------+ + + + + | 09/07/ | Hospital | [facility] | Jennifer Reyes | Esophageal cancer, | | 2018 | Encounter | [facility] RAD[facility]ATION | MD Manjula [address] | stage IIA (HCC) | | | | ONCOLOGY CLINIC [address] | [place], [place] | (Primary Dx) | | | | [address] | [address] | | | | | [place] [address] | | | | | | [phone] | | | +--------+ + + + [...] + + + | Blood Pressure | 139/85 | 09/07/2017 9:02 AM | | | | | PDT | | + + + + + | Pulse | 75 | 09/07/2017 9:02 AM | | | | | PDT | | + + + + + | Temperature | 36.8 C (98.2 F) | 09/07/2017 9:02 AM | | | | | PDT | | + + + + + | Respiratory Rate | 16 | 09/07/2017 9:02 AM | | | | | PDT | | + + + + + | Oxygen Saturation | 96% | 09/07/2017 9:02 AM | | | | | PDT | | + + + + + | Inhaled Oxygen | - | - | | | Concentration | | | | + + + + + | Weight | 58.5 kg (128 lb 15.5 | 09/07/2017 9:02 AM | | | | oz) | PDT | | + + + + + | Height | - | - | | + + + + + | Body Mass Index | 20.98 | 04/14/2017 9:33 AM | | | [...] water | 90 each | 0 | 08/04/19 | | | Magnesium 10 MG PACK [...] + +---------+ + + | ondansetron | Take 1 tablet by | 30 | 1 | 10/11/19 | | | (ZOFRAN) 4 mg tablet | mouth every 8 hours | tablet | | 18 | 8 | | | as needed for | | | | | | | Nausea. | | | | | + + [...] encounter Progress Notes Evita Chatterjee, OT - 09/07/2017 1:32 PM [facility] [address] [address] Incident To Occupational Therapy Treatment Note Date: 09/07/2017 Patient Information Patient Name: Annie Brown Date of : 1955 Age: 61 y.o. Timed Treatment Codes: 17 minutes Subjective: Annie presents to oncology care provider visit today [facility] for tx of St.IIA esophageal cancer dx 02/2017. Patient is s/ p combined treatment 04/29/2017-06/07/17 and most recently s/p complex L thoracoabdominal esoph agogastrectomy w/ cervical esophagogastrostomy at [facility] on 07/12/17. She states she is continuing to recover from treatment and surgery after her "year from hell". Patient con ts to have swallow and voice deficits but overall, patient upbeat and positive and has made quite remarkable recovery overall physically. Objective: -Patient Education / Self Long-Term Management: Patient's primary deficits r/t residual paralysis of L vocal cord causing voice hoarseness, weakness, and cough, and decreased swallow strength and ability. Patient is independent wit h managing a modified diet as needed for increased safety with swallowing foods and liquids. She does have slight aspiration at times due to the paralysis of closure of vocal cord. P atient currently scores a 21/40 on EAT-10 screening indicating that she would benefit from s killed intervention from NAUMKE[employer] OPERATOR. Patient is aware of this, however, would like to wait until s he has her follow up appt at [facility] where they are planning to address vocal cord iss ue, either with non-invasive, if possible, or surgical intervention. Patient also to olivier brown from [employer] for voice therapy in future as well. She does demonstrate good understanding and safety awareness with foods and textures re: her swallow. Patient does admit that she does have some anxiety and fear re: swallowing due to not taking anything PO for 7 months. Enco uraged patient to perform swallow exercises that she was given in the past to keep/improve s wallow musculature as much as possible and to increase confidence with swallow. -Therapeutic Exercise / HEP: Patient instructed in the below activities for home. Instructed patient in neck ROM exs for scar pliability. -Manual Therapy: Below treatment performed below to help manage and alleviate patient sympt oms. Instructed patient in scar massage on L lateral neck, however patient expressed no desire t o touch scar; stated it "creeped her out". Encouraged patient to utilize ROM if she did not wish to massage scar. Plan: Considerations for follow up: -Continue at home with recommendations from visit and Patient declines further therapy inte rvention at this time - however she is open to NAUMKEAG OPERATOR intervention once medical decision is mad e re: further tx for her vocal cord paralysis. Electronically signed by: Evita Chatterjee OT, 09/07/2017 13:32 Patient Name: Annie Brown/: 1955/ Jennifer Yi MD - 09/07/2017 9:00 AM PDT Radiation Oncology Follow-up Chief Complaint/ICD10 ICD-10-CM ICD-9-CM 1. Esophageal cancer, stage IIA (HCC) C15.9 150.9 History of Present Illness: Annie Brown is a 61 y.o. woman diagnosed with esophageal cancer, squamous cell car cinoma, moderately differentiated. Clinical stage T3 N1 M0 based on EUS and PET/CT. Compl eted neoadjuvant chemoradiotherapy with 50.4 Gy in 28 fraction and concurrent weekly carbopl atin and paclitaxel, 06/07/17. Annie returns for routine follow-up today. She completed radiation 3 months ago. In the interim she has undergone esophagectomy under the care of Dr. Gold Cannon at [facility], on 07/12/17. Her perioperative course and recovery has been very good. Only significant po stoperative complication is hoarse voice, due to left vocal cord paralysis. She plans to re turn to [facility] for vocal cord repair in the coming weeks, with Dr. Fitzgerald. Esophage ctomy pathology detailed below, briefly ypT3 ypN0 and an R0 resection. Recall that her primary tumor had caused complete esophageal obstruction. She was unable t o even swallow secretions. Postoperatively she can now able to eat. However she describes that she is extremely cautious and fearful of the foods and consistency that she swallows. Occasionally things get stuck in the upper esophagus. She also struggles with ongoing nause a and reflux symptoms. She has been taking Compazine for the nausea but finds this only mod erately helpful. In the past she was able to take Zofran and this was much more effective a t managing her nausea. Since she is outside of the chemoradiation phase her insurance has d eclined Zofran. She has also been unable to obtain the appropriate form of omeprazole that can be used per J-tube. She is quite concerned that if nausea and gastric acid are not louise ged appropriately her postoperative course was complicated and nutritional status compromise . She hopes to transition off of the J-tube as soon as possible however until she has for t he recovery this is not feasible. She has minimal postoperative pain and is managing this with [id number] Tylenol or ib uprofen is alone at this point. She is extremely optimistic about her course and continues to work hard to optimize her health. ROS Current Outpatient Prescriptions Medication Sig Dispense Refill acetaminophen (TYLENOL) 160 mg/5 mL solution Take 15.5 mLs by mouth every 4 hours as ne eded for Fever. 473 mL 2 ibuprofen (ADVIL, MOTRIN) 100 mg/5 mL suspension Take by mouth every 6 hours as needed for Fever. Taking 15ml Omeprazole Magnesium 10 MG PACK Mix 15 mL of water and one 10 mg packet of omeprazole, administer via J tube three times daily. Once mixed, shake gently and allow 2-3 minutes for solution to thicken, then administer. 90 each 3 ondansetron (ZOFRAN) 8 MG tablet Crush 1 tablet and mix with 15-30 mL (1-2 tablespoons) of water, administer twice daily for 2 days after each chemo. On other days, take 8 mg ever y 6 hrs as needed for nausea/vomiting (Patient not taking: Reported on 09/07/2017) 60 tablet 3 prochlorperazine (COMPAZINE) 5 mg tablet Take 5 mg by mouth every 8 hours as needed for Nausea. No current facility-administered medications for this encounter. Allergies No active allergies Intolerance No active intolerances/contraindications Vitals: 09/07/17 0902 BP: 139/85 Pulse: 75 Resp: 16 Temp: 36.8 C (98.2 F) Wt Readings from Last 3 Encounters: 09/07/17 58.5 kg (128 lb 15.5 oz) 06/11/17 59.7 kg (131 lb 9.8 oz) 06/07/17 60.1 kg (132 lb 7.9 oz) Physical Exam: General: Healthy appearing woman [...] gait. Psychiatric: Appropriate. Labs: No recent results. Imaging: No recent results. Pathology: 07/12/17 -Adenocarcinoma measuring 3.5 x 1.2 x 0.6 cm, 30 40 percent of residual tumor appeared vi able. Margins negative. 0/25 lymph nodes involved. ypT3 ypN0. -Liver biopsy benign. Assessment: ICD-10-CM ICD-9-CM 1. Esophageal cancer, stage IIA (HCC) C15.9 150.9 Annie Brown is a 61 y.o. woman diagnosed with esophageal cancer, squamous cell car cinoma, moderately differentiated. Clinical stage T3 N1 M0 based on EUS and PET/CT. Compl eted neoadjuvant chemoradiotherapy with 50.4 Gy in 28 fraction and concurrent weekly carbopl atin and paclitaxel, 06/07/17. Esophagectomy on 07/12/17 with R0 resection, ypT3 ypN0. Postoperative recovery going well. Ongoing difficulties with nausea and reflux. No clinic al indication today for disease. Consult requested for rehabilitation therapy for patient education in self care management, instruct in therapeutic exercise, and/or manual therapy techniques to optimize patient func tion. Recommendation for ongoing NAUMKEAG OPERATOR appreciated. Plan: - Request refill of Prilosec/omeprazole formulation per J-tube. This is the most appropria te formulation for her at this time. Dr. Cannon has explicitly stated that she will need to be on a PPI for the rest of her life, post of esophagectomy. Further justification described above regarding need to optimize nutritional status. - Similarly nausea medication is critical. Postoperative complications remain a possibilit y if her nausea is not controlled. Compazine has been less effective than previous Zofran. And again further description above regarding the need for nutrition optimization. - Speech language pathology referral as there continues to be a large part of her difficult y swallowing and eating normally. - She should undergo a surveillance imaging with CT chest and abdomen within the next 3 mon ths. This initial surveillance imaging may be managed by [facility], if not we will ord er at her follow-up visit. - Follow-up in clinic here in 3-4 months. Continue to follow with [facility] team and Dr. Mccarthy as directed. Thank you for allowing me to participate in the care of Annie Brown. If you should have any questions regarding this evaluation, please do not hesitate to contact me. Jennifer Bowman M.D. Radiation Oncologist Department of Radiation Oncology [facility] Office: [phone] CC: Patient Care Team: Physician No as PCP - General Isak Mccarthy MD as Consulting Physician (Medical Oncology) Norm Oneal MD (Otolaryngology) Jennifer Madrid MD as Physician (Radiation Oncology) Gold Cannon MD (Cardiothoracic Surgery) Misti Roth RDN as Registered Dietitian (Dietitian) documented in thi s encounter Miscellaneous Notes Addendum Note - Jennifer Madrid MD - 10/10/2017 2:05 PM PDTEncounter addended by: Jonas Madrid MD on: 10/10/2017 14:05
Actions taken: Sign clinical noteElectronical ly signed by Jennifer Madrid MD at 10/10/2017 2:05 PM PDTdocumented in this encounter Plan of Treatment Not on filedocumented as of this encounter Visit Diagnoses + + | Diagnosis | + + | Esophageal cancer, stage IIA (HCC) - Primary | + + documented in this encounter
--- OUTSIDE RECORDS SUMMARY | ~2019-12-05 | XMS | Encounter Summary ---
Demographics + + + | Address | [address] | | | [place] [address] | + + + | Home Phone | | + + + | Preferred Language | Unknown | + + + | Marital Status | | + + + | Jain Affiliation | Unknown | + + + | Race | Unknown | + + + | Ethnic Group | Unknown | + + + Author + + + | Author | [facility] | | | and [place] | + + + | Organization | [facility] | | | [...] Team Providers + +------+ + | Care Interpreter Translator Name | Role | Phone | + [...] Provider, | | | | | | CT Chest w | Historical, | | | | | | Contrast | [address] | | | | | | | [address] | | | | | | | [place] | | | | | | | [address] | | +--------+--------+ + + + + Encounter Details +--------+ + + + + | Date | Type | Department | Care Team | Description | +--------+ + + + + | 04/13/ | Imaging | [facility] | Provider, | | | 2017 | Exam | [facility] | MD [address] | | | | | IMAGING [address] | | | | | [address] | [place] [address] | | | | | [place] [address] | | | | | | [phone] | | | +--------+ + + + [...] + +--------+ + + + | CT CHEST W CONTRAST | Routin | 03/11/2017 | | Results for this | | | e | 12:30 PM | | procedure are in the | | | | PST | | results section. | + +--------+ + + + documented in this encounter Results CT Chest w Contrast (03/11/2017 12:30 PM PST) + + | Specimen | + + | | + + + + + | Narrative | Performed At | + + + | External films | [facility] | | for comparison only - no result from [facility]. | | + + + + +---------+ + + | Performing | Address | City/State/Zipcode | Phone Number | | Organization | | | | + +---------+ + + | [facility] | | | | + +---------+ + + documented in this encounter Visit Diagnoses Not on filedocumented in this encounter"
--- OUTSIDE RECORDS SUMMARY | ~2019-12-05 | XMS | Encounter Summary ---
Demographics + + + | Address | [address] | | | [place] [address] | + + + | Home Phone | | + + + | Preferred Language | Unknown | + + + | Marital Status | | + + + | Yarsanism Affiliation | Unknown | + + + | Race | Unknown | + + + | Ethnic Group | Unknown | + + + Author + + + | Author | [facility] | | | and [place] | + + + | Organization | [facility] | | | [...] Team Providers + +------+ + | Care Wood Science Professor Name | Role | Phone | [...] [address] | | | | | ([facility]) | JAQUAN WEBER | JAQUAN WEBER | | | | | Procedures | [address] | [address] | | | | | [address] | [place], | [place], [place] | | | | | | [place] [address] | [address] | | | | | | Phone: | Phone: | | | | | | [phone] | [phone] | | | | | | Fax: | Fax: | | | | | | [phone] | [phone] | +--------+--------+ + + + + Encounter Details +--------+ + + + + | Date | Type | Department | Care Team | Description | +--------+ + + + + | 04/21/ | Hospital | [facility] | Fabio, | Thyroid nodule | | 2018 | Encounter | [facility] | Isak Elizabeth MD [address] | (Primary Dx); | | | | [facility] CLIN[facility] [address] | [facility] | Esophageal cancer, | | | | [address] | [address] [place], [place] | stage IIA (HCC); | | | | [place] [address] | [address] | Esophageal cancer, | | | | [phone] | | stage IIIA (HCC) | +--------+ + + + + Social [...] + + + | Blood Pressure | 133/96 | 04/21/2018 2:11 PM | | | | | PST | | + + + + + | Pulse | 71 | 04/21/2018 2:11 PM | | | | | PST | | + + + + + | Temperature | 37.2 C (98.9 F) | 04/21/2018 2:11 PM | | | | | PST | | + + + + + | Respiratory Rate | 14 | 04/21/2018 2:11 PM | | | | | PST | | + + + + + | Oxygen Saturation | 97% | 04/21/2018 2:11 PM | | | | | PST | | + + + + + | Inhaled Oxygen | - | - | | | Concentration | | | | + + + + + | Weight | 61.3 kg (135 lb 2.3 | 04/21/2018 2:11 PM | | | | oz) | [...] Take 1 capsule by | 30 | 3 | 03/28/20 | | | (PRILOSEC) 20 mg | mouth every morning | capsule | | 18 | 9 | | capsule | (before breakfast). | | | | | + + + +---------+ + + documented as of this encounter Progress Notes Isak Mcacrthy MD - 04/21/2018 2:10 PM PSTFormatting of this note might be differe nt from the original. Hematology/Oncology Progress Note [facility] [place] Pt. Name/Age/: Annie Thompson 62 y.o. 1955 Med. Record Number: [id number] Date of admission: 04/21/2018 The patient's primary care provider is Haim Epps. Identifying Statement: Annie Thompson is a 62 y.o. female from [address] [place] [address] with Esophageal Cancer. The patient chart and medications were reviewed in detail and the patient was seen and exam ined. History of Present Illnesses, their Current Assessments and Plans: Problem List Esophageal cancer, stage IIIA Overview ACTIVE DIAGNOSIS: Squamous cell carcinoma of the esophagus, Stage IIIA. 1. Upper endoscopy with biopsy March 15, 2017 ([facility]). Mass in mid esophagus. [id number]) Invasive Squamous Cell carcinoma, mod erately differentiated. Immunohistochemistry diffusely positive for P16. 2. Status post feeding jejunostomy tube placement by Dr. Haim Epps, [facility], [facility]. 3. PET/CT scan March 24, 2017; mid-esophageal tumor with SUV 8.5, no evidence of metasta tic disease. 4. Endoscopic ultrasound at [facility]; single level 8 node "moderately suspicious." Clinical stage T3N1M0, Stage IIIA. 5. Comprehensive mutidisciplinary team evaluation at [facility], [facility] ([facility] [place]); combined modality chemoradiation with weekly taxol/car boplatin at [facility] in [place], follow by definitive resection b y Dr. Cannon at [facility]. 6. Status post placement of a left subclavian port-a-cath by Dr. Haim Epps. 7. Begin Combined modality therapy April 29, 2017; external beam radiation with weekly tax ol/carboplatin chemotherapy, completed June 07, 2018 8. Left thoracoabdominal esphagogastrectomy with cervical esophagogastrostomy and wedge lizy er biopsy July 12, 2017 ([facility], [facility]). Pathological specimen #[id number] "Liver biopsy-focal n odular hyperplasia. Esophagus and proximal stomach-YpT3 residual adenosquamous carcinoma 3.5 cm x 1.2 cm x 0.6 cm invading the paraesophageal soft tissue (adventitia). Tumor estimated to be 30-40% viable. Margins negative. A total of 25 lymph nodes were evaluated all of which were negative for regionally metastatic disease. Final pathological downstage; [id number], st age IIB. 9. Port-a-cath removed by Dr. Epps. 10. Gastrostomy feeding tube removed by Dr. Epps. 11. Status post right hemithyroidectomy by Dr. Epps. Current Assessment & Plan Annie Thompson returned to clinic on 04/21/2018 alone for follow up of her clinical Stage IIIA esophageal cancer. Interval history is notable for the fact that Annie recently returned to [facility] for comprehensive reassessment, including imaging. She also recently underwent right thyroidectomy by Dr. Epps and will follow-up with him on May 05, 2018 to reveal the results. 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 Review of systems is notable for the fact that she is eating all sorts of food without diff iculty. Clinical exam is notable for the fact that her right thyroidectomy scar is well-healed. Laboratory exam is entirely within normal limits. Assessment; no signs or symptoms of recurrence of squamous cell esophageal cancer at one ye ar. Plan; return in 3 months for clinical and laboratory follow-up. Imaging will be symptom dir ected. I recommended screening colonoscopy. Thyroid nodule Review of Systems: Constitutional: Energy is "fine" and pt is back to work. Appetite has been good. Denies sha jacobo chills, anorexia, vomiting, weight loss, or night sweats. Ear, Nose, Mouth, Throat: Reports difficulty swallowing which has improved; feels "tight." Reports intermittent tinnitus, continues, has decreased. Denies odynophagia. Cardiovascular: Denies shortness of breath, dyspnea on exertion, chest pain, palpitations o r orthopnea. Respiratory: Constant productive cough (white/clear phlegm). Denies hemoptysis. Gastrointestinal: Reports abdominal pain when she overeats and can get diarrhea also; no me dication but managed with diet & smaller meals. Denies constipation, melena, or bright red b lood per rectum. Genitourinary: Denies hematuria or dysuria. Musculoskeletal: Continued hip pain baseline. Denies joint pain or tenderness. Neurologic: Denies visual changes, or numbness/tingling of the extremities. Endocrine: Denies peripheral edema or heat/cold intolerance. Hematologic: Denies spontaneous bruising or bleeding. Integumentary: Denies rash, wounds or other skin concerns. Pain: No pain today. Note: 3 month F/U My chart: Declined Scheduled Medications: Current Outpatient [...] every morning (before break fast). 30 capsule 3 No current facility-administered medications for this [...] Paternal Aunt Esophageal cancer Other Objectives: Temp: 37.2 C (98.9 F) BP: (!) 133/96 Pulse: 71 Resp: 14 SpO2: 97 % on Min/Max Temp past 24 hours:Temp Av.2 C (98.9 F) Min: 37.2 C (98.9 F) Max: 3 7.2 C (98.9 F) No intake or output data in the 24 hours ending 04/21/18 1842 Wt. Admission: Weight: 61.3 kg (135 lb 2.3 oz) Wt. Current: Weight: 61.3 kg (135 lb 2.3 oz) Wt Readings from Last 3 Encounters: 04/21/18 61.3 kg (135 lb 2.3 oz) 01/05/18 60 kg (132 lb 4.4 oz) 09/07/17 58.5 kg (128 lb 15.5 oz) Physical Exam: General: The patient is [...] in the Assessment and Plan. Results for ANNIE THOMPSON ( ) as of 04/21/2018 18:41 Ref. Range 04/21/2018 14:03 WBC Latest Ref Range: 4.0 - 11.0 K/uL 6.0 RBC COUNT Latest Ref Range: 3.70 - 5.20 M/uL 4.64 Hgb Latest Ref Range: 11.5 - 16.0 g/dL 14.3 Hct, Final Latest Ref Range: 34.0 - 47.0 % 43.5 MCV Latest Ref Range: 83.0 - 101.0 fL 93.8 MCH Latest Ref Range: 28.0 - 35.0 pg 30.8 MCHC Latest Ref Range: 32.0 - 36.0 g/dL 32.9 RDW-SD Latest Ref Range: 35.1 - 46.3 fL 43.9 RDW-CV Latest Ref Range: <15.0 % 12.7 Platelet Count Latest Ref Range: 140 - 440 K/uL 265 MPV Latest Ref Range: 6.5 - 12.4 fL 9.4 Absolute Neutrophils Latest Ref Range: 1.80 - 8.50 K/uL 4.10 Absolute Lymphocytes Latest Ref Range: 0.60 - 3.20 K/uL 1.27 Absolute Monocytes Latest Ref Range: 0.00 - 1.00 K/uL 0.41 Absolute Eosinophils Latest Ref Range: 0.00 - 0.40 K/uL 0.13 Absolute Basophils Latest Ref Range: 0.00 - 0.10 K/uL 0.05 % Neutrophils Latest Ref Range: 45.0 - 82.0 % 68.6 % Lymphocytes Latest Ref Range: 20.0 - 45.0 % 21.2 % Monocytes Latest Ref Range: 4.0 - 12.0 % 6.9 % Eosinophils Latest Ref Range: 0.0 - 5.0 % 2.2 % Basophils Latest Ref Range: 0.0 - 1.0 % 0.8 % Immature granulocytes Latest Ref Range: 0.0 - 0.4 % 0.3 Absolute Imm. Granulocytes Latest Ref Range: 0.00 - 0.03 K/uL 0.02 NRBC Latest Ref Range: 0 - 2 per 100 WBC's 0 Na Latest Ref Range: 136 - 149 mmol/L 139 K Latest Ref Range: 3.5 - 5.1 mmol/L 3.6 Chloride Latest Ref Range: 98 - 109 mmol/L 108 Carbon dioxide Latest Ref Range: 24 - 31 mmol/L 24 Anion Gap Latest Ref Range: 3 - 16 mmol/L 7 Glucose Latest Ref Range: 70 - 109 mg/dL 74 BUN Latest Ref Range: 7 - 18 mg/dL 9 Creatinine Latest Ref Range: 0.60 - 1.30 mg/dL 0.69 BUN/Creatinine Ratio Unknown 13.0 Albumin Latest Ref Range: 3.2 - 5.0 g/dL 3.9 Albumin/Globulin Ratio Latest Ref Range: 0.8 - 2.0 1.7 Total Protein Latest Ref Range: 6.0 - 7.8 g/dL 6.2 EGFR IF NOT Latest Ref Range: >=60 mL/min/1.73m2 >60 Calcium Latest Ref Range: 8.3 - 10.5 mg/dL 9.1 ALK PHOS Latest Ref Range: 40 - 110 U/L 108 ALT (SGPT) (REF) Latest Ref Range: 6 - 45 U/L 28 AST (SGOT) (REF) Latest Ref Range: 10 - 42 U/L 23 LDH TOTAL Latest Ref Range: 91 - 180 U/L 139 Bilirubin Total (Calculated) Latest Ref Range: 0.1 - 1.5 mg/dL 0.5 Globulin Latest Ref Range: 2.1 - 3.8 g/dL 2.3 CEA Latest Ref Range: 0.0 - 10.0 ng/mL 2.9 NRBC ABS Latest Ref Range: 0.00 - 0.01 K/uL 0.00 Pharmacovigilance: Palliative Care: Patient's Medications New Prescriptions No medications on file Modified Medications No medications on file Discontinued Medications No medications on file Procedure: Isak Mccarthy MD Portions of this chart may have been created with [employer] voice recognition software. Occasi onal wrong-word or sound-alike substitutions may have occurred due to the inherent solis itations of voice recognition software. Please read the chart carefully and recognize, using context, where these substitutions have occurred. documented in t his encounter Miscellaneous Notes Assessment & Plan Note - Isak Mccarthy MD - 04/21/2018 6:31 PM PSTAssociated Prob chandler(s): Esophageal cancer, stage IIIA (HCC)Annie Thompson returned to clinic on 2017 alone for follow up of her clinical Stage IIIA esophageal cancer. Interval history is notable for the fact that Annie recently returned to [facility] for comprehensive reassessment, including imaging. She also recently underwent right thyroidectomy by Dr. Epps and will follow-up with him on May 05, 2018 to reveal the results. 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 Review of systems is notable for the fact that she is eating all sorts of food without diff iculty. Clinical exam is notable for the fact that her right thyroidectomy scar is well-healed. Laboratory exam is entirely within normal limits. Assessment; no signs or symptoms of recurrence of squamous cell esophageal cancer at one ye ar. Plan; return in 3 months for clinical and laboratory follow-up. Imaging will be symptom dir ected. I recommended screening colonoscopy. documented in t his encounter Plan of Treatment Not on filedocumented as of this encounter Procedures + +--------+ + + + | Procedure Name | Priori | Date/Time | Associated Diagnosis | Comments | | | ty | | | | + +--------+ + + + | CBC W/AUTO | STAT | 04/21/2018 | Esophageal cancer, | Results for this | | DIFFERENTIAL | | 2:03 PM | stage IIA (HCC) | procedure are in the | | | | PST | | results section. | + +--------+ + + + | LACTATE | STAT | 04/21/2018 | Esophageal cancer, | Results for this | | DEHYDROGENASE | | 2:03 PM | stage IIA (HCC) | procedure are in the | | | | PST | | results section. | + +--------+ + + + | CEA | Routin | 04/21/2018 | Esophageal cancer, | Results for this | | | e | 2:03 PM | stage IIA (HCC) | procedure are in the | | | | PST | | results section. | + +--------+ + + + | COMPREHENSIVE | STAT | 04/21/2018 | Esophageal cancer, | Results for this | | METABOLIC PANEL | | 2:03 PM | stage IIA (HCC) | procedure are in the | | | | PST | | results section. | + +--------+ + + + documented in this encounter Results TSH (07/07/2018 2:05 PM PDT) + + + + + + | Component | Value | Ref Range | Performed | Pathologist | | | | | At | Signature | + + + + + + | TSH | 6.89 (H) | 0.55 - 4.78 | [facility] | | | | | uIU/mL | [facility] | | | | [...] ST. | [address] | [place] | [phone] | | [facility] | | [address] | | | - LABORATORY | | [...] [address] | [place] | [phone] | | [facility] | | [address] | | | - LABORATORY | | | | + + + + + Lactate Dehydrogenase (07/07/2018 2:05 PM PDT) + +-------+ + + + | Component | Value | Ref Range | Performed | Pathologist | | | | | At | Signature | + +-------+ + + + | LDH TOTAL | 204 | 120 - 246 U/L | [facility] | | | | | | [facility] [address] | [place] | [phone] | | [facility] | | [address] | | | - LABORATORY | | [...] | | non- | | mL/min/1.73m2 | [facility] | | | [place] | | | MEDICAL | | | [...] + | BUN/Creatin | 9.0 | | [facility] | | | ine Ratio | | | [facility] | | | | | | MEDICAL [...] [address] | [place] | [phone] | | [facility] | | [address] | | | - LABORATORY | | [...] | | Granulocyte | | | [facility] | | | s | | | [...] | | Lymphocytes | | K/uL | [facility] | [...] + | [facility] | [address] | [place] | [phone] | | [facility] | | [address] | | | - LABORATORY | | | | + + + + + Lactate Dehydrogenase (04/21/2018 2:03 PM PST) + +-------+ + + + | Component | Value | Ref Range | Performed | Pathologist | | | | | At | Signature | + +-------+ + + + | LDH TOTAL | 139 | 91 - 180 U/L | [facility] | | | | | | [facility] | | | | | | [...] + | [facility] | [address] | [place] | [phone] | | [facility] | | [address] | | | - LABORATORY | | [...] eGFR, | >60Comment: GLOMERULAR | >=60 | [facility] | | | non- | FILTRATION | mL/min/1.73m2 | [facility] | | | [place] | RATE,ESTIMATED | | MEDICAL | | | | mL/min/1.25u8Sctf than | | CENTER - | | [...] | 9.1 | 8.3 - 10.5 | [facility] | | | | | mg/dL | [facility] | | | | | | MEDICAL | | | | | | CENTER - | | | | | | LABORATORY | | + + + + + + | Albumin | 3.9 | 3.2 - 5.0 g/dL | [facility] [...] | | Protein | | | [facility] | | [...] | | appended report. These | | . YIN | | | | results have [...] + | [facility] | [address] | [place] | [phone] | | [facility] | | [address] | | | - LABORATORY | | [...] | | Cells | | | [facility] | | | | | | MEDICAL [...] | | | | | | [facility] | | | | | | MEDICAL [...] [address] | [place] | [phone] | | [facility] | | [address] | | | - LABORATORY | | | | + + + + + CEA (04/21/2018 2:03 PM PST) + +-------+ + + + | Component | Value | Ref Range | Performed | Pathologist | | | | | At | Signature | + +-------+ + + + | CEA | 2.9 | 0.0 - 10.0 | [facility] | | | | | ng/mL | [facility] | | | | [...] + + | [facility] | [address] | [place] | [phone] | | [facility] | | [address] | | | - LABORATORY | | | | + + + + + documented in this encounter Visit Diagnoses + + | Diagnosis | + + | Thyroid nodule - Primary Nontoxic uninodular goiter | + + | Esophageal cancer, stage IIA (HCC) | + + | Esophageal cancer, stage IIIA (HCC) | + + documented in this encounter
--- OUTSIDE RECORDS SUMMARY | ~2019-12-05 | XMS | Encounter Summary ---
Demographics + + + | Address | [address] | | | [place] [address] | + + + | Home Phone | | + + + | Preferred Language | Unknown | + + + | Marital Status | | + + + | Latter Day Affiliation | Unknown | + + + | Race | Unknown | + + + | Ethnic Group | Unknown | + + + Author + + + | Author | [facility] | | | and [place] | + + + | Organization | [facility] | | | and [...] Team Providers + +------+ + | Care Driller Helper Name | Role | Phone | [...] | | | | | | | [address] | | +--------+--------+ + + + + Encounter Details +--------+ + + + + | Date | Type | Department | Care Team | Description | +--------+ + + + + | 04/13/ | Imaging | [facility] | Provider, | Canceled (OTHER) | | 2017 | Exam | [facility] | MD [address] | | | | | IMAGING [address] | [address] | | | | | [address] | [place] [address] | | | | | [place] [address] | | | | | | [phone] | | | +--------+ + + + [...]
--- OUTSIDE RECORDS SUMMARY | ~2019-12-05 | XMS | Encounter Summary ---
Demographics + + + | Address | [address] | | | [place] [address] | + + + | Home Phone | | + + + | Preferred Language | Unknown | + + + | Marital Status | | + + + | Denominational Affiliation | Unknown | + + + | Race | Unknown | + + + | Ethnic Group | Unknown | + + + Author + + + | Author | [facility] | | | and [place] | + + + | Organization | [facility] | | | and [...] Team Providers + +------+ + | Care Hourly Team Members Name | Role | Phone | + [...] | [facility] | [address] | | | | | IMAGING [address] | [address] | | | | | [address] | [place] [address] | | | | | [place] [address] | | | | | | [phone] | | | +--------+ + + + [...] | + +--------+ + + + | FL C ARM < 1 HOUR | Routin | 03/26/2017 | | Results for this | | | e | 9:15 AM | | procedure are in the | | | | PST | | results section. | + +--------+ + + + documented in this encounter Results FL C-Arm < 1 Hour (03/26/2017 9:15 AM PST) + + | Specimen | + + | | + + + + + | Narrative | Performed At | + + + | External films | [facility] | | for comparison only - no result from [place]. | | + + + + +---------+ + + | Performing | Address | City/State/Zipcode | Phone Number | | Organization | | | | + +---------+ + + | [facility] | | | | + +---------+ + + documented in this encounter Visit Diagnoses Not on filedocumented in this encounter"
--- OUTSIDE RECORDS SUMMARY | ~2019-12-05 | XMS | Encounter Summary ---
Demographics + + + | Address | [address] | | | [place] [address] | + + + | Home Phone | | + + + | Preferred Language | Unknown | + + + | Marital Status | | + + + | Sikhism Affiliation | Unknown | + + + | Race | Unknown | + + + | Ethnic Group | Unknown | + + + Author + + + | Author | [facility] | | | and [place] | + + + | Organization | [facility] | | | [...] Team Providers + +------+ + | Care Double End Trimmer Name | Role | Phone | + +------+ + | Haim Epps | PCP | | + +------+ + Encounter Details +--------+ + + + + | Date | Type | Department | Care Team | Description | +--------+ + + + + | 07/12/ | Imaging | [facility] | Provider, | | | 2019 | Exam | [facility] | MD [address] | | | | | IMAGING [address] | [address] | | | | | [address] [address] | [place] [address] | | | | | [place] [address] | | | | | | [phone] | | | +--------+ + + + [...] CT CHEST W CONTRAST | Routin | 06/30/2018 | | Results for this | | | e | 8:20 AM | | procedure are in the | | | | PST | | results section. | + +--------+ + + + documented in this encounter Results CT Chest w Contrast (06/30/2018 8:20 AM PST) + + | Specimen | [...]
--- OUTSIDE RECORDS SUMMARY | ~2019-12-05 | XMS | Encounter Summary ---
Demographics + + + | Address | [address] | | | [place] [address] | + + + | Home Phone | | + + + | Preferred Language | Unknown | + + + | Marital Status | | + + + | Episcopal Affiliation | Unknown | + + + | Race | Unknown | + + + | Ethnic Group | Unknown | + + + Author + + + | Author | [facility] | | | and [place] | + + + | Organization | [facility] | | | [...] Team Providers + +------+ + | Care Page Makeup System Operator Name | Role | Phone | [...] | | | | stage IIA | [address] | Clinic [address] | | | | | ([facility]) | [address] | [address] | | | | | | [address] | [place], | | | | | | [place], | [place] [address] | | | | | | [place] [address] | Phone: | | | | | | Phone: | [phone] | | | | | | [phone] | Fax: | | | | | | Fax: | [phone] | | | | | | [phone] | | +--------+ + + + + + + + | Scheduling Instructions | + + | Squamous cell carcinoma of mid esophagus. | + + Encounter Details +--------+ + + + + | Date | Type | Department | Care Team | Description | +--------+ + + + + | 03/31/ | Orders Only | [facility] | Fabio, | Esophageal cancer, | | 2017 | | MED [facility] | Isak Elizabeth MD [address] | stage IIA (HCC) | | | | ONCOLOGY CLINIC [address] [place] | | | | | [address] | [address] [place], [place] | | | | | [place] [address] | [address] | | | | | [phone] | | | +--------+ + + + [...] + +--------+ + + | * [facility] | Outpatient | Routin | Esophageal cancer, | Ordered: 03/31/2017 | | Oncology - AMB | Referral | e | stage IIA (HCC) | | | Referral | | | | | + + +--------+ + + documented as of this encounter Visit Diagnoses + + | Diagnosis | + + | Esophageal cancer, stage IIA (HCC) | + + documented in this encounter"
--- OUTSIDE RECORDS SUMMARY | ~2019-12-05 | XMS | Encounter Summary ---
Demographics + + + | Address | [address] | | | [place] [address] | + + + | Home Phone | | + + + | Preferred Language | Unknown | + + + | Marital Status | | + + + | Adventism Affiliation | Unknown | + + + | Race | Unknown | + + + | Ethnic Group | Unknown | + + + Author + + + | Author | [facility] | | | and [place] | + + + | Organization | [facility] | | [...] Team Providers + +------+ + | Care Casework Manager Name | Role | Phone | + +------+ + | Haim Epps | PCP | | + +------+ + Encounter Details +--------+ + + + + | Date | Type | Department | Care Team | Description | +--------+ + + + + | 03/28/ | Orders Only | [facility] | Jennifer Reyes | | | 2018 | | [facility] | MD Manjula [address] | | | | | ONCOLOGY CLINIC [address] | [address] [place] | | | | | [address] | [address] | | | | | [place] [address] | | | | | | [phone] | | | +--------+ + + + [...]
--- OUTSIDE RECORDS SUMMARY | ~2019-12-05 | XMS | Encounter Summary ---
Demographics + + + | Address | [address] | | | [place] [address] | + + + | Home Phone | | + + + | Preferred Language | Unknown | + + + | Marital Status | | + + + | Mu-Ism Affiliation | Unknown | + + + | Race | Unknown | + + + | Ethnic Group | Unknown | + + + Author + + + | Author | [facility] | | | and [place] | + + + | Organization | [facility] | | | [...] Team Providers + +------+ + | Care General Operator Name | Role | Phone | [...] | | | | (HCC) | [address] | [place], | | | | | Procedures | [place], | [place] [address] | | | | | [place] OFFICE | [place] | Phone: | | | | | OUTPATIENT | [address] | [phone] | | | | | VISIT 25 | Phone: | Fax: | | | | | MINUTES | [phone] | [phone] | | | | | OFFICE VISIT | Fax: | | | | | | EXTENDED | [phone] | | +--------+--------+ + + + + Encounter Details +--------+ + + + + | Date | Type | Department | Care Team | Description | +--------+ + + + + | 07/07/ | Hospital | [facility] | Jennifer Reyes | Esophageal cancer, | | 2019 | Encounter | [facility] | MD Manjula [address] | stage IIIA (HCC) | | | | [facility] [address] | [place], [place] | (Primary Dx) | | | | [address] | [address] | | | | | [facility] [place] [address] | | | | | | [phone] | | | +--------+ + + + [...] | Blood Pressure | 126/71 | 07/07/2018 2:52 PM | Taken by Opal | | | | PDT | ANDREAS Fang | + + + + + | Pulse | 78 | 07/07/2018 2:52 PM | Taken by Opal | | | | WADE | ANDREAS Fang | + + + + + | Temperature | 36.6 C (97.9 F) | 07/07/2018 2:52 PM | Taken by Opal Quevedo | | WADE | ANDREAS Fang | + + + + + | Respiratory Rate | 14 | 07/07/2018 2:52 PM | | | | | PDT | | + + + + + | Oxygen Saturation | 97% | 07/07/2018 2:52 PM | Taken by Opal | Emy | | WADE | ANDREAS Fang | + + + + + | Inhaled Oxygen | - | - | | | Concentration | | | | + + + + + | Weight | 62.8 kg (138 lb 7.2 | 07/07/2018 2:52 PM | Taken by Opal | | | oz) | PDT | ANDREAS Fang | + + + + + | [...] encounter Progress Notes Jennifer Reyes MD - 07/07/2018 2:56 PM PDT Radiation Oncology Follow-up Chief Complaint/ICD10 ICD-10-CM ICD-9-CM 1. Esophageal cancer, stage IIIA (HCC) C15.9 150.9 History of Present Illness: Annie Robles a 62 y.o.woman with a history of esophageal cancer, squamous zhane l carcinoma, moderately differentiated. Clinical stage T3 N1 M0 based on EUS and PET/CT. Completedneoadjuvant chemoradiotherapy with 50.4 Gy in 28 fraction and concurrent weekly carboplatin and paclitaxel, 06/07/17. Esophagectomy on 07/12/17, ypT3 ypN0 and an R0 resect ion. Valencia was last seen in December and returns for routine follow-up. She continues to do extremely well. Reports improved ability to swallow all consistencies of food, dysphagia co ntinues to improve. She eats small meals. Has gained 3 pounds since March. Annie rep orts good energy. Denies any focal areas of pain. She also continues to follow with Dr. Denise herr and Dr. Epps. Review of systems: Constitutional: Denies fatigue. Reports occasional nausea "only when I overeat." Reports ap petite has improved, eats small frequent meals about 4-5 times daily. Reports occasional nig ht sweats, unchanged. Denies high fevers, shaking chills, anorexia, vomiting, weight loss. Ear, Nose, Mouth, Throat: Reports has a sore in mouth, think it might be from eating pineap ple. Reports dysphagia has improved, just eat small bites and will drink fluids if it feels like it is getting stuck. Reports occasional tinnitus. Cardiovascular: Denies shortness of breath, dyspnea on exertion, chest pain, palpitations o r orthopnea. Respiratory: Denies cough, hemoptysis, or sputum production. Gastrointestinal: Reports intermittent diarrhea related to certain foods, "it will just hit and I have to find a bathroom." Denies abdominal pain, constipation, diarrhea, melena, or b right red blood per rectum. Genitourinary: Denies hematuria or dysuria. Musculoskeletal: Denies joint pain or tenderness. Neurologic: Denies headache, visual changes, or numbness/tingling of the extremities. Endocrine: Denies peripheral edema or heat/cold intolerance. Hematologic: Reports bruises easily, unchanged. Denies spontaneous bleeding. Integumentary: Denies rash, wounds or other skin concerns. Pain: Denies pain. Note: Here for follow up with Dr. Reyes. My chart: Declined Pain assessment: Location: NA Pain Level: PAIN PROG PAIN LEVEL: 0 Current Outpatient Prescriptions Medication Sig Dispense Refill [...] active allergies Intolerance No active intolerances/contraindications Vitals: 07/07/18 1452 BP: 126/71 Pulse: 78 Resp: 14 Temp: 36.6 C (97.9 F) Wt Readings from Last 3 Encounters: 07/07/18 62.8 kg (138 lb 7.2 oz) 07/07/18 62.8 kg (138 lb 7.2 oz) 04/21/18 61.3 kg (135 lb 2.3 oz) Physical Exam: General: Healthy appearing woman [...] normally with normal gait. Psychiatric: Appropriate. Labs: Lab Results Component Value Date WBC 6.6 07/07/2018 HGB 15.2 07/07/2018 HCT 45.0 07/07/2018 MCV 91.6 07/07/2018 PLT 270 07/07/2018 Imaging: CT chest and abdomen with IV contrast performed at [facility] on 06/30/18. Demonstrate op erative changes from esophagectomy. No abnormal adenopathy. A "barely identified" left hep atic lobe nodule is noted, less visible than previous evaluation. Previously identified int ensely enhancing left lobe lesion also not present on this exam. (Etiology and significance of these liver lesions is indeterminate.) Assessment and Plan: ICD-10-CM ICD-9-CM 1. Esophageal cancer, stage IIIA (HCC) C15.9 150.9 Annie completed tri-modality treatment for locally advance of the cell carcinoma 1 year a go. She has made an excellent recovery. She is now eating and drinking normally and regain ing some weight. Clinical history and exam do not raise any concerns today. Recent imaging of the chest and abdomen also reassuring. She continues on lifelong PPI therapy post esophagectomy, omeprazole 20 mg daily. She was also seen in follow-up by Dr. Mccarthy here today. She also plans to continue f ollow-up with Dr. Epps, anticipating an EGD and colonoscopy next month. She is scheduled to follow-up with Dr. Mccarthy in 3 months, September 2018. I have asked he r to follow-up with me in 3 months thereafter December 2018. Thank you for allowing me to participate in the care of Annie Brown. If you should have any questions regarding this evaluation, please do not hesitate to contact me. Jennifer Reyes M.D. Radiation Oncologist Department of Radiation Oncology [facility] Office: [phone] CC: Patient Care Team: Haim Epps as [...] + | IMAGING REPORT - | | 06/30/2018 | | Results for this | | EXTERNAL SCAN | | 12:00 AM | | procedure are in the | | | | PST | | results section. | + +--------+ + + + documented in this encounter Results IMAGING REPORT - EXTERNAL SCAN (06/30/2018 12:00 AM PST) + + + | [...]
--- OUTSIDE RECORDS SUMMARY | ~2019-12-05 | XMS | Encounter Summary ---
Demographics + + + | Address | [address] | | | [place] [address] | + + + | Home Phone | | + + + | Preferred Language | Unknown | + + + | Marital Status | | + + + | Voodoo Affiliation | Unknown | + + + | Race | Unknown | + + + | Ethnic Group | Unknown | + + + Author + + + | Author | [facility] | | | and [place] | + + + | Organization | [facility] | | | [...] Team Providers + +------+ + | Care Biofuels Technology Manager Name | Role | Phone | [...] | | ILEANA HERNÁNDEZ | [place] [address] | | | | | [place] [address] | | | | | | [phone] | | | +--------+ + + + [...] + +--------+ + + + | FL VIDEO SWALLOW W | Routin | 03/11/2017 | | Results for this | | SPEECH | e | 10:10 AM | | procedure are in the | | | | PST | | results section. | + +--------+ + + + documented in this encounter Results FL Video Swallow w Speech (03/11/2017 10:10 AM PST) + + | Specimen | + + | | + + + + + | Narrative | Performed At | + + + | External films | [facility] | | for comparison only - no result from [place]. | | + + + + +---------+ + + | Performing | Address | City/State/Zipcode | Phone Number | | Organization | | | | + +---------+ + + | [facility] | | | | + +---------+ + + documented in this encounter Visit Diagnoses Not on filedocumented in this encounter"
--- OUTSIDE RECORDS SUMMARY | ~2019-12-05 | XMS | Encounter Summary ---
Demographics + + + | Address | [address] | | | [place] [address] | + + + | Home Phone | | + + + | Preferred Language | Unknown | + + + | Marital Status | | + + + | Gnosticism Affiliation | Unknown | + + + [...] Team Providers + +------+ + | Care Associate Professor Of Engineering Name | Role | Phone | + [...] + + + + | 04/29/ | [facility] | [facility] | Fabio, | Esophageal cancer, | | 2018 | Encounter | [facility] | Talon Elizabeth MD [address] | stage IIA (HCC) | | | | ONCOLOGY CLINIC [facility] | [address] | | | | | [address] | [address] | | | | | [place] [address] | [address] | | | | | [phone] | | | +--------+ + + + [...] | Blood Pressure | 133/77 | 04/29/2017 11:42 AM | | | | | PST | | + + + + + | Pulse | 58 | 04/29/2017 11:42 AM | | | | | PST | | + + + + + | Temperature | 36.3 C (97.4 F) | 04/29/2017 11:42 AM | | | | | PST | | + + + + + | Respiratory Rate | 16 | 04/29/2017 11:42 AM | | | | | PST | | + + + + + | Oxygen Saturation | 97% | 04/29/2017 11:42 AM | | | | | PST | | + + + + + | Inhaled Oxygen | - | - | | | Concentration | | | | + + + + + | Weight | 65.6 kg (144 lb 10 | 04/29/2017 11:42 AM | | | | oz) | [...] encounter Progress Notes Talon Mcclure MD - 04/29/2017 11:23 AM PSTFormatting of this note might be differe nt from the original. Hematology/Oncology Progress Note [facility] [place] Pt. Name/Age/: Annie Brown 61 y.o. 1955 Med. Record Number: [id number] Date of admission: 04/29/2017 The patient's primary care provider is No Physician on file. Identifying Statement: Annie Brown is a 61 y.o. female from [address] [place] [address] with Esophageal Cancer. The patient chart and medications were reviewed in detail and the patient was seen and exam ined. History of Present Illnesses, their Current Assessments and Plans: Problem List Esophageal cancer, stage IIA Overview ACTIVE DIAGNOSIS: Squamous cell carcinoma of the esophagus, Stage IIIA. 1. Upper endoscopy with biopsy March 15, 2017 (Supriya). Mass in mid esophagus. [id number] ([facility]) Invasive Squamous Cell carcinoma, mod erately differentiated. Immunohistochemistry diffusely positive for P16. 2. Status post feeding jejunostomy tube placement by Dr. Haim Epps, [facility] [place]. 3. PET/CT scan March 24, 2017; mid-esophageal tumor with SUV 8.5, no evidence of metasta tic disease. 4. Endoscopic ultrasound at [facility]; single level 8 node "moderately suspicious." Clinical stage T3N1M0, Stage IIIA. 5. Comprehensive mutidisciplinary team evaluation at [facility], [facility] (Haim Hernandez, Gold Cannon); combined modality chemoradiation with weekly taxol/car boplatin at [facility] in [place], follow by definitive resection b y Dr. Cannon at [facility]. 6. Status post placement of a left subclavian port-a-cath by Dr. Haim Epps. 7. Begin Combined modality therapy April 29, 2017. Current Assessment & Plan Annie Brown returned to clinic on 04/29/2017 with her , Gene, for follow u p and to begin combined modality treatment for clinical Stage IIIA squamous cell carcinoma o f the mid-esophagus, p16 positive. Interval history is notable for the fact that Annie has completely lost the ability to sw allow. Tolerance to jejunostomy tube feedings is low due to diarrhea and she is only getting 560 calories a day. She has lost a total of 30 pounds. Review of systems is notable for pain at the jejunostomy exit site. Clinical exam is notable for an 8 mm tender, raised red nodule just above the jejunostomy e xit site. Laboratory exam is notable for being entirely within normal limits. Assessment; Clinical Stage IIIA squamous cell carcinoma of the mid-esophagus. Plan; Extended 25 minute office encounter with Annie Brown and her , Gene. We reviewed the treatment plan of combined modality chemoradiation therapy as delineated by her MDT at [facility]. We reviewed Dr. Hernandez' recommendation for weekly taxol/carboplatin for the duration of her radiation therapy treatment plan. We reviewed the side effect profile of taxol/carboplatin chemotherapy which includes, but i s not limited to; nausea, cytopenias, and hair loss. We made accommodations for her inabilit y to swallow in prescribing post-chemotherapy prophylaxis against chemotherapy-induced nause a and vomiting with ondansetron and dexamethasone. We described the use of lorazepam for the treatment of breakthrough chemotherapy-induced nausea. We instructed Annie Jesus Kevin t o call for any fever over 101 degree Farenheit. I prescribed Augmentin for the localized area of erythema above the jejunostomy exit site c onsistent with a small area of cellulitis. Review of Systems: Constitutional: Reports energy level is "okay, but not like it used to be." Reports having "hot flushes, but not full on sweats." Reports feeling hungry and thirsty, has a feeding tub e. Denies fatigue. Denies high fevers, shaking chills, anorexia, nausea, vomiting, weight loss, or night sweats. Appetite without changes. Ear, Nose, Mouth, Throat: Reports not being able to take any sips of water over the last fe w weeks. Reports mouth inside has a burning sensation, outside of mouth area is more intense burning than the inside, has increased a lot over the last few weeks. Denies odynophagia, d ysphagia, or tinnitus. Cardiovascular: Reports constant chest pain, states it is due to tumor location, taking violette n medication mostly at night to be able to fall asleep, occasionally during day if pain is u nbearable per patient. Denies shortness of breath, dyspnea on exertion, palpitations or orth opnea. Respiratory: Reports intermittent cough, continues, has increased over the last few weeks. Reports sputum production with cough, "slimy yellowish" in color, continues, onset last 3 we eks. Denies hemoptysis, . Gastrointestinal: Denies abdominal pain, constipation, diarrhea, melena, or bright red bloo d per rectum. Genitourinary: Denies hematuria or dysuria. Musculoskeletal: Denies joint pain or tenderness. Neurologic: Reports recent headaches, patient states that she thinks it is due to not eatin g. Denies visual changes, or numbness/tingling of the extremities. Endocrine: Denies peripheral edema or heat/cold intolerance. Hematologic: Reports bruising easily. Denies spontaneous bruising or bleeding. Integumentary: Reports redness, tenderness, and "pus" drainage at the stomach tube insertio n site, onset 1 week ago. Denies rash or other skin concerns. Pain: Reports chest pain 4/10 on scale of 0-10, goal <4/10. Note: Here for follow up with Dr. Mcclure, labs, and 4 hour treatment. Teaching with Dr Jimmy Black. Would like you to take a look at her feeding tube site on her abdomen, home health nurse th inks there might be a skin infection on surrounding area. Patient reports that she changes t he dressing BID. My chart: Pending Review of systems as above otherwise negative Scheduled Medications: Current Outpatient Prescriptions Medication Sig [...] 5 mL Intercatheter PRN Talon mendez MD Allergies: Allergy: No Known Allergies Past [...] Paternal Aunt Esophageal cancer Other Objectives: Temp: 36.3 C (97.4 F) BP: 133/77 Pulse: 58 Resp: 16 SpO2: 97 % on Min/Max Temp past 24 hours:Temp Av.3 C (97.4 F) Min: 36.3 C (97.3 F) Max: 3 6.3 C (97.4 F) No intake or output data in the 24 hours ending 04/29/17 1659 Wt. Admission: Weight: 65.6 kg (144 lb 10 oz) Wt. Current: Weight: 65.6 kg (144 lb 10 o z) Wt Readings from Last 3 Encounters: 04/29/17 65.6 kg (144 lb 10 oz) 04/29/17 65.6 kg (144 lb 10 oz) 04/14/17 66.5 kg (146 lb 9.7 oz) Physical Exam: General: The patient is alert and oriented. No acute distress. Eyes: Conjunctiva clear. Sclera anicteric. ENMT: Oropharynx fee of lesions, mucous membranes moist. Cardiovascular: Regular rate and rhythm, no rubs, gallops, or murmurs. Lungs: Clear to auscultation and percussion. Chest: An unsuccessful attempt was made to access the patient's left subclavian port-a-cat h. She received her infusion through a peripheral IV today. Attempt to re-access port-a-cath next week. Abdomen: Soft, nontender, no hepatospenomegaly. No palpable masses. Bowel sounds present. Midline incision well-healed. Jejunostomy tube in the left upper quadrant has no discharge, but does have an 8 mm tender, raised red nodule just above the jejunostomy exit site. Extremities: Nontender, no erythema, no edema. Skin: [...] Romero., Diana Jones., Yudi Clemente., Tanner Cheney., Wellington, TTaylor., Solomon, E.T., Lelo, P .P.: Toxicity And Response Criteria [...] SEVERE, ANNIE JESUS ( ) as of 04/29/2017 16:32 Ref. Range 04/29/2017 11:12 WBC Latest Ref Range: 4.0 - 11.0 K/uL 6.7 RBC COUNT Latest Ref Range: 3.70 - 5.20 M/uL 4.79 Hgb Latest Ref Range: 11.5 - 16.0 g/dL 14.5 Hct, Final Latest Ref Range: 34.0 - 47.0 % 43.3 MCV Latest Ref Range: 83.0 - 101.0 fL 90.4 MCH Latest Ref Range: 28.0 - 35.0 pg 30.4 MCHC Latest Ref Range: 32.0 - 36.0 g/dL 33.6 RDW-CV Latest Ref Range: <15.0 % 12.6 Platelet Count Latest Ref Range: 140 - 440 K/uL 236 MPV Latest Units: fL 9.3 Absolute Neutrophils Latest Ref Range: 1.80 - 8.50 K/uL 4.20 Absolute Lymphocytes Latest Ref Range: 0.60 - 3.20 K/uL 1.90 Absolute Monocytes Latest Ref Range: 0.00 - 1.00 K/uL 0.40 Absolute Eosinophils Latest Ref Range: 0.00 - 0.40 K/uL 0.10 Absolute Basophils Latest Ref Range: 0.00 - 0.10 K/uL 0.10 % Neutrophils Latest Ref Range: 45.0 - 82.0 % 63.6 % Lymphocytes Latest Ref Range: 20.0 - 45.0 % 28.4 % Monocytes Latest Ref Range: 4.0 - 12.0 % 6.0 % Eosinophils Latest Ref Range: 0.0 - 5.0 % 1.0 % Basophils Latest Ref Range: 0.0 - 1.0 % 1.0 NA Latest Ref Range: 136 - 149 mmol/L 139 K Latest Ref Range: 3.5 - 5.1 mmol/L 4.0 Chloride Latest Ref Range: 98 - 109 mmol/L 103 Carbon dioxide Latest Ref Range: 24 - 31 mmol/L 28 ANION GAP Latest Ref Range: 3 - 16 mmol/L 8 GLUCOSE Latest Ref Range: 70 - 109 mg/dL 86 BUN Latest Ref Range: 7 - 18 mg/dL 15 Creatinine Latest Ref Range: 0.60 - 1.30 mg/dL 0.74 BUN/CREA Unknown 20.3 ALBUMIN Latest Ref Range: 3.2 - 5.0 g/dL 4.2 Albumin/Globulin ratio Latest Ref Range: 0.8 - 2.0 1.7 Total protein Latest Ref Range: 6.0 - 7.8 g/dL 6.7 EGFR IF NOT Latest Ref Range: >=60 mL/min/1.73m2 >60 Calcium Latest Ref Range: 8.3 - 10.5 mg/dL 9.8 ALK PHOS Latest Ref Range: 40 - 110 U/L 70 ALT (SGPT) (REF) Latest Ref Range: 6 - 45 U/L 31 AST (SGOT) (REF) Latest Ref Range: 10 - 42 U/L 31 BILIRUBIN TOTAL Latest Ref Range: 0.1 - 1.5 mg/dL 0.4 GLOBULIN Latest Ref Range: 2.1 - 3.8 g/dL 2.5 Pharmacovigilance: Clinical Oncology Pharmacy Services Progress Note Chemotherapy Education Session [facility] Pt. Name/Age/: Annie Brown 61 y.o. 1955 Med. Record Number: [id number] Identifying Statement: Annie Brown is a 61 y.o. female from [address] [place] [address] with The encounter diagnosis was Esophageal cancer, [...] mL infusion 226.6 mg Int ravenous Once Talon Mcclure MD [COMPLETED] diphenhydrAMINE (BENADRYL) injection 25 mg 25 mg Intravenous Once Talon Mcclure MD 25 mg at 04/29/17 1328 ethyl chloride spray Topical PRN Talon Mcclure MD [COMPLETED] famotidine (PEPCID) injection 20 mg 20 mg Intravenous Once Talon koo MD 20 mg at 04/29/17 1320 [COMPLETED] fosaprepitant (EMEND) 150 mg in sodium chloride 0.9% 250 mL IVPB 150 mg In travenous Once Talon Mcclure MD Stopped at 04/29/17 1422 heparin 100 units/mL flush injection 500 Units 5 mL Intercatheter PRN Talon mendez MD lidocaine (PF) 1% injection 1 mL 1 mL Intradermal Once Talon Mcclure MD [COMPLETED] LORazepam (ATIVAN) 2 mg/mL injection 0.5-1 mg 0.5-1 mg Intravenous PRN Al denise Mcclure MD 1 mg at 04/29/17 1322 [COMPLETED] ondansetron (ZOFRAN) 8 mg, dexamethasone (DECADRON) 4 mg in sodium chloride 0.9% 50 mL IVPB Intravenous Once Talon Mcclure MD Stopped at 04/29/17 1351 PACLitaxel (TAXOL) 72 mg in sodium chloride 0.9% 200 mL infusion 40 mg/m2 (Order-Speci fic) Intravenous Once Talon Mcclure MD Objectives: Wt Readings from Last 3 [...] 6. Thank you. Electronically signed by: Barry Black, PharmD 04/29/2017 15:46 Palliative Care: Medical Nutrition Note SUBJECTIVE: Pt has a j-tube placed. States she has the formula Jevity 1.2 at home at home . She is suppose to do night feedings for 12 hours but she pulls on th tube too much at [facility]. She is currently only doing ~500 calories (2 hours at 100 ml/hr) a day d/t as soon as s he does the TF she gets diarrhea. She should be on an isotonic TF since she has a J-TUBE no t a G-TUBE. New prescription was written by dr Mcclure for Isosource HN 6.5-7 cans a da y and was faxed by Cheyanne FLOWERS to [facility] at or [phone]. They have HH at home, discussed with them to have HH work with them on how to use the backback for fe edings during the day. They are aware she needs 1680 cc of formula per day to provide 2016 kcals and 91 grams of protein per day. This also provides 1357 cc of free water so will nee d additional 645 cc of free water to meet her fluid needs. Pt weight in February was 161# currently at 144# 17# weight loss in two months or 10% weigh t loss in two months significant. The esophageal tumor is completely blocking her esophagus and is 100% dependent on her J-tube to meet here nutritional needs. Intake both prior to j -tube and on j-tube is meeting <25% of her nutritional needs. Pt meets ASPEN criteria for Severe protein calorie malnutrition AEB weight loss and oral in take. OBJECTIVE: Diet: J-tube feeding Isosource 1680 total volume per day Wt Readings from Last 3 Encounters: 04/29/17 65.6 kg (144 lb 10 oz) 04/29/17 65.6 kg (144 lb 10 oz) 04/14/17 66.5 kg (146 lb 9.7 oz) Ht Readings from Last 1 Encounters: 04/14/17 1.67 m (5' 5.75") Estimated needs (wt. 64kg) 5008-5127 kcals/day 64-77 gm pro/day Medications: reviewed ASSESSMENT/PLAN: Nutrition Diagnosis: Severe malnutrition and inadequate enteral nutrition related to chron ic disease of esophageal cancer, diarrhea and tube feeding type as evidenced by only able to tolerate ~500 calories a day, 10% weight loss in 2 months and tube feeding related diarrhea .. Interventions: 1. Change TF to Isosource HN volume based 1680 cc 2. Provided 8 1000 liter bags for them to go home on Nutrition Goals: 1. Prevent further diarrhea 2. Meet nutritional needs Monitor: 1. Nutritional parameters 2. Tolerance to TF Time spent: 45 minutes Thank you for the referral, Misti Roth RDN 04/29/2017 14:40 Procedure: Day 1, Week 1 (7-day cycle) Completed; Released on 04/29/2017; Originally planned for 04/29/2017 Take-Home Medications LORazepam (ATIVAN) 1 mg tablet Crush 1 tablet and mix in 15-30 mL's of water, administer via feeding tube every 6 hours a s needed for nausea/vomiting, anxiety, or restlessness. Disp-30 tablet, R-3, Print OrderHistory amoxicillin-clavulanate (AUGMENTIN) 400-57 mg/5 mL suspension Administer 5 mL's (400 mg) via feeding tube twice daily for 10 days Disp-100 mL, R-0, Normal OrderHistory dexamethasone (DECADRON) 1 mg/mL solution Administer 4 mL's (4 mg) via feeding tube two times daily for 2 days after each chemo Disp-120 mL, R-0, Normal OrderHistory ondansetron (ZOFRAN) 8 MG tablet Crush 1 tablet and mix with 15-30 mL (1-2 tablespoons) of water, administer twice daily fo r 2 days after each chemo. On other days, take 8 mg every 8 hrs as needed for nausea/vomitin g Disp-30 tablet, R-3, Print OrderHistory Other Chemotherapy Pre-Authorization (Not Released) Order Details OrderHistory Labs Comprehensive Metabolic Panel STAT, ONE TIME, Tiny 04/29/17 at 1110, For 1 occurrence OrderHistory CBC with Differential STAT, ONE TIME, Tiny 04/29/17 at 1110, For 1 occurrence OrderHistory Nursing Orders OK to proceed with chemotherapy (Not Released) 04/29/17. Need nutrition services consult today. Need Pharmacist consult today;send me orders for ondansetron, dexamethasone,augmentin and l orazepam for home use that are jejunostomy-tube compatible. Patient has no swallow. INFORMED CONSENT: The nature and character of the proposed treatment with Cycle #1 weekly c arboplatin/taxol with radiation and the anticipated results of the proposed treatment with C ycle #1 weekly carboplatin/taxol with radiation;recognized alternative forms of treatment, i ncluding non-treatment; the risks benefits, and side effects of proposed treatment, alternat anupama treatments and non-treatment were discussed with the patient who consents to proceed wit h treatment with Cycle #1 weekly carboplatin/taxol with radiation. The treating provider has examined the patient and reviewed the diagnostic data, including laboratory data, and deems that it is safe and appropriate to proceed with treatment with Cycle #1 weekly carboplatin/ taxol with radiation.Electronically signed by: TALON MCCLURE MD 04/29/2017 12:22. O rderHistory Plans for discharge (Not Released) Evaluation at [facility] complete. Consulting providers recommend neoadjuvant taxol/carboplatin weekly with rads before surger y with Dr. Cannon. Can begin as soon as radiation therapy treatment plan is ready. Electronically signed by: TALON MCCLURE MD 04/09/2017 11:18 +++QFU IN 7 DAYS, LABS port DRAW & 3 HOUR RX+++ +++QFU IN 14 DAYS, LABS port DRAW & 3 HOUR RX+++ +++QFU IN 21 DAYS, LABS port DRAW & 3 HOUR RX+++ OrderHistory Pre-Medications famotidine (PEPCID) injection 20 mg 20 mg, Intravenous, ONCE, Tiny 04/29/17 at 1300, For 1 dose Keep in refrigerator. Administer 30 minutes prior to PACLitaxel. Prior to administration, prepare a 20 mg dose by diluting 2 mL of famotidine 10 mg/mL to 10 mL with normal saline. OrderHistory diphenhydrAMINE (BENADRYL) injection 25 mg 25 mg, Intravenous, ONCE, Tiny 04/29/17 at 1300, For 1 dose Administer 30 minutes prior to PACLitaxel . OrderHistory ondansetron (ZOFRAN) 8 mg, dexamethasone (DECADRON) 4 mg in sodium chloride 0.9% 50 mL IVPB One or more component doses differ from their original dose Intravenous, Administer over 15 Minutes, ONCE, Tiny 18 at 1300, For 1 dose Administer 30 minutes prior to chemotherapy. OrderHistory fosaprepitant (EMEND) 150 mg in sodium chloride 0.9% 250 mL IVPB 150 mg, Intravenous, Administer over 30 Minutes, ONCE, Tiny 18 at 1315, For 1 dose Do not shake bag. OrderHistory LORazepam (ATIVAN) 2 mg/mL injection 0.5-1 mg 0.5-1 mg (original dose 0.5-1 mg), Intravenous, PRN, Anxiety, Nausea/Vomiting, Starting Th u 04/29/17 at 1232, For 1 dose Administer prior to chemotherapy. OrderHistory CHEMOTHERAPY PACLitaxel (TAXOL) 72 mg in sodium chloride 0.9% 200 mL infusion 72 mg (rounded from 71.6 mg = 40 mg/m2 1.79 m2 Order-specific BSA), Intravenous, Admini ster over 1 Hours, ONCE, Tiny 18 at 1345, For 1 dose Chemotherapy: Use appropriate handling precautions. Vesicant. Use 0.22 micron filter and no n-DEHP tubing for administration. This drug has a high incidence of infusion reactions. My ent must be directly and frequently observed during drug administration. OrderHistory CARBOplatin (PARAPLATIN) 226.6 mg in sodium chloride 0.9% 250 mL infusion 226.6 mg (Target AUC = 2), Intravenous, Administer over 30 Minutes, ONCE, Tiny 18 at 16 00, For 1 dose Chemotherapy: Use appropriate handling precautions. Administer AFTER PACLitaxel. OrderH istory Post-Medications heparin 100 units/mL flush injection 500 Units (Not Given) 500 Units (5 mL), Intercatheter, PRN, Line Care, Starting Tiny 18 at 1233 OrderHist ory PRN Medications ethyl chloride spray (Not Given) Topical, PRN, Pain, Starting Tiny 18 at 1233 OrderHistory TALON MCCLURE MD Portions of this chart may have been created with [employer] voice recognition software. Occasi onal wrong-word or sound-alike substitutions may have occurred due to the inherent solis itations of voice recognition software. Please read the chart carefully and recognize, using context, where these substitutions have occurred. 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 Interval history is notable for the fact that Annie has completely lost the ability to sw allow. Tolerance to jejunostomy tube feedings is low due to diarrhea and she is only getting 560 calories a day. She has lost a total of 30 pounds. Review of systems is notable for pain at the jejunostomy exit site. Clinical exam is notable for an 8 mm tender, raised red nodule just above the jejunostomy e xit site. Laboratory exam is notable for being entirely within normal limits. Assessment; Clinical Stage IIIA squamous cell carcinoma of the mid-esophagus. Plan; Extended 25 minute office encounter with Annie Brown and her , Gene. We reviewed the treatment plan of combined modality chemoradiation therapy as delineated by her MDT at [facility]. We reviewed Dr. Hernandez' recommendation for weekly taxol/carboplatin for the duration of her radiation therapy treatment plan. We reviewed the side effect profile of taxol/carboplatin chemotherapy which includes, but i s not limited to; nausea, cytopenias, and hair loss. We made accommodations for her inabilit y to swallow in prescribing post-chemotherapy prophylaxis against chemotherapy-induced nause a and vomiting with ondansetron and dexamethasone. We described the use of lorazepam for the treatment of breakthrough chemotherapy-induced nausea. We instructed Annie Brown t o call for any fever over 101 degree Farenheit. I prescribed Augmentin for the localized area of erythema above the jejunostomy exit site c onsistent with a small area of cellulitis. documented in this encounter Plan of Treatment Not on filedocumented as of this encounter Procedures + +--------+ + + + | Procedure Name | Priori | Date/Time | Associated Diagnosis | Comments | | | ty | | | | + +--------+ + + + | CBC WITH | STAT | 04/29/2017 | Esophageal cancer, | Results for this | | DIFFERENTIAL | | 11:12 AM | stage IIA (HCC) | procedure are in the | | | | PST | | results section. | + +--------+ + + + | COMPREHENSIVE | STAT | 04/29/2017 | Esophageal cancer, | Results for this | | METABOLIC PANEL | | 11:12 AM | stage IIA (HCC) | procedure are in the | | | | PST | | results section. | + +--------+ + + + documented in this encounter Results CBC with Differential (04/29/2017 11:12 AM PST) + +-------+ + + + | Component | Value | Ref Range | Performed | Pathologist | | | | | At | Signature | + +-------+ + + + | White Blood | 6.7 | 4.0 - 11.0 K/uL | [facility] | | | Cells | | | [facility] | | | | [facility] | | | | | [facility] - | | | | | | [facility]ATORY | | + +-------+ + + + | Red Blood | 4.79 | 3.70 - 5.20 | [facility] | | | Cells | | M/uL | [facility] | | | | | | [facility] | | | | | | [facility] - | | | | | | LABORATORY | | + +-------+ + + + | Hemoglobin | 14.5 | 11.5 - 16.0 | [facility] | | | | | g/dL | [facility] | | | | | | [facility] | | | | | | [facility] - | | | | | | LABORATORY | | + +-------+ + + + | Hematocrit | 43.3 | 34.0 - 47.0 % | [facility] | | | | | | [facility] | | | | | | [facility] | | | | | | [facility] - | | | | | | LABORATORY | | + +-------+ + + + | MCV | 90.4 | 83.0 - 101.0 fL | [facility] | | | | | | [facility] | | | | | | [facility] | | | | | | [facility] - | | | | | | LAB[facility]ATORY | | + +-------+ + + + | MCH | 30.4 | 28.0 - 35.0 pg | [facility] [...] +-------+ + + + | RDW-CV | 12.6 | <15.0 % | [facility] | | | | | | [facility] | | | [facility] | | | | | | [facility] - | | | | | | LAB[facility]ATORY | | + +-------+ + + + | Platelet | 236 | 140 - 440 K/uL | [facility] | | | Count | | | [facility] | | | | | [facility] | | | | | | [facility] - | | | | | | LABORATORY | | + +-------+ + + + | MPV | 9.3 | fL | [facility] | | | | | | [facility] | | | | [facility] | | | | | | [facility] - | | | | | | LAB[facility]ATORY | | + +-------+ + + + | % | 63.6 | 45.0 - 82.0 % | [facility] | | | Neutrophils | | | [facility] | | | | | | CENTER - | | | | | | LABORATORY | | + +-------+ + + + | % | 28.4 | 20.0 - 45.0 % | [facility] [...] +-------+ + + + | % | 1.0 | 0.0 - 5.0 % | [facility] [...] +-------+ + + + | Absolute | 4.20 | 1.80 - 8.50 | [facility] | | | Neutrophils | | K/uL | [facility] | [facility] | | | | | | CENTER - | | | | | | LABORATORY | | + +-------+ + + + | Absolute | 1.90 | 0.60 - 3.20 | [facility] | | | Lymphocytes | | K/uL | [facility] | | | [facility] | [facility] | | | | | | CENTER - | | | | | | LABORATORY | | + +-------+ + + + | Absolute | 0.40 | 0.00 - 1.00 | [facility] | [...] | Absolute | 0.10 | 0.00 - 0.10 | [facility] | | | Basophils | | K/uL | [facility] | | | | | | [...] [address] | [place] | [phone] | | [facility] | | [address] | | | - LABORATORY | | | | + + + + + Comprehensive Metabolic Panel (04/29/2017 11:12 AM PST) + + + + + + | Component | Value | Ref Range | Performed | Pathologist | | | | | At | Signature | + + + + + + | Na | 139 | 136 - 149 | [facility] | | | | | mmol/L | [facility] | | | | | | [facility] | | | | | | CENTER - | | | | | | LABORATORY | | + + + + + + | K | 4.0 | 3.5 - 5.1 | [facility] | | | | | mmol/L | [facility] | | | | [...] + + + + | CO2 | 28 | 24 - 31 mmol/L | [facility] [...] + + + + | Glucose | 86 | 70 - 109 mg/dL | [facility] | | | | | | [facility] | | | | | | [facility] | | | | | | CENTER - | | | | | | LABORATORY | | + + + + + + | BUN | 15 | 7 - 18 mg/dL | [facility] | | | | | | [facility] | | | | | | [facility]ICAL | | | | | | CENTER - | | | | | | LABORATORY | | + + + + + + | Creatinine | 0.74 | 0.60 - 1.30 | [place] | | | | | mg/dL | [facility] | | | | | | MEDICAL | | | | | | CENTER - | | | | | | LABORATORY | | + + + + + + | eGFR, | >60Comment: GLOMERULAR | >=60 | [facility] | | | non- | FILTRATION | mL/min/1.73m2 | [facility] | | | Serbian | RATE,ESTIMATED | | MEDICAL | | | | mL/min/1.40l2Jbox than | | CENTER - | | [...] | Albumin | 4.2 | 3.2 - 5.0 g/dL | [facility] | | | | | | [facility] | | | | | | [facility]ICAL | | | | | | CENTER - | | | | | | LABORATORY | | + + + + + + | Bilirubin | 0.4 | 0.1 - 1.5 mg/dL | [facility] | | | Total | | | [facility] | | | | | | MEDICAL | | | | | | CENTER - | | | | | | LABORATORY | | + + + + + + | Total | 6.7 | 6.0 - 7.8 g/dL | [facility] [...] + + + + | ALT | 31 | 6 - 45 U/L | [facility] | | | | | | [facility] | | | | | | MEDICAL | | | | | | CENTER - | | | | | | LABORATORY | | + + + + + + | Alkaline | 70 | 40 - 110 U/L | [facility] [...] + + + + | BUN/Creatin | 20.3 | | [facility] | | | ine [...] | + + + + + | [facility] | [address] | [place] | [phone] | | [facility] | | [address] | | | - LABORATORY | | | | + + + + + documented in this encounter Visit Diagnoses + + | Diagnosis | + + | Esophageal cancer, stage IIA (HCC) | + + documented in this encounter
--- OUTSIDE RECORDS SUMMARY | ~2019-12-05 | XMS | Encounter Summary ---
Demographics + + + | Address | [address] | | | [place] [address] | + + + | Home Phone | | + + + | Preferred Language | Unknown | + + + | Marital Status | | + + + | Hinduism Affiliation | Unknown | + + + [...] Team Providers + +------+ + | Care Pile Driver Operator Barge Mounted Name | Role | Phone | + +------+ + | No, Physician | PCP | Unavailable | + +------+ + Encounter Details +--------+ + + + + | Date | Type | Department | Care Team | Description | +--------+ + + + + | 04/14/ | Hospital | [facility] | Jennifer Reyes | | | 2016 | Encounter | MED CTR RADIATION | MD Manjula [address] | | | | | ONCOLOGY [address] | [place] | | | | | [place], | [address] | | | | | [place] [address] | | | | | | [phone] | | | +--------+ + + + [...]
--- OUTSIDE RECORDS SUMMARY | ~2019-12-05 | XMS | Encounter Summary ---
Demographics + + + | Address | [address] | | | [place] [address] | + + + | Home Phone [...] Team Providers + +------+ + | Care Edger Tailer Name | Role | Phone | + +------+ + | No, Physician | PCP | Unavailable | + +------+ + Encounter Details +--------+ + + + + | Date | Type | Department | Care Team | Description | +--------+ + + + + | 05/13/ | Hospital | [facility] | Fabio, | Esophageal cancer, | | 2018 | Encounter | MED CTR CHEMO | Isak Elizabeth MD 6057 | stage IIA (HCC) | | | | INFUSION [address] | [address] [place] | (Primary Dx) | | | | [place], | [address] [place], [place] | | | | | [place] [address] | [address] | | | | | [phone] | | | +--------+ + + + [...] documented as of this encounter Progress Notes Carissa Templeton RN - 05/13/2017 9:20 AM PSTDc/d amb in stable condition with supervisor melt house . Has return appts. documented in this encounter Plan of Treatment Not on filedocumented as of this encounter Visit Diagnoses + + | Diagnosis | + + | Esophageal cancer, stage IIA (HCC) - Primary | + + documented in this encounter Administered Medications + +--------+ +------+------+------+ | Medication Order | MAR | Action | Dose | Rate | Site | | | Action | Date | | | | + +--------+ +------+------+------+ | LORazepam (ATIVAN) tablet 1 mg | Given | 05/13/19 | 1 mg | | | | 1 mg, Oral, ONCE, [facility] 05/13/17 at | | 18 9:09 | | | | | 0915, For 1 dose | | AM PST | | | | + +--------+ +------+------+------+ +---+---+ | | | +---+---+ documented in this encounter"
--- OUTSIDE RECORDS SUMMARY | ~2019-12-05 | XMS | Encounter Summary ---
Demographics + + + | Address | [address] | | | [place] [address] | + + + | Home Phone | | + + + | Preferred Language | Unknown | + + + | Marital Status | | + + + | Synagogue Affiliation | Unknown | + + + | Race | Unknown | + + + | Ethnic Group | Unknown | + + + Author + + + | Author | [facility] | | | and [place] | + + + | Organization | [facility] | | | [...] Team Providers + +------+ + | Care Mannequin Sander And Finisher Name | Role | Phone | + +------+ + | No, Physician | PCP | Unavailable | + +------+ + Encounter Details +--------+ + + + + | Date | Type | Department | Care Team | Description | +--------+ + + + + | 05/10/ | Orders Only | [facility] | Jennifer Reyes | | | 2017 | | MED CTR RADIATION | MD Manjula [address] | | | | | ONCOLOGY CLINIC [address] | [place] | | | | | [address] [place] | [address] | | | | | [place] [address] | | | | | | [phone] | | | +--------+ + + + [...]
--- OUTSIDE RECORDS SUMMARY | ~2019-12-05 | XMS | Encounter Summary ---
Demographics + + + | Address | [address] | | | [place] [address] | + + + | Home Phone [...] Team Providers + +------+ + | Care News Assignment Editor Name | Role | Phone | + [...] neoplasm of | Isak Elizabeth, | [address] | | | | | esophagus, | MD [address] | [place], | | | | | unspecified | [place] | [place] [address] | | | | | (HCC) | [place] | Phone: | | | | | Procedures | [place], | [phone] | | | | | [place] | [place] [address] | Fax: | | | | | [place] | Phone: | [phone] | | | | | [place] | [phone] | | | | | | [place] | Fax: | | | | | | DEXAMETHASON | [phone] | | | | | | E, .25 MG | | | | | | | IN | | | | | | | INJECTION, | | | | | | | FAMOTIDINE, | | | | | | | 20 MG IN | | | | | | | DIPHENHYDRAM | | | | | | | INE HCL | | | | | | | INJECTIO, 50 | | | | | | | MG IN | | | | | | | PACLITAXEL | | | | | | | INJECTION, | | | | | | | 1MG IN | | | | | | | CARBOPLATIN | | | | | | | INJECTION, | | | | | | | 50 MG IN | | | | | | | METHYLPREDNI | | | | | | | SOLONE | | | | | | | INJECTION, | | | | | | | 125 MG IN | | | | | | | DEXAMETHASON | | | | | | | E SODIUM | | | | | | | PHOS, 1 MG | | | | | | | IN ADRENALIN | | | | | | | EPINEPHRINE | | | | | | | INJECT, .1 | | | | | | | MG IN | | | | | | | ALBUTEROL | | | | | | | COMP CON, 1 | | | | | | | MG IN | | | | | | | ALBUTEROL | | | | | | | NON-COMP | | | | | | | CON, 1 MG | | | | | | | IN NORMAL | | | | | | | SALINE | | | | | | | SOLUTION | | | | | | | INFUS, 500 | | | | | | | ML IN | | | | | | | NORMAL | | | | | | | SALINE | | | | | | | SOLUTION | | | | | | | INFUS, 250 | | | | | | | ML IN | | | | | | | STERILE | | | | | | | WATER/SALINE | | | | | | | , 10 ML IN | | | | | | | CHEMOTHER, | | | | | | | IV PUSH,EA | | | | | | | ADD DRUG IN | | | | | | | CHEMOTHER, | | | | | | | IV INFUSION, | | | | | | | 1 HR IN | | | | | | | CHEMOTHER, | | | | | | | IV INFUSION, | | | | | | | EA HR IN | | | | | | | CHEMOTHER,NO | | | | | | | N-HORMONE | | | | | | | ANTI-NEOPL, | | | | | | | SUB-Q/IM IN | | | | | | | CHEMOTHER | | | | | | | HORMON | | | | | | | ANTINEOPL | | | | | | | SUB-Q/IM IN | | | | | | | | | | | | | | FOSAPREPITAN | | | | | | | T INJECTION, | | | | | | | 1 MG IN | | | | | | | PALONOSETRON | | | | | | | HCL, 25 MCG | | | +--------+--------+ + + + + Encounter Details +--------+ + + + + | Date | Type | Department | Care Team | Description | +--------+ + + + + | 06/01/ | Hospital | [facility] | Fabio, | Esophageal cancer, | | 2018 | Encounter | MED CTR CHEMO | Isak Elizabeth MD 6505 | stage IIA (HCC) | | | | INFUSION [address] | [address] [place] | | | | | [place], | [address] [place], [place] | | | | | [place] [address] | [address] | | | | | [phone] | | | +--------+ + + + [...] encounter Progress Notes Carissa Templeton RN - 06/01/2017 1:10 PM PSTDc/d amb in stable condition with . Has return appts. d ocumented in this encounter Plan of Treatment Not on filedocumented as of this encounter Procedures + +--------+ + + + | Procedure Name | Priori | Date/Time | Associated Diagnosis | Comments | | | ty | | | | + +--------+ + + + | CBC WITH | STAT | 06/01/2017 | Esophageal cancer, | Results for this | | DIFFERENTIAL | | 8:34 AM | stage IIA (HCC) | procedure are in the | | | | PST | | results section. | + +--------+ + + + | COMPREHENSIVE | STAT | 06/01/2017 | Esophageal cancer, | Results for this | | METABOLIC PANEL | | 8:34 AM | stage IIA (HCC) | procedure are in the | | | | PST | | results section. | + +--------+ + + + documented in this encounter Results CBC with Differential (06/01/2017 8:34 AM PST) + + + + + + | Component | Value | Ref Range | Performed | Pathologist | | | | | At | Signature | + + + + + + | White Blood | 2.9 (L) | 4.0 - 11.0 K/uL | [facility] | | | Cells | | | [facility] | | | | | | MEDICAL | | | | | | CENTER - | | | | | | LABORATORY | | + + + + + + | Red Blood | 4.20 | 3.70 - 5.20 | [facility] | | | Cells | | M/uL | [facility] | | | | | | MEDICAL | | | | | | CENTER - | | | | | | LABORATORY | | + + + + + + | Hemoglobin | 13.0 | 11.5 - 16.0 | [facility] | | | | | g/dL | [facility] | | | | | | MEDICAL | | | | | | CENTER - | | | | | | LABORATORY | | + + + + + + | Hematocrit | 37.8 | 34.0 - 47.0 % | [facility] | | | | | | [facility] | | | | | | MEDICAL | | | | | | CENTER - | | | | | | LABORATORY | | + + + + + + | MCV | 90.0 | 83.0 - 101.0 fL | [facility] [...] + + + + | RDW-CV | 13.4 | <15.0 % | [facility] | | | | | | [facility] | | | | | | MEDICAL | | | | | | CENTER - | | | | | | LABORATORY | | + + + + + + | Platelet | 159 | 140 - 440 K/uL | [facility] [...] + + + + | % | 72.3 | 45.0 - 82.0 % | [facility] | | | Neutrophils | | | [facility] | | | | | | MEDICAL | | | | | | CENTER - | | | | | | LABORATORY | | + + + + + + | % | 17.1 (L) | 20.0 - 45.0 % | [facility] | | | Lymphocytes | | | [facility] | | | | | | MEDICAL | | | | | | CENTER - | | | | | | LABORATORY | | + + + + + + | % Monocytes | 9.4 | 4.0 - 12.0 % | [facility] [...] + + + + | Absolute | 2.10 | 1.80 - 8.50 | [facility] | | | Neutrophils | | K/uL | [facility] | | | | | | MEDICAL | | | | | | CENTER - | | | | | | LABORATORY | | + + + + + + | Absolute | 0.50 (L) | 0.60 - 3.20 | [facility] [...] | | Basophils | | K/uL | [facility] | | | | | [...] [address] | [place] | [phone] | | [facility] | | [address] | | | - LABORATORY | | | | + + + + + Comprehensive Metabolic Panel (06/01/2017 8:34 AM PST) + + + + + + | Component | Value | Ref Range | Performed | Pathologist | | | | | At | Signature | + + + + + + | Na | 137 | 136 - 149 | [facility] | [...] + + + + | Glucose | 96 | 70 - 109 mg/dL | [facility] | | | | | | [facility] | [facility] | [facility]ICAL | | | | | | CENTER - | | | | | | LABORATORY | | + + + + + + | BUN | 11 | 7 - 18 mg/dL | [facility] | | | | | | [facility] | | | | | | MEDICAL | | | | | | CENTER - | | | | | | LABORATORY | | + + + + + + | Creatinine | 0.68 | 0.60 - 1.30 | [facility] | | | | | mg/dL | [facility] | | | | | | MEDICAL | | | | | | CENTER - | | | | | | LABORATORY | | + + + + + + | eGFR, | >60Comment: GLOMERULAR | >=60 | [facility] | | | non- | FILTRATION | mL/min/1.73m2 | [facility] | | | [place]ian | RATE,ESTIMATED | | MEDICAL | | | | mL/min/1.85f9Xfsm than | | CENTER - | | [...] + + | Calcium | 9.3 | 8.3 - 10.5 | [facility] | | | | | mg/dL | [facility] | | | | | | MEDICAL | | | | | | CENTER - | | | | | | LABORATORY | | + + + + + + | Albumin | 3.7 | 3.2 - 5.0 g/dL | [facility] [...] + + + + | Total | 5.9 (L) | 6.0 - 7.8 g/dL | [facility] | | | Protein | | | [facility] | | | | | | MEDICAL | | | | | | CENTER - | | | | | | LABORATORY | | + + + + + + | AST | 34Comment: This is an | 10 - 42 [...] + + + + | ALT | 43Comment: This is an | 6 - 45 [...] + + + + | Globulin | 2.2 | 2.1 - 3.8 g/dL | [facility] [...] | | bulin Ratio | | | [facility] | | | | | | MEDICAL | | | | | | CENTER - | | | | | | LABORATORY | | + + + + + + | BUN/Creatin | 16.2 | | [facility] | | | ine [...] | [address] | [place] | [phone] | | [facility] | | [address] | | | - LABORATORY | | [...] + +---------+ + +--------+------+ | CARBOplatin (PARAPLATIN) 218.2 | New Bag | 06/01/19 | 218.2 mg | 543.6 | | | mg in sodium chloride 0.9% 250 mL | | 18 12:29 | | mL/hr | | | infusion 218.2 mg (Target AUC = | | PM PST | | | | | 2), Intravenous, Administer over | | | | | | | 30 Minutes, ONCE, 06/01/17 at | | | | | | [...] +-------+---+---+ | diphenhydrAMINE (BENADRYL) | Given | 06/01/19 | 25 mg | | | | injection 25 mg 25 mg, | | 18 10:28 | | | | | Intravenous, ONCE, 06/01/17 at | | AM PST | | | | | 1030, For 1 dose, Administer 30 | | | | | | | minutes prior to PACLitaxel ., | | | | | | + +-------+ +-------+---+---+ +---+---+ | | | +---+---+ + +-------+ +-------+---+---+ | famotidine (PEPCID) injection | Given | 06/01/19 | 20 mg | | | | 20 mg 20 mg, Intravenous, ONCE, | | 18 10:26 | | | | | 06/01/17 at 1030, For 1 dose, | | AM PST [...] 150 mg in | New Bag | 06/01/19 | 150 mg | 500 | | | sodium chloride 0.9% 250 mL IVPB | | 18 10:53 | | mL/hr | | | 150 mg, Intravenous, Administer | | AM PST | | | | | over 30 Minutes, ONCE, Tue | | | | | | | 06/01/17 at 1030, For 1 dose, Do | | | | | | | not shake bag., | | | | | | + +---------+ +--------+-------+---+ +---+---+ | | | +---+---+ + +-------+ +-------+---+---+ | heparin 100 units/mL flush | Given | 06/01/19 | 500 | | | | injection 500 Units 500 Units (5 | | 18 1:06 | Units | | | | mL), Intracatheter, PRN, Line | | PM PST | | | | | Care, Starting 06/01/17 at 1014 | | | | | | + +-------+ +-------+---+---+ +---+---+ | | | +---+---+ + +-------+ +--------+---+---+ | HYDROmorphone (DILAUDID) | Given | 06/01/19 | 0.2 mg | | | | injection 0.2-0.4 mg 0.2-0.4 mg, | | 18 10:32 | | | | | Intravenous, EVERY 1 HOUR PRN, | | AM PST | | | | | Pain, Starting 06/01/17 at 1014 | | | | | | + +-------+ +--------+---+---+ +---+---+ | | | +---+---+ + +---------+ +-------+-------+---+ | PACLitaxel (TAXOL) 84 mg in | New Bag | 06/01/19 | 84 mg | 164 | | | sodium chloride 0.9% 150 mL | | 18 11:25 | | mL/hr | | | infusion 84 mg (rounded from | | AM PST | | | | | 84.5 mg = 50 mg/m2 | | | | | | | 1.69 m2 Treatment plan recorded | | | | | | | BSA), Intravenous, Administer | | | | | | | over 1 Hours, ONCE, 06/01/17 at | | | | | | | 1100, For 1 dose, Chemotherapy: | | | | | | | Use appropriate handling | | | | | | | precautions. Vesicant. Use 0.22 | | | | | | | micron filter and non-DEHP tubing | | | | | | | for administration. This drug | | | | | | | has a high incidence of infusion | | | | | | | reactions. Patient must be | | | | | | | directly and frequently observed | | | | | | | during drug administration., | | | | | | + +---------+ +-------+-------+---+ +---+---+ | | | +---+---+ + +---------+ +---+--------+---+ | palonosetron (ALOXI) 0.25 mg, | New Bag | 06/01/19 | | 221.6 | | | dexamethasone (DECADRON) 4 mg in | | 18 10:36 | | mL/hr | | | sodium chloride 0.9% 50 mL IVPB | | AM PST | | | | | Intravenous, Administer over 15 | | | | | | | Minutes, ONCE, 06/01/17 at | | | | | | | 1030, For 1 dose | | | | | | + +---------+ +---+--------+---+ +---+---+ | | | +---+---+ documented in this encounter"
--- OUTSIDE RECORDS SUMMARY | ~2019-12-05 | XMS | Encounter Summary ---
Demographics + + + | Address | [address] | | | [place] [address] | + + + | Home Phone | | + + + | Preferred Language | Unknown | + + + | Marital Status | | + + + | Buddhist Affiliation | Unknown | + + + | Race | Unknown | + + + | Ethnic Group | Unknown | + + + Author + + + | Author | [facility] | | | and [place] | + + + | Organization | [facility] | | | [...] Team Providers + +------+ + | Care Elastic Yarn Twister Helper Name | Role | Phone | + +------+ + | No, Physician | PCP | Unavailable | + +------+ + Encounter Details +--------+ + + + + | Date | Type | Department | Care Team | Description | +--------+ + + + + | 07/20/ | Documentati | [facility] | Fabio, | | | 2018 | on | MED CTR PROVIDER | Isak Elizabeth MD [address] | | | | | ONCOLOGY [address] | [facility] | | | | | [place], | [address] [place], [place] | | | | | [place] [address] | [address] | | | | | [phone] | | | +--------+ + + + [...]
--- OUTSIDE RECORDS SUMMARY | ~2019-12-05 | XMS | Encounter Summary ---
Demographics + + + | Address | [address] | | | [place] [address] | + + + | Home Phone | | + + + | Preferred Language | Unknown | + + + | Marital Status | | + + + | Orthodoxy Affiliation | Unknown | + + + | Race | Unknown | + + + | Ethnic Group | Unknown | + + + Author + + + | Author | [facility] | | | and [place] | + + + | Organization | [facility] | | | [...] Team Providers + +------+ + | Care Dye Jig Operator Name | Role | Phone | + +------+ + | No, Physician | PCP | Unavailable | + +------+ + Encounter Details +--------+ + + + + | Date | Type | Department | Care Team | Description | +--------+ + + + + | 06/11/ | Hospital | [facility] | Jennifer Reyes | Esophageal cancer, | | 2018 | Encounter | MED CTR MEDICAL | MD Manjula [address] | stage IIA (HCC) | | | | ONCOLOGY CLINIC [address] | [place], [place] | | | | | [address] [place] | [id number] | | | | | [place] [address] | | | | | | [phone] | | | +--------+ + + + [...] | LABS - EXTERNAL SCAN | | 10/13/2017 | | Results for this | | | | 12:00 AM | | procedure are in the | | | | PDT | | results section. | + +--------+ + + + | CBC WITH | Routin | 06/11/2017 | Esophageal cancer, | Results for this | | DIFFERENTIAL | e | 8:30 AM | stage IIA (HCC) | procedure are in the | | | | PST | | results section. | + +--------+ + + + | CEA | STAT | 06/11/2017 | Esophageal cancer, | Results for this | | | | 8:30 AM | stage IIA (HCC) | procedure are in the | | | | PST | | results section. | + +--------+ + + + | COMPREHENSIVE | Routin | 06/11/2017 | Esophageal cancer, | Results for this | | METABOLIC PANEL | e | 8:30 AM | stage IIA (HCC) | procedure are in the | | | | PST | | results section. | + +--------+ + + + documented in this encounter Results LABS - EXTERNAL SCAN (10/13/2017 12:00 AM PDT) + + + | Narrative | Performed At | + + + | Ordered by an | | | unspecified provider. | | + + + [facility] (06/11/2017 8:30 AM [...] + | [facility] | [address] | [place] | [phone] | | [facility] | | [address] | | | - LABORATORY | | [...] mL/min/1.73m2 | [facility] | | | [place] | RATE,ESTIMATED | | MEDICAL | | | | mL/min/1.84d4Laga than | | CENTER - | | [...] | + + + + + | [facility] | [address] | [place] | [phone] | | [facility] | | [address] | | | - LABORATORY | | | | + + + + + CBC with Differential (06/11/2017 8:30 AM PST) + + + + + + | Component | Value | Ref Range | Performed | Pathologist | | | | | At | Signature | + + + + + + | White Blood | 2.3 (LL)Comment: Cancer | 4.0 - 11.0 K/uL | [facility] | | | Cells | Center pt | | [facility] | | | [...] | | Basophils | | K/uL | [facility] | [...] [address] | [place] | [phone] | | [facility] | | [address] | | | - LABORATORY | | | | + + + + + documented in this encounter Visit Diagnoses + + | Diagnosis | + + | Esophageal cancer, stage IIA (HCC) | + + documented in this encounter"
--- OUTSIDE RECORDS SUMMARY | ~2019-12-05 | XMS | Encounter Summary ---
Demographics + + + | Address | [address] | | | [place] [address] | + + + | Home Phone | | + + + | Preferred Language | Unknown | + + + | Marital Status | | + + + | Roman Catholic Affiliation | Unknown | + + + | Race | Unknown | + + + | Ethnic Group | Unknown | + + + Author + + + | Author | [facility] | | | and [place] | + + + | Organization | [facility] | | [...] Team Providers + +------+ + | Care Web Mobile Designer Name | Role | Phone | + +------+ + | No, Physician | PCP | Unavailable | + +------+ + Encounter Details +--------+ + + + + | Date | Type | Department | Care Team | Description | +--------+ + + + + | 05/05/ | Hospital | [facility] | Miguel A Kennedy, | Esophageal cancer, | | 2018 | Encounter | [facility] | MD Chari FERRIS | stage IIA (HCC) | | | | [facility] [address] [place], | (Primary Dx); | | | | [place] | [place] [address] | Chemotherapy-induced | | | | [place] [address] | [phone] | nausea; Cellulitis | | | | [phone] | | at gastrostomy tube | | | | | | site (HCC) | +--------+ + + + + [...] + + + | Blood Pressure | 133/80 | 05/05/2017 9:03 AM | | | | | PST | | + + + + + | Pulse | 64 | 05/05/2017 9:03 AM | | | | | PST | | + + + + + | Temperature | 35.6 C (96.1 F) | 05/05/2017 9:03 AM | | | | | PST | | + + + + + | Respiratory Rate | 16 | 05/05/2017 9:03 AM | | | | | PST | | + + + + + | Oxygen Saturation | 98% | 05/05/2017 9:03 AM | | | | | PST | | + + + + + | Inhaled Oxygen | - | - | | | Concentration | | | | + + + + + | Weight | 63.8 kg (140 lb 10.5 | 05/05/2017 9:03 AM | | | | oz) | [...] Progress Notes Miguel A Kennedy MD - 05/05/2017 8:47 AM PSTFormatting of this note might be different fr om the original. Hematology-Oncology Progress Note [facility] Pt. Name/Age/: Annie Brown 61 y.o. 1955 CSN: [id number] Date of service: 05/05/2017 Provider: Miguel A Kennedy MD HEMATOLOGY/ONCOLOGY PROBLEM LIST: Esophageal cancer, stage IIA (HCC) 03/15/2017 Initial Diagnosis Esophageal cancer, squamous cell 04/06/2017 Cancer staged Clinical Stage IIIA (T3N1M0) by EUS 04/29/2017 - Radiation therapy 04/29/2017 - Chemotherapy Weekly carboplatin/Taxol Of note, above dates are not necessarily exact. Assessment and plan: Patient is still having significant nausea despite scheduled ondansetron, recommended escal ation of her lorazepam, perhaps at a slightly lower dose to minimize his sedation. Area of cellulitis still quite symptomatic though not progressive, no fevers, recommending continuation of her Augmentin. May require suture removal or other surgical evaluation of p ersistent. Blood counts adequate for treatment today, we'll proceed. 1. Proceed with week 2 of carboplatinum/paclitaxel with appropriate antiemetics. 2. Continue daily radiation. 3. Continue Zofran 8 mg every 8 hours, with lorazepam as above. 4. Continue Augmentin. Subjective: The patient chart and medications were reviewed in detail and the patient was seen and exam ined. Annie Brown is a 61 y.o. female with esophageal cancer here for treatment. Patient started her combined modality chemotherapy and radiation last week. At that time, found to have an erythematous tender nodule just above her jejunostomy feedings site, starte d on Augmentin by Dr. Mccarthy. Patient states that it still very tender, says that it w as evaluated at Dr. Ambrose's office yesterday, photograph taken though she did not actually s ee him, no intervention yet. No fever, not worse. Found last week to be on the wrong feeding tube formulation, switched, diarrhea has resolve d, starting to be able to escalate the volume. Still has ongoing nausea, somewhat better wi th scheduled Zofran but did use lorazepam once with significant relief though marked sedatio n. PMH: Past Medical History: Diagnosis Date Esophageal [...] OF SYSTEMS Constitutional: Reports energy level is lower than normal. Reports very bad nausea, zofran calms it but does not take it away. Down 3kg since 04/30/17. Denies high fevers, shaking chill s, anorexia, vomiting, weight loss, or night sweats. Appetite without changes. Ear, Nose, Mouth, Throat: Reports she cannot swallow at all, all feedings and hydration thr ough feeding tube. Denies odynophagia or tinnitus. Cardiovascular: Reports sharp pain in chest that radiated up through neck and jaw 2 times l ast night for less than five minutes each. Denies shortness of breath, dyspnea on exertion, palpitations or orthopnea. Respiratory: Reports cough with yellow sputum production. Denies hemoptysis. Gastrointestinal: Denies abdominal pain, constipation, diarrhea, melena, or bright red bloo d per rectum. Genitourinary: Denies hematuria or dysuria. Musculoskeletal: Denies joint pain or tenderness. Neurologic: Reports headaches. Denies visual changes, or numbness/tingling of the extremiti es. Endocrine: Denies peripheral edema or heat/cold intolerance. Hematologic: Denies spontaneous bruising or bleeding. Integumentary: Denies rash, wounds or other skin concerns. Pain: Reports pain in mid chest where tumor is, always feels pressure and pain. 3/10 pain. Takes hydrocodone at night only for pain, states it is effective. Note: Here for follow up, labs and treatment. My chart: Medications: Current Outpatient Prescriptions Medication Sig amoxicillin-clavulanate (AUGMENTIN) 400-57 mg/5 mL suspension Administer 5 mL's (400 mg ) via feeding tube twice daily for 10 days dexamethasone (DECADRON) 1 mg/mL solution Administer 4 [...] y 8 hrs as needed for nausea/vomiting No current facility-administered medications for this encounter. Allergies: No Known Allergies Vitals: Temp: 35.6 C (96.1 F) BP: 133/80 Pulse: 64 Resp: 16 SpO2: 98 % on Temp :Temp Av.6 C (96.1 F) Min: 35.6 C (96.1 F) Max: 35.6 C (96.1 F) No intake or output data in the 24 hours ending 05/05/17 0921 Wt. Current: Weight: 63.8 kg (140 lb 10.5 oz) Physical Exam: Exam: ECOG Performance Status: 1 2 General: The patient is alert and oriented. No acute distress. HEENT: PERRL, Non-icteric. Abdomen: Erythema, tender without fluctuance just superior to the jejunostomy entry site. Soft, no hepatospenomegaly. No palpable masses. Bowel sounds present. Skin: No rashes, bruising, or petechiae. Neurological: No focal deficits noted. Speech fluent. Psychiatric: Normal mood and affect. Appropriate. Diagnostic studies: Available data and image reports were reviewed personally. See reports. Significant resul ts and findings are addressed here or in the Assessment and Plan. Recent Labs Lab 05/05/17 0813 04/29/17 1112 WBC 5.2 6.7 HGB 14.9 14.5 HCT 43.6 43.3 PLT 218 236 Recent Labs Lab 05/05/17 0813 04/29/17 1112 NA 137 139 K 4.4 4.0 CL 103 103 CO2 26 28 BUN 13 15 CREA 0.80 0.74 GLU 100 86 CALCIUM 9.5 9.8 BILITOT 1.0 0.4 AST 22 31 ALT 23 31 ALKPHOS 61 70 ALBUMIN 4.1 4.2 Electronically signed by: Miguel A Kennedy MD 05/05/2017 9:21 Portions of this chart may have been created with [employer] voice recognition software. Occasi onal wrong-word or [...] + | CBC WITH | STAT | 05/05/2017 | Esophageal cancer, | Results for this | | DIFFERENTIAL | | 8:13 AM | stage IIA (HCC) | procedure are in the | | | | PST | | results section. | + +--------+ + + + | COMPREHENSIVE | STAT | 05/05/2017 | Esophageal cancer, | Results for this | | METABOLIC PANEL | | 8:13 AM | stage IIA (HCC) | procedure are in the | | | | PST | | results section. | + +--------+ + + + documented in this encounter Results CBC with Differential (05/05/2017 8:13 AM PST) + + + + + + | Component | Value | Ref Range | Performed | Pathologist | | | | | At | Signature | + + + + + + | White Blood | 5.2 | 4.0 - 11.0 K/uL | [facility] | | | Cells | | | [facility] | | | | [facility] | | | | | | [facility] | | + + + + + + | Red Blood | 4.89 | 3.70 - 5.20 | [facility] | | | Cells | | M/uL | [facility] | | | | | | [facility] - | | | | | | [facility]AT[facility] | | + + + + + + | Hemoglobin | 14.9 | 11.5 - 16.0 | [facility] | | | | | g/dL | [facility] | | | | [facility] - | | | | | | [facility] | | + + + + + + | Hematocrit | 43.6 | 34.0 - 47.0 % | [facility] | | | | | | [facility] | | | [facility] | | | | | | [facility] | | + + + + + + | MCV | 89.2 | 83.0 - 101.0 fL | [facility] | | | | | | [facility] | | | | | [facility] | | | | | | [facility] | | + + + + + + | MCH | 30.5 | 28.0 - 35.0 pg | [facility] [...] + + + + | RDW-CV | 12.5 | <15.0 % | [facility] | | | | | | [facility] | | | | | [facility] - | | | | | | [facility] | | + + + + + + | Platelet | 218 | 140 - 440 K/uL | [facility] | | | Count | | | [facility] | | [facility] | | [facility] | | [facility] - | | | | | | [facility] | | + + + + + + | MPV | 9.7 | fL | [facility] | | | | | | [facility] | [facility] | | | | | [facility] - | | | | | | [facility]AT[facility] | | + + + + + + | % | 77.5 | 45.0 - 82.0 % | [facility] | | | Neutrophils | | | [facility] | | [facility] | [facility] | | | | | | [facility] - | | | | | | LAB[facility]ATORY | | + + + + + + | % | 17.7 (L) | 20.0 - 45.0 % | [facility] | | | Lymphocytes | | | [facility] | | | | | [facility] | | | | | | [facility] - | | | | | | [facility]AT[facility] | | + + + + + + | % Monocytes | 3.0 (L) | 4.0 - 12.0 % | [facility] | | | | | | [facility] | | [facility] | [facility] | | | | | | [facility] - | | | | | | LAB[facility]AT[facility] | | + + + + + + | % | 1.2 | 0.0 - 5.0 % | [facility] [...] + + + + | Absolute | 4.10 | 1.80 - 8.50 | [facility] | | | Neutrophils | | K/uL | [facility] | | [facility] | [facility] | | | | | | [facility] - | | | | | | LAB[facility]ATORY | | + + + + + + | Absolute | 0.90 | 0.60 - 3.20 | [facility] | [...] + | [facility] | [address] | [place] | [phone] | | [facility] | | [address] | | | - LABORATORY | | | | + + + + + Comprehensive Metabolic Panel (05/05/2017 8:13 AM PST) + + + + + [...] + + + + | K | 4.4 | 3.5 - 5.1 | [facility] | [...] + + + + | Glucose | 100 | 70 - 109 mg/dL | [facility] | | | | | | [facility] | | [facility] | | | | | | [facility] - | | | | | | LAB[facility]ATORY | | + + + + + + | BUN | 13 | 7 - 18 mg/dL | [facility] | | | | | | [facility] | | | [facility] | [facility] | | | | | | [facility] - | | | | | | LAB[facility]ATORY | | + + + + + + | Creatinine | 0.80 | 0.60 - 1.30 | [facility] | | | | | mg/dL | [facility] | | | | | [facility] | | | | | | [facility] - | | | | | | LABORATORY | | + + + + + + | eGFR, | >60Comment: GLOMERULAR | >=60 | [facility] | | | non- | FILTRATION | mL/min/1.73m2 | [facility] | | | Palestinian | RATE,ESTIMATED | | MEDICAL | | | | mL/min/1.14l8Yuta than | | CENTER - | | [...] | | | | | mg/dL | [facility] | | | | | | MEDICAL | | | | | | CENTER - | | | | | | LABORATORY | | + + + + + + | Albumin | 4.1 | 3.2 - 5.0 g/dL | [facility] | | | | | | [facility] | | | | | | [facility] | | | | | | [facility] - | | | | | | LABORATORY | | + + + + + + | Bilirubin | 1.0Comment: This is an | 0.1 - 1.5 [...] + + + + | Total | 6.3 | 6.0 - 7.8 g/dL | [facility] | | | Protein | | | [facility] | | | | | | [facility] | | | | | | [facility]ENTER - | | | | | | LABORATORY | | + + + + + + | AST | 22Comment: This is an | 10 - 42 [...] + + + + | ALT | 23Comment: This is an | 6 - 45 [...] + + + + | Alkaline | 61Comment: This is an | 40 - 110 [...] + + + | Albumin/Jo Ann | 1.9 | 0.8 - 2.0 | [facility] | | | bulin Ratio | | | [facility] | | | | | | [facility] | | | | | | [facility]ENTER - | | | | | | LABORATORY | | + + + + + + | BUN/Creatin | 16.3 | | [facility] | | | ine [...] [address] | [place] | [phone] | | [facility] | | [address] | | | - LABORATORY | | | | + + + + + documented in this encounter Visit Diagnoses + + | Diagnosis | + + | Esophageal cancer, stage IIA (HCC) - Primary | + + | Chemotherapy-induced nausea Nausea alone | + + | Cellulitis at gastrostomy tube site (HCC) Infection of gastrostomy | + + documented in this encounter"
--- OUTSIDE RECORDS SUMMARY | ~2019-12-05 | XMS | Encounter Summary ---
Demographics + + + | Address | [address] | | | [place] [address] | + + + | Home Phone | | + + + | Preferred Language | Unknown | + + + | Marital Status | | + + + | Jain Affiliation | Unknown | + + + | Race | Unknown | + + + | Ethnic Group | Unknown | + + + Author + + + | Author | [facility] | | | and [place] | + + + | Organization | [facility] | | | [...] Team Providers + +------+ + | Care Well Treatment Offsider Name | Role | Phone | + [...] + + | 05/25/ | Hospital | [facility] | Fabio, | Esophageal cancer, | | 2018 | Encounter | [facility] | Isak Elizabeth MD [address] | stage IIA (HCC) | | | | SERVICES [address] | | | | | [place], | [address] [place], [place] | | | | | [place] [address] | [id number] | | | | | [phone] | | | | | | | [...] encounter Progress Notes Misti Roth, [place] - 05/25/2017 9:47 AM PSTFormatting of this note might be different f rom the original. Medical Nutrition Note SUBJECTIVE: Pt has a j-tube placed. Pertinent history: States she has the formula Jevity 1.2 at home at home. She is suppose to do night feedings for 12 hours but she pulls on th tube too much at night. At the [facility] she was currently only doing ~500 calories (2 hours at 100 ml/hr) a day d/t as soon as sh e does the TF she gets diarrhea. She should be on an isotonic TF since she has a J-TUBE not a G-TUBE. New prescription was written by dr Mccarthy for Isosource HN 6.5-7 cans a day and was faxed by Cheyanne FLOWERS to [facility] at or [phone] on 04/29/2017. Samples of correct TF were sent home with the pt on the . Since then she has not been able to get in more than 660-780 cc per day. Weight today is 1 33#. That is 28# weight loss since February 17% which is severe in the last 2-3 months. T he esophageal tumor is completely blocking her esophagus and is 100% dependent on her J-tube to meet here nutritional needs. Intake both prior to j-tube and on j-tube is meeting <25% of her nutritional needs. Due to continued weight loss need to change formula again to Isosource 1.5 or the equivalen t Osmolite 1.5. To meet needs she needs 5 cans per day which will provide 1875 kcals, 85 gr ams of protein, this also provides 955 cc free water, she will need additional 250 cc QID. Pt meets ASPEN criteria for Severe protein calorie malnutrition AEB weight loss and oral in take. OBJECTIVE: Diet: J-tube feedings 5 cans Isosource 1.5 or equilvalent Wt Readings from Last 3 Encounters: 05/25/17 60.6 kg (133 lb 9.6 oz) 05/20/17 61.8 kg (136 lb 3.9 oz) 05/18/17 61.3 kg (135 lb 2.3 oz) Ht Readings from Last 1 Encounters: 04/14/17 1.67 m (5' 5.75") Estimated needs (wt. 60kg) 8049-7365 kcals/day 60-72 gm pro/day Medications: reviewed ASSESSMENT/PLAN: Nutrition Diagnosis: Inadequate enteral nutrition related to unable to tolerate volume mor e than 660-780 cc per day as evidenced by continued weight loss. Interventions: 1. Fax in new prescription for change in formula [facility] at [phone] 2. Encourage them to get 5 cans in a day Nutrition Goals: 1. To increase volume in TF to prevent further weight loss 2. Tolerate change of TF Monitor: 1. Nutritional parameters 2. TF tolerance Time spent: 30 Thank you for the referral, Misti Roth RDN 05/25/2017 9:48 documented in this encounter Plan of Treatment Not on filedocumented as of this encounter Visit Diagnoses + + | Diagnosis | + + | Esophageal cancer, stage IIA (HCC) | + + documented in this encounter
--- OUTSIDE RECORDS SUMMARY | ~2019-12-05 | XMS | Encounter Summary ---
Demographics + + + | Address | [address] | | | [place] [address] | + + + | Home Phone [...] Team Providers + +------+ + | Care Server Systems Administrator Name | Role | Phone | + [...] [address] | | | | | (FORMERLY [facility]) | [address] | [address] | | | | | Procedures | [place], | [address] | | | | | [address] | [place] | [place], [place] | | | | | | [address] | [address] | | | | | | Phone: | Phone: | | | | | | [phone] | [phone] | | | | | | Fax: | Fax: | | | | | | [phone] | [phone] | +--------+--------+ + + + + Encounter Details +--------+ + + + + | Date | Type | Department | Care Team | Description | +--------+ + + + + | 10/06/ | Hospital | [facility] | Fabio, | Thyroid nodule; | | 2019 | Encounter | [facility] | Isak Elizabeth MD [address] | Esophageal cancer, | | | | [facility] [address] [place] | stage IIIA (HCC) | | | | [address] | [address] [place], [place] | | | | | [place] [address] | [address] | | | | | [phone] | | | +--------+ + + + [...] + + + | Blood Pressure | 112/78 | 10/06/2018 1:12 PM | | | | | PDT | | + + + + + | Pulse | 68 | 10/06/2018 1:12 PM | | | | | PDT | | + + + + + | Temperature | 36.3 C (97.4 F) | 10/06/2018 1:12 PM | | | | | PDT | | + + + + + | Respiratory Rate | 16 | 10/06/2018 1:12 PM | | | | | PDT | | + + + + + | Oxygen Saturation | 95% | 10/06/2018 1:12 PM | | | | | PDT | | + + + + + | Inhaled Oxygen | - | - | | | Concentration | | | | + + + + + | Weight | 63.2 kg (139 lb 5.3 | 10/06/2018 1:12 PM | | | | oz) | PDT | | + + + + + | Height | - | - | | + + + + + | Body Mass Index | 22.66 | 04/14/2017 9:33 AM | | | [...] encounter Progress Notes Isak Mccarthy MD - 10/06/2018 1:19 PM PDTFormatting of this note might be differe nt from the original. Hematology/Oncology Progress Note [facility] [place] Pt. Name/Age/: Annie Brown 62 y.o. 1955 Med. Record Number: [id number] Date of admission: 10/06/2018 The patient's primary care provider is Haim Epps. Identifying Statement: Annie Brown is a 62 y.o. female from [address] [place] [address] with Esophageal Cancer. The patient chart and medications were reviewed in detail and the patient was seen and exam ined. History of Present Illnesses, their Current Assessments and Plans: Problem List Esophageal cancer, stage IIIA Overview ACTIVE DIAGNOSIS: Squamous cell carcinoma of the esophagus, Stage IIIA. 1. Upper endoscopy with biopsy March 15, 2017 (Supriya). Mass in mid esophagus. Biopsy [facility] # [id number] ([facility]) Invasive Squamous Cell carcinoma, mod erately differentiated. Immunohistochemistry diffusely positive for P16. 2. Status post feeding jejunostomy tube placement by Dr. Haim Epps, [facility] [place]. 3. PET/CT scan March 24, 2017; mid-esophageal tumor with SUV 8.5, no evidence of metasta tic disease. 4. Endoscopic ultrasound at [facility]; single level 8 node "moderately suspicious." Clinical stage T3N1M0, Stage IIIA. 5. Comprehensive mutidisciplinary team evaluation at [facility], [facility] (Haim Hernandez, Gold Cannon); combined modality chemoradiation with weekly taxol/car boplatin at [facility] in [place], follow by definitive resection b y Dr. Cannon at [facility]. 6. Status post placement of a left subclavian port-a-cath by Dr. Haim Epps. 7. Begin Combined modality therapy April 29, 2017; external beam radiation with weekly tax ol/carboplatin chemotherapy, completed June 07, 2018 8. Left thoracoabdominal esphagogastrectomy with cervical esophagogastrostomy and wedge lizy er biopsy July 12, 2017 ([facility], [facility]). Pathological specimen #[id number] "Liver biopsy-focal n odular hyperplasia. Esophagus and proximal stomach-YpT3 residual adenosquamous carcinoma 3.5 cm x 1.2 cm x 0.6 cm invading the paraesophageal soft tissue (adventitia). Tumor estimated to be 30-40% viable. Margins negative. A total of 25 lymph nodes were evaluated all of which were negative for regionally metastatic disease. Final pathological downstage; [id number], st age IIB. 9. Port-a-cath removed by Dr. Epps. 10. Gastrostomy feeding tube removed by Dr. Epps. 11. Status post right hemithyroidectomy by Dr. Epps. 12. CT Chest/Abdomen with contrast on June 30, [address] Haim Epps and inter preted by Dr. Annie Salcido at [facility], [place] who compared it to a CT scan of the chest/abdomen/pelvis performed at the [facility] on July 18, 2017. Dr. Salcido described "the small hypodense nodule in the lateral segment of the left h epatic lobe is barely identified. The intensely enhancing far left lesion previously demonst rated is not present on today's examination." 13. Upper and Lower endoscopy (Supriya) July,. Current Assessment & Plan Annie Brown returned to clinic on 10/06/2018 alone for follow up of her Stage III A esophageal carcinoma, status post tri-modality therapy. Interval history is notable for the fact that Annie underwent upper and lower endoscopy july by Dr. Haim Epps in [place], [place]. She is also under the care of Dr. Gosia cabezas in [place] who has removed basal cell skin cancers from her left face and left neck. 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 Clinical exam is notable for stable body weight. Laboratory exam is notable for elevated LDH in isolation. TSH is maximally suppressed. Assessment: No signs or symptoms of recurrence of squamous cell carcinoma of the esophagus, stage IIIA, at 19 months. Thyroid cancer management by Dr. Epps. Plan: continue to monitor. Annie is anticipating a comprehensive evaluation by Dr. Mark brown the [facility] next week. Thyroid suppression therapy per Dr. Haim Epps. Clinical and laboratory follow up at [facility] in 6 months . Thyroid nodule Review of Systems: Constitutional: Denies fatigue. Denies high fevers, shaking chills, anorexia, nausea, vomit ing, weight loss, or night sweats. Appetite without changes. Ear, Nose, Mouth, Throat: Denies odynophagia or tinnitus. Reports improved dysphagia. 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 Denies chest pain, palpitations or orthopn ea. Respiratory: Reports ongoing dry cough. Denies hemoptysis, or sputum production. Gastrointestinal: Denies abdominal pain, constipation, diarrhea, melena, or bright red bloo d per rectum. Intermittent diarrhea, unchanged. Genitourinary: Denies hematuria or dysuria. Musculoskeletal: Denies joint pain or tenderness. Neurologic: Denies headache, visual changes, or numbness/tingling of the extremities. Endocrine: Denies peripheral edema or heat/cold intolerance. Hematologic: Denies spontaneous bruising or bleeding. Reports bruising easily. Integumentary: Denies rash, wounds or other skin concerns. Pain: Denies pain. Note: here for labs and 3 month follow-up w/ Dr Mccarthy Has upcoming appt w/ Dr Cannon at [facility] on 10/13 My chart: Declined Scheduled Medications: Current Outpatient Medications Medication Sig Dispense Refill acetaminophen (TYLENOL) 160 mg/5 mL solution Take 15.5 mLs by mouth every 4 hours as ne eded for Fever. 473 mL 2 ibuprofen (ADVIL, MOTRIN) 100 mg/5 mL suspension Take by mouth every 6 hours as needed for Fever. Taking 15ml levothyroxine (SYNTHROID) 100 mcg tablet Take 100 [...] Procedure Laterality Date APPENDECTOMY 1970 HYSTERECTOMY 1994 left thoracoabdominal esphagogastrectomy with cervial esophagogastrostomy 07/12/[address] Cannon Liver biospy 07/12/2017 Social History Socioeconomic History Marital status: Spouse name: Not on file Number of children: Not on file Years of education: Not on file Highest education level: Not on file Social Needs Financial resource strain: Not on file Food insecurity - worry: Not on file Food insecurity - inability: Not on file Transportation needs - medical: Not on file Transportation needs - non-medical: Not on file Occupational History Not on file Tobacco Use Smoking status: Never Smoker Smokeless tobacco: Never Used Substance and Sexual Activity Alcohol use: No Drug use: Not on file Sexual activity: Not on file Other Topics Concern Not on file Social History Narrative Not on file Patient Active Problem List Diagnosis Esophageal cancer, stage IIIA Thyroid nodule Vocal cord dysfunction Family History Problem Relation Age of Onset Breast cancer Mother Breast cancer Maternal Grandmother Brain cancer Paternal Aunt Cancer Paternal Aunt Esophageal cancer Other Objectives: Temp: 36.3 C (97.4 F) BP: 112/78 Pulse: 68 Resp: 16 SpO2: 95 % on Min/Max Temp past 24 hours:No data recorded No intake or output data in the 24 hours ending 10/16/18 0930 Wt. Admission: Weight: 63.2 kg (139 lb 5.3 oz) Wt. Current: Weight: 63.2 kg (139 lb 5.3 oz) Wt Readings from Last 3 Encounters: 10/06/18 63.2 kg (139 lb 5.3 oz) 07/07/18 62.8 kg (138 lb 7.2 oz) 03/14/19 62.8 kg (138 lb 7.2 oz) Physical Exam: General: The patient is [...] neck, supraclavicular fossa, axilla or groin. Neurological: Voice remains slightly hoarse. Normal sensory [...] Am. J. Clin. Oncol.: Maximo Romero., Karen, RFlorencio., Yudi Clemente., Michell Cheney, Wellington TTaylor., Chloe CarbajalT., Lelo, P .P.: Toxicity And Response Criteria Of The Eastern Cooperative Oncology Group. Am J Clin Onc ol 5:649-655, 1982. The ECOG Performance Status is in the public domain therefore available for public use. To duplicate the scale, please cite the reference above and credit the [facility] [place] [facility], Isak Jon M.D., Group Chair Diagnostic studies: Available data and images were reviewed personally. See reports. Significant results and findings are addressed here or in the Assessment and Plan. Results for SEVERE, ANNIE JONES ( ) as of 10/16/2018 09:04 Ref. Range 10/06/2018 12:54 WBC Latest Ref Range: 4.0 - 11.0 K/uL 8.9 RBC COUNT Latest Ref Range: 3.70 - 5.20 M/uL 4.65 Hemoglobin Latest Ref Range: 11.5 - 16.0 g/dL 14.3 Hematocrit Latest Ref Range: 34.0 - 47.0 % 43.2 MCV Latest Ref Range: 83.0 - 101.0 fL 92.9 MCH Latest Ref Range: 28.0 - 35.0 pg 30.8 MCHC Latest Ref Range: 32.0 - 36.0 g/dL 33.1 RDW-CV Latest Ref Range: <15.0 % 12.1 RDW-SD Latest Ref Range: 35.1 - 46.3 fL 41.2 Platelet Count Latest Ref Range: 140 - 440 K/uL 281 MPV Latest Ref Range: 6.5 - 12.4 fL 10.3 % nRBC Latest Ref Range: 0 - 2 per 100 WBCs 0 Absolute nRBC Latest Ref Range: 0.00 - 0.01 K/uL 0.00 Absolute Neutrophils Latest Ref Range: 1.80 - 8.50 K/uL 6.73 Absolute Lymphocytes Latest Ref Range: 0.60 - 3.20 K/uL 1.45 Absolute Monocytes Latest Ref Range: 0.00 - 1.00 K/uL 0.48 Absolute Eosinophils Latest Ref Range: 0.00 - 0.40 K/uL 0.10 Absolute Basophils Latest Ref Range: 0.00 - 0.10 K/uL 0.06 Absolute Immature Granulocytes Latest Ref Range: 0.00 - 0.03 K/uL 0.03 % Neutrophils Latest Ref Range: 45.0 - 82.0 % 76.1 % Lymphocytes Latest Ref Range: 20.0 - 45.0 % 16.4 (L) % Monocytes Latest Ref Range: 4.0 - 12.0 % 5.4 % Eosinophils Latest Ref Range: 0.0 - 5.0 % 1.1 % Basophils Latest Ref Range: 0.0 - 1.0 % 0.7 % Immature Granulocytes Latest Ref Range: 0.0 - 0.4 % 0.3 Na Latest Ref Range: 136 - 145 mmol/L 138 K Latest Ref Range: 3.4 - 5.1 mmol/L 4.0 Chloride Latest Ref Range: 98 - 107 mmol/L 109 (H) Carbon dioxide Latest Ref Range: 20 - 31 mmol/L 23 Anion Gap Latest Ref Range: 3 - 16 mmol/L 6 Glucose Latest Ref Range: 60 - 106 mg/dL 95 BUN Latest Ref Range: 9 - 23 mg/dL 8 (L) Creatinine Latest Ref Range: 0.55 - 1.02 mg/dL 0.77 BUN/Creatinine Ratio Unknown 10.4 Albumin Latest Ref Range: 3.2 - 4.8 g/dL 4.2 Albumin/Globulin Ratio Latest Ref Range: 0.8 - 1.9 2.3 (H) Total Protein Latest Ref Range: 5.7 - 8.2 g/dL 6.0 EGFR IF NOT Latest Ref Range: >=60 mL/min/1.73m2 >60 Calcium Latest Ref Range: 8.7 - 10.4 mg/dL 9.4 ALK PHOS Latest Ref Range: 46 - 116 U/L 105 ALT (SGPT) (REF) Latest Ref Range: 10 - 49 U/L 30 AST (SGOT) (REF) Latest Ref Range: 0 - 34 U/L 32 LDH TOTAL Latest Ref Range: 120 - 246 U/L 294 (H) Bilirubin Total (Calculated) Latest Ref Range: 0.3 - 1.2 mg/dL 0.3 Globulin Latest Ref Range: 2.1 - 3.8 g/dL 1.8 (L) T3, Total Latest Ref Range: 71 - 180 ng/dL 142 T4, Total Latest Ref Range: 4.5 - 10.9 ug/dL 11.5 (H) TSH Latest Ref Range: 0.55 - 4.78 uIU/mL 0.01 (L) CEA Latest Ref Range: 0.0 - 10.0 ng/mL 2.2 Pharmacovigilance: Palliative Care: Patient's Medications New Prescriptions No medications on file Modified Medications No medications on file Discontinued Medications No medications on file Procedure: Isak Mccarthy MD Portions of this chart may have been created with Paxton voice recognition software. Occasi onal wrong-word or sound-alike substitutions may have occurred due to the inherent solis itations of voice recognition software. Please read the chart carefully and recognize, using context, where these substitutions have occurred. documented in t his encounter Miscellaneous Notes Assessment & Plan Note - Isak Mccarthy MD - 10/16/2018 9:17 AM PDTAssociated Prob chandler(s): Esophageal cancer, stage IIIA (HCC)Annie Brown returned to clinic on 019 alone for follow up of her Stage IIIA esophageal carcinoma, status post tri-modality the rapy. Interval history is notable for the fact that Annie underwent upper and lower endoscopy i july by Dr. Haim Epps in [place], [place]. She is also under the care of Dr. Gosia cabezas in [place] who has removed basal cell skin cancers from her left face and left neck. 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 Clinical exam is notable for stable body weight. Laboratory exam is notable for elevated LDH in isolation. TSH is maximally suppressed. Assessment: No signs or symptoms of recurrence of squamous cell carcinoma of the esophagus, stage IIIA, at 19 months. Thyroid cancer management by Dr. Epps. Plan: continue to monitor. Annie is anticipating a comprehensive evaluation by Dr. Mark brown the [facility] next week. Thyroid suppression therapy per Dr. Haim Epps. Clinical and laboratory follow up at [facility] in 6 months . documented in t his encounter Plan of Treatment Not on filedocumented as of this encounter Procedures + +--------+ + + + | Procedure Name | Priori | Date/Time | Associated Diagnosis | Comments | | | ty | | | | + +--------+ + + + | CBC W/AUTO | STAT | 10/06/2018 | Esophageal cancer, | Results for this | | DIFFERENTIAL | | 12:54 PM | stage IIIA (HCC) | procedure are in the | | | | PDT | | results section. | + +--------+ + + + | T3, TOTAL | Routin | 10/06/2018 | Thyroid nodule | Results for this | | | e | 12:54 PM | | procedure are in the | | | | PDT | | results section. | + +--------+ + + + | TSH | Routin | 10/06/2018 | Thyroid nodule | Results for this | | | e | 12:54 PM | | procedure are in the | | | | PDT | | results section. | + +--------+ + + + | T4, TOTAL | Routin | 10/06/2018 | Thyroid nodule | Results for this | | | e | 12:54 PM | | procedure are in the | | | | PDT | | results section. | + +--------+ + + + | LACTATE | STAT | 10/06/2018 | Esophageal cancer, | Results for this | | DEHYDROGENASE | | 12:54 PM | stage IIIA (HCC) | procedure are in the | | | | PDT | | results section. | + +--------+ + + + | CEA | STAT | 10/06/2018 | Esophageal cancer, | Results for this | | | | 12:54 PM | stage IIIA (HCC) | procedure are in the | | | | PDT | | results section. | + +--------+ + + + | COMPREHENSIVE | STAT | 10/06/2018 | Esophageal cancer, | Results for this | | METABOLIC PANEL | | 12:54 PM | stage IIIA (HCC) | procedure [...] + + | Performed at: 01 - [facility] [address], | REFERENCE LAB | | [place], [place] [id number] Waterproof Bag Sewer: Devon Reese MD, Phone: | [facility] | | [phone] | | + + + + + + + + | Performing | Address | City/State/Zipcode | Phone Number | | Organization | | | | + + + + + | REFERENCE LAB | [address] | [place] | [phone] | | [facility] | [place] | [address] | | + + + + + [...] + | [facility] | [address] | [place] | [phone] | | [facility] | | [address] | | | - LABORATORY | | [...] [address] | [place] | [phone] | | [facility] | | [address] | | | - LABORATORY | | [...] [address] | [place] | [phone] | | [facility] | | [address] | | | - LABORATORY | | [...] in use as of May | | . YIN | | | | 2018. Check | [...] + | [facility] | [address] | [place] | [phone] | | [facility] | | [address] | | | - LABORATORY | | [...] | mL/min/1.73m2 | YIN | | | [place] | RATE,ESTIMATED | | MEDICAL | | | | mL/min/1.49x0Zksz than | | CENTER - | | [...] 4.3 | 3.2 - 4.8 g/dL | [facility] | | | | | | YIN [...] [address] | [place] | [phone] | | [facility] | | [address] | | | - LABORATORY | | [...] | | | Cells | | | [facility] | | | | | | MEDICAL | | | | | | CENTER - | | | | | | LABORATORY | | + +-------+ + + + | Red Blood | 4.72 | 3.70 - 5.20 | [facility] | | | Cells | | M/uL | [facility] | | | | | | MEDICAL [...] | | | Eosinophils | | | [facility] | | [...] | | Neutrophils | | K/uL | [facility] | [...] | | | | | WBCs | [facility] | | | | [...] | [address] | [place] | [phone] | | [facility] | | [address] | | | - LABORATORY | | [...] | | | | WBCs | [facility] | | | | [...] ST. | [address] | [place] | [phone] | | [facility] | | [address] | | | - LABORATORY | | [...] | | | | ng/mL | [facility] | | | | | | [...] + | [facility] | [address] | [place] | [phone] | | [facility] | | [address] | | | - LABORATORY | | [...] (L) | 9 - 23 mg/dL | [facility] | | | | | | [facility] | | | | | | MEDICAL | | | | | | CENTER - | | | | | | LABORATORY | | + + + + + + | Creatinine | 0.77 | 0.55 - 1.02 | [facility] | | | | | mg/dL | [facility] | | | | | | MEDICAL | | | | | | CENTER - | | | | | | LABORATORY | | + + + + + + | eGFR, | >60Comment: GLOMERULAR | >=60 | [facility] | | | non- | FILTRATION | mL/min/1.73m2 | [facility] | | | [place] | RATE,ESTIMATED | | MEDICAL | | | | mL/min/1.36p6Ujwg than | | CENTER - | | [...] 4.2 | 3.2 - 4.8 g/dL | [facility] [...] | | Total | | | [facility] | | [...] [address] | [place] | [phone] | | [facility] | | [address] | | | - LABORATORY | | | | + + + + + Lactate Dehydrogenase (10/06/2018 12:54 PM PDT) + +---------+ + + + | Component | Value | Ref Range | Performed | Pathologist | | | | | At | Signature | + +---------+ + + + | LDH TOTAL | 294 (H) | 120 - 246 U/L | [facility] | | | | [...] + | [facility] | [address] | [place] | [phone] | | [facility] | | [address] | | | - LABORATORY | | | | + + + + + T3 (10/06/2018 12:54 PM PDT) + +-------+ [...] + | Performed at: 01 - [facility] [place] [address], | REFERENCE LAB | | [place], [place] [id number] Waterproof Bag Sewer: Devon Reese MD, Phone: | [place] - [place]LEN[place] | | [phone] | | + + + + + + + + | Performing | Address | City/State/Zipcode | Phone Number | | Organization | | | | + + + + + | REFERENCE LAB | [address] | [place], [place] | [phone] | | [facility] | [place] | [address] | | + + + + + [...] + | [facility] | [address] | [place] | [phone] | | [facility] | | [address] | | | - LABORATORY | | [...] | | | | uIU/mL | [facility] | | | | | | [...] ST. | [address] | [place] | [phone] | | [facility] | | [address] | | | - LABORATORY | | | | + + + + + documented in this encounter Visit Diagnoses + + | Diagnosis | + + | Thyroid nodule Nontoxic uninodular goiter | + + | Esophageal cancer, stage IIIA (HCC) | + + documented in this encounter
--- OUTSIDE RECORDS SUMMARY | ~2019-12-05 | XMS | Encounter Summary ---
Demographics + + + | Address | [address] | | | [place] [address] | + + + | Home Phone | | + + + | Preferred Language | Unknown | + + + | Marital Status | | + + + | Rastafarian Affiliation | Unknown | + + + | Race | Unknown | + + + | Ethnic Group | Unknown | + + + Author + + + | Author | [facility] | | | and [place] | + + + | Organization | [facility] | | | [...] Team Providers + +------+ + | Care Certified Breastfeeding Educator Name | Role | Phone | + [...] | | ILEANA HERNÁNDEZ | [place] [address] | | | | | [place] [address] | | | | | | [phone] | | | +--------+ + + + [...] +--------+ + + + | XR CHEST PA OR AP | Routin | 03/26/2017 | | Results for this | | | e | 9:45 AM | | procedure are in the | | | | PST | | results section. | + +--------+ + + + documented in this encounter Results XR Chest PA or AP (03/26/2017 9:45 AM PST) + + | Specimen | + + | | + + + + + | Narrative | Performed At | + + + | External films | [facility] | | for comparison only - no result from [place]. | | + + + + +---------+ + + | Performing | Address | City/State/Zipcode | Phone Number | | Organization | | | | + +---------+ + + | [facility] | | | | + +---------+ + + documented in this encounter Visit Diagnoses Not on filedocumented in this encounter"
--- OUTSIDE RECORDS SUMMARY | ~2019-12-05 | XMS | Encounter Summary ---
Demographics + + + | Address | [address] | | | [place] [address] | + + + | Home Phone | | + + + | Preferred Language | Unknown | + + + | Marital Status | | + + + | Faith Affiliation | Unknown | + + + [...] Team Providers + +------+ + | Care Contract Paralegal Name | Role | Phone | + +------+ + | No, Physician | PCP | Unavailable | + +------+ + Encounter Details +--------+ + + + + | Date | Type | Department | Care Team | Description | +--------+ + + + + | 04/22/ | Documentati | [facility] | Fabio, | | | 2017 | on | MED CTR PROVIDER | Isak Elizabeth MD [address] | | | | | ONCOLOGY [address] | [facility] | | | | | [place], | [address] [place], [place] | | | | | [place] [address] | [address] | | | | | [phone] | | | +--------+ + + + [...]
--- OUTSIDE RECORDS SUMMARY | ~2019-12-05 | XMS | Encounter Summary ---
Demographics + + + | Address | [address] | | | [place] [address] | + + + | Home Phone | | + + + | Preferred Language | Unknown | + + + | Marital Status | | + + + | Mosque Affiliation | Unknown | + + + [...] Team Providers + +------+ + | Care Engineering Program Analyst Name | Role | Phone | + +------+ + | No, Physician | PCP | Unavailable | + +------+ + Encounter Details +--------+ + + + + | Date | Type | Department | Care Team | Description | +--------+ + + + + | 05/01/ | Hospital | [facility] | Salo Wyman DO | | | 2018 | Encounter | [facility] RAD[facility] | [address] | | | | | ONCOLOGY [address] | [place] | | | | | [place], | [address] | | | | | [place] [address] | | | | | | [phone] | | | +--------+ + + + [...]
--- OUTSIDE RECORDS SUMMARY | ~2019-12-05 | XMS | Encounter Summary ---
Demographics + + + | Address | [address] | | | [place] [address] | + + + | Home Phone | | + + + | Preferred Language | Unknown | + + + | Marital Status | | + + + | Quaker Affiliation | Unknown | + + + | Race | Unknown | + + + | Ethnic Group | Unknown | + + + Author + + + | Author | [facility] | | | and [place] | + + + | Organization | [facility] | | | [...] Team Providers + +------+ + | Care Small Electric Engine Technician Name | Role | Phone | [...] | +--------+ + + + + | 05/20/ | Hospital | [facility] | Jennifer Reyes | Esophageal cancer, | | 2018 | Encounter | [facility] | MD Manjula [address] | stage IIA (HCC) | | | | [facility]Y CLIN[facility] [address] | [place], [place] | (Primary Dx) | | | | [address] | [address] | | | | | [place] [address] | | | | | | [phone] | | | +--------+ + + + [...] + + + | Blood Pressure | 119/74 | 05/20/2017 8:29 AM | | | | | PST | | + + + + + | Pulse | 59 | 05/20/2017 8:29 AM | | | | | PST | | + + + + + | Temperature | 37.2 C (98.9 F) | 05/20/2017 8:29 AM | | | | | PST | | + + + + + | Respiratory Rate | 14 | 05/20/2017 8:29 AM | | | | | PST | | + + + + + | Oxygen Saturation | 97% | 05/20/2017 8:29 AM | | | | | PST | | + + + + + | Inhaled Oxygen | - | - | | | Concentration | | | | + + + + + | Weight | 61.8 kg (136 lb 3.9 | 05/20/2017 8:29 AM | | | | oz) | PST | | + + + + + | Height | - | - | | + + + + + | Body Mass Index | 22.16 | 04/14/2017 9:33 AM | | | [...] encounter Progress Notes Jennifer Madrid MD - 05/20/2017 8:32 AM PST Radiation Oncology Weekly On Treatment Note Diagnosis: ICD-10-CM ICD-9-CM 1. Esophageal cancer, stage IIA (HCC) C15.9 150.9 Reason for visit: On treatment evaluation Radiation technical factors: Dose Delivered Dose Planned Fractions Delivered 2800 cGy Boost 0 4500 cGy 540 0/ Images were reviewed this week and results [...] for soluti on to thicken, then administer. (Patient taking differently: Mix 15 mL of water and one 10 m g packet of omeprazole, administer via J tube twice daily. Once mixed, shake gently and allo w 2-3 minutes for solution to thicken, then administer. (prilosec packet)) 60 each 0 ondansetron (ZOFRAN) 8 MG [...] file prior to encounter. Pain assessment: Location: None Pain Level: PAIN PROG PAIN LEVEL: 0 Current pain regimen:Patient took hydrocodone this morning 15ml, not feeling any pain right now. Wt Readings from Last 3 Encounters: 05/25/17 60.6 kg (133 lb 9.6 oz) 05/20/17 61.8 kg (136 lb 3.9 oz) 05/18/17 61.3 kg (135 lb 2.3 oz) Vitals: 05/20/17 0829 BP: 119/74 Pulse: 59 Resp: 14 Temp: 37.2 C (98.9 F) TempSrc: Temporal SpO2: 97% Weight: 61.8 kg (136 lb 3.9 oz) Physical Exam Constitutional: She appears well-developed and well-nourished. Neurological: She is alert. Psychiatric: She has a normal mood and affect. 05/18/2017 08:47 WBC 5.3 RBC COUNT 4.53 Hgb 14.0 Hct, Final 40.8 MCV 90.2 MCH 31.0 MCHC 34.4 RDW-CV 12.6 Platelet Count 282 MPV 8.2 Absolute Neutrophils 4.60 Absolute Lymphocytes 0.40 (L) Absolute Monocytes 0.30 Absolute Eosinophils 0.00 Absolute Basophils 0.00 % Neutrophils 85.4 (H) % Lymphocytes 7.7 (L) % Monocytes 6.0 % Eosinophils 0.4 % Basophils 0.5 NA 139 K 3.8 Chloride 101 Carbon dioxide 25 ANION GAP 13 GLUCOSE 99 BUN 8 Creatinine 0.65 BUN/CREA 12.3 ALBUMIN 3.8 Albumin/Globulin ratio 1.6 Total protein 6.2 EGFR IF NOT >60 Calcium 10.0 ALK PHOS 60 ALT (SGPT) (REF) 31 AST (SGOT) (REF) 25 BILIRUBIN TOTAL 0.6 GLOBULIN 2.4 Physician Assessment: Annie is tolerating chemoradiotherapy much better this week. Her nausea is well controll ed. Adding PPI helped significantly with nausea and she is also no longer having esophageal spasm. Weight stable. Remains fully dependent on J-tube feedings. She still experiences i nability to swallow even small amounts of liquids. Toxicities reviewed in nursing note. Disposition: Continue radiation treatment as planned. Continue weekly carboplatin and paclitaxel per the direction of Dr. Mccarthy Continue PPI, omeprazole, and nausea prophy. Encouraged her to continue trials of small liquid swallowing. Jennifer Colin MD Radiation Oncologist Suzanna Campos RN - 05/20/2017 8:27 AM PST 05/20/17 0826 Gastrointestinal Diarrhea 0 - Grade 0 Nausea 1 - Grade 1 Vomiting 0 - Grade 0 General Disorders and Administration Site Conditions Fatigue 1 - Grade 1 Respiratory Thoracic and Mediastinal Dyspnea 1 - Grade 1 Patient states that nausea is improving compared to last week, "getting ahead of the game, taking ondansetron scheduled has been helping taking it eveyr 6 hours is working well as we ll as taking priolsec 4 times daily".Electronically signed by Merari Kaplan RN at 05/20 8:29 AM PSTdocumented in this encounter Plan of Treatment Not on filedocumented as of this encounter Visit Diagnoses + + | Diagnosis | + + | Esophageal cancer, stage IIA (HCC) - Primary | + + documented in this encounter
--- OUTSIDE RECORDS SUMMARY | ~2019-12-05 | XMS | Encounter Summary ---
Demographics + + + | Address | [address] | | | [place] [address] | + + + | Home Phone | | + + + | Preferred Language | Unknown | + + + | Marital Status | | + + + | Anglican Affiliation | Unknown | + + + | Race | Unknown | + + + | Ethnic Group | Unknown | + + + Author + + + | Author | [facility] | | | and [place] | + + + | Organization | [facility] | | [...] Team Providers + +------+ + | Care Acoustic Engineer Name | Role | Phone | [...] | | [address] | [place] [address] | | | | | [place] [address] | | | | | | [phone] | | | +--------+ + + + [...] | CT ABDOMEN W | Routin | 06/30/2018 | | Results for this | | CONTRAST | e | 8:15 AM | | procedure are in the | | | | PST | | results section. | + +--------+ + + + documented in this encounter Results CT Abdomen w Contrast (06/30/2018 8:15 AM PST) + + | Specimen | [...]
--- OUTSIDE RECORDS SUMMARY | ~2019-12-05 | XMS | Encounter Summary ---
Demographics + + + | Address | [address] | | | [place] [address] | + + + | Home Phone | | + + + | Preferred Language | Unknown | + + + | Marital Status | | + + + | Anabaptist Affiliation | Unknown | + + + | Race | Unknown | + + + | Ethnic Group | Unknown | + + + Author + + + | Author | [facility] | | | and [place] | + + + | Organization | [facility] | [...] Team Providers + +------+ + | Care Loan Counselor Name | Role | Phone | + +------+ + | No, Physician | PCP | Unavailable | + +------+ + Reason for Visit + +--------+ + | Reason | Onset | Comments | | | Date | | + +--------+ + | Esophageal Cancer | 04/09/ | | | | 2016 | | + +--------+ + Encounter Details +--------+ + + + + | Date | Type | Department | Care Team | Description | +--------+ + + + + | 04/09/ | Telephone | [facility] | Fabio, | Esophageal Cancer | | 2017 | | [facility] | Talon Elizabeth MD [address] | | | | | [facility]Y CLINIC [address] | [address] | | | | | [address] | [address] | | | | | [place] [address] | [address] | | | | | [phone] | | | +--------+ + + + [...] this encounter Miscellaneous Notes Telephone Encounter - Talon Mcclure MD - 04/09/2017 11:17 AM PSTEvaluation [facility] Consulting providers recommend neoadjuvant taxol/carboplatin weekly with rads before surger y with Dr. Cannon. Can begin as soon as radiation therapy treatment plan is ready. Electronically signed by: TALON MCCLURE MD 04/09/2017 11:18 documented in t his encounter Plan of Treatment Not on filedocumented as of this encounter Visit Diagnoses Not on filedocumented in this encounter"
--- OUTSIDE RECORDS SUMMARY | ~2019-12-05 | XMS | Encounter Summary ---
Demographics + + + | Address | [address] | | | [place] [address] | + + + | Home Phone [...] + | Author | [facility] | | | and [place] | + + + | Organization | [facility] | | [...] Team Providers + +------+ + | Care Ip Counsel Name | Role | Phone | + +------+ + | No, Physician | PCP | Unavailable | + +------+ + Reason for Visit + + + | Reason | Comments | + + + | Nutrition Counseling | | + + + Evaluate & Treat (Routine) +--------+ + + + + + | Status | Reason | Specialty | Diagnoses / | Referred By | Referred To | | | | | Procedures | Contact | Contact | +--------+ + + + + + | Closed | Specialty | Nutrition | Diagnoses | [facility], | [facility] | | | Services | | Esophageal | Jennifer Fair, | Nutrition | | | Required | | cancer, | [address] | [address] | | | | | stage IIA | [address] | [address] | | | | | (HCC) | [place], | [place], | | | | | | [place] [address] | [place] [address] | | | | | | Phone: | Phone: | | | | | | [phone] | [phone] | | | | | | Fax: | Fax: | | | | | | [phone] | [phone] | +--------+ + + + + + Encounter Details +--------+ + + + + | Date | Type | Department | Care Team | Description | +--------+ + + + + | 04/29/ | Hospital | [facility] | Fabio, | Esophageal cancer, | | 2018 | Encounter | MED CTR NUTRITION | Isak Elizabeth MD [address] | stage IIA (HCC) | | | | [address] | | | | | [place], | [address] | | | | | [place] [address] | [address] | | | | | [phone] | | | | | | | [...] encounter Progress Notes Misti Roth, [place] - 04/29/2017 2:39 PM PSTFormatting of this note might be different f rom the original. Medical Nutrition Note SUBJECTIVE: Pt has a j-tube placed. States she has the formula Jevity 1.2 at home at home . She is suppose to do night feedings for 12 hours but she pulls on th tube too much at [facility]. She is currently only doing ~500 calories (2 hours at 100 ml/hr) a day d/t as soon as s he does the TF she gets diarrhea. She should be on an isotonic TF since she has a J-TUBE no t a G-TUBE. New prescription was written by dr Mccarthy for Isosource HN 6.5-7 cans a da y and was faxed by Cheyanne FLOWERS to [facility] at or [phone]. They have HH at home, discussed with them to have HH work with them on how to use the backback for fee dings during the day. They are aware she needs 1680 cc of formula per day to provide 2016 k cals and 91 grams of protein per day. This also provides 1357 cc of free water so will need additional 645 cc of free water to [...] m (5' 5.75") Estimated needs (wt. 64kg) 8358-1431 kcals/day 64-77 gm pro/day Medications: reviewed ASSESSMENT/PLAN: [...] the referral, Misti Roth RDN 04/29/2017 14:40 documented in this encounter Miscellaneous Notes Addendum Note - Misti Roth RDN - 04/29/2017 3:07 PM PSTEncounter addended by: Ross Roth RDN on: 04/29/2017 15:07
Actions taken: Sign clinical noteElectronically si gned by Misti Roth RDN at 04/29/2017 3:07 PM PSTdocumented in this encounter Plan of Treatment + [...]
--- OUTSIDE RECORDS SUMMARY | ~2019-12-05 | XMS | Encounter Summary ---
Demographics + + + | Address | [address] | | | [place] [address] | + + + | Home Phone | | + + + | Preferred Language | Unknown | + + + | Marital Status | | + + + | Baptist Affiliation | Unknown | + + + | Race | Unknown | + + + | Ethnic Group | Unknown | + + + Author + + + | Author | [facility] | | | and [place] | + + + | Organization | [facility] | | | [...] Team Providers + +------+ + | Care Legal Support Assistant Name | Role | Phone | + +------+ + | No, Physician | PCP | Unavailable | + +------+ + Encounter Details +--------+ + + + + | Date | Type | Department | Care Team | Description | +--------+ + + + + | 04/21/ | Orders Only | [facility] | Jennifer Reyes | Thyroid nodule | | 2017 | | [facility] | MD Manjula [address] | (Primary Dx) | | | | ON[facility]OGY CLINIC [address] | [place], [place] | | | | | [address] | [address] | | | | | [place] [address] | | | | | | [phone] | | | +--------+ + + + [...] of this encounter Plan of Treatment + +---------+--------+ + + | Name | Type | Priori | Associated Diagnoses | Order Schedule | | | | ty | | | + +---------+--------+ + + | US Head Neck Soft | Imaging | Routin | Thyroid nodule | Expected: | | Tissue | | e | | 04/21/2017, Expires: | | | | | | 04/21/2018 | + +---------+--------+ + + documented as of this encounter Visit Diagnoses + + | Diagnosis | + + | 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
--- OUTSIDE RECORDS SUMMARY | ~2019-12-05 | XMS | Encounter Summary ---
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 Name | Role | Phone | + [...] + + + + | 05/25/ | [facility] [employer] [facility] | [facility] | Fabio, | Esophageal cancer, | | 2018 | Encounter | [facility] | Talon Elizabeth MD [address] | stage IIA (HCC) | | | | ON[facility]OGY CLINIC [address] | [address] | | | | | [address] | [address] | | | | | [place] [address] | [address] | | | | | [phone] | | | +--------+ + + + [...] + + + | Blood Pressure | 135/83 | 05/25/2017 9:00 AM | | | | | PST | | + + + + + | Pulse | 74 | 05/25/2017 9:00 AM | | | | | PST | | + + + + + | Temperature | 36.5 C (97.7 F) | 05/25/2017 9:00 AM | | | | | PST | | + + + + + | Respiratory Rate | 14 | 05/25/2017 9:00 AM | | | | | PST | | + + + + + | Oxygen Saturation | 98% | 05/25/2017 9:00 AM | | | | | PST | | + + + + + | Inhaled Oxygen | - | - | | | Concentration | | | | + + + + + | Weight | 60.6 kg (133 lb 9.6 | 05/25/2017 9:00 AM | | | | oz) | PST | | + + + + + | Height | - | - | | + + + + + | Body Mass Index | 21.73 | 04/14/2017 9:33 AM | | | [...] encounter Progress Notes Talon Mcclure MD - 05/25/2017 8:47 AM PSTFormatting of this note might be differe nt from the original. [facility] [place] [facility] Pt. Name/Age/: Annie Brown 61 y.o. 1955 Med. Record Number: [id number] Date of admission: 05/25/2017 The patient's primary care provider is No Physician on file. Identifying Statement: Annie Brown is a 61 y.o. female [place] [address] [place] [address] with Esophageal Cancer. The patient chart and medications were reviewed in detail and the patient was seen and exam ined. History of Present Illnesses, their Current Assessments and Plans: Problem List Esophageal cancer, stage IIA Overview ACTIVE DIAGNOSIS: Squamous cell carcinoma of the esophagus, Stage IIIA. 1. Upper endoscopy with biopsy March 15, 2017 (Supriya). Mass in mid esophagus. [id number] ([facility]) Invasive Squamous Cell carcinoma, mod erately differentiated. Immunohistochemistry diffusely positive for P16. 2. Status post feeding jejunostomy tube placement by Dr. Haim Epps, [facility]. 3. PET/CT scan March 24, 2017; mid-esophageal tumor with SUV 8.5, no evidence of metasta tic disease. 4. Endoscopic ultrasound at [facility]; single level 8 node "moderately suspicious." Clinical stage T3N1M0, Stage IIIA. 5. Comprehensive mutidisciplinary team evaluation at [facility], [facility] (Haim Hernandez, Gold Cannon); combined modality chemoradiation with weekly taxol/car boplatin at [facility] in [place], follow by definitive resection b y Dr. Cannon at [facility]. 6. Status post placement of a left subclavian port-a-cath by Dr. Haim Epps. 7. Begin Combined modality therapy April 29, 2017. Current Assessment & Plan Annie Brown returned to clinic on 05/25/2017 with her , Gene, for follow- up of her Stage IIIA esophageal cancer currently status post four weeks of combined modality therapy; external beam radiation and weekly taxol/carboplatin chemotherapy. Chief complaint is pain at her jejunostomy insertion site. Clinical exam is notable for the fact that the two new sutures recently placed by Dr. Epps to secure the jejunostomy tube are under tension causing mild cutaneous and subcutaneous er ythema. There is no discharge. Body weight is down another 1.2 kg. Laboratory exam is notable for grade 1 leukopenia and grade 1 neutropenia, and ongoing incr emental diminution of albumin and protein. Assessment; Stage IIIA squamous cell carcinoma of the esophagus. Protein calorie malnutrition. Plan; Proceed today with week #5 of combined modality therapy with taxol at 50 mg/m and C arboplatin AUC 2. Nutrition services consult. Clinical and laboratory follow up in one week and consideration of a sixth week of combined modality therapy depending upon tolerance. Review of Systems: Constitutional: Reports energy level is fair, "I get tired easily". Reports had 1 episode o f night sweats since last visit. Denies high fevers, shaking chills, anorexia, nausea, vomi ting, weight loss. Appetite without changes. Ear, Nose, Mouth, Throat: Reports difficulty swallowing "even saliva, water just lights it up like it's on fire". Reports tinnitus "is getting more frequent". Denies odynophagia. Cardiovascular: Denies shortness of breath, dyspnea on exertion, chest pain, palpitations o r orthopnea. Respiratory: Denies cough, hemoptysis, or sputum production. Gastrointestinal: Reports abdominal pain related to feeding tube, continues, unchanged. Rep orts intermittent diarrhea, has taken imodium if needed. Denies constipation, melena, or luisa ght red blood per rectum. Genitourinary: Denies hematuria or dysuria. Musculoskeletal: Denies joint pain or tenderness. Neurologic: Denies headache, visual changes, or numbness/tingling of the extremities. Endocrine: Denies peripheral edema or heat/cold intolerance. Hematologic: Denies spontaneous bruising or bleeding. Integumentary: Reports that Dr. Epps recently resutured feeding tube on 05/19/17, but it fe els painful, it is red, and discharge. Onset of redness and drainage since Wednesday or y. Denies rash or wounds. Pain: Reports having throat pain 4/10 on scale of 0-10, goal <4/10. Patient states she did not take Prilosec this morning or hydrocodone due to concerns about having treatment this mo rning. Note: Here for follow up, labs, and treatment. here with patient today at visit. Patient concerned that the there may be an infection around feeding tube site. My chart: Declined Scheduled Medications: Current Outpatient [...] 5 mL Intercatheter PRN Talon mendez MD HYDROmorphone (DILAUDID) injection 0.2-0.4 mg 0.2-0.4 mg Intravenous Q1H PRN Talon Mcclure MD 0.2 mg at 05/25/17 0957 Allergies: Allergy: No Known Allergies Past Medical [...] Paternal Aunt Esophageal cancer Other Objectives: Temp: 36.5 C (97.7 F) BP: 135/83 Pulse: 74 Resp: 14 SpO2: 98 % on Min/Max Temp past 24 hours:Temp Av.5 C (97.7 F) Min: 36.5 C (97.7 F) Max: 3 6.5 C (97.7 F) No intake or output data in the 24 hours ending 05/25/17 1436 Wt. Admission: Weight: 60.6 kg (133 lb 9.6 oz) Wt. Current: Weight: 60.6 kg (133 lb 9.6 oz) Wt Readings from Last 3 Encounters: 05/25/17 60.6 kg (133 lb 9.6 oz) 05/20/17 61.8 kg (136 lb 3.9 oz) 05/18/17 61.3 kg (135 lb 2.3 oz) Physical [...] Yudi Clemente., Tanner Cheney., Wellington, TTaylor., Solomon, ChloeT., Lelo, P .P.: Toxicity And Response Criteria [...] SEVERE, ANNIE JONES ( ) as of 05/25/2017 14:28 Ref. Range 05/25/2017 08:06 WBC Latest Ref Range: 4.0 - 11.0 K/uL 3.6 (L) RBC COUNT Latest Ref Range: 3.70 - 5.20 M/uL 4.36 Hgb Latest Ref Range: 11.5 - 16.0 g/dL 13.5 Hct, Final Latest Ref Range: 34.0 - 47.0 % 39.5 MCV Latest Ref Range: 83.0 - 101.0 fL 90.6 MCH Latest Ref Range: 28.0 - 35.0 pg 30.9 MCHC Latest Ref Range: 32.0 - 36.0 g/dL 34.1 RDW-CV Latest Ref Range: <15.0 % 12.9 Platelet Count Latest Ref Range: 140 - 440 K/uL 191 MPV Latest Units: fL 7.9 Absolute Neutrophils Latest Ref Range: 1.80 - 8.50 K/uL 2.90 Absolute Lymphocytes Latest Ref Range: 0.60 - 3.20 K/uL 0.40 (L) Absolute Monocytes Latest Ref Range: 0.00 - 1.00 K/uL 0.30 Absolute Eosinophils Latest Ref Range: 0.00 - 0.40 K/uL 0.00 Absolute Basophils Latest Ref Range: 0.00 - 0.10 K/uL 0.00 % Neutrophils Latest Ref Range: 45.0 - 82.0 % 81.3 % Lymphocytes Latest Ref Range: 20.0 - 45.0 % 10.1 (L) % Monocytes Latest Ref Range: 4.0 - 12.0 % 7.6 % Eosinophils Latest Ref Range: 0.0 - 5.0 % 0.4 % Basophils Latest Ref Range: 0.0 - 1.0 % 0.6 NA Latest Ref Range: 136 - 149 mmol/L 140 K Latest Ref Range: 3.5 - 5.1 mmol/L 3.8 Chloride Latest Ref Range: 98 - 109 mmol/L 105 Carbon dioxide Latest Ref Range: 24 - 31 mmol/L 27 ANION GAP Latest Ref Range: 3 - 16 mmol/L 8 GLUCOSE Latest Ref Range: 70 - 109 mg/dL 88 BUN Latest Ref Range: 7 - 18 mg/dL 12 Creatinine Latest Ref Range: 0.60 - 1.30 mg/dL 0.66 BUN/CREA Unknown 18.2 ALBUMIN Latest Ref Range: 3.2 - 5.0 g/dL 3.7 Albumin/Globulin ratio Latest Ref Range: 0.8 - 2.0 1.8 Total protein Latest Ref Range: 6.0 - 7.8 g/dL 5.8 (L) EGFR IF NOT Latest Ref Range: >=60 mL/min/1.73m2 >60 Calcium Latest Ref Range: 8.3 - 10.5 mg/dL 9.5 ALK PHOS Latest Ref Range: 40 - 110 U/L 63 ALT (SGPT) (REF) Latest Ref Range: 6 - 45 U/L 46 (H) AST (SGOT) (REF) Latest Ref Range: 10 - 42 U/L 37 BILIRUBIN TOTAL Latest Ref Range: 0.1 - 1.5 mg/dL 0.6 GLOBULIN Latest Ref Range: 2.1 - 3.8 g/dL 2.1 Pharmacovigilance: Palliative Care: Patient's Medications New Prescriptions No medications on file Modified Medications No medications on file Discontinued Medications No medications on file Procedure: Day 1, Week 5 (7-day cycle) Completed; Released on 05/25/2017; Originally planned for 05/25/2017 Labs Comprehensive Metabolic Panel STAT, ONE TIME, Wed05/25/17 at 0806, For 1 occurrence OrderHistory CBC with Differential STAT, ONE TIME, Wed05/25/17 at 0806, For 1 occurrence OrderHistory PRN Medications ethyl chloride spray Topical, PRN, Pain, Starting Wed05/25/17 at 0805 OrderHistory Nursing Orders OK to proceed with chemotherapy (Not Released) 05/25/17-- INFORMED CONSENT: The nature and character of the proposed treatment with week #5 carboplat in/taxol and the anticipated results of the proposed treatment with week #5 carboplatin/taxo l ;recognized alternative forms of treatment, including non-treatment; the risks benefits, a nd side effects of proposed treatment, alternative treatments and non-treatment were discuss ed with the patient who consents to proceed with treatment with week #5 carboplatin/taxol. T he treating provider has examined the patient and reviewed the diagnostic data, including la boratory data, and deems that it is safe and appropriate to proceed with treatment with week #5 carboplatin/taxol.Electronically signed by: TALON MCCLURE MD 05/25/2017 9:34. OrderHistory Plans for discharge (Not Released) Switched to Aloxi/Dex due to nausea for 4-5 days after each chemo treatment. +++QFU IN 7 DAYS, LABS port DRAW & 3 HOUR RX+++ +++QFU IN 14 DAYS, LABS port DRAW & 3 HOUR RX+++ OrderHistory Pre-Medications famotidine (PEPCID) injection 20 mg 20 mg, Intravenous, ONCE, 05/25/17 at 1000, For 1 dose Keep in refrigerator. Administer 30 minutes prior to PACLitaxel. Prior to administration, prepare a 20 mg dose by diluting 2 mL of famotidine 10 mg/mL to 10 mL with normal saline. OrderHistory diphenhydrAMINE (BENADRYL) injection 25 mg 25 mg, Intravenous, ONCE, Tue 18 at 1000, For 1 dose Administer 30 minutes prior to PACLitaxel . OrderHistory palonosetron (ALOXI) 0.25 mg, dexamethasone (DECADRON) 4 mg in sodium chloride 0.9% 50 mL IVPB Intravenous, Administer over 15 Minutes, ONCE, 05/25/17 at 1000, For 1 dose OrderHi story fosaprepitant (EMEND) 150 mg in sodium chloride 0.9% 250 mL IVPB 150 mg, Intravenous, Administer over 30 Minutes, ONCE, 05/25/17 at 1015, For 1 dose Do not shake bag. OrderHistory PRN Medications HYDROmorphone (DILAUDID) injection 0.2-0.4 mg 0.2-0.4 mg (original dose 0.2-0.4 mg), Intravenous, EVERY 1 HOUR PRN, Pain, Starting Tue at 0940 OrderHistory LORazepam (ATIVAN) 2 mg/mL injection 0.5-1 mg (Not Released) 0.5-1 mg (original dose 0.5-1 mg), Intravenous, PRN, Anxiety, Nausea/Vomiting, Starting wh en released, for 1 dose OrderHistory CHEMOTHERAPY PACLitaxel (TAXOL) 84 mg in sodium chloride 0.9% 250 mL infusion 84 mg (rounded from 84.5 mg = 50 mg/m2 1.69 m2 Treatment plan recorded BSA), Intravenou s, Administer over 1 Hours, ONCE, 05/25/17 at 1045, For 1 dose Chemotherapy: Use appropriate handling precautions. Vesicant. Use 0.22 micron filter and no n-DEHP tubing for administration. This drug has a high incidence of infusion reactions. My ent must be directly and frequently observed during drug administration. OrderHistory CARBOplatin (PARAPLATIN) 223.2 mg in sodium chloride 0.9% 250 mL infusion 223.2 mg (Target AUC = 2), Intravenous, Administer over 30 Minutes, ONCE, 05/25/17 at 1 200, For 1 dose Chemotherapy: Use appropriate handling precautions. Administer AFTER PACLitaxel. [facility] istory TALON MCCLURE MD Portions of this chart may have been created with wireWAX voice recognition software. Occasi onal wrong-word or sound-alike substitutions may have occurred due to the inherent solis itations of voice recognition software. Please read the chart carefully and recognize, using context, where these substitutions have occurred. documented in t his encounter Miscellaneous Notes Assessment & Plan Note - Talon Mcclure MD - 05/25/2017 2:21 PM PSTAssociated Prob chandler(s): Esophageal cancer, stage IIIA (HCC)Annie Brown returned to clinic on 018 with her , Gene, for follow-up of her Stage IIIA esophageal cancer currently sta tus post four weeks of combined modality therapy; external beam radiation and weekly taxol/c arboplatin chemotherapy. Chief complaint is pain at her jejunostomy insertion site. Clinical exam is notable for the fact that the two new sutures recently placed by Dr. Epps to secure the jejunostomy tube are under tension causing mild cutaneous and subcutaneous er ythema. There is no discharge. Body weight is down another 1.2 kg. Laboratory exam is notable for grade 1 leukopenia and grade 1 neutropenia, and ongoing incr emental diminution of albumin and protein. Assessment; Stage IIIA squamous cell carcinoma of the esophagus. Protein calorie malnutrition. Plan; Proceed today with week #5 of combined modality therapy with taxol at 50 mg/m and C arboplatin AUC 2. Nutrition services consult. Clinical and laboratory follow up in one week and consideration of a sixth week of combined modality therapy depending upon tolerance. documented in t his encounter Plan of Treatment Not on filedocumented as of this encounter Visit Diagnoses + + | Diagnosis | + + | Esophageal cancer, stage IIA (HCC) | + + documented in this encounter
[~2019-12-05 07:01] MED LIST changes: +LEVOTHYROXINE150 MCG PO; +OMEPRAZOLE20 MG PO
[2019-12-05] MEDS ORDERED: NAPROSYN500 MG PO (07:36)
[2019-12-05] MEDS ORDERED: LIDODERM1 EACH TD (07:36)
== END 2019-12-05 08:07 | disposition home or self-care (01) ==
LOC: ED 07:01
DX: S22.31XA Fracture of one rib, right side, initial encounter for closed fracture (principal); Z79.899 Other long term (current) drug therapy; W19.XXXA Unspecified fall, initial encounter
CPT/HCPCS: 71111; 99283-25

== ENCOUNTER 2020-06-27 10:54 | Day surgery (SDC) | payer BC ==
[~2020-06-27] VITALS: Ht 167.6 cm; Wt 59.0 kg
[~2020-06-27 10:54] MED LIST changes: +LIDODERM1 EACH TD; +NAPROSYN500 MG PO
--- NOTE | 2020-06-27 12:20 | NUR ---
06/27/20 1220 Lisa Delaney 1218- REPORT RECEIVED FROM CURTIS ROSE RN. PT IS LAYING IN BED WITH HER EYES CLOSED. RESP 10 EVEN AND UNLABORED. OXYGEN SAT HIGH 90'S TO 100% ON 3L VIA NC.
--- NOTE | 2020-06-28 17:24 | PATH ---
[facility] [address] [place], [place] [address] Signed SPECIMEN(S): A STOMACH BIOPSY SPECIMEN(S): B ANASTOMOSIS SPECIMEN SOURCE: A. STOMACH BIOPSY B. ANASTOMOSIS CLINICAL HISTORY: Esophagogastroduodenoscopy with poss. biopsies. Mid esophageal CA. Postop: Normal anastomosis. MICROSCOPIC DESCRIPTION: Histologic sections of all submitted blocks are examined by light microscopy. These findings, together with the gross examination, support the pathologic diagnosis. FINAL PATHOLOGIC DIAGNOSIS: A. Stomach biopsy: - Benign gastric-type mucosa with focal slight chronic inflammation . - Negative for evidence of Helicobacter organisms on routine HE stained sections. B. Anastomosis: - Squamocolumnar junction with reactive epithelial features and mild chronic inflammation . - Negative for specialized intestinal metaplasia or dysplasia. JVR:[facility]:C2NR GROSS DESCRIPTION: Two specimens are received in two containers, labeled "CS." A. The specimen, labeled "CS, 1," and designated on the requisition "stomach," is received in formalin and consists of two de jesus soft tissue fragments that measure 0.3 cm in greatest dimension. The specimen is entirely submitted in cassette (A1). B. The specimen, labeled "CS, 2," and designated on the requisition "stomach, anastomosis," is received in formalin and consists of two de jesus soft tissue fragments that measure 0.3 cm in greatest dimension. The specimen is entirely submitted in cassette (B1). AT (under the direct supervision of a pathologist) The Gross Description was prepared using a voice recognition system. The report was reviewed for accuracy; however, sound-alike word errors, addition and/or deletions may occur. If there is any question about this report, please contact Client Services. PATIENT NAME: LAISHA THOMPSON PATHOLOGY DATE OF : 55 REPORT #: [id number] PHYSICIAN: KIKI PATHOLOGY PCP: ROSA HOLDEN REPORT IS CONFIDENTIAL AND NOT TO BE RELEASED WITHOUT AUTHORIZATION [facility] [address] [place], [place] [address] Signed PERFORMING LABORATORY: The technical component was performed by [facility] [address] [place] [address] ([employer]str[employer] Bi Developer: Rosa Curtis MD; CLIA# [id number]) . Professional interpretation was performed by [facility] ([place] [address]. Diagnostician: Shaheen Hamilton MD Pathologist Electronically Signed 06/28/2020 Copies: ~ PATIENT NAME: LAISHA THOMPSON PATHOLOGY DATE OF : 55 REPORT #: [id number] PHYSICIAN: KIKI PATHOLOGY PCP: ROSA HOLDEN PAC REPORT IS CONFIDENTIAL AND NOT TO BE RELEASED WITHOUT AUTHORIZATION
--- NOTE | 2020-06-30 13:00 | OR ---
[facility] [address] [place], [place] [address] Signed DATE OF OPERATION: 06/27/2020 SURGEON: Kina Mane MD PREOPERATIVE DIAGNOSES: 1. History of esophagectomy for squamous cell carcinoma 3 years ago (Dr. Gold Cannon at [facility], [place]). 2. 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 Fitzgerald at [facility]). 3. History of right thyroid lobectomy for papillary thyroid carcinoma. POSTOPERATIVE DIAGNOSES: 1. No evidence of recurrent or new disease including esophagogastric anastomosis. 2. Good position of vocal cords, some hypertrophy of the arytenoid process likely related to medialization of the cord. PROCEDURE: Esophagogastroduodenoscopy with biopsy. ANESTHESIA: Intravenous sedation, fentanyl 100 mcg and Versed 4 mg. 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 She had neoadjuvant chemoradiation therapy and ultimately resection by Dr. Cannon in [place]. She did have a recurrent laryngeal nerve palsy on the left side, ultimately undergoing cord medialization procedure by Dr. Fitzgerald at [facility]. She subsequently underwent right thyroid lobectomy with isthmusectomy by ca for right-sided papillary thyroid carcinoma. She is generally symptom-free. She does not have hoarseness. She has no dysphagia. No weight loss or signs of recurrent disease of any type. She is here for upper endoscopy and surveillance. She understands the risks of bleeding, infection, and perforation. FINDINGS: The esophagogastric anastomosis was widely patent without sign of stricture and no sign of neoplasm. Biopsy was obtained of the site anyway. The stomach itself appeared normal, biopsies were assessed for gastritis and for CLOtest (negative at 20 minutes post procedure). The pylorus was widely patent. The duodenum was normal. The vocal cords were visualized and found to be in good position. There was some swelling at the Electronically Signed By: KINA MANE MD 06/30/20 1300 PATIENT NAME: LAISHA THOMPSON OPERATIVE REPORT DATE OF : 55 REPORT #: [id number] PHYSICIAN: KINA MANE MD PCP: ROSA HOLDEN PAC REPORT IS CONFIDENTIAL AND NOT TO BE RELEASED WITHOUT AUTHORIZATION [facility] [address] [place], [place] [address] Signed arytenoid process on the left side, likely consistent with medialization procedure performed previously. DESCRIPTION OF PROCEDURE: The patient was brought to the endoscopy suite and placed in lateral decubitus position. The patient refused topical hypopharyngeal spray anesthesia as it made her "panic" she claimed. She was given intravenous sedation with full cardiopulmonary monitoring. A bite block was placed. An Olympus video upper endoscope was passed into the hypopharynx. The vocal cords were visualized and found to be well medialized. There was some swelling at the left arytenoid process likely consistent with medialization procedure in the past. The scope was advanced to the esophagus without problem. The esophagogastric anastomosis was normal without sign of stricture, inflammation, or other problem. Scope was passed into the gastric tube, which was entirely normal. Scope was passed to the pylorus, which was normal in appearance and the scope passed into the duodenum, which was normal. Biopsies were taken of the stomach for both SHENG and pathologic testing. Retroflexed view was undertaken showing no abnormality on the gastric side of the gastroesophageal anastomosis upon withdrawal. The scope was straightened and withdrawn and biopsies taken of the esophagogastric anastomosis, though it appeared normal otherwise. Careful withdrawal of scope allowed for further photos of the vocal cord as previously noted. The scope was removed. The patient was taken to the recovery room in good condition. CONCLUDING DIAGNOSIS: No evidence of recurrent or persistent disease. No evidence of esophageal stricture. Good medialization of cord structure. No evidence of nodule. PLAN: She will continue to be monitored clinically. She will return to the ongoing care of her primary provider, DAY Lancaster as well. MD TIN Garcia/MODL /[id number] Electronically Signed By: KINA MANE MD 06/30/20 1300 PATIENT NAME: LAISHA THOMPSON OPERATIVE REPORT DATE OF : 55 REPORT #: [id number] PHYSICIAN: KINA MANE MD PCP: ROSA HOLDEN PAC REPORT IS CONFIDENTIAL AND NOT TO BE RELEASED WITHOUT AUTHORIZATION [facility] [address] [place], [place] [address] Signed Copies: ~ Electronically Signed By: KINA MANE MD 06/30/20 1300 PATIENT NAME: LAISHA THOMPSON OPERATIVE REPORT DATE OF : 55 REPORT #: [id number] PHYSICIAN: KINA MANE MD PCP: ROSA HOLDEN PAC REPORT IS CONFIDENTIAL AND NOT TO BE RELEASED WITHOUT AUTHORIZATION
== END 2020-06-27 12:55 | disposition home or self-care (01) ==
LOC: OPS 10:54 → DS 10:59 → OPS 12:00 → DS 13:00
PROVIDERS: ATTEND Surgery
PROC: 0DB58ZZ Excision of Esophagus, Via Natural or Artificial Opening Endoscopic (ICD-10-PCS; principal; 2020-06-27 12:00)
DX: Z08 Encounter for follow-up examination after completed treatment for malignant neoplasm (principal); K29.50 Unspecified chronic gastritis without bleeding; E89.0 Postprocedural hypothyroidism; Z85.01 Personal history of malignant neoplasm of esophagus; Z85.850 Personal history of malignant neoplasm of thyroid; Z92.21 Personal history of antineoplastic chemotherapy; Z90.49 Acquired absence of other specified parts of digestive tract
CPT/HCPCS: 99153; G0500; J2250; J3010; J7121

== ENCOUNTER 2021-07-31 11:05 | Day surgery (SDC) | payer BC ==
[~2021-07-31] VITALS: Ht 167.6 cm; Wt 59.0 kg
--- NOTE | 2021-07-31 12:08 | NUR ---
07/31/21 1208 Carol,Opal 1203 PT ARRIVED TO PACU ON RA AND VSS. PT WAKES AND IS REORIENTED TO PACU. PT DENIES CONCERNS AND EASILY FALLS BACK TO SLEEP.
--- NOTE | 2021-08-01 12:19 | PATH ---
[facility] [address] [place], [place] [address] Signed SPECIMEN(S): A ANTRUM/PYLORUS BIOPSY SPECIMEN(S): B ANASTOMOSIS BIOPSY SPECIMEN SOURCE: A. ANTRUM/PYLORUS BIOPSY B. ANASTOMOSIS BIOPSY CLINICAL HISTORY: History of esophageal cancer. Post-op: Normal anatomy post-op esophagectomy. FINAL PATHOLOGIC DIAGNOSIS: A. Stomach, antrum/pylorus, biopsy: - Antral mucosa with chronic, inactive gastritis. - Negative for Helicobacter organisms on HE stain. - Negative for dysplasia or malignancy. B. Anastomosis, biopsy: - Squamous and squamocolumnar junctional mucosa with mild reactive changes. - Negative for intestinal metaplasia, dysplasia, or malignancy. NAL:cml:C2NR MICROSCOPIC EXAMINATION: Histologic sections of all submitted blocks are examined by light microscopy. These findings, together with the gross examination, support the pathologic diagnosis. GROSS DESCRIPTION: Two specimens are received in two containers, labeled "CS." A. The specimen, labeled "CS, 1," and designated on the requisition "antrum/pylorus," is received in formalin and consists of one de jesus soft tissue fragment that measures 0.3 cm in greatest dimension. The specimen is entirely submitted in cassette (A1). B. The specimen, labeled "CS, 2," and designated on the requisition "anastomosis," is received in formalin and consists of two de jesus soft tissue fragments that measure 0.2 to 0.3 cm in greatest dimension. The specimen is entirely submitted in cassette (B1). AT (under the direct supervision of a pathologist) The Gross Description was prepared using a voice recognition system. The report was reviewed for accuracy; however, sound-alike word errors, addition and/or deletions may occur. If there is any question about this report, please contact Client Services. PATIENT NAME: LAISHA THOMPSON PATHOLOGY DATE OF : 55 REPORT #: [id number] PHYSICIAN: KIKI AGUIRRE PCP: ROSA HOLDEN REPORT IS CONFIDENTIAL AND NOT TO BE RELEASED WITHOUT AUTHORIZATION [facility] [address] [place] [address] Signed PERFORMING LABORATORY: The technical component [facility] [place] [address] (CLIA# [id number]). Professional interpretation was performed by [facility], [address] [address] (CLIA# [id number]). Diagnostician: Brandi Garcia MD Pathologist Electronically Signed 08/01/2021 Copies: ~ PATIENT NAME: SEVERELAISHA PATHOLOGY DATE OF : 55 REPORT #: [id number] PHYSICIAN: [facility] PCP: HOLDEN,ROSA PAC REPORT IS CONFIDENTIAL AND NOT TO BE RELEASED WITHOUT AUTHORIZATION
--- NOTE | 2021-08-01 13:54 | OR ---
[facility] [address] [place], [place] [address] Signed DATE OF OPERATION: 07/31/2021 SURGEON: Kina Mane MD PREOPERATIVE DIAGNOSES: 1. 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 Gold Cannon [place], [place]). 2. History of recurrent laryngeal nerve palsy following operation; medialization procedure, Dr. Amilcar Dowd. POSTOPERATIVE DIAGNOSES: 1. Good medialized vocal cords. No evidence of abnormality. 2. Normal esophagogastric anastomosis. No evidence of stricture, neoplasm or other abnormality. PROCEDURE: Esophagogastroduodenoscopy with biopsy. ANESTHESIA: Intravenous sedation; fentanyl 100 mcg and Versed 4 mg. 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 This was performed by Dr. Gold Cannon in 2017 in [place], [place]. She had neoadjuvant chemoradiation therapy as well. She did suffer a recurrent laryngeal nerve injury at that time for which vocal cord medialization procedure has been performed and she is clinically doing well. She has no associated dysphagia, weight loss, or other problem and doing well. She is here for upper endoscopy to patency of the anastomosis and to assess for recurrent disease. FINDINGS: She had no evidence of anastomotic stricture or gastric outlet obstruction. The stomach was normal. The proximal hypopharyngeal tissues appeared to have no sign of neoplastic change or inflammation. There was good medialization of the vocal cords based on the appearance. She has clinically good function as well. DESCRIPTION OF PROCEDURE: The patient was brought to the endoscopy suite, and given no topical anesthetic Electronically Signed By: KINA MANE MD 08/01/21 1354 PATIENT NAME: LAISHA THOMPSON OPERATIVE REPORT DATE OF : 55 REPORT #: [id number] PHYSICIAN: KINA MANE MD PCP: ROSA HOLDEN PAC REPORT IS CONFIDENTIAL AND NOT TO BE RELEASED WITHOUT AUTHORIZATION [facility] [address] [place], [place] [address] Signed initially, but subsequently did require small amount of lidocaine hypopharyngeal anesthesia. Under full cardiopulmonary monitoring, intravenous sedation was induced. An Olympus video upper endoscope was passed in the hypopharynx. Vocal cords appeared normal with good medialization. The surrounding soft tissue was normal as well. The scope was passed into the esophagus without problem and into the misbah esophagus (tubular stomach), which was advanced down through the normal-appearing pylorus into the duodenum. Biopsies were taken of the duodenum and withdrawal to the antral portion of stomach undertaken and biopsy was taken for both SHENG and pathologic testing. Retroflexed view was undertaken upon withdrawal of the scope showing surprisingly normal-appearing stomach despite its tubular configuration at this time. The scope was withdrawn to the anastomosis which was very patent and without sign of inflammation or stricture. A small bit of a silk suture was noted. Biopsies were taken in this area. The scope was withdrawn to the hypopharynx and photographs were taken. There was no evidence of neoplastic change. The scope was removed and the patient was taken to the recovery room in good condition. CONCLUDING DIAGNOSES: Essentially curative squamous cell carcinoma of the esophagus. Good function and appearance of vocal cords following medialization procedure. PLAN: Recommend repeat upper endoscopy in 2 to 3 years, sooner if symptoms should develop. MD TIN Garcia/RUPAL /[id number] cc: TORREY Lancaster MD Electronically Signed By: KINA MANE MD 08/01/21 1354 PATIENT NAME: LAISHA THOMPSON OPERATIVE REPORT DATE OF : 55 REPORT #: [id number] PHYSICIAN: KINA MANE MD PCP: ROSA HOLDEN PAC REPORT IS CONFIDENTIAL AND NOT TO BE RELEASED WITHOUT AUTHORIZATION [facility] [address] [place] [id number] Signed Copies: ROSA HOLDEN ~ Electronically Signed By: KINA MANE MD 08/01/21 1354 PATIENT NAME: LAISHA THOMPSON OPERATIVE REPORT DATE OF : 55 REPORT #: [id number] PHYSICIAN: KINA MANE MD PCP: ROSA HOLDEN PAC REPORT IS CONFIDENTIAL AND NOT TO BE RELEASED WITHOUT AUTHORIZATION
== END 2021-07-31 12:45 | disposition home or self-care (01) ==
LOC: OPS 11:05 → DS 11:10 → OPS 12:45 → DS 13:00 → OPS 13:00
PROVIDERS: ATTEND Surgery
PROC: 0DB68ZX Excision of Stomach, Via Natural or Artificial Opening Endoscopic, Diagnostic (ICD-10-PCS; 2021-07-31)
PROC: 0DB58ZX Excision of Esophagus, Via Natural or Artificial Opening Endoscopic, Diagnostic (ICD-10-PCS; principal; 2021-07-31 11:00)
DX: Z08 Encounter for follow-up examination after completed treatment for malignant neoplasm (principal); K29.50 Unspecified chronic gastritis without bleeding; E89.0 Postprocedural hypothyroidism; Z87.09 Personal history of other diseases of the respiratory system; Z85.01 Personal history of malignant neoplasm of esophagus; Z85.850 Personal history of malignant neoplasm of thyroid
CPT/HCPCS: G0500; J2250; J3010; J7121

== ENCOUNTER 2023-04-11 20:20 | Emergency (ER) | payer BC ==
[~2023-04-11] VITALS: Ht 167.6 cm; Wt 61.4 kg
[2023-04-11] MEDS ORDERED: OXYCODONE-ACET1 EAC3 PO (20:37)
[2023-04-11] MEDS ORDERED: WARFARIN SODIU2.5 MG PO (20:38)
[2023-04-11 20:47] LABS: BILIRUBIN, URINE NEGATIVE (negative); BLOOD/HGB, URINE NEGATIVE (Negative); KETONE, URINE NEGATIVE (Negative); LEUK ESTERASE, URINE TRACE (negative); NITRITE, URINE NEGATIVE (negative)
[2023-04-11 21:08] LABS: BACTERIA, URINE 1+ /hpf (negative); EPITHELIAL CELLS, URINE SQUAMOUS 1+ /lpf (0-1+); REFLEX CULTURE, URINE Yes (No)
[2023-04-11] MEDS ORDERED: CEPHALEXIN500 M1 PO (21:15)
[2023-04-11] MEDS ORDERED: PYRIDIUM200 MG PO (21:15)
[2023-04-11 21:28] VITALS: BP 119/72
== END 2023-04-11 21:28 | disposition home or self-care (01) ==
LOC: ED 20:20
PROVIDERS: Emergency Medicine
DX: N39.0 Urinary tract infection, site not specified (principal); Z96.641 Presence of right artificial hip joint; Z79.899 Other long term (current) drug therapy; Z79.01 Long term (current) use of anticoagulants
CPT/HCPCS: 81001; 87088; 99283; A9270

== ENCOUNTER 2023-08-26 10:28 | Day surgery (SDC) | payer BC ==
[~2023-08-26] VITALS: Ht 167.6 cm; Wt 58.1 kg
[~2023-08-26 10:28] MED LIST changes: +CEPHALEXIN500 M1 PO; +IBLOOD GLUCOSE TEST STRIP 1 EA TEST VI PRN; +LACTATED RINGER'S 1,000 ML IV SCH; +LIDOCAINE HCL 1% 5 ML SDV INJ ONE; +LIDOCAINE HCL 4% 50 ML BTL TOP SCH; +OXYCODONE-ACET1 EAC3 PO; +PYRIDIUM200 MG PO; +WARFARIN SODIU2.5 MG PO
[2023-08-26 10:41] VITALS: BP 140/85
[2023-08-26] MEDS ORDERED: MIDAZOLAM HCL 5 MG/5 ML VIAL ONE (11:14)
[2023-08-26] MEDS ORDERED: fentaNYL citrate 100 MCG/2 ML VIAL ONE (11:14)
[2023-08-26] MEDS ORDERED: CEFAZOLIN SODIUM 1 GM/10 ML SYR IV ONE (11:15)
--- NOTE | 2023-08-26 11:19 | NUR ---
ORDERED PREOP ABX.
--- NOTE | 2023-08-26 11:57 | NUR ---
08/26/23 1157 Zeny Samayoa 1147-PATIENT ARRIVED TO PACU ON 3L NC RR EVEN. PATIENT AWAKE LAYING LEFT LATERAL ABDOMEN SOFT IVF INFUSING. PATIENT DENIES PAIN OR NAUSEA. 1157-PATIENT SLEEPING PLACED ON RA RR EVEN 100%
[2023-08-26 12:23] VITALS: BP 123/85
--- NOTE | 2023-08-28 09:47 | OR ---
[facility] [address] [place], [place] [address] Signed DATE OF OPERATION: 08/26/2023 SURGEON: Kina Mane MD PREOPERATIVE DIAGNOSES: 1. History of squamous cell carcinoma of the esophagus status post esophagectomy with gastric pull-ups ([address] Gold Cannon in [facility]). 2. History of papillary thyroid carcinoma, status post right thyroid lobectomy 2018 (Kina Mane). 3. 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 POSTOPERATIVE DIAGNOSES: 1. No evidence of esophagogastric anastomotic stricture. 2. Mild gastritis, normal duodenum. PROCEDURE: Esophagogastroduodenoscopy with biopsy. ANESTHESIA: Intravenous sedation; fentanyl 100 mcg and Versed 4 mg and additionally Ancef 1 g. INDICATION: This 67-year-old white woman is a patient of DAY Lancaster. She suffered squamous cell carcinoma of the mid esophagus, undergoing chemotherapy, radiation therapy and ultimately esophageal resection by Dr. Gold Cannon in [facility] in 2016. She has had no evidence of recurrence. She has no current dysphagia. She does have history of right-sided papillary thyroid carcinoma, status post thyroid lobectomy by mt in 2018. Additionally, she has suffered a vocal cord palsy in relation to her esophageal resection undergoing thyroplasty in [facility]. 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 She is admitted at this time to undergo upper endoscopy as surveillance regarding esophageal cancer. The risk of bleeding, infection, and perforation related to upper endoscopy were reviewed with her. She understands and wished to proceed. FINDINGS: Esophagogastric anastomosis was widely patent without sign of stricture. The stomach itself had mild chronic inflammation, no ulceration. CLOtest was negative and the duodenum was normal. Electronically Signed By: KINA MANE MD 08/28/23 0947 PATIENT NAME: LAISHA THOMPSON OPERATIVE REPORT DATE OF : 55 REPORT #: [id number] PHYSICIAN: KINA MANE MD PCP: MARKY GARVEY REPORT IS CONFIDENTIAL AND NOT TO BE RELEASED WITHOUT AUTHORIZATION [facility] [address] [place], [place] [address] Signed DESCRIPTION OF PROCEDURE: The patient was brought to the endoscopy suite, placed in lateral decubitus position. The patient refused topical lidocaine hypopharyngeal anesthesia. She was given intravenous sedation to the point of slurred speech and nystagmus. A bite block was placed. An Olympus video upper endoscope was passed in the hypopharynx. The vocal cords were asymmetric with atrophy of one of them concordant to her prior injury and remedy. The scope was easily passed beyond the esophagogastric anastomosis into the stomach which was well positioned in the thorax. There was mild diffuse inflammation of the stomach, but not much. There was no sign of gastric outlet obstruction. The pylorus was otherwise normal. The scope was passed into the duodenum. The duodenum was normal. Biopsies were obtained nevertheless. The scope was withdrawn and biopsies taken of the stomach for both SHENG and pathologic testing. Careful passage of the scope through the esophagogastric anastomosis showed no sign of stricture or neoplasm. Scope was removed and the patient was taken to the recovery room in good condition. CONCLUDING DIAGNOSIS: No evidence of recurrent disease or anastomotic stricture. Mild gastritis of uncertain significance. PLAN: She will continue with her PPI medication as previously outlined by Dr. Cannon. She did have a CT scan of the abdomen and chest performed on 08/10/2023. Findings were unremarkable on that evaluation other than an ill-defined 7 mm hypervascular focus in segment IV of the liver, not conspicuous on previous studies. Recommendation was made for an MRI of the abdomen with and without contrast. We will take that into consideration. MD TIN Garcia/YUVALL /[id number] cc: TORREY Lancaster MD Electronically Signed By: KINA MANE MD 08/28/23 0947 PATIENT NAME: LAISHA THOMPSON OPERATIVE REPORT DATE OF : 55 REPORT #: [id number] PHYSICIAN: KINA MANE MD PCP: MARYK GARVEY REPORT IS CONFIDENTIAL AND NOT TO BE RELEASED WITHOUT AUTHORIZATION [address] [address] Signed Copies: ROSA HOLDEN LOCATED WITHIN [facility] Electronically Signed By: KINA MANE MD 08/28/23 0947 PATIENT NAME: LAISHA THOMPSON OPERATIVE REPORT DATE OF : 55 REPORT #: [id number] PHYSICIAN: KINA MANE MD PCP: MARKY GARVEY REPORT IS CONFIDENTIAL AND NOT TO BE RELEASED WITHOUT AUTHORIZATION
--- NOTE | 2023-09-01 11:10 | PATH ---
[facility] [address] [facility] [place], [place] [address] Signed SPECIMEN(S): A DUODENUM BIOPSY SPECIMEN(S): B ANTRUM BIOPSY SPECIMEN SOURCE: A. DUODENUM BIOPSY B. ANTRUM BIOPSY CLINICAL HISTORY: History of esophagus cancer, vocal cord dysfunction, mild gastritis FINAL PATHOLOGIC DIAGNOSIS: A. Duodenum, biopsies: - Mild chronic duodenitis with Kendal's gland hyperplasia, negative for active inflammation or significant villous blunting. B. Antrum, biopsies: - Mild chronic antral gastritis with vascular congestion, negative for active inflammation. - No H. pylori bacteria are detected by HE stain. AMB MICROSCOPIC EXAMINATION: Histologic sections of all submitted blocks are examined by light microscopy. These findings, together with the gross examination, support the pathologic diagnosis. GROSS DESCRIPTION: A. The specimen, labeled and designated "Severe, duodenum biopsy," is received in formalin and consists of two de jesus soft tissue fragments, ranging from 0.2-0.4 cm. Entirely submitted in (A1). B. The specimen, labeled and designated "Severe, antrum biopsy," is received in formalin and consists of two de jesus soft tissue fragments, ranging from 0.3-0.7 cm. Entirely submitted in (B1). VB (under the direct supervision of a pathologist) The Gross Description was prepared using a voice recognition system. The report was reviewed for accuracy; however, sound-alike word errors, addition and/or deletions may occur. If there is any question about this report, please contact Client Services. ADDITIONAL NOTES: Immunohistochemical and/or in situ hybridization studies if performed in this case included appropriate positive controls that reacted as expected. This PATIENT NAME: SEVERELAISHA PATHOLOGY DATE OF : 55 REPORT #: [id number] PHYSICIAN: KIKI AGUIRRE PCP: MARKY GARVEY REPORT IS CONFIDENTIAL AND NOT TO BE RELEASED WITHOUT AUTHORIZATION [facility] [address] [facility] [place] [address] Signed test was developed and its performance characteristics determined by [facility] It has not been cleared or approved by the U.S. Food and Drug Administration. The FDA has determined that such clearance or approval is not necessary. This test is used for clinical purposes. It should not be regarded as investigational or for research. [facility] is certified under the Clinical Laboratory Improvement Amendments of 1988 (CLIA) as qualified to perform high complexity clinical laboratory testing. PERFORMING LABORATORY: Technical component was performed by [facility] [address] [place] [id number] (CLIA# [id number]). Professional interpretation was performed by [facility] - [address] [id number] Diagnostician: Rosa Curtis MD Pathologist Electronically Signed 09/01/2023 Copies: ~ PATIENT NAME: SEVERELAISHA PATHOLOGY DATE OF : 55 REPORT #: [id number] PHYSICIAN: KIKI AGUIRRE PCP: MARKY GARVEY REPORT IS CONFIDENTIAL AND NOT TO BE RELEASED WITHOUT AUTHORIZATION
== END 2023-08-26 12:30 | disposition home or self-care (01) ==
LOC: OPS 10:28 → DS 10:33 → OPS 12:30 → DS 14:00
PROVIDERS: ATTEND Surgery
PROC: 0DJ08ZZ Inspection of Upper Intestinal Tract, Via Natural or Artificial Opening Endoscopic (ICD-10-PCS; principal; 2023-08-26 14:00)
DX: K29.80 Duodenitis without bleeding (principal); K29.50 Unspecified chronic gastritis without bleeding; Z85.01 Personal history of malignant neoplasm of esophagus; Z85.850 Personal history of malignant neoplasm of thyroid; R49.9 Unspecified voice and resonance disorder; R04.1 Hemorrhage from throat; K21.9 Gastro-esophageal reflux disease without esophagitis; Z79.890 Hormone replacement therapy; Z79.899 Other long term (current) drug therapy
CPT/HCPCS: G0500; J0690; J2250; J3010; J7121